=== PATIENT | male | born 1945 | race Caucasian/White ===

== ENCOUNTER 2016-10-06 11:49 | Day surgery (SDC) | payer MEDICARE ==
[2016-10-05 08:20] VITALS: BMI 25.0
[~2016-10-06 11:49] MED LIST: LACTATED RINGERS 1,000 ML IV SCH
[2016-10-06 12:12] VITALS: TEMP 97.9
[2016-10-06] MEDS: CYCLOPENTOLATE 1% OPHTH SOLN 2 ML BTL OP ONE ×3 (12:24→12:37)
[2016-10-06] MEDS ORDERED: LIDOCAINE 1% 20 ML VIAL (10MG/ML) FOR IV START INTRADERMA ONE (12:25)
[2016-10-06] MEDS: FLURBIPROFEN 0.03% OPHTH DROPS 2.5 ML BTL OP ONE ×3 (12:26→12:40)
[2016-10-06] MEDS: PHENYLEPHRINE 10% OPHTH DROPS 5 ML BTL OP ONE ×3 (12:28→12:43)
[2016-10-06] MEDS ORDERED: PROPOFOL 10 MG/ML 20 ML VIAL IV ONE (13:17)
[2016-10-06] MEDS ORDERED: BALANCED SALT IRRIG SOLN COMB2 15 ML IRRIG.SOLN INTRAOCULA ONE (13:23)
[2016-10-06] MEDS ORDERED: HYALURONATE SODIUM INTRAOCULAR 1 EACH SYRINGE (10MG/ML) INTRAOCULA ONE (13:23)
[2016-10-06] MEDS ORDERED: EPINEPHrine (PF) 0.5 ML in BALANCED SALT IRRIG SOLN COMB2 500 ML IRRIGATION ONE (13:24)
--- NOTE | 2016-10-06 13:39 | P.OP ---
Date of Procedure: 10/06/16 Procedure(s) Performed: PREOPERATIVE DIAGNOSIS: Cataract, right eye. POSTOPERATIVE DIAGNOSIS: Cataract, right eye. OPERATION: Phacoemulsification cataract, right eye. DESCRIPTION OF PROCEDURE: The patient was taken to the preoperative holding area. Intravenous Propofol was given so as to bring about adequate sedation. The following mixture was given for local anesthesia: 5 mL of 2% lidocaine, 5 mL of 0.75% Marcaine, and 1 mL of Wydase. Approximately 4 mL was injected in the retrobulbar space of the surgical eye. Additional 1 mL was then directed to the temporal area of the surgical eye. This was performed to allow adequate neurological block of the facial muscles. The patient was revived and then taken into the operative room. The patient was prepped and draped in the usual sterile manner for the operative eye. A lid speculum was put into position. The conjunctiva was resected back from the limbus in the 12 o'clock position. Bleeding was controlled with electrocautery. A #69 blade was then used and a half-thickness scleral incision approximately 1-mm posterior to the limbus was made on bare sclera. This was shelved in the clear cornea using a crescent knife. Next a 15-degree blade was used to make a stab incision at the 3 o' clock position at the corneolimbal interface. Keratome blade was then used and the superior wound was extended into the anterior chamber. Viscoelastic was injected into the anterior chamber and to maintain its form. Next, a cystotome was used and a continuous anterior capsulotomy was made without difficulty. Hydrodissection using a blunt cannula and BSS was performed. Phaco probe was then employed and a groove extending from 12 to 6 o'clock in the lens was created. A Gera wand was used through the stab incision so as to perform a divide and conquer technique. Next an irrigation aspiration probe was utilized and any residual cortex was removed from the eye. Again, viscoelastic was injected into the anterior chamber. An Nicolás posterior chamber lens implant was placed in the cartridge and injected into the anterior chamber without difficulty. The Sin[employer]Movieey hook was utilized to spin the lens into position and this was again performed without any difficulty. The irrigation and aspiration probe was again employed and any residual viscoelastic was removed from the eye. Then BSS was injected into the limbal stab incision and the anterior chamber re-inflated. The conjunctiva was reapproximated using electrocautery. One drop of 0.25% Timoptic was placed over the corneal along with TobraDex ophthalmic ointment. Two sterile patches and a Buenrostro eye shield were taped into position. The patient was transported to the recovery room in stable condition. Pathology: none sent Condition: stable Disposition: same day
[2016-10-06 14:03] VITALS: RESP 18
[2016-10-06 14:09] VITALS: BP 184/86; PULSE 52
[2016-10-06] MEDS ORDERED: GENTAMICIN/PREDNISOL AC OPHTH OINT 3.5GM OPHTHALMIC ONE (23:00)
[2016-10-06] MEDS ORDERED: BUPIVACAINE (PF) 0.75% 5 ML, LIDOCAINE 4% (PF) 5 ML, HYALURONIDASE, HUMAN RECOMB 150 UNIT MISCELLANE ONE ×3 (23:00)
[2016-10-06] MEDS ORDERED: TIMOLOL 0.5% OPHTH SOLN (PF) 0.2 ML DROPERETTE OP ONE (23:00)
== END 2016-10-06 14:25 | disposition home or self-care (01) ==
LOC: OR 11:49
PROVIDERS: ATTEND Ophthalmology
DX: H26.9 Unspecified cataract (principal); E78.5 Hyperlipidemia, unspecified; E07.9 Disorder of thyroid, unspecified; F32.9 Major depressive disorder, single episode, unspecified; Z85.01 Personal history of malignant neoplasm of esophagus; Z79.899 Other long term (current) drug therapy
CPT/HCPCS: 66984; V2632; J2001; J3470; J0171; J2704

== ENCOUNTER 2016-11-17 10:42 | Day surgery (SDC) | payer MEDICARE ==
[2016-11-11 08:53] VITALS: BMI 26.4
[2016-11-17] MEDS: CYCLOPENTOLATE 1% OPHTH SOLN 2 ML BTL OP ONE ×3 (11:40→12:03)
[2016-11-17 11:42] VITALS: TEMP 97.4
[2016-11-17] MEDS: FLURBIPROFEN 0.03% OPHTH DROPS 2.5 ML BTL OP ONE ×3 (11:43→12:06)
[2016-11-17] MEDS: PHENYLEPHRINE 10% OPHTH DROPS 5 ML BTL OP ONE ×3 (11:47→12:09)
[2016-11-17] MEDS ORDERED: LIDOCAINE 1% 20 ML VIAL (10MG/ML) FOR IV START INTRADERMA ONE (11:51)
[2016-11-17] MEDS ORDERED: PROPOFOL 10 MG/ML 20 ML VIAL IV ONE (12:14)
[2016-11-17] MEDS ORDERED: MIDAZOLAM 2 MG/2 ML VIAL ONE (12:14)
[2016-11-17] MEDS ORDERED: fentaNYL (PF) 50 MCG/ML 2 ML AMP ONE (12:14)
[2016-11-17] MEDS ORDERED: EPINEPHrine (PF) 0.5 ML in BALANCED SALT IRRIG SOLN COMB2 500 ML IRRIGATION ONE (12:16)
[2016-11-17] MEDS ORDERED: HYALURONATE SODIUM INTRAOCULAR 1 EACH SYRINGE (10MG/ML) INTRAOCULA ONE (12:19)
[2016-11-17] MEDS ORDERED: BALANCED SALT IRRIG SOLN COMB2 15 ML IRRIG.SOLN IRRIGATION ONE (12:19)
--- NOTE | 2016-11-17 12:36 | P.OP ---
Date of Procedure: 11/17/16 Preoperative Diagnosis: Postoperative Diagnosis: Procedure(s) Performed: PREOPERATIVE DIAGNOSIS: Cataract, left eye. POSTOPERATIVE DIAGNOSIS: Cataract, left eye. OPERATION: Phacoemulsification cataract, left eye. DESCRIPTION OF PROCEDURE: The patient was taken to the preoperative holding area. Intravenous Propofol was given so as to bring about adequate sedation. The following mixture was given for local anesthesia: 5 mL of 2% lidocaine, 5 mL of 0.75% Marcaine, and 1 mL of Wydase. Approximately 4 mL was injected in the retrobulbar space of the surgical eye. Additional 1 mL was then directed to the temporal area of the surgical eye. This was performed to allow adequate neurological block of the facial muscles. The patient was revived and then taken into the operative room. The patient was prepped and draped in the usual sterile manner for the operative eye. A lid speculum was put into position. The conjunctiva was resected back from the limbus in the 12 o'clock position. Bleeding was controlled with electrocautery. A #69 blade was then used and a half-thickness scleral incision approximately 1-mm posterior to the limbus was made on bare sclera. This was shelved in the clear cornea using a crescent knife. Next a 15-degree blade was used to make a stab incision at the 3 o' clock position at the corneolimbal interface. Keratome blade was then used and the superior wound was extended into the anterior chamber. Viscoelastic was injected into the anterior chamber and to maintain its form. Next, a cystotome was used and a continuous anterior capsulotomy was made without difficulty. Hydrodissection using a blunt cannula and BSS was performed. Phaco probe was then employed and a groove extending from 12 to 6 o'clock in the lens was created. A Gera wand was used through the stab incision so as to perform a divide and conquer technique. Next an irrigation aspiration probe was utilized and any residual cortex was removed from the eye. Again, viscoelastic was injected into the anterior chamber. An Nicolás posterior chamber lens implant was placed in the cartridge and injected into the anterior chamber without difficulty. The Althea Systemsey hook was utilized to spin the lens into position and this was again performed without any difficulty. The irrigation and aspiration probe was again employed and any residual viscoelastic was removed from the eye. Then BSS was injected into the limbal stab incision and the anterior chamber re-inflated. The conjunctiva was reapproximated using electrocautery. One drop of 0.25% Timoptic was placed over the corneal along with TobraDex ophthalmic ointment. Two sterile patches and a Buenrostro eye shield were taped into position. The patient was transported to the recovery room in stable condition. Implants: Pathology: none sent Condition: stable Disposition: same day Indications for Procedure: Operative Findings: Description of Procedure:
[2016-11-17 12:46] VITALS: BP 157/101; PULSE 59; RESP 14
[2016-11-17] MEDS ORDERED: BUPIVACAINE (PF) 0.75% 5 ML, LIDOCAINE 4% (PF) 5 ML, HYALURONIDASE, HUMAN RECOMB 150 UNIT MISCELLANE ONE ×3 (23:00)
[2016-11-17] MEDS ORDERED: TIMOLOL 0.5% OPHTH SOLN (PF) 0.2 ML DROPERETTE OP ONE (23:00)
[2016-11-17] MEDS ORDERED: GENTAMICIN/PREDNISOL AC OPHTH OINT 3.5GM OPHTHALMIC ONE (23:00)
== END 2016-11-17 13:22 | disposition home or self-care (01) ==
LOC: OR 10:42
PROVIDERS: ATTEND Ophthalmology
DX: H26.9 Unspecified cataract (principal); E78.5 Hyperlipidemia, unspecified; E07.9 Disorder of thyroid, unspecified; C15.9 Malignant neoplasm of esophagus, unspecified; Z79.899 Other long term (current) drug therapy; Z96.1 Presence of intraocular lens
CPT/HCPCS: 66984; V2632; J2001; J2250; J3470; J0171; J3010; J2704

== ENCOUNTER → 2018-06-06 | Outpatient (CLI) | payer MEDICARE ==
[2018-06-06 11:17] LABS: Blood Urea Nitrogen 21 mg/dL (9-20)
--- NOTE | 2018-06-06 11:58 | CT ---
EXAMINATION TYPE: CT chest w con DATE OF EXAM: 06/06/2018 COMPARISON: Prior chest CT May 24, 2017 and older CTs HISTORY: esophagus CA progress study. Diagnosed and treated [address] DLP: 456.1 mGycm. Automated Exposure Control for Dose Reduction was Utilized. TECHNIQUE: CT scan of the thorax is performed following with IV Contrast, patient injected with 100 mL of Isovue 300. FINDINGS: LUNGS: There is ventricular coronal reticulation and fibrosis throughout both lungs most prominent in the lower lungs. There is small to tiny left pleural effusion increased in size from prior. No signi ficant right-sided effusion is seen currently. Dependent atelectasis in bilateral lower lobes is rede monstrated. No pneumothorax is seen bilaterally. Mild central peribronchial wall thickening is redemo nstrated. MEDIASTINUM: There is surgical change from esophagectomy and gastric pull-up procedure redemonstrated . Mild to moderate wall thickening in the proximal pull-up subcarinal level is redemonstrated. Distal to this there is dilatation and retained debris redemonstrated without obstructing distal stricture clearly seen. In the lower thorax there is redemonstration of herniation of portions of transverse co vivien to the left of the gastric pull-up. No suspicious dilatation to suggest obstruction is present. There are stable prominent but subcentimeter mediastinal lymph nodes. No pericardial effusion is se en. Heart size is stable and upper limits of normal. Coronary artery calcification is present which is noted marker for Coronary artery disease. Ascending aorta measures up to 4.0 cm diameter axial rafiq ge 29. OTHER: A few simple appearing cysts in left kidney are felt present. Cholecystectomy clips are redemo nstrated. IMPRESSION: Overall stable findings, no new mass or adenopathy to suggest neoplastic recurrence. Smal l to tiny left pleural effusion is larger versus prior.
== END | disposition home or self-care (01) ==
LOC: RADCTMAIN 10:29
PROVIDERS: ATTEND Thoracic Surgery (Cardiothoracic Vascular Surgery)
DX: C15.5 Malignant neoplasm of lower third of esophagus (principal)
CPT/HCPCS: 82565; 84520; 71260; 36415; Q9967

== ENCOUNTER → 2019-06-07 | Outpatient (CLI) | payer MEDICARE ==
[2019-06-07 11:37] LABS: African American GFR (CKD) >90 (>60 ml/min/1.73 sqM); Blood Urea Nitrogen 8 mg/dL (9-20); Non-African American GFR(CKD) 87 (>60 ml/min/1.73 sqM)
--- NOTE | 2019-06-07 17:16 | CT ---
EXAMINATION TYPE: CT chest w con DATE OF EXAM: 06/07/2019 COMPARISON: HISTORY: Malignant neoplasm of lower third of esophagus CT DLP: 663 mGycm, Automated exposure control for dose reduction was used. CONTRAST: Performed injected with 100 mL of Isovue 300. TECHNIQUE: Axial images were obtained at 5 mm thick sections. Reconstructed images are reviewed on [employer] computer in the coronal plane. FINDINGS: Portion of the thyroid visualized is normal. No suspicious lung nodules or focal infiltrates are present. There appears to be pulmonary fibrosis p resent especially noted at the right lung base. No enlarged mediastinal or hilar adenopathy is evident. Multiple small shotty lymph nodes are prese nt. The ascending aorta diameter at the level of the main pulmonary artery is 4.1 cm. The main pulmo nary artery diameter at the bifurcation is 2.[address] sections are obtained through the upper abdomen. There is a gastric pull-through. Left dejon al cyst is present. IMPRESSIONS: 1. No suspicious interval change to suggest metastatic esophageal cancer. 2. Pulmonary fibrosis
== END | disposition home or self-care (01) ==
LOC: RADCTMAIN 10:56
PROVIDERS: ATTEND Thoracic Surgery (Cardiothoracic Vascular Surgery)
DX: C15.5 Malignant neoplasm of lower third of esophagus (principal); J84.10 Pulmonary fibrosis, unspecified
CPT/HCPCS: 82565; 84520; 71260; 36415; Q9967

== ENCOUNTER → 2020-06-24 | Outpatient (CLI) | payer MEDICARE ==
[2020-06-24 10:34] LABS: African American GFR (CKD) >90 (>60 ml/min/1.73 sqM); Blood Urea Nitrogen 12 mg/dL (9-20); Non-African American GFR(CKD) 84 (>60 ml/min/1.73 sqM)
--- NOTE | 2020-06-24 12:02 | CT ---
EXAMINATION TYPE: CT angio abdomen DATE OF EXAM: 06/24/2020 COMPARISON: CTA aorta October 20, 2013 HISTORY: follow up known abdominal aortic aneurysm CT DLP: 385.1 mGycm, Automated Exposure Control for Dose Reduction was Utilized. CONTRAST: CTA scan of the abdomen and pelvis is performed with oral and with IV Contrast, patient injected with 100 mL of Isovue 370. 3-D reconstructive images created on an independent workstation and reviewed. FINDINGS: VASCULAR: Interval aneurysm surgery with new graft that shows patency. The [place] aneurysm measures u p to 3.1 cm transversely axial image 44. Distal to the surgery there is moderate to severe plaque in the iliac arterial branches with less prominent plaque extending into the femoral artery branches. No significant stenosis is present. There is a patent celiac artery and SMA without significant stenosi s. Patent bilateral single renal arteries remain present. The accessory inferior left renal artery on prior study axial image 37 is now less well seen. It is presumed occluded or now surgically absent c ausing the nonperfusion atrophy anterior lower pole left kidney. LUNG BASES: Dependent atelectasis and/or scarring right lung base redemonstrated. LIVER/GB: Cholecystectomy clips redemonstrated. PANCREAS: No significant abnormality is seen. SPLEEN: No significant abnormality is seen. ADRENALS: No significant abnormality is seen. KIDNEYS: New area of diminished perfusion and cortical volume loss anteriorly lower pole of the left kidney measures 36. There is a stable 1.6 cm thin-walled cyst posteriorly midpole of the left kidney axial image 31. BOWEL: Partial visualization of at least moderate size hiatal hernia. Prominent diverticulosis in the sigmoid colon. No CT evidence for acute diverticulitis. PROSTATE/SEMINAL VESICLES: Mildly enlarged prostate bulging on bladder base. LYMPH NODES: No greater than 1cm abdominal or pelvic lymph nodes are appreciated. OSSEOUS STRUCTURES: Underlying scoliotic curvature. Mild/moderate narrowing and spurring of both hip joints. OTHER: No significant additional abnormality is seen. IMPRESSION: Interval surgery since 2013 with patent aortobiiliac graft, marked improvement in prior v isualized AAA after surgery.
== END | disposition home or self-care (01) ==
LOC: RADCTMAIN 09:26
PROVIDERS: ATTEND Thoracic Surgery (Cardiothoracic Vascular Surgery)
DX: I71.4 Abdominal aortic aneurysm, without rupture (principal)
CPT/HCPCS: 82565; 84520; 74175; 36415; Q9967

== ENCOUNTER 2022-04-06 06:32 | Inpatient (IN) | payer MEDICARE ==
--- NOTE | 2022-04-06 07:02 | XR ---
EXAMINATION TYPE: XR chest 2V DATE OF EXAM: 04/06/2022 6:57 AM COMPARISON: Chest radiographs from 12/06/2013, CT chest 06/07/2019. TECHNIQUE: XR chest 2V Frontal and lateral views of the chest. CLINICAL INDICATION:Male, 77 years old with history of Chest Pain; FINDINGS: Lungs/Pleura: There is flattening of the diaphragm with increased lucency of the lungs. No evidence o f pneumothorax or pleural effusion. Bibasilar patchy airspace opacities. Pulmonary vascularity: Unremarkable. Heart/mediastinum: Cardiomediastinal silhouette is unremarkable. Musculoskeletal: No acute osseous pathology. Degenerative changes of the spine. IMPRESSION: 1. Bibasilar patchy airspace opacities which may represent atelectasis versus infiltrate. 2. COPD changes.
[2022-04-06] MEDS ORDERED: FAMOTIDINE 20 MG/2 ML VIAL IV STA (07:16)
[2022-04-06] MEDS ORDERED: ONDANSETRON 4 MG/2 ML VIAL IVP STA (07:16)
[2022-04-06 07:21] LABS: Basophils % (A) 0 %; Eosinophils % (A) 0 %; HCT 45.9 % (39.0-53.0); HGB 15.2 gm/dL (13.0-17.5); Lymphocytes # (A) 0.6 k/uL (1.0-4.8); Lymphocytes % (A) 6 %; MCH 30.8 pg (25.0-35.0); MCHC 33.1 g/dL (31.0-37.0); MCV 93.3 fL (80.0-100.0); Monocytes # (A) 0.5 k/uL (0-1.0); Monocytes % (A) 5 %; Neutrophils # (A) 8.4 k/uL (1.3-7.7); Neutrophils % (A) 87 %; Platelet Count 143 k/uL (150-450); RBC 4.92 m/uL (4.30-5.90); RDW 14.6 % (11.5-15.5); WBC 9.6 k/uL (3.8-10.6)
--- NOTE | 2022-04-06 07:21 | ED ---
General Adult HPI - General Chief complaint: Abdominal Pain Stated complaint: Abdominal pain Time Seen by Provider: 04/06/22 06:56 Source: patient, family, RN notes reviewed Mode of arrival: ambulatory Limitations: no limitations - History of Present Illness Initial comments: Patient is a pleasant 77-year-old male presenting to the emergency Department with abdominal pain. Majority of history comes from family. Onset of symptoms was a few hours ago during the night. Patient has abdominal discomfort, mostly lower. Difficult to describe. No history of similar symptoms previously. Patient does have associated nausea and has vomited. Patient has had some mild constipation. No diarrhea. No fever. - Related Data Home Medications Medication Instructions Recorded Confirmed Atorvastatin [Lipitor] 10 mg PO QAM 11/30/13 11/17/16 PARoxetine HCL [Paroxetine HCl] 20 mg PO QAM 11/30/13 11/17/16 Levothyroxine Sodium [Synthroid] 25 mcg PO DAILY 10/05/16 11/17/16 Allergies Allergy/AdvReac Type Severity Reaction Status Date / Time No Known Allergies Allergy Verified 04/06/22 06:46 Review of Systems ROS Statement: Those systems with pertinent positive or pertinent negative responses have been documented in the HPI. ROS Other: All systems not noted in ROS Statement are negative. Constitutional: Denies: fever Eyes: Denies: eye pain ENT: Denies: ear pain Respiratory: Denies: cough Cardiovascular: Denies: chest pain Endocrine: Denies: fatigue Gastrointestinal: Reports: as per HPI, abdominal pain, nausea, vomiting Genitourinary: Denies: dysuria Musculoskeletal: Reports: other (Patient also has back discomfort associated) Skin: Denies: rash Neurological: Denies: weakness Past Medical History Past Medical History: Cancer, Hearing Disorder / Deafness, Hyperlipidemia, Pneumonia, Prostate Disorder Additional Past Medical History / Comment(s): Esophageal Cancer 2012; cochlear implants for loss of hearing History of Any Multi-Drug Resistant Organisms: None Reported Past Surgical History: Cholecystectomy Additional Past Surgical History / Comment(s): esophagectemy in May 2013, Abdominal Aortic Aneurysm repair on December 06, 2013; cochlear implant in 2009, cholecystectomy in 2007 Past Anesthesia/Blood Transfusion Reactions: No Reported Reaction Past Psychological History: No Psychological Hx Reported Smoking Status: Never smoker Past Alcohol Use History: Occasional Past Drug Use History: Marijuana - Past Family History Brother(s) Family Medical History: Unable to Obtain Additional Family Medical History / Comment(s): patient states that he was adopted when he was 3 from a [place] [facility] along with his little sister, later found that he had 2 half brothers and 2 half sisters, no medical problems as far as he knows. does not know whether his biological mother and father had any medical issues General Exam Limitations: no limitations General appearance: alert Head exam: Present: normocephalic Eye exam: Present: normal appearance Neck exam: Present: normal inspection Respiratory exam: Present: normal lung sounds bilaterally Cardiovascular Exam: Present: regular rate, normal rhythm Expanded Peripheral pulses: 2+: Posterior Tibialis (R), Posterior Tibialis (L), Dorsalis Pedis (R), Dorsalis Pedis (L) GI/Abdominal exam: Present: soft, tenderness (Moderate lower abdominal tenderness to palpation), normal bowel sounds. Absent: distended, guarding, rebound, rigid, pulsatile mass Extremities exam: Present: normal inspection Neurological exam: Present: alert Psychiatric exam: Present: normal affect, normal mood Skin exam: Present: normal color Course Vital Signs 04/06/22 04/06/22 04/06/22 06:43 07:50 09:03 Temperature 98 F Pulse Rate 70 74 72 Respiratory 19 22 18 Rate Blood Pressure 195/106 175/111 170/103 O2 Sat by Pulse 98 98 99 Oximetry EKG Findings - EKG Comments: EKG Findings:: H a rhythm rate of 76. QRS 146. QT 422. QTC 456. Left axis. Right bundle branch block. No acute ST change. Nonspecific T waves. Medical Decision Making - Medical Decision Making Patient reevaluated. Patient starting to return of discomfort. Patient and family updated. Patient remains hypertensive. Antihypertensive medication provided. Patient will be admitted with surgical consult. [facility] [place] has been paged covering for Dr. Gee, who admits for Dr. Jack Bowman. - Lab Data Result diagrams: 04/06/22 06:49 04/06/22 06:49 Lab Results 04/06/22 04/06/22 04/06/22 Range/Units 06:49 06:49 06:49 WBC 9.6 (3.8-10.6) k/uL RBC 4.92 (4.30-5.90) m/uL Hgb 15.2 (13.0-17.5) gm/dL Hct 45.9 (39.0-53.0) % MCV 93.3 (80.0-100.0) fL MCH 30.8 (25.0-35.0) pg MCHC 33.1 (31.0-37.0) g/dL RDW 14.6 (11.5-15.5) % Plt Count 143 L (150-450) k/uL MPV 9.0 Neutrophils % 87 % Lymphocytes % 6 % Monocytes % 5 % Eosinophils % 0 % Basophils % 0 % Neutrophils # 8.4 H (1.3-7.7) k/uL Lymphocytes # 0.6 L (1.0-4.8) k/uL Monocytes # 0.5 (0-1.0) k/uL Eosinophils # 0.0 (0-0.7) k/uL Basophils # 0.0 (0-0.2) k/uL PT 11.4 (9.0-12.0) sec INR 1.1 (<1.2) APTT 23.0 (22.0-30.0) sec Sodium 136 L (137-145) mmol/L Potassium 3.7 (3.5-5.1) mmol/L Chloride 100 (98-107) mmol/L Carbon Dioxide 25 (22-30) mmol/L Anion Gap 11 mmol/L BUN 11 (9-20) mg/dL Creatinine 0.70 (0.66-1.25) mg/dL Est GFR (CKD-EPI)AfAm >90 (>60 ml/min/1.73 sqM) Est GFR (CKD-EPI)NonAf >90 (>60 ml/min/1.73 sqM) Glucose 170 H (74-99) mg/dL Calcium 8.1 L (8.4-10.2) mg/dL Magnesium 1.7 (1.6-2.3) mg/dL Total Bilirubin 0.7 (0.2-1.3) mg/dL AST 47 (17-59) U/L ALT 24 (4-49) U/L Alkaline Phosphatase 152 H (38-126) U/L Troponin I (0.000-0.034) ng/mL Total Protein 8.1 (6.3-8.2) g/dL Albumin 3.6 (3.5-5.0) g/dL Amylase 80 (30-110) U/L Lipase 82 (23-300) U/L 04/06/22 Range/Units 06:49 WBC (3.8-10.6) k/uL RBC (4.30-5.90) m/uL Hgb (13.0-17.5) gm/dL Hct (39.0-53.0) % MCV (80.0-100.0) fL MCH (25.0-35.0) pg MCHC (31.0-37.0) g/dL RDW (11.5-15.5) % Plt Count (150-450) k/uL MPV Neutrophils % % Lymphocytes % % Monocytes % % Eosinophils % % Basophils % % Neutrophils # (1.3-7.7) k/uL Lymphocytes # (1.0-4.8) k/uL Monocytes # (0-1.0) k/uL Eosinophils # (0-0.7) k/uL Basophils # (0-0.2) k/uL PT (9.0-12.0) sec INR (<1.2) APTT (22.0-30.0) sec Sodium (137-145) mmol/L Potassium (3.5-5.1) mmol/L Chloride (98-107) mmol/L Carbon Dioxide (22-30) mmol/L Anion Gap mmol/L BUN (9-20) mg/dL Creatinine (0.66-1.25) mg/dL Est GFR (CKD-EPI)AfAm (>60 ml/min/1.73 sqM) Est GFR (CKD-EPI)NonAf (>60 ml/min/1.73 sqM) Glucose (74-99) mg/dL Calcium (8.4-10.2) mg/dL Magnesium (1.6-2.3) mg/dL Total Bilirubin (0.2-1.3) mg/dL AST (17-59) U/L ALT (4-49) U/L Alkaline Phosphatase (38-126) U/L Troponin I 0.012 (0.000-0.034) ng/mL Total Protein (6.3-8.2) g/dL Albumin (3.5-5.0) g/dL Amylase (30-110) U/L Lipase (23-300) U/L - Radiology Data Radiology results: report reviewed (Computed tomography scan concerning for small bowel obstruction) Disposition Clinical Impression: Small bowel obstruction, Hypertension Disposition: ADMITTED IP TO THIS HOSP Is patient prescribed a controlled substance at d/c from ED?: No Referrals: Kuldip Bowman MD [Primary Care Provider] - 1-2 days Time of Disposition: 09:26
[2022-04-06 07:33] LABS: INR 1.1 (<1.2); Prothrombin Time 11.4 sec (9.0-12.0)
[2022-04-06 07:35] LABS: ALT 24 U/L (4-49); AST 47 U/L (17-59); African American GFR (CKD) >90 (>60 ml/min/1.73 sqM); Albumin 3.6 g/dL (3.5-5.0); Alkaline Phosphatase 152 U/L (38-126); Amylase 80 U/L (30-110); Anion Gap 11 mmol/L; Blood Urea Nitrogen 11 mg/dL (9-20); Calcium 8.1 mg/dL (8.4-10.2); Carbon Dioxide 25 mmol/L (22-30); Chloride 100 mmol/L (98-107); Glucose 170 mg/dL (74-99); Lipase 82 U/L (23-300); Magnesium 1.7 mg/dL (1.6-2.3); Non-African American GFR(CKD) >90 (>60 ml/min/1.73 sqM); Potassium 3.7 mmol/L (3.5-5.1); Sodium 136 mmol/L (137-145); Total Bilirubin 0.7 mg/dL (0.2-1.3); Total Protein 8.1 g/dL (6.3-8.2)
[2022-04-06] MEDS: HYDROmorphone 0.5 MG/0.5 ML SYRINGE IVP STA ×2 (07:49→09:35)
--- NOTE | 2022-04-06 08:56 | CT ---
EXAMINATION TYPE: CT abdomen pelvis w con CT DLP: 1088.4 mGycm, Automated exposure control for dose reduction was used. DATE OF EXAM: 04/06/2022 8:37 AM COMPARISON: CTA abdomen 06/24/2020, CT chest 06/07/2019 CLINICAL INDICATION:Male, 77 years old with history of abp; TECHNIQUE: Standard CT of the abdomen and pelvis following the administration of 100 cc of Isovue 3 00 IV contrast material. Coronal and sagittal reformats were performed. FINDINGS: LOWER CHEST: Similar pulmonary fibrotic changes especially in the right lung base. There is some righ t lower lobe consolidation. Left lower lobe stable 7 mm pulmonary nodule which is stable from prior c hest examination. Coronary artery calcifications. ABDOMEN LIVER: Unremarkable. GALLBLADDER AND BILE DUCTS: The gallbladder is surgically absent. Mild extrahepatic ductal dilatation which is not unexpected setting of cholecystectomy. PANCREAS: Unremarkable. SPLEEN: Unremarkable. ADRENAL GLANDS: Unremarkable. KIDNEYS AND URETERS: No hydronephrosis. The kidneys enhance symmetrically. Bilateral nonobstructive 3 mm renal calculi. Stable bilateral renal cysts with largest on the left measuring up to 2.7 PELVIS BLADDER: Unremarkable REPRODUCTIVE: Coarse calcifications of the prostate gland are identified. ABDOMEN & PELVIS STOMACH AND BOWEL: Postsurgical changes from esophagectomy with gastric pull-up.Under distended fluid -filled small bowel within the right abdomen measuring up to 2.7 cm. There is wall thickening involvi ng the inferior segments with surrounding fat stranding. No bowel feces sign demonstrated. There is f ocal transition within the right mid abdomen (series 201, image 57). Mesenteric congestion identified . No pneumatosis or portal venous gas. Distal colonic diverticulosis without evidence for acute diver ticulitis. The appendix is within normal limits. PERITONEUM: No evidence of pneumoperitoneum. Small volume ascites and mesenteric congestion. VASCULATURE: Postsurgical changes from aneurysm surgery with stent graft is patent. The [place] aneury sm measures up to 3.1 cm transversely is stable from prior examination. Distal to the surgery there i s moderate to severe plaque in the iliac arterial branches. MUSCULOSKELETAL: No acute osseous abnormalities. No aggressive osseous lesions. Degenerative changes visualized spine. Partial ankylosis of the T11-T12 vertebral bodies. LYMPH NODES: No gross evidence for lymphadenopathy. SOFT TISSUE/ABDOMINAL WALL: Small right hernia containing fat and ascites. IMPRESSION: 1. Mildly distended fluid-filled small bowel with small bowel feces sign and focal transition point in the right midabdomen. There is wall thickening and mesenteric congestion without evidence of pneum atosis or portal venous gas. Findings suggest small bowel obstruction. 2. Small volume ascites, likely reactive #1. 3. Pulmonary fibrotic changes with right lower lobe consolidation concerning for infectious process. 4. Colonic diverticulosis without evidence for acute diverticulitis. 5. Patent aortobiiliac stent graft without significant change from prior examination. 6. Obstructive bilateral renal calculi. 7. Postsurgical changes of the esophagus and stomach.
[2022-04-06] MEDS ORDERED: ENALAPRILAT 1.25 MG/ML 1 ML VIAL IVP STA (09:16)
[2022-04-06] MEDS ORDERED: NALOXONE 0.4 MG/ML 1 ML VIAL IV PRN (09:27)
[2022-04-06] MEDS ORDERED: HYDROmorphone 0.5 MG/0.5 ML SYRINGE IVP STA (09:29)
[2022-04-06] MEDS: SODIUM CHLORIDE 0.9% 1,000 ML IV SCH ×2 (09:35→18:16)
--- NOTE | 2022-04-06 11:19 | P.HPIM ---
History of Present Illness She is a pleasant 77 years old male with past medical history of Hearing Disorder / Deafness, Hyperlipidemia, benign prostatic hypertrophy, esophageal cancer in 2013 status post esophagectomy on 05/1213, cochlear implants for loss of hearing Presents because of epigastric pain and vomiting. he states he started having upper abdominal pain last night, it was bad enough that he decided to come to emergency room. He did not have bowel movement yesterday but he had one here in the emergency room which was kind of fluids. He had nausea and frequent vomiting while coming to the hospital but mainly phlegm. Patient has history of prostatectomy and he has chronic cough and muscle that time phlegm comes up. No chest pain. He has little with exertion. No headache or weakness or numbness. No urinary complaints. He denies smoking, alcohol or illicit drugs currently. His PCP is Dr. Kuldip Bowman Vitals are reviewed, patient is afebrile, blood pressure elevated 195/106 on admission. Currently blood pressure improved 163/87 Labs show an unremarkable CBC, INR, BMP. Liver enzymes elevated. Lipase is normal. EKG showing atrial fibrillation with a rate of [address] of the abdomen and pelvis with contrast: Mildly distended fluid-filled small bowel with small bowel feces and focal transition point in the right mid abdome n. There is wall thickening and mesenteric congestion without evidence of pneumatosis or portal venous gas. Findings suggest small bowel obstruction. Associated with small volume ascites. Also patient has pulmonary fibrotic changes with right lower lobe consolidation concerning for infectious process. Colonic diverticulosis without diverticulitis. non-Obstructive bilateral renal calculi Chest x-ray: Bibasilar patchy airspace opacities which may represent atelectasis versus infiltrate. COPD. Review of Systems Review of systems CONSTITUTIONAL: No fever, no malaise, no fatigue. HEENT: No recent visual problems or hearing problems. Denied any sore throat. CARDIOVASCULAR: No orthopnea, PND, no palpitations, no syncope. PULMONARY: No shortness of breath, no cough, no hemoptysis. GASTROINTESTINAL: no abdominal pain. Normoactive bowel sounds. NEUROLOGICAL: No headaches, no weakness, no numbness. HEMATOLOGICAL: Denies any bleeding or petechiae. GENITOURINARY: Denies any burning micturition, frequency, or urgency. MUSCULOSKELETAL/RHEUMATOLOGICAL: Denies any joint pain, swelling, or any muscle pain. ENDOCRINE: Denies any polyuria or polydipsia. Past Medical History Past Medical History: Cancer, Hearing Disorder / Deafness, Hyperlipidemia, Pneumonia, Prostate Disorder Additional Past Medical History / Comment(s): Esophageal Cancer 2012; cochlear implants for loss of hearing History of Any Multi-Drug Resistant Organisms: None Reported Past Surgical History: Cholecystectomy Additional Past Surgical History / Comment(s): esophagectemy in May 2013, Abdominal Aortic Aneurysm repair on December 06, 2013; cochlear implant in 2009, cholecystectomy in 2007 Past Anesthesia/Blood Transfusion Reactions: No Reported Reaction Past Psychological History: No Psychological Hx Reported Smoking Status: Never smoker Past Alcohol Use History: Occasional Past Drug Use History: Marijuana - Past Family History Brother(s) Family Medical History: Unable to Obtain Additional Family Medical History / Comment(s): patient states that he was adopted when he was 3 from a [place] orphanage along with his little sister, later found that he had 2 half brothers and 2 half sisters, no medical problems as far as he knows. does not know whether his biological mother and father had any medical issues Medications and Allergies Home Medications Medication Instructions Recorded Confirmed Type Atorvastatin [Lipitor] 10 mg PO QAM 11/30/13 11/17/16 History PARoxetine HCL [Paroxetine HCl] 20 mg PO QAM 11/30/13 11/17/16 History Levothyroxine Sodium [Synthroid] 25 mcg PO DAILY 10/05/16 11/17/16 History Allergies Allergy/AdvReac Type Severity Reaction Status Date / Time No Known Allergies Allergy Verified 04/06/22 10:50 Physical Exam Vitals: Vital Signs Temp Pulse Resp BP Pulse Ox 04/06/22 10:20 81 18 163/87 98 04/06/22 09:03 72 18 170/103 99 04/06/22 07:50 74 22 175/111 98 04/06/22 06:43 98 F 70 19 195/106 98 Intake and Output 04/05/22 04/06/22 04/06/22 22:59 06:59 14:59 Other: Weight 83.915 kg GENERAL: The patient is alert and oriented x3, not in any acute distress. Well developed, well nourished. HEENT: Pupils are round and equally reacting to light. EOMI. No scleral icterus. No conjunctival pallor. Normocephalic, atraumatic. No pharyngeal erythema. No thyromegaly. CARDIOVASCULAR: S1 and S2 present. No murmurs, rubs, or gallops. PULMONARY: Chest is clear to auscultation, no wheezing or crackles. -ABDOMEN: Soft, periumbilical tenderness with mild guarding and no rebound tenderness, nondistended, normoactive bowel sounds. No palpable organomegaly. MUSCULOSKELETAL: No joint swelling or deformity. EXTREMITIES: No cyanosis, clubbing, or pedal edema. NEUROLOGICAL: Gross neurological examination did not reveal any focal deficits. SKIN: No rashes. no petechiae. Results CBC & Chem 7: 04/06/22 06:49 04/06/22 06:49 Labs: Abnormal Lab Results - Last 24 Hours (Table) 04/06/22 04/06/22 Range/Units 06:49 06:49 Plt Count 143 L (150-450) k/uL Neutrophils # 8.4 H (1.3-7.7) k/uL Lymphocytes # 0.6 L (1.0-4.8) k/uL Sodium 136 L (137-145) mmol/L Glucose 170 H (74-99) mg/dL Calcium 8.1 L (8.4-10.2) mg/dL Alkaline Phosphatase 152 H (38-126) U/L Assessment and Plan Assessment: acute Small bowel obstruction Right lower lobe consolidation suspicious for atelectasis rather than pneumonia Hypertension with urgency, present on admission. Hyperlipidemia Benign prostatic hypertrophy History of esophageal cancer status post esophagectomy History of cochlear implants for hearing difficulty bilateral renal calculi Plan: continue with bowel rest Pain medication IV fluid Surgery consult Patient with no fever or leukocytosis. Therefore we'll not start antibiotics yet. However we'll send culture results and checked forcalcitonin Start clonidine patch and hydralazine when necessary for high blood pressure Labs and medication were reviewed.. Continue same treatment. Continue with symptomatic treatment. Resume home medication. Monitor lytes and vitals. DVT and GI prophylaxis. Further recommendations as per clinical course of the patient DVT prophylaxis: Subcutaneous heparin GI Prophylaxis: Pepcid PT/OT: Pending
[2022-04-06] MEDS: HEPARIN SODIUM,PORCINE/PF 5,000 UNIT/0.5 ML SYRINGE SQ SCH ×2 (12:47→22:20)
[2022-04-06] MEDS: cloNIDine 0.1 MG/24HR PATCH TRANSDERM SCH (12:48)
[2022-04-06 14:22] LABS: Appearance,Urine Clear (Clear); Bilirubin,Urine Negative (Negative); Blood,Urine Small (Negative); Color,Urine Yellow; Glucose,Urine (UA) Negative (Negative); Ketones,Urine 1+ (Negative); Leukocyte Esterase,Urine Negative (Negative); Mucus,Urine Rare /hpf; Nitrite,Urine Negative (Negative); Protein,Urine Negative (Negative); RBC,Urine 20 /hpf (0-5); Urobilinogen,Urine <2.0 mg/dL (<2.0); WBC,Urine 1 /hpf (0-5)
--- NOTE | 2022-04-06 15:00 | P.GSCN ---
History of Present Illness Consult date: 04/06/22 History of present illness: CHIEF COMPLAINT: Abdominal pain HISTORY OF PRESENT ILLNESS: This is a 77-year-old male presented to the ER with complaints of lower and mid abdominal pain with nausea and dry heaves. Symptoms started around midnight last night. He also complains of pain in his lower back. Denies any fever chills or sweats. Denies any prior history of bowel obstruction. He does have a known history of esophageal cancer with esophagectomy and a portion of the stomach removed in 2012 with chemo and radiation. Also, surgical history of cholecystectomy and aortic aneurysm repair. He also has known history of rheumatoid arthritis. He had a computed tomography scan that did show dilated small bowel with a transition point in the right mid abdomen with concerns of small bowel obstruction. Surgical service consulted for small bowel obstruction. Patient does report when he lays on his left side he gets some relief of his pain. Blood pressure has been elevated. Patient Case and exam findings discussed with Dr. Ferreira PAST MEDICAL HISTORY: Esophageal cancer, hyperlipidemia and pneumonia and prostate disorder PAST SURGICAL HISTORY: esophagectomy in May 2013, Abdominal Aortic Aneurysm repair on December 06, 2013; cochlear implant in 2009, cholecystectomy in 2007 MEDICATIONS: See list. ALLERGIES: See list. SOCIAL HISTORY: No illicit drug use. Prior history of smoking, quit 10 years ago REVIEW OF SYSTEMS: CONSTITUTIONAL: Denies fever or chills. HEENT: Denies blurred vision, vision changes, or eye pain. Denies hemoptysis CARDIOVASCULAR: Denies chest pain or pressure. RESPIRATORY: No shortness of breath. GASTROINTESTINAL: See HPI for pertinent findings HEMATOLOGIC: Denies bleeding disorders. GENITOURINARY: Denies any blood in urine or increased urinary frequency. SKIN: Denies pruitis. Denies rash. PHYSICAL EXAM: VITAL SIGNS: Reviewed GENERAL: Well-developed in no acute distress. ABDOMEN: Soft. Mildly distended. Tenderness to palpation of the mid abdomen and lower abdomen. Midline surgical scar NEUROLOGIC: Alert and oriented. Cranial nerves II through XII grossly intact. Hard of hearing LABORATORY DATA: WBC is 9.6 Hgb 15.2 platelet 143 INR 1.1 Sodium is 136 potassium is 3.7 creatinine 0.70 Glucose 170 Magnesium 1.7 AST 47 ALT 24 alk phos 152 Total bili 0.7 Troponin 0.012 Lipase 82 IMAGING: Computed tomography scan abdomen and pelvis mildly distended fluid filled small bowel with small bowel feces and focal transition point in the right mid abdomen. There is wall thickening and mesenteric congestion without evidence of pneumatosis or portal venous gas. Findings suggest small bowel obstruction. Small volume ascites likely reactive to #1. Pulmonary fibrotic changes with right lower lobe consolidation concerning for infectious process. Colonic diverticulosis without evidence for acute diverticulitis. Patent aortobiiliac stent graft without significant change from prior exam. nonobstructive bilateral renal calculi. Postsurgical changes of the esophagus and stomach Chest x-ray bibasilar patchy airspace opacities which may represent atelectasis versus infiltrate. COPD changes. EKG afib , RBBB HR 76 ASSESSMENT: 1. Small bowel obstruction with CAT scan evidence of mildly distended fluid- filled small bowel with transition point in the right mid abdomen 2. History of esophageal cancer status post esophagectomy and portion of the stomach removed 3. History of cholecystectomy 4. History of abdominal aortic aneurysm repair 5. History of rheumatoid arthritis on weekly injections 6. Hypertension with elevated blood pressure PLAN: -NG tube ordered for decompression -Patient tentatively scheduled for exploratory laparotomy tomorrow, 04/07/[address] Ferreira -Keep patient nothing by mouth -Continue IV fluids -Add IV antibiotics -Continue pain medication as needed -Continue antiemetics -GI prophylaxis Protonix and DVT prophylaxis subcu heparin Physician [employer] note has been reviewed by physician. Signing provider agrees with the documented findings, assessment, and plan of care. Past Medical History Past Medical History: Cancer, Hearing Disorder / Deafness, Hyperlipidemia, Pneumonia, Prostate Disorder Additional Past Medical History / Comment(s): Esophageal Cancer 2012; cochlear implants for loss of hearing History of Any Multi-Drug Resistant Organisms: None Reported Past Surgical History: Cholecystectomy Additional Past Surgical History / Comment(s): esophagectemy in May 2013, Abdominal Aortic Aneurysm repair on December 06, 2013; cochlear implant in 2009, cholecystectomy in 2007 Past Anesthesia/Blood Transfusion Reactions: No Reported Reaction Past Psychological History: No Psychological Hx Reported Smoking Status: Never smoker Past Alcohol Use History: Occasional Past Drug Use History: Marijuana - Past Family History Brother(s) Family Medical History: Unable to Obtain Additional Family Medical History / Comment(s): patient states that he was adopted when he was 3 from a [place] [facility] along with his little sister, later found that he had 2 half brothers and 2 half sisters, no medical problems as far as he knows. does not know whether his biological mother and father had any medical issues Medications and Allergies Home Medications Medication Instructions Recorded Confirmed Type Atorvastatin [Lipitor] 10 mg PO QAM 11/30/13 04/06/22 History PARoxetine HCL [Paroxetine HCl] 20 mg PO QAM 11/30/13 04/06/22 History Levothyroxine Sodium [Synthroid] 25 mcg PO DAILY 10/05/16 04/06/22 History Etanercept [Enbrel Sureclick] 50 mg SQ Q7D 04/06/22 04/06/22 History Tamsulosin HCl [Flomax] 0.8 mg PO HS 04/06/22 04/06/22 History Allergies Allergy/AdvReac Type Severity Reaction Status Date / Time No Known Allergies Allergy Verified 04/06/22 11:22 Surgical - Exam Vital Signs Temp Pulse Resp BP Pulse Ox 98 F 70 19 195/106 98 04/06/22 06:43 04/06/22 06:43 04/06/22 06:43 04/06/22 06:43 04/06/22 06:43 Results - Labs 04/06/22 06:49 04/06/22 06:49 Abnormal Lab Results - Last 24 Hours (Table) 04/06/22 04/06/22 04/06/22 Range/Units 06:49 06:49 14:05 Plt Count 143 L (150-450) k/uL Neutrophils # 8.4 H (1.3-7.7) k/uL Lymphocytes # 0.6 L (1.0-4.8) k/uL Sodium 136 L (137-145) mmol/L Glucose 170 H (74-99) mg/dL Calcium 8.1 L (8.4-10.2) mg/dL Alkaline Phosphatase 152 H (38-126) U/L Ur Specific [place] 1.050 H (1.001-1.035) Urine Ketones 1+ H (Negative) Urine Blood Small H (Negative) Urine RBC 20 H (0-5) /hpf Urine Mucus Rare H (None) /hpf Diabetes panel 04/06/22 Range/Units 06:49 Sodium 136 L (137-145) mmol/L Potassium 3.7 (3.5-5.1) mmol/L Chloride 100 (98-107) mmol/L Carbon Dioxide 25 (22-30) mmol/L BUN 11 (9-20) mg/dL Creatinine 0.70 (0.66-1.25) mg/dL Glucose 170 H (74-99) mg/dL Calcium 8.1 L (8.4-10.2) mg/dL AST 47 (17-59) U/L ALT 24 (4-49) U/L Alkaline Phosphatase 152 H (38-126) U/L Total Protein 8.1 (6.3-8.2) g/dL Albumin 3.6 (3.5-5.0) g/dL Calcium panel 04/06/22 Range/Units 06:49 Calcium 8.1 L (8.4-10.2) mg/dL Albumin 3.6 (3.5-5.0) g/dL Pituitary panel 04/06/22 Range/Units 06:49 Sodium 136 L (137-145) mmol/L Potassium 3.7 (3.5-5.1) mmol/L Chloride 100 (98-107) mmol/L Carbon Dioxide 25 (22-30) mmol/L BUN 11 (9-20) mg/dL Creatinine 0.70 (0.66-1.25) mg/dL Glucose 170 H (74-99) mg/dL Calcium 8.1 L (8.4-10.2) mg/dL Adrenal panel 04/06/22 Range/Units 06:49 Sodium 136 L (137-145) mmol/L Potassium 3.7 (3.5-5.1) mmol/L Chloride 100 (98-107) mmol/L Carbon Dioxide 25 (22-30) mmol/L BUN 11 (9-20) mg/dL Creatinine 0.70 (0.66-1.25) mg/dL Glucose 170 H (74-99) mg/dL Calcium 8.1 L (8.4-10.2) mg/dL Total Bilirubin 0.7 (0.2-1.3) mg/dL AST 47 (17-59) U/L ALT 24 (4-49) U/L Alkaline Phosphatase 152 H (38-126) U/L Total Protein 8.1 (6.3-8.2) g/dL Albumin 3.6 (3.5-5.0) g/dL
[2022-04-06] MEDS: ONDANSETRON 4 MG/2 ML VIAL IVP PRN ×2 (15:23→22:20)
[2022-04-06] MEDS: HYDROmorphone 1 MG/ML 1 ML SYRINGE IVP PRN (15:24)
[2022-04-06] MEDS: hydrALAZINE HCL 20 MG/ML 1 ML VIAL IVP PRN (18:17)
[2022-04-06] MEDS: PIPERACILLIN-TAZOBACTAM 3.375 GM in SODIUM CHLORIDE 0.9% 100 ML IVPB SCH (18:17)
[2022-04-06] MEDS ORDERED: FAMOTIDINE 20 MG/2 ML VIAL IV SCH (21:00)
[2022-04-07] MEDS: HYDROmorphone 1 MG/ML 1 ML SYRINGE IVP PRN ×2 (01:00→06:02)
[2022-04-07] MEDS: PIPERACILLIN-TAZOBACTAM 3.375 GM in SODIUM CHLORIDE 0.9% 100 ML IVPB SCH ×4 (01:00→23:44)
[2022-04-07] MEDS: SODIUM CHLORIDE 0.9% 1,000 ML IV SCH ×3 (01:06→16:23)
[2022-04-07] MEDS: hydrALAZINE HCL 20 MG/ML 1 ML VIAL IVP PRN (07:56)
[2022-04-07] MEDS: HEPARIN SODIUM,PORCINE/PF 5,000 UNIT/0.5 ML SYRINGE SQ SCH ×2 (08:00→20:51)
[2022-04-07] MEDS: PANTOPRAZOLE 40 MG/10 ML VIAL IV SCH (08:00)
[2022-04-07] MEDS: ONDANSETRON 4 MG/2 ML VIAL IVP PRN (08:19)
[2022-04-07] MEDS ORDERED: ENALAPRILAT 1.25 MG/ML 1 ML VIAL IVP PRN (08:57)
--- NOTE | 2022-04-07 10:19 | P.CRDCN ---
History of Present Illness History of present illness: HISTORY OF PRESENTING ILLNESS This is a pleasant 77-year-old male past medical history significant for mild coronary disease involving the LAD artery and left circumflex (by cardiac catheterization in 2009), esophageal cancer status post esophagectomy chemo and radiation 10 years ago, hypothyroidism, dyslipidemia, Rheumatoid arthritis, aortic aneurysm repair, paroxysmal atrial fibrillation documented post operatively and maintained sinus rhythm in the past, former tobacco use. She did fall with Dr. Bates in the past last seen in 2013. We have been asked to see in consultation for preoperative evaluation. Patient presents emergency department with complaints of bilateral lower abdominal pain, nausea and vomiting that started 2 days ago. She denies any chest pain, shortness of breath, lightheadedness, dizziness, syncope or near-syncope. He denies any blood in his stool. He denies a history of [place], stroke, seizures, diabetes, hypertension. DIAGNOSTICS * EKG reveals sinus rhythm, heart rate 76, right bundle-branch block, left anterior fascicular block. * Telemetry tracings unable to review * CT abdomen and pelvis reported mildly distended fluid-filled small bowel small bowel cc signing focal transition point in the right midabdomen. wall thickening and mesenteric congestion, findings suggestive of small bowel obstruction. Small volume ascites. Pulmonary fibrotic changes with right lower lobe consolidation. Colonic diverticulosis. * Laboratory reviewed, troponin negative, WBC 9.6, hemoglobin 15.2, platelets 143., Sodium 136, potassium 3.7, BUN 11, serum creatinine 0.7, magnesium 1.7 * Current home medications include Flomax, paroxetine, Synthroid, atorvastatin, Etanerecept * Cardiac catheterization 02/2010 revealed mild obstructive disease involving the LAD and left circumflex. * Lexiscan stress test 10/2013 revealed no evidence of reversible ischemia. * Echocardiogram 2013 revealed EF 55%, mild concentric LVH, trace aortic regurgitation, mild mitral regurgitation, mild tricuspid regurgitation REVIEW OF SYSTEMS At the time of my exam: CONSTITUTIONAL: Denies fever or chills. CARDIOVASCULAR: Denies chest pain, shortness of breath, orthopnea, PND or palpitations. RESPIRATORY: Denies cough. GASTROINTESTINAL: +abdominal pain, Denies diarrhea, constipation, +nausea + vomiting. MUSCULOSKELETAL: Denies myalgias. NEUROLOGIC: Denies numbness, tingling, headacbe or weakness. ENDOCRINE: Denies fatigue, weight change, polydipsia or polyurina. GENITOURINARY: Denies burning, hematuria or urgency with micturation. HEMATOLOGIC: Denies history of anemia or bleeding. PHYSICAL EXAMINATION Blood pressure 192/92, 72, afebrile, oxygen saturation is 93% on room air CONSTITUTIONAL: No apparent distress. HEENT: Head is normocephalic. Pupils are equal, round. Sclerae anicteric. Mucous membranes of the mouth are moist. No JVD. No carotid bruit. CHEST EXAMINATION: Lungs are clear to auscultation. No chest wall tenderness is noted on palpation or with deep breathing. HEART EXAMINATION: Regular rate and rhythm. S1, S2 heard. No murmurs, gallops or rub. ABDOMEN: Soft, tenderness lower abdomen. Positive bowel sounds. EXTREMITIES: 2+ peripheral pulses, cool to touch bilateral feet. no lower extremity edema and no calf tenderness. NEUROLOGIC EXAMINATION: Patient is awake, alert and oriented x3. ASSESSMENT Small bowel obstruction Abdominal pain, nausea, vomiting Hypertension Mild coronary disease involving the LAD artery and left circumflex (by cardiac catheterization in 2009) Esophageal cancer status post esophagectomy chemo and radiation 10 years ago Hypothyroidism Dyslipidemia Rheumatoid arthritis Aortic aneurysm repair 2013 History of paroxysmal atrial fibrillation documented post operatively and maintained sinus rhythm in the past Former tobacco use PLAN Obtain 2D echocardiogram and doppler study to assess cardiac structure and func tion. Patient is at adequate risk for surgery. He does have following risk factors of age, history of atrial fibrillation, mild coronary artery disease. Patient is able to perform >4 METs levels of activity, he does occasionally get short of breath but attributes this to his lungs and has improvement with nebulizer treatments. Currently does not have any acute cardiac conditions. There are no absolute contraindications to undergo surgery at this time. Recommend cardiac telemetry Per surgery, patient unable to take PO medications at this time. Will start PRN IV Vasotec and monitor BP. Transition to PO medications when cleared by surgery. Nurse practitioner note has been reviewed by physician. Signing provider agrees with the documented findings, assessment, and plan of care. Past Medical History Past Medical History: Cancer, Hearing Disorder / Deafness, Hyperlipidemia, Pneumonia, Prostate Disorder Additional Past Medical History / Comment(s): Esophageal Cancer 2012; cochlear implants for loss of hearing History of Any Multi-Drug Resistant Organisms: None Reported Past Surgical History: Cholecystectomy Additional Past Surgical History / Comment(s): esophagectemy in May 2013, Abdominal Aortic Aneurysm repair on December 06, 2013; cochlear implant in 2009, cholecystectomy in 2007 Past Anesthesia/Blood Transfusion Reactions: No Reported Reaction Past Psychological History: No Psychological Hx Reported Smoking Status: Never smoker Past Alcohol Use History: Occasional Additional Past Alcohol Use History / Comment(s): quit smoking 2014,2 packs a day for 55 years Past Drug Use History: Marijuana Additional Drug Use History / Comment(s): no current drug abuse, 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 does not know whether his biological mother and father had any medical issues Medications and Allergies Home Medications Medication Instructions Recorded Confirmed Type Atorvastatin [Lipitor] 10 mg PO QAM 11/30/13 04/06/22 History PARoxetine HCL [Paroxetine HCl] 20 mg PO QAM 11/30/13 04/06/22 History Levothyroxine Sodium [Synthroid] 25 mcg PO DAILY 10/05/16 04/06/22 History Etanercept [Enbrel Sureclick] 50 mg SQ Q7D 04/06/22 04/06/22 History Tamsulosin HCl [Flomax] 0.8 mg PO HS 04/06/22 04/06/22 History Allergies Allergy/AdvReac Type Severity Reaction Status Date / Time No Known Allergies Allergy Verified 04/06/22 11:22 Physical Exam Vitals: Vital Signs Temp Pulse Pulse Resp BP BP Pulse Ox 04/07/22 07:46 97.6 F 72 18 192/92 04/07/22 01:38 86 04/07/22 01:25 97.4 F L 83 17 162/92 93 L 04/06/22 20:10 98.8 F 86 19 144/81 94 L 04/06/22 18:12 77 20 176/98 98 04/06/22 15:26 80 20 187/100 98 04/06/22 12:48 77 20 176/97 99 04/06/22 10:20 81 18 163/87 98 04/06/22 09:03 72 18 170/103 99 Intake and Output 04/06/22 04/07/22 04/07/22 22:59 06:59 14:59 Intake Total 100 Output Total 100 Balance 0 Intake: Intake, IV Titration 100 Amount Piperacillin-Tazobactam 3 100 .375 gm In Sodium Chloride 0.9% 100 ml @ 25 mls/hr IVPB Q8HR ALEYDA Rx# :[id number] Output: Gastric Drainage 100 Other: # Voids 2 Weight 83.915 kg Results 04/06/22 06:49 04/06/22 06:49 Current Medications Generic Name Dose Route Start Last Admin Trade Name Freq PRN Reason Stop Dose Admin Clonidine HCl 1 patch 04/06/22 12:00 04/06/22 12:48 Clonidine 0.1 Mg/24hr Patch TRANSDERM 1 patch Q7D ALEYDA Administration Heparin Sodium (Porcine) 5,000 unit 04/06/22 11:15 04/07/22 08:00 Heparin Sodium,Porcine/Pf 5,000 Unit/0.5 Ml Syringe SQ 5,000 unit Q12HR ALEYDA Administration Hydralazine HCl 10 mg 04/06/22 09:29 04/07/22 07:56 Hydralazine Hcl 20 Mg/Ml 1 Ml Vial IVP 10 mg Q4HR PRN Administration Blood Pressure - High Hydromorphone HCl 0.5 mg 04/06/22 09:27 Hydromorphone 0.5 Mg/0.5 Ml Syringe IVP Q3HR PRN Moderate Pain (Scale 4 to 6) Hydromorphone HCl 1 mg 04/06/22 09:27 04/07/22 06:02 Hydromorphone 1 Mg/Ml 1 Ml Syringe IVP 1 mg Q3HR PRN Administration Severe Pain (Scale 7 to 10) Sodium Chloride 1,000 mls @ 130 mls/hr 04/06/22 09:30 04/07/22 01:06 Saline 0.9% IV 130 mls/hr .[id number] ALEYDA Administration Piperacillin Sod/Tazobactam 100 mls @ 25 mls/hr 04/06/22 16:00 04/07/22 07:55 Sod 3.375 gm/ Sodium Chloride IVPB 25 mls/hr Q8HR ALEYDA Administration Protocol Naloxone HCl 0.2 mg 04/06/22 09:27 Naloxone 0.4 Mg/Ml 1 Ml Vial IV Q2M PRN Opioid Reversal Ondansetron HCl 4 mg 04/06/22 09:27 04/07/22 08:19 Ondansetron 4 Mg/2 Ml Vial IVP 4 mg Q8HR PRN Administration Nausea And Vomiting Pantoprazole Sodium 40 mg 04/07/22 09:00 04/07/22 08:00 Pantoprazole 40 Mg/10 Ml Vial IV 40 mg DAILY ALEYDA Administration Intake and Output 04/06/22 04/07/22 04/07/22 22:59 06:59 14:59 Intake Total 100 Output Total 100 Balance 0 Intake: Intake, IV Titration 100 Amount Piperacillin-Tazobactam 3 100 .375 gm In Sodium Chloride 0.9% 100 ml @ 25 mls/hr IVPB Q8HR ALEYDA Rx# :[id number] Output: Gastric Drainage 100 Other: # Voids 2 Weight 83.915 kg 04/06/22 06:49 04/06/22 06:49
[2022-04-07 10:34] LABS: Basophils # (A) 0.04 X 10*3/uL (0.00-0.10); Basophils % (A) 0.4 %; Eosinophils # (A) 0.01 X 10*3/uL (0.04-0.35); Eosinophils % (A) 0.1 %; HCT 44.7 % (39.6-50.0); HGB 14.5 g/dL (13.0-17.0); Immature Grans, Automated 0.3 %; Lymphocytes # (A) 0.72 X 10*3/uL (0.90-5.00); Lymphocytes % (A) 7.1 %; MCH 30.1 pg (27.0-32.0); MCHC 32.4 g/dL (32.0-37.0); MCV 92.7 fL (80.0-97.0); Mean Platelet Volume 10.1 fL (9.5-12.2); Monocytes # (A) 1.25 X 10*3/uL (0.20-1.00); Monocytes % (A) 12.3 %; NRBC Per 100 WBC 0 /100 WBCS (0.0-0.0); Neutrophils # (A) 8.09 X 10*3/uL (1.80-7.70); Neutrophils % (A) 79.8 %; Platelet Count 139 X 10*3/uL (140-440); RBC 4.82 X 10*6/uL (4.40-5.60); RDW 14.9 % (11.5-14.5); WBC 10.14 X 10*3/uL (4.50-10.00)
[2022-04-07] MEDS ORDERED: IV FLUID CONTINUATION 1,000 ML IV ONE (10:37)
[2022-04-07] MEDS ORDERED: MIDAZOLAM 2 MG/2 ML VIAL IVP ONE (10:57)
[2022-04-07] MEDS ORDERED: ONDANSETRON 4 MG/2 ML VIAL IVP ONE (11:01)
[2022-04-07] MEDS ORDERED: DEXAMETHASONE SOD PHOSPHATE 4 MG/ML 1 ML VIAL IVP ONE (11:01)
[2022-04-07 11:05] LABS: African American GFR (CKD) 104.8 (60.0-200.0); Anion Gap 9.7 mmol/L (10.00-18.00); Blood Urea Nitrogen 12.6 mg/dL (9.0-27.0); Carbon Dioxide 22.3 mmol/L (20.0-27.5); Non-African American GFR(CKD) 90.4 (60.0-200.0); Potassium 4.2 mmol/L (3.5-5.5)
[2022-04-07] MEDS ORDERED: ROPIVACAINE 250 MG, HYDROMORPHONE (PF) 5 MG in SODIUM CHLORIDE 0.9% 200 ML EPIDURAL PRN (11:11)
[2022-04-07] MEDS ORDERED: NALOXONE 0.4 MG/ML 1 ML VIAL IV PRN ×2 (11:11→12:58)
--- NOTE | 2022-04-07 11:26 | P.PN ---
Progress Note - Text Progress Note Date: 04/07/22 The patient still has complaints of abdominal pain. Patient multiple emesis last night. On exam his abdomen is soft. He is tender throughout. Patient is consistent signs of small bowel structure. He'll undergo exploratory laparotomy with lysis of adhesions today.
--- NOTE | 2022-04-07 11:37 | P.ANPRN ---
Procedure Note - Anesthesia - Epidural/Spinal Epidural Continuous Time Out Performed: Yes Date of Procedure: 04/07/22 Procedure Start Time: 10:56 Procedure Stop Time: 11:02 Location of Patient: PreOp Indication: Acute Post-Operative Pain, Requested by Surgeon Sedation Type: Sedate with meaningful contact maintained Preparation: Sterile Prep Position: Sitting Needle Guage: 18 Injectate: Test Dose Lidocaine1.5% w/1:200,000 epi Blood Aspirated: No Pain Paresthesia on Injection Noted: No Events: Uneventful and Well Tolerated (Test dose 3 mL given with no adverse effects)
[2022-04-07] MEDS ORDERED: ROCURONIUM 10 MG/ML (5 ML VIAL) IV ONE (11:45)
[2022-04-07] MEDS ORDERED: HYDROmorphone (PF) 1 MG/ML ONE (11:45)
[2022-04-07] MEDS ORDERED: LIDOCAINE 2% INJ 20 MG/ML (2 ML VIAL) ONE (11:45)
[2022-04-07] MEDS ORDERED: PROPOFOL 10 MG/ML 20 ML VIAL IV ONE (11:45)
[2022-04-07] MEDS ORDERED: NEOSTIGMINE 1 MG/ML 10 ML VIAL ONE (11:45)
[2022-04-07] MEDS ORDERED: fentaNYL (PF) 50 MCG/ML 2 ML AMP ONE (11:45)
[2022-04-07] MEDS ORDERED: SUCCINYLCHOLINE CHLORIDE 200 MG/10 ML VIAL IV ONE (11:45)
[2022-04-07] MEDS ORDERED: GLYCOPYRROLATE 0.2 MG/ML 2 ML VIAL ONE (11:45)
[2022-04-07] MEDS ORDERED: PHENYLEPHRINE-0.9% NACL SYG 1,000 MCG/10 ML SYRINGE ONE (11:45)
[2022-04-07] MEDS ORDERED: LACTATED RINGERS 1,000 ML IV ONE ×2 (12:48→12:58)
--- NOTE | 2022-04-07 12:58 | P.OP ---
Date of Procedure: 04/07/22 Preoperative Diagnosis: Small bowel obstruction Postoperative Diagnosis: Secondary to internal hernia and adhesions Procedure(s) Performed: Exploratory laparotomy Lysis of extensive adhesions Small bowel resection Repair of small bowel enterotomy Incidental appendectomy Anesthesia: JOSH Surgeon: Zhao Ferreira Estimated Blood Loss (ml): 50 Pathology: other (Small bowel) Condition: stable Disposition: PACU Description of Procedure: The patient's placed on the operative table in the supine position. He received general endotracheal tube anesthesia. His abdomen was prepped and draped usual fashion. The abdomen was entered through a midline incision. The patient had multiple laparotomy scars. Upon dividing the fascia there was extensive adhesions along her midline scar. Approximate 3 minutes of operative time used to lyse adhesions. There was a loop of small bowel and the superior portion which was stuck the scar. An enterotomy is made during was adhesions. This was repaired with 3-0 GI silk suture and the TX 60 stapler. The small bowel was then run down towards the pelvis and in the pelvis there was a internal hernia with evidence of ischemic small bowel. The adhesive band was lysed. The small bowel appeared to be nonviable. At this point the right colon was mobilized. The small bowel was viable proximally 5 cm from the ileocecal valve. A small bowel resection was then performed by using the GI stapler divide the small bowel proximally distally to the ischemic segment. The mesentery the bowel was divided with the Enseal device. A [id number] functional end-to-end staple anastomosis was created using the BLADIMIR and TA stapler. The appendix was removed by dividing the mesentery the appendix and using the GI stapler to divide the base the appendix. It was decided perform appendectomy due to the extensive scar tissue in the air. The abdomen was irrigated there is no bleeding seen. The fascia was closed with looped #1 PDS suture. Skin was closed eulogio. Patient sent back to recovery room in stable condition.
[2022-04-07] MEDS ORDERED: HYDROmorphone 0.5 MG/0.5 ML SYRINGE IVP ONE (13:08)
--- NOTE | 2022-04-07 13:14 | CA ---
Transthoracic Echo Report Name: Martin Clark Age: 77 Gender: M : 1945 Exam Date: 04/07/2022 09:02 Exam Location: [facility] Ht (in): 73 Wt (lb): 185 Ordering Physician: Jasmyne Vu Attending/Referring Phys: Marketing Summer Intern Patito Reyes RDCS Procedure CPT: Indications: LV function, pre-operative Cardiac Hx: Technical Quality: Fair Contrast 1: Total Dose (mL): Contrast 2: Total Dose (mL): MEASUREMENTS (Male / Female) Normal Values 2D ECHO LV Diastolic Diameter PLAX 3.8 cm 4.2 - 5.9 / 3.9 - 5.3 cm LV Systolic Diameter PLAX 2.1 cm IVS Diastolic Thickness 1.4 cm 0.6 - 1.0 / 0.6 - 0.9 cm LVPW Diastolic Thickness 1.3 cm 0.6 - 1.0 / 0.6 - 0.9 cm LV Relative Wall Thickness 0.7 RV Internal Dim ED PLAX 3.4 cm LA Volume 50.0 cm??? 18 - 58 / 22 - 52 cm??? M-MODE Aortic Root Diameter MM 3.0 cm LA Systolic Diameter MM 2.8 cm LA Ao Ratio MM 0.9 AV Cusp Separation MM 1.9 cm DOPPLER AV Peak Velocity 127.9 cm/s AV Peak Gradient 6.5 mmHg AI Peak Velocity 497.6 cm/s AI Peak Gradient 99.0 mmHg AI Pressure Half Time 473.0 ms LVOT Peak Velocity 127.0 cm/s LVOT Peak Gradient 6.5 mmHg Mitral E Point Velocity 46.1 cm/s Mitral A Point Velocity 71.4 cm/s Mitral E to A Ratio 0.6 TR Peak Velocity 224.9 cm/s TR Peak Gradient 20.2 mmHg Right Ventricular Systolic Press 23.3 mmHg FINDINGS Left Ventricle Moderately increased left ventricular wall thickness. Normal left ventricular systolic function with no obvious regional wall motion abnormalities. Left ventricular ejection fraction is estimated at 55-60 %. Right Ventricle Mild right ventricular dilatation. Right ventricular systolic pressure within normal limits. Right Atrium Normal right atrial size. Left Atrium Normal left atrial size. Mitral Valve Structurally normal mitral valve. Mild mitral regurgitation. Mild mitral annular calcification. Mitral valve thickened. Aortic Valve Aortic valve sclerosis. Trileaflet aortic valve. No aortic stenosis. Mild aortic regurgitation. Tricuspid Valve Structurally normal tricuspid valve. Mild tricuspid regurgitation. Pulmonic Valve Trace pulmonic regurgitation. Pericardium No pericardial effusion. Aorta Normal size aortic root and proximal ascending aorta. CONCLUSIONS Moderate increased left ventricular wall thickness (Ventricular ejection fraction 55-60% Mild mitral annular calcification Mild mitral regurgitation Mild aortic regurgitation Mild tricuspid regurgitation No pericardial effusion Previewed by: Dr. Tiburcio Schilling DO (Electronically Signed) Final Date: 07 April 2022 13:14
--- NOTE | 2022-04-07 14:08 | P.PN ---
Subjective She is a pleasant 77 years old male with past medical history of Hearing Disorder / Deafness, Hyperlipidemia, benign prostatic hypertrophy, esophageal cancer in 2013 status post esophagectomy on 05/1213, cochlear implants for loss of hearing Presents because of epigastric pain and vomiting. he states he started having upper abdominal pain last night, it was bad enough that he decided to come to emergency room. He did not have bowel movement yesterday but he had one here in the emergency room which was kind of fluids. He had nausea and frequent vomiting while coming to the hospital but mainly phlegm. Patient has history of prostatectomy and he has chronic cough and muscle that time phlegm comes up. No chest pain. He has little with exertion. No headache or weakness or numbness. No urinary complaints. He denies smoking, alcohol or illicit drugs currently. His PCP is Dr. Kuldip Bowman Vitals are reviewed, patient is afebrile, blood pressure elevated 195/106 on admission. Currently blood pressure improved 163/87 Labs show an unremarkable CBC, INR, BMP. Liver enzymes elevated. Lipase is normal. EKG showing atrial fibrillation with a rate of [address] of the abdomen and pelvis with contrast: Mildly distended fluid-filled small bowel with small bowel feces and focal transition point in the right mid abdomen. There is wall thickening and mesenteric congestion without evidence of pneumatosis or portal venous gas. Findings suggest small bowel obstruction. Associated with small volume ascites. Also patient has pulmonary fibrotic changes with right lower lobe consolidation concerning for infectious process. Colonic diverticulosis without diverticulitis. non-Obstructive bilateral renal calculi Chest x-ray: Bibasilar patchy airspace opacities which may represent atelectasis versus infiltrate. COPD. 04/07/2012 Patient seen and evaluated in the morning rounds prior to surgery. Commercial Collector already evaluated the patient preoperatively Patient underwent exploratory laparotomy with lysis of extensive adhesions and small bowel resection. Plan discussed with in the morning and she verbalized understanding and acceptance as well as the patient Objective - Vital Signs Vital signs: Vital Signs Temp 98.3 F 04/07/22 10:50 Pulse 80 04/07/22 10:59 Resp 15 04/07/22 10:59 BP 165/79 04/07/22 10:59 Pulse Ox 94 L 04/07/22 10:59 FiO2 Intake & Output 04/06/22 04/07/22 04/07/22 18:59 06:59 18:59 Intake Total 100 1400 Output Total 100 520 Balance 0 880 Weight 83.915 kg Intake: IV 1400 Intake, IV Titration 100 Amount Piperacillin-Tazobactam 3 100 .375 gm In Sodium Chloride 0.9% 100 ml @ 25 mls/hr IVPB Q8HR [facility] Rx# :[id number] Output: Gastric Drainage 100 Urine 500 Estimated Blood Loss 20 Other: # Voids 2 - Exam GENERAL: The patient is alert and oriented x3, not in any acute distress. Well developed, well nourished. HEENT: Pupils are round and equally reacting to light. EOMI. No scleral icterus. No conjunctival pallor. Normocephalic, atraumatic. No pharyngeal erythema. No thyromegaly. CARDIOVASCULAR: S1 and S2 present. No murmurs, rubs, or gallops. PULMONARY: Chest is clear to auscultation, no wheezing or crackles. -ABDOMEN: Soft, tender with guarding, nondistended, normoactive bowel sounds. No palpable organomegaly. MUSCULOSKELETAL: No joint swelling or deformity. EXTREMITIES: No cyanosis, clubbing, or pedal edema. NEUROLOGICAL: Gross neurological examination did not reveal any focal deficits. SKIN: No rashes. no petechiae. - Labs CBC & Chem 7: 04/07/22 06:37 04/07/22 06:37 Labs: Abnormal Lab Results - Last 24 Hours (Table) 04/06/22 04/07/22 04/07/22 Range/Units 14:05 06:37 06:37 WBC 10.14 H (4.50-10.00) X 10*3/uL RDW 14.9 H (11.5-14.5) % Plt Count 139 L (140-440) X 10*3/uL Neutrophils # 8.09 H (1.80-7.70) X 10*3/uL Lymphocytes # 0.72 L (0.90-5.00) X 10*3/uL Monocytes # 1.25 H (0.20-1.00) X 10*3/uL Eosinophils # 0.01 L (0.04-0.35) X 10*3/uL Anion Gap 9.70 L (10.00-18.00) mmol/L Glucose 123 H (70-110) mg/dL Calcium 8.0 L (8.7-10.3) mg/dL Ur Specific [place] 1.050 H (1.001-1.035) Urine Ketones 1+ H (Negative) Urine Blood Small H (Negative) Urine RBC 20 H (0-5) /hpf Urine Mucus Rare H (None) /hpf Assessment and Plan Assessment: acute Small bowel obstruction status post expiratory laparotomy lysis of adhesions and small bowel resection on 04/07/2022 Right lower lobe consolidation suspicious for atelectasis rather than pneumonia Hypertension with urgency, present on admission. Hyperlipidemia Benign prostatic hypertrophy History of esophageal cancer status post esophagectomy History of cochlear implants for hearing difficulty bilateral renal calculi Plan: continue with bowel rest Pain medication IV fluid Surgery consult Patient reports he on Zosyn per surgery team Start clonidine patch and hydralazine/vasotec when necessary for high blood pressure Labs and medication were reviewed.. Continue same treatment. Continue with sy mptomatic treatment. Resume home medication. Monitor lytes and vitals. DVT and GI prophylaxis. Further recommendations as per clinical course of the patient DVT prophylaxis: Subcutaneous heparin GI Prophylaxis: Pepcid PT/OT: Pending
[2022-04-07] MEDS: HYDROmorphone 0.5 MG/0.5 ML SYRINGE IVP PRN (23:04)
[2022-04-08] MEDS: HYDROmorphone 0.5 MG/0.5 ML SYRINGE IVP PRN (06:29)
--- NOTE | 2022-04-08 07:49 | P.PN ---
Progress Note - Text Date: 04/08/2022 Time: 07:15 The patient is status post, exploratory laparotomy, lysis of adhesions, and small bowel resection,postoperative day number[1.] The patient has no complaints of nausea vomiting or headache. The patient does not complain of any lower extremity numbness or weakness. VAS 3-10. The epidural was dislodged last p.m. Patient is now receiving pain medicines per the service.
[2022-04-08] MEDS: SODIUM CHLORIDE 0.9% 1,000 ML IV SCH ×3 (08:07→14:37)
[2022-04-08] MEDS: HYDROmorphone 1 MG/ML 1 ML SYRINGE IVP PRN ×3 (08:55→15:27)
[2022-04-08] MEDS: PIPERACILLIN-TAZOBACTAM 3.375 GM in SODIUM CHLORIDE 0.9% 100 ML IVPB SCH ×2 (08:56→14:36)
[2022-04-08] MEDS: PANTOPRAZOLE 40 MG/10 ML VIAL IV SCH (08:57)
[2022-04-08] MEDS: HEPARIN SODIUM,PORCINE/PF 5,000 UNIT/0.5 ML SYRINGE SQ SCH ×2 (08:57→20:35)
[2022-04-08 09:01] LABS: HCT 37.2 % (39.6-50.0); HGB 12.3 g/dL (13.0-17.0); MCH 30.5 pg (27.0-32.0); MCHC 33.1 g/dL (32.0-37.0); MCV 92.3 fL (80.0-97.0); Mean Platelet Volume 10.7 fL (9.5-12.2); NRBC Per 100 WBC 0 /100 WBCS (0.0-0.0); Platelet Count 156 X 10*3/uL (140-440); RBC 4.03 X 10*6/uL (4.40-5.60); RDW 15.3 % (11.5-14.5); WBC 10.91 X 10*3/uL (4.50-10.00)
--- NOTE | 2022-04-08 09:04 | P.PN ---
Subjective This is a pleasant 77-year-old male past medical history significant for mild coronary disease involving the LAD artery and left circumflex (by cardiac catheterization in 2009), esophageal cancer status post esophagectomy chemo and radiation 10 years ago, hypothyroidism, dyslipidemia, Rheumatoid arthritis, aortic aneurysm repair, paroxysmal atrial fibrillation documented post operatively and maintained sinus rhythm in the past, former tobacco use. She did fall with Dr. Bates in the past last seen in 2013. We have been asked to see in consultation for preoperative evaluation. Patient presents emergency department with complaints of bilateral lower abdominal pain, nausea and vomiting that started 2 days ago. 04/08/2022 Patient underwent exploratory laparotomy, Lysis of extensive adhesions, Small bowel resection, Repair of small bowel enterotomy, Incidental appendectomy with Dr. Ferreira on 04/07. Patient seen and examined at bedside, has increased abdominal pain, difficult to ambulate secondary to the pain. He continues to be NPO. His BP has improved, no IV antihypertensive medication since yesterday morning. He denies any chest pain, shortness of breath, lightheadeness. Telemetry reviewed patient is maintaining sinus rhythm. Echocardiogram revealed EF 5560 percent, mild mitral regurgitation, mild aortic regurgitation, mild tricuspid regurgitation PHYSICAL EXAMINATION Blood pressure 167/86, heart rate 79, afebrile, saturation 97% on 3 L nasal cannula CONSTITUTIONAL: No apparent distress. HEENT: Neck Supple. No JVD. No carotid bruit. CHEST EXAMINATION: Lungs are clear to auscultation. No chest wall tenderness is noted on palpation or with deep breathing. HEART EXAMINATION: Regular rate and rhythm. S1, S2 heard. No murmurs, gallops or rub. ABDOMEN: Soft. EXTREMITIES: 2+ peripheral pulses, cool to touch bilateral feet. no lower extremity edema and no calf tenderness. NEUROLOGIC EXAMINATION: Patient is awake, alert and oriented x3. ASSESSMENT Small bowel obstruction Abdominal pain, nausea, vomiting Hypertension Mild coronary disease involving the LAD artery and left circumflex (by cardiac catheterization in 2009) Esophageal cancer status post esophagectomy chemo and radiation 10 years ago Hypothyroidism Dyslipidemia Rheumatoid arthritis Aortic aneurysm repair 2013 History of paroxysmal atrial fibrillation documented post operatively and maintained sinus rhythm in the past Former tobacco use PLAN Per surgery, patient unable to take PO medications at this time. Continue PRN IV medications and monitor BP. Transition to PO medications when cleared by surgery. From a cardiology perspective, no further changes at this time. Rest of management per general surgery and primary We will follow the patient as needed. Please reconsult if needed. Nurse practitioner note has been reviewed by physician. Signing provider agrees with the documented findings, assessment, and plan of care. Objective - Vital Signs Vital signs: Vital Signs Temp 98.2 F 04/08/22 07:45 Pulse 79 04/08/22 07:45 Resp 16 04/08/22 07:45 BP 167/86 04/08/22 07:45 Pulse Ox 97 04/08/22 07:45 FiO2 Intake & Output 04/07/22 04/08/22 04/08/22 18:59 06:59 18:59 Intake Total 1512.6 Output Total 770 Balance 742.6 Intake: IV 1512.6 Output: Urine 750 Estimated Blood Loss 20 - Labs CBC & Chem 7: 04/07/22 06:37 04/07/22 06:37 Labs: Abnormal Lab Results - Last 24 Hours (Table) 04/07/22 04/07/22 Range/Units 06:37 06:37 WBC 10.14 H (4.50-10.00) X 10*3/uL RDW 14.9 H (11.5-14.5) % Plt Count 139 L (140-440) X 10*3/uL Neutrophils # 8.09 H (1.80-7.70) X 10*3/uL Lymphocytes # 0.72 L (0.90-5.00) X 10*3/uL Monocytes # 1.25 H (0.20-1.00) X 10*3/uL Eosinophils # 0.01 L (0.04-0.35) X 10*3/uL Anion Gap 9.70 L (10.00-18.00) mmol/L Glucose 123 H (70-110) mg/dL Calcium 8.0 L (8.7-10.3) mg/dL Microbiology - Last 24 Hours (Table) 04/06/22 12:02 Blood Culture - Preliminary Blood No Growth after 24 hours
[2022-04-08 09:07] LABS: African American GFR (CKD) 99.2 (60.0-200.0); Albumin 2.7 g/dL (3.8-4.9); Albumin/Globulin Ratio 0.79 (1.60-3.17); Anion Gap 7.1 mmol/L (10.00-18.00); BUN/Creat Ratio 21.88 Ratio (12.00-20.00); Blood Urea Nitrogen 17.5 mg/dL (9.0-27.0); Calcium 8.1 mg/dL (8.7-10.3); Carbon Dioxide 28.9 mmol/L (20.0-27.5); Globulin 3.4 g/dL (1.6-3.3); Non-African American GFR(CKD) 85.6 (60.0-200.0); Potassium 4.4 mmol/L (3.5-5.5); Total Bilirubin 0.8 mg/dL (0.30-1.20); Total Protein 6.1 g/dL (6.2-8.2)
[2022-04-08 09:54] LABS: Acanthocytes 2+; Basophils # (M) 0 X 10*3/uL (0.00-0.10); Eosinophils # (M) 0 X 10*3/uL (0.04-0.35); Lymphocytes # (M) 0.44 X 10*3/uL (0.90-5.00); Neutrophils # (M) 9.27 X 10*3/uL (2.00-8.90); Neutrophils % (M) 85 %
[2022-04-08] MEDS: ACETAMINOPHEN IV (For NPO) 1,000 MG in EMPTY BAG 1 BAG IVPB SCH ×3 (10:49→20:36)
[2022-04-08] MEDS: KETOROLAC 15 MG/ML 1 ML VIAL IVP SCH ×2 (12:17→17:08)
--- NOTE | 2022-04-08 13:38 | P.PN ---
Subjective Progress Note Date: 04/08/22 CHIEF COMPLAINT: Small bowel obstruction HISTORY OF PRESENT ILLNESS: Patient is postop day #1 status post exploratory laparotomy, lysis of extensive adhesions, small bowel resection, repair of small bowel enterotomy and incidental appendectomy for a small bowel obstruction secondary to internal hernia and adhesions. Patient had confusion during the night and pulled out his epidural. He is complaining of abdominal pain. He is receiving the IV Dilaudid. He denies any nausea or vomiting. Denies any flatus. Urine output adequate. Afebrile. Elevated BP is better. WBC is 10.9 HGB 12.3 platelets 156 sodium 141 potassium is 4.4 creatinine 0.8 Patient seen and examined with Dr. Ferreira PHYSICAL EXAM: VITAL SIGNS: Reviewed. GENERAL: Well-developed in no acute distress. HEENT: No sclera icterus. Extraocular movements grossly intact. Moist buccal mucosa. Head is atraumatic, normocephalic. ABDOMEN: Soft. Nondistended. Incision site clean dry and intact. Tenderness to palpation at incision site. NEUROLOGIC: Alert and oriented. Cranial nerves II through XII grossly intact. ASSESSMENT: 1. Small bowel obstruction secondary to internal hernia and adhesions status post exploratory laparotomy, lysis of extensive adhesions, small bowel resection, repair of small bowel enterotomy and incidental appendectomy 2. Hypertension PLAN: -change incisional dressing to Optifoam silver -IV Tylenol and Toradol added for pain control -Discontinue Evans catheter -Continue IV fluids -Keep patient nothing by mouth except for ice chips -Encourage patient to ambulate -Encourage patient to use incentive spirometer -Patient to work with PT OT -GI prophylaxis Protonix and DVT prophylaxis subcu heparin Physician Nickel Plater note has been reviewed by physician. Signing provider agrees with the documented findings, assessment, and plan of care. Objective - Vital Signs Vital signs: Vital Signs Temp 98.2 F 04/08/22 07:45 Pulse 79 04/08/22 07:45 Resp 16 04/08/22 07:45 BP 167/86 04/08/22 07:45 Pulse Ox 97 04/08/22 07:45 FiO2 Intake & Output 04/07/22 04/08/22 04/08/22 18:59 06:59 18:59 Intake Total 1512.6 Output Total 770 Balance 742.6 Intake: IV 1512.6 Output: Urine 750 Estimated Blood Loss 20 Other: Voiding Method Indwelling Catheter - Labs CBC & Chem 7: 04/08/22 05:43 04/08/22 05:43 Labs: Abnormal Lab Results - Last 24 Hours (Table) 04/08/22 04/08/22 Range/Units 05:43 05:43 WBC 10.91 H (4.50-10.00) X 10*3/uL RBC 4.03 L (4.40-5.60) X 10*6/uL Hgb 12.3 L (13.0-17.0) g/dL Hct 37.2 L (39.6-50.0) % RDW 15.3 H (11.5-14.5) % Neutrophils # (Manual) 9.27 H (2.00-8.90) X 10*3/uL Lymphocytes # (Manual) 0.44 L (0.90-5.00) X 10*3/uL Monocytes # (Manual) 1.20 H (0.20-1.00) X 10*3/uL Eosinophils # (Manual) 0 L (0.04-0.35) X 10*3/uL Carbon Dioxide 28.9 H (20.0-27.5) mmol/L Anion Gap 7.10 L (10.00-18.00) mmol/L BUN/Creatinine Ratio 21.88 H (12.00-20.00) Ratio Calcium 8.1 L (8.7-10.3) mg/dL AST 38 H (14-35) U/L Total Protein 6.1 L (6.2-8.2) g/dL Albumin 2.7 L (3.8-4.9) g/dL Globulin 3.4 H (1.6-3.3) g/dL Albumin/Globulin Ratio 0.79 L (1.60-3.17) g/dL Microbiology - Last 24 Hours (Table) 04/06/22 12:02 Blood Culture - Preliminary Blood No Growth after 24 hours
--- NOTE | 2022-04-08 22:44 | P.PN ---
Subjective She is a pleasant 77 years old male with past medical history of Hearing Disorder / Deafness, Hyperlipidemia, benign prostatic hypertrophy, esophageal cancer in 2013 status post esophagectomy on 05/1213, cochlear implants for loss of hearing Presents because of epigastric pain and vomiting. he states he started having upper abdominal pain last night, it was bad enough that he decided to come to emergency room. He did not have bowel movement yesterday but he had one here in the emergency room which was kind of fluids. He had nausea and frequent vomiting while coming to the hospital but mainly phlegm. Patient has history of prostatectomy and he has chronic cough and muscle that time phlegm comes up. No chest pain. He has little with exertion. No headache or weakness or numbness. No urinary complaints. He denies smoking, alcohol or illicit drugs currently. His PCP is Dr. Kuldip Bowman Vitals are reviewed, patient is afebrile, blood pressure elevated 195/106 on admission. Currently blood pressure improved 163/87 Labs show an unremarkable CBC, INR, BMP. Liver enzymes elevated. Lipase is normal. EKG showing atrial fibrillation with a rate of [address] of the abdomen and pelvis with contrast: Mildly distended fluid-filled small bowel with small bowel feces and focal transition point in the right mid abdomen. There is wall thickening and mesenteric congestion without evidence of pneumatosis or portal venous gas. Findings suggest small bowel obstruction. Associated with small volume ascites. Also patient has pulmonary fibrotic changes with right lower lobe consolidation concerning for infectious process. Colonic diverticulosis without diverticulitis. non-Obstructive bilateral renal calculi Chest x-ray: Bibasilar patchy airspace opacities which may represent atelectasis versus infiltrate. COPD. 04/07/2012 Patient seen and evaluated in the morning rounds prior to surgery. Mill Dresser already evaluated the patient preoperatively Patient underwent exploratory laparotomy with lysis of extensive adhesions and small bowel resection. Plan discussed with in the morning and she verbalized understanding and acceptance as well as the patient 04/08/2022 Today postop day #1 for his extensive lysis of adhesions and small bowel resection. Patient has significant pain in the morning and he was distressed due to pain, Toradol added for him Also he is receiving Dilaudid 1 mg. Vitals and labs reviewed He remains on Zosyn and Ringer lactate 1 25 mL/h Cardiology team signed off the case Objective - Vital Signs Vital signs: Vital Signs Temp 98.2 F 04/08/22 07:45 Pulse 79 04/08/22 07:45 Resp 16 04/08/22 07:45 BP 167/86 04/08/22 07:45 Pulse Ox 97 04/08/22 07:45 FiO2 Intake & Output 04/07/22 04/08/22 04/08/22 18:59 06:59 18:59 Intake Total 1512.6 Output Total 770 Balance 742.6 Intake: IV 1512.6 Output: Urine 750 Estimated Blood Loss 20 Other: Voiding Method Indwelling Catheter - Exam GENERAL: The patient is alert and oriented x3, not in any acute distress. Well developed, well nourished. HEENT: Pupils are round and equally reacting to light. EOMI. No scleral icterus. No conjunctival pallor. Normocephalic, atraumatic. No pharyngeal erythema. No thyromegaly. CARDIOVASCULAR: S1 and S2 present. No murmurs, rubs, or gallops. PULMONARY: Chest is clear to auscultation, no wheezing or crackles. -ABDOMEN: Soft, tender with guarding, nondistended, normoactive bowel sounds. No palpable organomegaly. MUSCULOSKELETAL: No joint swelling or deformity. EXTREMITIES: No cyanosis, clubbing, or pedal edema. NEUROLOGICAL: Gross neurological examination did not reveal any focal deficits. SKIN: No rashes. no petechiae. - Labs CBC & Chem 7: 04/08/22 05:43 04/08/22 05:43 Labs: Abnormal Lab Results - Last 24 Hours (Table) 04/08/22 04/08/22 Range/Units 05:43 05:43 WBC 10.91 H (4.50-10.00) X 10*3/uL RBC 4.03 L (4.40-5.60) X 10*6/uL Hgb 12.3 L (13.0-17.0) g/dL Hct 37.2 L (39.6-50.0) % RDW 15.3 H (11.5-14.5) % Neutrophils # (Manual) 9.27 H (2.00-8.90) X 10*3/uL Lymphocytes # (Manual) 0.44 L (0.90-5.00) X 10*3/uL Monocytes # (Manual) 1.20 H (0.20-1.00) X 10*3/uL Eosinophils # (Manual) 0 L (0.04-0.35) X 10*3/uL Carbon Dioxide 28.9 H (20.0-27.5) mmol/L Anion Gap 7.10 L (10.00-18.00) mmol/L BUN/Creatinine Ratio 21.88 H (12.00-20.00) Ratio Calcium 8.1 L (8.7-10.3) mg/dL AST 38 H (14-35) U/L Total Protein 6.1 L (6.2-8.2) g/dL Albumin 2.7 L (3.8-4.9) g/dL Globulin 3.4 H (1.6-3.3) g/dL Albumin/Globulin Ratio 0.79 L (1.60-3.17) g/dL Microbiology - Last 24 Hours (Table) 04/06/22 12:02 Blood Culture - Preliminary Blood No Growth after 24 hours Assessment and Plan Assessment: acute Small bowel obstruction status post expiratory laparotomy lysis of adhesions and small bowel resection on 04/07/2022 Right lower lobe consolidation suspicious for atelectasis rather than pneumonia Hypertension with urgency, present on admission. Hyperlipidemia Benign prostatic hypertrophy History of esophageal cancer status post esophagectomy History of cochlear implants for hearing difficulty bilateral renal calculi Plan: continue with bowel rest Pain medication IV fluid Surgery consult Patient reports he on Zosyn per surgery team Start clonidine patch and hydralazine/vasotec when necessary for high blood pressure Labs and medication were reviewed.. Continue same treatment. Continue with symptomatic treatment. Resume home medication. Monitor lytes and vitals. DVT and GI prophylaxis. Further recommendations as per clinical course of the patient DVT prophylaxis: Subcutaneous heparin GI Prophylaxis: Pepcid PT/OT: Pending
[2022-04-09] MEDS: PIPERACILLIN-TAZOBACTAM 3.375 GM in SODIUM CHLORIDE 0.9% 100 ML IVPB SCH ×3 (00:01→15:24)
[2022-04-09] MEDS: SODIUM CHLORIDE 0.9% 1,000 ML IV SCH ×3 (00:07→20:23)
[2022-04-09] MEDS: ACETAMINOPHEN IV (For NPO) 1,000 MG in EMPTY BAG 1 BAG IVPB SCH (04:27)
[2022-04-09] MEDS: KETOROLAC 15 MG/ML 1 ML VIAL IVP SCH ×4 (06:06→20:22)
[2022-04-09] MEDS ORDERED: ACETAMINOPHEN IV (For NPO) 1,000 MG in EMPTY BAG 1 BAG IVPB SCH (08:00)
[2022-04-09] MEDS: HEPARIN SODIUM,PORCINE/PF 5,000 UNIT/0.5 ML SYRINGE SQ SCH ×2 (08:26→20:23)
[2022-04-09] MEDS: PANTOPRAZOLE 40 MG/10 ML VIAL IV SCH (08:31)
[2022-04-09 09:10] LABS: Potassium 3.7 mmol/L (3.5-5.1)
[2022-04-09 09:12] LABS: African American GFR (CKD) >90 (>60 ml/min/1.73 sqM); Anion Gap 10 mmol/L; Blood Urea Nitrogen 24 mg/dL (9-20); Calcium 7.5 mg/dL (8.4-10.2); Carbon Dioxide 23 mmol/L (22-30); Chloride 106 mmol/L (98-107); Glucose 68 mg/dL (74-99); Non-African American GFR(CKD) >90 (>60 ml/min/1.73 sqM); Sodium 139 mmol/L (137-145)
[2022-04-09 09:40] LABS: Basophils % (A) 1 %; Eosinophils # (A) 0.1 k/uL (0-0.7); Eosinophils % (A) 2 %; HCT 35.3 % (39.0-53.0); Hypochromasia Slight; Lymphocytes # (A) 0.6 k/uL (1.0-4.8); Lymphocytes % (A) 8 %; MCHC 32.5 g/dL (31.0-37.0); MCV 95.1 fL (80.0-100.0); Mean Platelet Volume 11.8; Monocytes # (A) 0.6 k/uL (0-1.0); Monocytes % (A) 9 %; Neutrophils # (A) 5.6 k/uL (1.3-7.7); Neutrophils % (A) 79 %; Platelet Count 108 k/uL (150-450); RBC 3.71 m/uL (4.30-5.90); RDW 14.7 % (11.5-15.5); WBC 7.1 k/uL (3.8-10.6)
[2022-04-09 09:44] LABS: HGB 11.5 gm/dL (13.0-17.5)
--- NOTE | 2022-04-09 14:07 | P.PN ---
Subjective Progress Note Date: 04/09/22 CHIEF COMPLAINT: Small bowel obstruction HISTORY OF PRESENT ILLNESS: Patient is postop day #2 status post exploratory laparotomy, lysis of extensive adhesions, small bowel resection, repair of small bowel enterotomy and incidental appendectomy for a small bowel obstruction secondary to internal hernia and adhesions. Patient reports having flatus. He is requesting something to eat. He denies any bowel movement. Denies any nausea or vomiting. His pain is better today. He has been up in the chair and ambulating. Afebrile. WBC is 7.1HEP 11.5 platelets 108 Patient seen and examined with Dr. Ferreira PHYSICAL EXAM: VITAL SIGNS: Reviewed. GENERAL: Well-developed in no acute distress. HEENT: No sclera icterus. Extraocular movements grossly intact. Moist buccal mucosa. Head is atraumatic, normocephalic. ABDOMEN: Soft. Nondistended. Incision site with a small amount of drainage at the distal aspect noted on incisional dressing. Tenderness to palpation at incision site. NEUROLOGIC: Alert and oriented. Cranial nerves II through XII grossly intact. ASSESSMENT: 1. Small bowel obstruction secondary to internal hernia and adhesions status post exploratory laparotomy, lysis of extensive adhesions, small bowel resection, repair of small bowel enterotomy and incidental appendectomy 2. Hypertension PLAN: -Patient started on clear liquid diet this morning and will advance to full liquids -[place] added oral pain medication -IV Tylenol and Toradol added for pain control -Discontinue Evans catheter -Continue IV fluids -Keep patient nothing by mouth except for ice chips -Encourage patient to ambulate -Encourage patient to use incentive spirometer -Patient to work with PT OT -GI prophylaxis Protonix and DVT prophylaxis subcu heparin Physician Senior Asic Design Engineer note has been reviewed by physician. Signing provider agrees with the documented findings, assessment, and plan of care. Objective - Vital Signs Vital signs: Vital Signs Temp 98.7 F 04/09/22 07:36 Pulse 56 L 04/09/22 08:00 Resp 18 04/09/22 08:00 BP 147/79 04/09/22 07:36 Pulse Ox 96 04/09/22 07:36 FiO2 Intake & Output 04/08/22 04/09/22 04/09/22 18:59 06:59 18:59 Output Total 0 Balance 0 Output: Urine 0 Other: Voiding Method Indwelling Catheter Toilet Toilet Urinal # Voids 0 0 # Bowel Movements 0 0 - Labs CBC & Chem 7: 04/09/22 08:26 04/09/22 08:26 Labs: Abnormal Lab Results - Last 24 Hours (Table) 04/09/22 04/09/22 Range/Units 08:26 08:26 RBC 3.71 L (4.30-5.90) m/uL Hgb 11.5 L D (13.0-17.5) gm/dL Hct 35.3 L (39.0-53.0) % Plt Count 108 L (150-450) k/uL Lymphocytes # 0.6 L (1.0-4.8) k/uL BUN 24 H (9-20) mg/dL Glucose 68 L (74-99) mg/dL Calcium 7.5 L (8.4-10.2) mg/dL Microbiology - Last 24 Hours (Table) 04/06/22 12:02 Blood Culture - Preliminary Blood No Growth after 48 hours
[2022-04-09] MEDS: ACETAMINOPHEN TAB 325 MG TAB PO PRN (14:13)
--- NOTE | 2022-04-09 19:03 | P.PN ---
Subjective She is a pleasant 77 years old male with past medical history of Hearing Disorder / Deafness, Hyperlipidemia, benign prostatic hypertrophy, esophageal cancer in 2013 status post esophagectomy on 05/1213, cochlear implants for loss of hearing Presents because of epigastric pain and vomiting. he states he started having upper abdominal pain last night, it was bad enough that he decided to come to emergency room. He did not have bowel movement yesterday but he had one here in the emergency room which was kind of fluids. He had nausea and frequent vomiting while coming to the hospital but mainly phlegm. Patient has history of prostatectomy and he has chronic cough and muscle that time phlegm comes up. No chest pain. He has little with exertion. No headache or weakness or numbness. No urinary complaints. He denies smoking, alcohol or illicit drugs currently. His PCP is Dr. Kuldip Bowman Vitals are reviewed, patient is afebrile, blood pressure elevated 195/106 on admission. Currently blood pressure improved 163/87 Labs show an unremarkable CBC, INR, BMP. Liver enzymes elevated. Lipase is normal. EKG showing atrial fibrillation with a rate of [address] of the abdomen and pelvis with contrast: Mildly distended fluid-filled small bowel with small bowel feces and focal transition point in the right mid abdomen. There is wall thickening and mesenteric congestion without evidence of pneumatosis or portal venous gas. Findings suggest small bowel obstruction. Associated with small volume ascites. Also patient has pulmonary fibrotic changes with right lower lobe consolidation concerning for infectious process. Colonic diverticulosis without diverticulitis. non-Obstructive bilateral renal calculi Chest x-ray: Bibasilar patchy airspace opacities which may represent atelectasis versus infiltrate. COPD. 04/07/2012 Patient seen and evaluated in the morning rounds prior to surgery. Head Of Loss Prevention already evaluated the patient preoperatively Patient underwent exploratory laparotomy with lysis of extensive adhesions and small bowel resection. Plan discussed with in the morning and she verbalized understanding and acceptance as well as the patient 04/08/2022 Today postop day #1 for his extensive lysis of adhesions and small bowel resection. Patient has significant pain in the morning and he was distressed due to pain, Toradol added for him Also he is receiving Dilaudid 1 mg. Vitals and labs reviewed He remains on Zosyn and Ringer lactate 1 25 mL/h Cardiology team signed off the case 04/09/2022 Today is postoperative day #2 for his expiratory laparotomy and lysis of adhesions. He is less distress but still has significant pain. He is receiving pain medication and pain becoming more controlled He passed gas is today but no bowel movement He was started on liquid diet He will keep monitoring Labs showing hemoglobin delusion Objective - Vital Signs Vital signs: Vital Signs Temp 98.7 F 04/09/22 07:36 Pulse 56 L 04/09/22 08:00 Resp 18 04/09/22 08:00 BP 147/79 04/09/22 07:36 Pulse Ox 96 04/09/22 07:36 FiO2 Intake & Output 04/09/22 04/09/22 04/10/22 06:59 18:59 06:59 Output Total 0 Balance 0 Output: Urine 0 Other: Voiding Method Toilet Toilet Urinal # Voids 0 # Bowel Movements 0 - Exam GENERAL: The patient is alert and oriented x3, not in any acute distress. Well developed, well nourished. HEENT: Pupils are round and equally reacting to light. EOMI. No scleral icterus. No conjunctival pallor. Normocephalic, atraumatic. No pharyngeal erythema. No thyromegaly. CARDIOVASCULAR: S1 and S2 present. No murmurs, rubs, or gallops. PULMONARY: Chest is clear to auscultation, no wheezing or crackles. -ABDOMEN: Soft, tender with guarding, nondistended, normoactive bowel sounds. No palpable organomegaly. MUSCULOSKELETAL: No joint swelling or deformity. EXTREMITIES: No cyanosis, clubbing, or pedal edema. NEUROLOGICAL: Gross neurological examination did not reveal any focal deficits. SKIN: No rashes. no petechiae. - Labs CBC & Chem 7: 04/09/22 08:26 04/09/22 08:26 Labs: Abnormal Lab Results - Last 24 Hours (Table) 04/09/22 04/09/22 Range/Units 08:26 08:26 RBC 3.71 L (4.30-5.90) m/uL Hgb 11.5 L D (13.0-17.5) gm/dL Hct 35.3 L (39.0-53.0) % Plt Count 108 L (150-450) k/uL Lymphocytes # 0.6 L (1.0-4.8) k/uL BUN 24 H (9-20) mg/dL Glucose 68 L (74-99) mg/dL Calcium 7.5 L (8.4-10.2) mg/dL Microbiology - Last 24 Hours (Table) 04/06/22 12:02 Blood Culture - Preliminary Blood No Growth after 72 hours Assessment and Plan Assessment: acute Small bowel obstruction status post expiratory laparotomy lysis of adhesions and small bowel resection on 04/07/2022 Right lower lobe consolidation suspicious for atelectasis rather than pneumonia Hypertension with urgency, present on admission. Hyperlipidemia Benign prostatic hypertrophy History of esophageal cancer status post esophagectomy History of cochlear implants for hearing difficulty bilateral renal calculi Plan: continue with bowel rest Pain medication IV fluid Surgery consult Patient reports he on Zosyn per surgery team Start clonidine patch and hydralazine/vasotec when necessary for high blood pressure Labs and medication were reviewed.. Continue same treatment. Continue with symptomatic treatment. Resume home medication. Monitor lytes and vitals. DVT and GI prophylaxis. Further recommendations as per clinical course of the patient DVT prophylaxis: Subcutaneous heparin GI Prophylaxis: Pepcid PT/OT: Pending
[2022-04-10] MEDS: PIPERACILLIN-TAZOBACTAM 3.375 GM in SODIUM CHLORIDE 0.9% 100 ML IVPB SCH ×4 (00:39→23:54)
[2022-04-10] MEDS: SODIUM CHLORIDE 0.9% 1,000 ML IV SCH ×4 (00:41→22:06)
[2022-04-10] MEDS: KETOROLAC 15 MG/ML 1 ML VIAL IVP SCH ×3 (01:40→11:55)
[2022-04-10] MEDS: HEPARIN SODIUM,PORCINE/PF 5,000 UNIT/0.5 ML SYRINGE SQ SCH (08:48)
[2022-04-10] MEDS: PANTOPRAZOLE 40 MG/10 ML VIAL IV SCH (08:49)
[2022-04-10] MEDS ORDERED: AMIODARONE 360 MG in DEXTROSE 5% IN WATER 200 ML IV ONE ×2 (11:01)
[2022-04-10] MEDS ORDERED: DEXTROSE 5% IN WATER 100 ML with AMIODARONE 150 MG IV ONE (11:01)
[2022-04-10] MEDS ORDERED: METOPROLOL TARTRATE 5 MG/5 ML VIAL IVP ONE (11:03)
[2022-04-10] MEDS ORDERED: DILTIAZEM DRIP BOLUS FROM BAG 1 MG SOLN IV ONE (11:04)
[2022-04-10 11:26] LABS: Glucose,Whole Blood 81 mg/dL (70-110)
[2022-04-10] MEDS: DILTIAZEM 125 MG in SODIUM CHLORIDE 0.9% 100 ML IV SCH ×2 (11:32→21:31)
--- NOTE | 2022-04-10 12:43 | P.PN ---
Progress Note - Text Progress Note Date: 04/10/22 A team was called on the patient because he was tachycardic. When I went to go see the patient he was asymptomatic. His heart rate was elevated above 170s. Nurses attempted Valsalva maneuver and also carotid massage however this did not help. EKG showed A. fib with RVR. Patient was given a bolus of Lopressor as well as Cardizem. Patient was started on amiodarone drip and transferred to the ICU. Cardiology was notified.
[2022-04-10] MEDS ORDERED: METOPROLOL TARTRATE 25 MG TAB PO SCH (12:45)
--- NOTE | 2022-04-10 12:46 | P.PN ---
Subjective She is a pleasant 77 years old male with past medical history of Hearing Disorder / Deafness, Hyperlipidemia, benign prostatic hypertrophy, esophageal cancer in 2013 status post esophagectomy on 05/1213, cochlear implants for loss of hearing Presents because of epigastric pain and vomiting. he states he started having upper abdominal pain last night, it was bad enough that he decided to come to emergency room. He did not have bowel movement yesterday but he had one here in the emergency room which was kind of fluids. He had nausea and frequent vomiting while coming to the hospital but mainly phlegm. Patient has history of prostatectomy and he has chronic cough and muscle that time phlegm comes up. No chest pain. He has little with exertion. No headache or weakness or numbness. No urinary complaints. He denies smoking, alcohol or illicit drugs currently. His PCP is Dr. Kuldip Bowman Vitals are reviewed, patient is afebrile, blood pressure elevated 195/106 on admission. Currently blood pressure improved 163/87 Labs show an unremarkable CBC, INR, BMP. Liver enzymes elevated. Lipase is normal. EKG showing atrial fibrillation with a rate of [address] of the abdomen and pelvis with contrast: Mildly distended fluid-filled small bowel with small bowel feces and focal transition point in the right mid abdomen. There is wall thickening and mesenteric congestion without evidence of pneumatosis or portal venous gas. Findings suggest small bowel obstruction. Associated with small volume ascites. Also patient has pulmonary fibrotic changes with right lower lobe consolidation concerning for infectious process. Colonic diverticulosis without diverticulitis. non-Obstructive bilateral renal calculi Chest x-ray: Bibasilar patchy airspace opacities which may represent atelectasis versus infiltrate. COPD. 04/07/2012 Patient seen and evaluated in the morning rounds prior to surgery. Data Reporting Analyst already evaluated the patient preoperatively Patient underwent exploratory laparotomy with lysis of extensive adhesions and small bowel resection. Plan discussed with in the morning and she verbalized understanding and acceptance as well as the patient 04/08/2022 Today postop day #1 for his extensive lysis of adhesions and small bowel resection. Patient has significant pain in the morning and he was distressed due to pain, Toradol added for him Also he is receiving Dilaudid 1 mg. Vitals and labs reviewed He remains on Zosyn and Ringer lactate 1 25 mL/h Cardiology team signed off the case 04/09/2022 Today is postoperative day #2 for his expiratory laparotomy and lysis of adhesions. He is less distress but still has significant pain. He is receiving pain medication and pain becoming more controlled He passed gas is today but no bowel movement He was started on liquid diet He will keep monitoring Labs showing hemoglobin delusion 04/10/2020 Patient this morning during the rounds was doing well, he was tolerating a liquid diet with abdominal pain control on no vomiting and he is passing lots of gas He was having fluids running at 120 mL/h postvoid residual was 178 Was also still on Zosyn. After rounds patient developed tachycardia heart rate went up to 102, as per bed side nurse patient was not hypotensive, A team code was activated and patient received amiodarone and beta saadia and transferred to the ICU for close monitoring and further treatment. Data Reporting Analyst has been consulted for possible postop tachyarrhythmia and patient was started on metoprolol 25 mg twice a day. Objective - Vital Signs Vital signs: Vital Signs Temp 97.5 F L 04/10/22 07:50 Pulse 65 04/10/22 07:50 Resp 18 04/10/22 08:45 BP 170/80 04/10/22 07:50 Pulse Ox 97 04/10/22 07:50 FiO2 Intake & Output 04/09/22 04/10/22 04/10/22 18:59 06:59 18:59 Intake Total 6.75 Output Total 1078 Balance -1078 6.75 Intake: Intake, IV Titration 6.75 Amount Diltiazem 125 mg In 6.75 Sodium Chloride 0.9% 100 ml @ Per Protocol IV .Q0M [facility] Rx#:[id number] Output: Urine 900 Post Void Residual 178 Other: Voiding Method Toilet Toilet Toilet # Voids 2 - Exam GENERAL: The patient is alert and oriented x3, not in any acute distress. Well developed, well nourished. HEENT: Pupils are round and equally reacting to light. EOMI. No scleral icterus. No conjunctival pallor. Normocephalic, atraumatic. No pharyngeal erythema. No thyromegaly. CARDIOVASCULAR: S1 and S2 present. No murmurs, rubs, or gallops. PULMONARY: Chest is clear to auscultation, no wheezing or crackles. -ABDOMEN: Soft, tender with guarding, nondistended, normoactive bowel sounds. No palpable organomegaly. MUSCULOSKELETAL: No joint swelling or deformity. EXTREMITIES: No cyanosis, clubbing, or pedal edema. NEUROLOGICAL: Gross neurological examination did not reveal any focal deficits. SKIN: No rashes. no petechiae. - Labs CBC & Chem 7: 04/09/22 08:26 04/09/22 08:26 Labs: Microbiology - Last 24 Hours (Table) 04/06/22 12:02 Blood Culture - Preliminary Blood No Growth after 72 hours Assessment and Plan Assessment: acute Small bowel obstruction status post expiratory laparotomy lysis of adhesions and small bowel resection on 04/07/2022 Postop tachyarrhythmia, rule out A. fib Right lower lobe consolidation suspicious for atelectasis rather than pneumonia Hypertension with urgency, present on admission. Hyperlipidemia Benign prostatic hypertrophy History of esophageal cancer status post esophagectomy History of cochlear implants for hearing difficulty bilateral renal calculi Plan: continue with bowel rest Pain medication IV fluid Surgery consult Patient reports he on Zosyn per surgery team Continue with metoprolol Cardiology consult Start clonidine patch and hydralazine/vasotec when necessary for high blood pressure Labs and medication were reviewed.. Continue same treatment. Continue with symptomatic treatment. Resume home medication. Monitor lytes and vitals. DVT and GI prophylaxis. Further recommendations as per clinical course of the patient DVT prophylaxis: Subcutaneous heparin GI Prophylaxis: Ppi PT/OT: Pending
[2022-04-10] MEDS ORDERED: NON FORMULARY DRUG (Etanercept [Enbrel Sureclick] 50 MG/ML Pen.Injctr) SQ SCH (13:15)
[2022-04-10] MEDS ORDERED: HEPARIN SODIUM 1,000 UN/ML (10ML VL) IVP ONE (14:16)
[2022-04-10] MEDS: PARoxetine 20 MG TAB PO SCH (14:22)
[2022-04-10] MEDS: LEVOTHYROXINE 25 MCG TAB PO SCH (14:22)
[2022-04-10] MEDS: ATORVASTATIN 10 MG TAB PO SCH (14:22)
[2022-04-10] MEDS: HEPARIN SOD,PORK IN 0.45% NACL 25,000 UNIT in 0.45% NACL 1 250ML.BAG IV SCH (14:23)
--- NOTE | 2022-04-10 14:28 | P.PN ---
Subjective Progress Note Date: 04/10/22 CHIEF COMPLAINT: Small bowel obstruction HISTORY OF PRESENT ILLNESS: Patient is postop day #3 status post exploratory laparotomy, lysis of extensive adhesions, small bowel resection, repair of small bowel enterotomy and incidental appendectomy for a small bowel obstruction secondary to internal hernia and adhesions. Patient reports having flatus and a small BM. He denies any nausea or vomiting. He had been doing well this morning. This afternoon after his shower patient became tachycardic with heart rate into the 170s with evidence of SVT as well as A. fib with RVR. He required a "ATeam" to be called and then was transferred to the ICU. He is currently on amiodarone and Cardizem drip. He is afebrile. WBC 7.1 Patient seen and examined with Dr. Ferreira PHYSICAL EXAM: VITAL SIGNS: Reviewed. GENERAL: Well-developed in no acute distress. HEENT: No sclera icterus. Extraocular movements grossly intact. Moist buccal mucosa. Head is atraumatic, normocephalic. ABDOMEN: Soft. Nondistended. Minimal tenderness at incision site. Incision with dried blood noted. Small amount of serosanguineous drainage noted at the inferior aspect of the incision. NEUROLOGIC: Alert and oriented. Cranial nerves II through XII grossly intact. ASSESSMENT: 1. Small bowel obstruction secondary to internal hernia and adhesions status post exploratory laparotomy, lysis of extensive adhesions, small bowel resection, repair of small bowel enterotomy and incidental appendectomy 2. Hypertension 3. A. fib RVR 4. History of rheumatoid arthritis PLAN: -Patient required transfer to the ICU -Cardiology following regards to patient's arrhythmia -Okay to start IV heparin from surgical standpoint -Continue full liquid diet -Toradol discontinued because it interacts with patient's IV heparin -Continue pain management -Patient's home medications restarted -Okay to bring rheumatoid arthritis medication, Enbrel from home. Our pharmacy does not carry it. -Encourage patient to use incentive spirometer -Encourage patient to increase activity when able from cardiac standpoint -GI prophylaxis Protonix and DVT prophylaxis IV heparin Physician Home Health Cna note has been reviewed by physician. Signing provider agrees with the documented findings, assessment, and plan of care. Objective - Vital Signs Vital signs: Vital Signs Temp 97.5 F L 04/10/22 07:50 Pulse 65 04/10/22 07:50 Resp 18 04/10/22 08:45 BP 170/80 04/10/22 07:50 Pulse Ox 97 04/10/22 07:50 FiO2 Intake & Output 04/09/22 04/10/22 04/10/22 18:59 06:59 18:59 Intake Total 6.75 Output Total 1078 Balance -1078 6.75 Intake: Intake, IV Titration 6.75 Amount Diltiazem 125 mg In 6.75 Sodium Chloride 0.9% 100 ml @ Per Protocol IV .Q0M [facility] Rx#:[id number] Output: Urine 900 Post Void Residual 178 Other: Voiding Method Toilet Toilet Toilet # Voids 2 - Labs CBC & Chem 7: 04/09/22 08:26 04/09/22 08:26 Labs: Microbiology - Last 24 Hours (Table) 04/06/22 12:02 Blood Culture - Preliminary Blood No Growth after 96 hours
[2022-04-10] MEDS: AMIODARONE 450 MG in DEXTROSE 5% IN WATER 250 ML IV SCH ×2 (17:31)
[2022-04-10] MEDS: HYDROmorphone 0.5 MG/0.5 ML SYRINGE IVP PRN (18:29)
[2022-04-10] MEDS: HYDROcodone/APAP 5-325MG 1 EACH TAB PO PRN (20:09)
[2022-04-10] MEDS: TAMSULOSIN 0.4 MG CAP.ER.24H PO SCH (20:09)
[2022-04-11 03:33] LABS: Basophils # (A) 0.1 k/uL (0-0.2); Basophils % (A) 1 %; Eosinophils # (A) 0.5 k/uL (0-0.7); Eosinophils % (A) 8 %; HCT 35.4 % (39.0-53.0); HGB 11.7 gm/dL (13.0-17.5); Hypochromasia Slight; Lymphocytes # (A) 0.9 k/uL (1.0-4.8); Lymphocytes % (A) 15 %; MCH 31.1 pg (25.0-35.0); MCHC 32.9 g/dL (31.0-37.0); MCV 94.4 fL (80.0-100.0); Mean Platelet Volume 8.8; Monocytes # (A) 0.5 k/uL (0-1.0); Monocytes % (A) 8 %; Neutrophils # (A) 4.1 k/uL (1.3-7.7); Neutrophils % (A) 65 %; Platelet Count 156 k/uL (150-450); RBC 3.75 m/uL (4.30-5.90); RDW 14.7 % (11.5-15.5); WBC 6.2 k/uL (3.8-10.6)
[2022-04-11 03:44] LABS: INR 1.2 (<1.2); Prothrombin Time 12.6 sec (9.0-12.0)
[2022-04-11 04:18] LABS: African American GFR (CKD) >90 (>60 ml/min/1.73 sqM); Anion Gap 6 mmol/L; Blood Urea Nitrogen 14 mg/dL (9-20); Calcium 7.3 mg/dL (8.4-10.2); Carbon Dioxide 25 mmol/L (22-30); Chloride 107 mmol/L (98-107); Glucose 105 mg/dL (74-99); Magnesium 1.7 mg/dL (1.6-2.3); Non-African American GFR(CKD) >90 (>60 ml/min/1.73 sqM); Potassium 3.2 mmol/L (3.5-5.1); Sodium 138 mmol/L (137-145)
[2022-04-11] MEDS: LEVOTHYROXINE 25 MCG TAB PO SCH (06:13)
--- NOTE | 2022-04-11 06:42 | XR ---
EXAMINATION TYPE: XR chest 1V DATE OF EXAM: 04/11/2022 CLINICAL HISTORY: Difficulty breathing progress study. TECHNIQUE: Single AP portable upright view of the chest is obtained. COMPARISON: Chest x-ray from 5 days earlier FINDINGS: Overlying EKG leads redemonstrated. Diminished inspiration current study with increasing b ilateral lower lung airspace opacities and likely new small to tiny bilateral pleural effusions. No p neumothorax seen bilaterally. Cardiac silhouette size is stable and upper limits of normal. Osseous s tructures are intact. IMPRESSION: Diminished inspiration with worsening bibasilar acute infiltrate and/or atelectasis. Like ly new small to tiny bilateral pleural effusions. Progress study advised.
[2022-04-11] MEDS: SODIUM CHLORIDE 0.9% 1,000 ML IV SCH ×3 (08:10→20:56)
[2022-04-11] MEDS: PANTOPRAZOLE 40 MG/10 ML VIAL IV SCH (08:22)
[2022-04-11] MEDS: HYDROmorphone 1 MG/ML 1 ML SYRINGE IVP PRN (08:22)
[2022-04-11] MEDS: PIPERACILLIN-TAZOBACTAM 3.375 GM in SODIUM CHLORIDE 0.9% 100 ML IVPB SCH ×3 (08:24→23:28)
[2022-04-11] MEDS: ATORVASTATIN 10 MG TAB PO SCH (08:24)
[2022-04-11] MEDS: PARoxetine 20 MG TAB PO SCH (08:24)
[2022-04-11] MEDS: AMIODARONE 450 MG in DEXTROSE 5% IN WATER 250 ML IV SCH ×2 (08:32)
[2022-04-11] MEDS: HEPARIN SOD,PORK IN 0.45% NACL 25,000 UNIT in 0.45% NACL 1 250ML.BAG IV SCH (10:51)
--- NOTE | 2022-04-11 12:18 | P.PN ---
Subjective Progress Note Date: 04/11/22 Patient is seen today resting comfortably in bed doing well. Patient denies any chest pain or increased shortness of breath. He has converted to sinus rhythm with a controlled ventricle rate of 61. His Cardizem drip has been discontinued. He is on amiodarone drip, will discontinue drip and convert him to 200 mg by mouth twice a day. He remains on a heparin drip, once cleared by surgery, will start patient on oral anticoagulation Eliquis. Patient had a 2-D echocardiogram earlier this admission which showed a normal LV function with an ejection fraction of 55-60%, mild mitral regurgitation, mild aortic regurgitation, and mild tricuspid regurgitation Objective - Vital Signs Vital signs: Vital Signs Temp 97.9 F 04/11/22 08:16 Pulse 57 L 04/11/22 11:15 Resp 16 04/11/22 11:15 BP 145/77 04/11/22 11:15 Pulse Ox 96 04/11/22 11:15 FiO2 Intake & Output 04/10/22 04/11/22 04/11/22 18:59 06:59 18:59 Intake Total 51.917 265.967 325.666 Balance 51.917 265.967 325.666 Intake: Intake, IV Titration 51.917 265.967 325.666 Amount Amiodarone 450 mg In 250 Dextrose 5% in Water 250 ml @ 0.5 MG/MIN 16.667 mls/hr IV .Q15H [facility] Rx#: [id number] Diltiazem 125 mg In 51.917 112.50 Sodium Chloride 0.9% 100 ml @ Per Protocol IV .Q0M [facility] Rx#:[id number] Heparin Sod,Pork in 0.45% 153.467 75.666 NaCl 25,000 unit In 0.45 % NaCl 1 250ml.bag @ 11. 9168 UNITS/KG/HR 10 mls/ hr IV .Q24H [facility] Rx#: [id number] Other: Voiding Method Toilet Toilet Toilet - Exam PHYSICAL EXAM: VITAL SIGNS: Reviewed. GENERAL: Well-developed in no acute distress. HEENT: Head is normocephalic. Pupils are equal, round. Sclerae anicteric. Mucous membranes of the mouth are moist. NECK: Supple. No JVD or thyromegaly RESPIRATORY: Respirations even and unlabored. Lungs diminished to auscultation bilaterally. CARDIO: Regular rate and rhythm. S1 and S2 heard. No murmur or gallops. EXTREMITIES: Normal range of motion. No clubbing or cyanosis. Peripheral pu lses intact. Negative for bilateral lower extremity edema NEURO: Orientated to person, time, mood is appropriate - Labs CBC & Chem 7: 04/11/22 03:20 04/11/22 03:20 Labs: Abnormal Lab Results - Last 24 Hours (Table) 04/10/22 04/11/22 04/11/22 Range/Units 21:06 03:20 03:20 RBC 3.75 L (4.30-5.90) m/uL Hgb 11.7 L (13.0-17.5) gm/dL Hct 35.4 L (39.0-53.0) % Lymphocytes # 0.9 L (1.0-4.8) k/uL PT (9.0-12.0) sec INR (<1.2) APTT 39.0 H (22.0-30.0) sec Potassium 3.2 L (3.5-5.1) mmol/L Creatinine 0.64 L (0.66-1.25) mg/dL Glucose 105 H (74-99) mg/dL Calcium 7.3 L (8.4-10.2) mg/dL 04/11/22 Range/Units 03:20 RBC (4.30-5.90) m/uL Hgb (13.0-17.5) gm/dL Hct (39.0-53.0) % Lymphocytes # (1.0-4.8) k/uL PT 12.6 H (9.0-12.0) sec INR 1.2 H (<1.2) APTT 76.0 H (22.0-30.0) sec Potassium (3.5-5.1) mmol/L Creatinine (0.66-1.25) mg/dL Glucose (74-99) mg/dL Calcium (8.4-10.2) mg/dL Microbiology - Last 24 Hours (Table) 04/06/22 12:02 Blood Culture - Preliminary Blood No Growth after 96 hours Assessment and Plan Assessment: Proximal atrial fibrillation Plan: 2-D echocardiogram reviewed Discontinue Cardizem drip Discontinue amiodarone drip and start 200 mg by mouth twice a day Will continue with heparin drip until cleared by surgery to start oral anticoagulation Continue with telemetry monitoring Insert further recommendations
[2022-04-11] MEDS ORDERED: Potassium Replacement Protocol 1 EACH MISC MISCELLANE PRN ×2 (16:06→16:10)
--- NOTE | 2022-04-11 16:06 | P.PN ---
Subjective Progress Note Date: 04/11/22 CHIEF COMPLAINT: Small bowel obstruction HISTORY OF PRESENT ILLNESS: The patient is a 77-year-old status post lysis of adhesions and reduction of internal hernia with incidental appendectomy. Patient had new cardiac arrhythmia atrial fibrillation rapid ventricular response. He is resting comfortably. ROS: No reports of nausea and vomiting. No fevers or chills. PHYSICAL EXAM: VITAL SIGNS: Reviewed CONSTITUTIONAL: Well developed and in no acute distress. EYES: Conjuctivae without sclera icterus. Extraocular movements grossly intact. HEAD, EARS, NOSE, THROAT: Moist buccal mucosa. Head is atraumatic, normocephalic. Hears conversational speech. No nasal drainage. RESPIRATORY: Non-labored respirations and equal bilateral excursions. CARDIOVASCULAR: Palpable 2+ radial pulses. ABDOMEN: No peritonitis MUSCULOSKELETAL: No gross deformity of the lower extremities noted. No clubbing. No cyanosis. SKIN: Good skin turgor. Well perfused. NEUROLOGIC: Cranial nerves II through XII grossly intact. No focal or lateralizing signs. PSYCH: Appropriate affect. Alert and oriented to person, place and time. CLINICAL LABS: Reviewed. Hemoglobin stable 11.5-11.7. WBC normal 6.2. Pota ssium low at 3.2 ASSESSMENT: 1. Small bowel obstruction due to adhesions 2. New atrial fibrillation rapid ventricular response 3. PLAN: 1. Diet as tolerated 2. Anticoagulants per cardiology team 3. Correction of hypokalemia Objective - Vital Signs Vital signs: Vital Signs Temp 97.9 F 04/11/22 08:16 Pulse 57 L 04/11/22 11:15 Resp 16 04/11/22 11:15 BP 145/77 04/11/22 11:15 Pulse Ox 96 04/11/22 11:15 FiO2 Intake & Output 04/10/22 04/11/22 04/11/22 18:59 06:59 18:59 Intake Total 51.917 265.967 325.666 Balance 51.917 265.967 325.666 Intake: Intake, IV Titration 51.917 265.967 325.666 Amount Amiodarone 450 mg In 250 Dextrose 5% in Water 250 ml @ 0.5 MG/MIN 16.667 mls/hr IV .Q15H [facility] Rx#: [id number] Diltiazem 125 mg In 51.917 112.50 Sodium Chloride 0.9% 100 ml @ Per Protocol IV .Q0M [facility] Rx#:[id number] Heparin Sod,Pork in 0.45% 153.467 75.666 NaCl 25,000 unit In 0.45 % NaCl 1 250ml.bag @ 11. 9168 UNITS/KG/HR 10 mls/ hr IV .Q24H [facility] Rx#: [id number] Other: Voiding Method Toilet Toilet Toilet - Labs CBC & Chem 7: 04/11/22 03:20 04/11/22 03:20 Labs: Abnormal Lab Results - Last 24 Hours (Table) 04/10/22 04/11/22 04/11/22 Range/Units 21:06 03:20 03:20 RBC 3.75 L (4.30-5.90) m/uL Hgb 11.7 L (13.0-17.5) gm/dL Hct 35.4 L (39.0-53.0) % Lymphocytes # 0.9 L (1.0-4.8) k/uL PT (9.0-12.0) sec INR (<1.2) APTT 39.0 H (22.0-30.0) sec Potassium 3.2 L (3.5-5.1) mmol/L Creatinine 0.64 L (0.66-1.25) mg/dL Glucose 105 H (74-99) mg/dL Calcium 7.3 L (8.4-10.2) mg/dL 04/11/22 Range/Units 03:20 RBC (4.30-5.90) m/uL Hgb (13.0-17.5) gm/dL Hct (39.0-53.0) % Lymphocytes # (1.0-4.8) k/uL PT 12.6 H (9.0-12.0) sec INR 1.2 H (<1.2) APTT 76.0 H (22.0-30.0) sec Potassium (3.5-5.1) mmol/L Creatinine (0.66-1.25) mg/dL Glucose (74-99) mg/dL Calcium (8.4-10.2) mg/dL Microbiology - Last 24 Hours (Table) 04/06/22 12:02 Blood Culture - Preliminary Blood No Growth after 96 hours
[2022-04-11] MEDS ORDERED: POTASSIUM CHLORIDE ER 20 MEQ TAB.ER PO SCH (17:00)
[2022-04-11] MEDS: POTASSIUM CHLORIDE 10 MEQ in WATER FOR INJECTION 1 100ML.BAG IVPB SCH ×4 (17:19→23:24)
[2022-04-11] MEDS: TAMSULOSIN 0.4 MG CAP.ER.24H PO SCH (20:49)
[2022-04-11] MEDS: HYDROcodone/APAP 5-325MG 1 EACH TAB PO PRN (20:49)
[2022-04-11] MEDS: AMIODARONE 200 MG TAB PO SCH (20:49)
--- NOTE | 2022-04-11 21:10 | P.PN ---
Subjective She is a pleasant 77 years old male with past medical history of Hearing Disorder / Deafness, Hyperlipidemia, benign prostatic hypertrophy, esophageal cancer in 2013 status post esophagectomy on 05/1213, cochlear implants for loss of hearing Presents because of epigastric pain and vomiting. he states he started having upper abdominal pain last night, it was bad enough that he decided to come to emergency room. He did not have bowel movement yesterday but he had one here in the emergency room which was kind of fluids. He had nausea and frequent vomiting while coming to the hospital but mainly phlegm. Patient has history of prostatectomy and he has chronic cough and muscle that time phlegm comes up. No chest pain. He has little with exertion. No headache or weakness or numbness. No urinary complaints. He denies smoking, alcohol or illicit drugs currently. His PCP is Dr. Kuldip Bowman Vitals are reviewed, patient is afebrile, blood pressure elevated 195/106 on admission. Currently blood pressure improved 163/87 Labs show an unremarkable CBC, INR, BMP. Liver enzymes elevated. Lipase is normal. EKG showing atrial fibrillation with a rate of [address] of the abdomen and pelvis with contrast: Mildly distended fluid-filled small bowel with small bowel feces and focal transition point in the right mid abdomen. There is wall thickening and mesenteric congestion without evidence of pneumatosis or portal venous gas. Findings suggest small bowel obstruction. Associated with small volume ascites. Also patient has pulmonary fibrotic changes with right lower lobe consolidation concerning for infectious process. Colonic diverticulosis without diverticulitis. non-Obstructive bilateral renal calculi Chest x-ray: Bibasilar patchy airspace opacities which may represent atelectasis versus infiltrate. COPD. 04/07/2012 Patient seen and evaluated in the morning rounds prior to surgery. [employer] already evaluated the patient preoperatively Patient underwent exploratory laparotomy with lysis of extensive adhesions and small bowel resection. Plan discussed with in the morning and she verbalized understanding and acceptance as well as the patient 04/08/2022 Today postop day #1 for his extensive lysis of adhesions and small bowel resection. Patient has significant pain in the morning and he was distressed due to pain, Toradol added for him Also he is receiving Dilaudid 1 mg. Vitals and labs reviewed He remains on Zosyn and Ringer lactate 1 25 mL/h Cardiology team signed off the case 04/09/2022 Today is postoperative day #2 for his expiratory laparotomy and lysis of adhesions. He is less distress but still has significant pain. He is receiving pain medication and pain becoming more controlled He passed gas is today but no bowel movement He was started on liquid diet He will keep monitoring Labs showing hemoglobin delusion 04/10/2020 Patient this morning during the rounds was doing well, he was tolerating a liquid diet with abdominal pain control on no vomiting and he is passing lots of gas He was having fluids running at 120 mL/h postvoid residual was 178 Was also still on Zosyn. After rounds patient developed tachycardia heart rate went up to 102, as per bed side nurse patient was not hypotensive, A team code was activated and patient received amiodarone and beta saadia and transferred to the ICU for close monitoring and further treatment. [employer] has been consulted for possible postop tachyarrhythmia and patient was started on metoprolol 25 mg twice a day. 04/11/2012 Patient remains clinically stable he's awake and alert looks comfortable and pain controlled He remains on full liquid diet. Amiodarone drip 0.5 mg was switched to amiodarone 200 mg Continue with heparin drip Also he is on IV fluids Ringer lactate 120 mL/h Chest x-ray showing worsening bilateral infiltrates. Start incentive spirometry Objective - Vital Signs Vital signs: Vital Signs Temp 98.0 F 04/11/22 15:12 Pulse 74 04/11/22 15:12 Resp 16 04/11/22 15:12 BP 159/84 04/11/22 15:12 Pulse Ox 96 04/11/22 15:54 FiO2 Intake & Output 04/10/22 04/11/22 04/11/22 18:59 06:59 18:59 Intake Total 51.917 265.967 779.666 Balance 51.917 265.967 779.666 Intake: Intake, IV Titration 51.917 265.967 325.666 Amount Amiodarone 450 mg In 250 Dextrose 5% in Water 250 ml @ 0.5 MG/MIN 16.667 mls/hr IV .Q15H [facility] Rx#: [id number] Diltiazem 125 mg In 51.917 112.50 Sodium Chloride 0.9% 100 ml @ Per Protocol IV .Q0M [facility] Rx#:[id number] Heparin Sod,Pork in 0.45% 153.467 75.666 NaCl 25,000 unit In 0.45 % NaCl 1 250ml.bag @ 11. 9168 UNITS/KG/HR 10 mls/ hr IV .Q24H [facility] Rx#: [id number] Oral 454 Other: Voiding Method Toilet Toilet Toilet # Voids 1 # Bowel Movements 1 - Exam GENERAL: The patient is alert and oriented x3, not in any acute distress. Well developed, well nourished. HEENT: Pupils are round and equally reacting to light. EOMI. No scleral icterus. No conjunctival pallor. Normocephalic, atraumatic. No pharyngeal erythema. No thyromegaly. CARDIOVASCULAR: S1 and S2 present. No murmurs, rubs, or gallops. PULMONARY: Chest is clear to auscultation, no wheezing or crackles. -ABDOMEN: Soft, tender with guarding, nondistended, normoactive bowel sounds. No palpable organomegaly. MUSCULOSKELETAL: No joint swelling or deformity. EXTREMITIES: No cyanosis, clubbing, or pedal edema. NEUROLOGICAL: Gross neurological examination did not reveal any focal deficits. SKIN: No rashes. no petechiae. - Labs CBC & Chem 7: 04/11/22 03:20 04/11/22 03:20 Labs: Abnormal Lab Results - Last 24 Hours (Table) 04/10/22 04/11/22 04/11/22 Range/Units 21:06 03:20 03:20 RBC 3.75 L (4.30-5.90) m/uL Hgb 11.7 L (13.0-17.5) gm/dL Hct 35.4 L (39.0-53.0) % Lymphocytes # 0.9 L (1.0-4.8) k/uL PT (9.0-12.0) sec INR (<1.2) APTT 39.0 H (22.0-30.0) sec Potassium 3.2 L (3.5-5.1) mmol/L Creatinine 0.64 L (0.66-1.25) mg/dL Glucose 105 H (74-99) mg/dL Calcium 7.3 L (8.4-10.2) mg/dL 04/11/22 Range/Units 03:20 RBC (4.30-5.90) m/uL Hgb (13.0-17.5) gm/dL Hct (39.0-53.0) % Lymphocytes # (1.0-4.8) k/uL PT 12.6 H (9.0-12.0) sec INR 1.2 H (<1.2) APTT 76.0 H (22.0-30.0) sec Potassium (3.5-5.1) mmol/L Creatinine (0.66-1.25) mg/dL Glucose (74-99) mg/dL Calcium (8.4-10.2) mg/dL Microbiology - Last 24 Hours (Table) 04/06/22 12:02 Blood Culture - Preliminary Blood No Growth after 120 hours Assessment and Plan Assessment: acute Small bowel obstruction status post expiratory laparotomy lysis of adhesions and small bowel resection on 04/07/2022 New-onset A. fib Right lower lobe consolidation suspicious for atelectasis rather than pneumonia Hypertension with urgency, present on admission. Hyperlipidemia Benign prostatic hypertrophy History of esophageal cancer status post esophagectomy History of cochlear implants for hearing difficulty bilateral renal calculi Plan: continue with bowel rest Pain medication IV fluid Surgery consult Patient reports he on Zosyn Continue with amiodarone and heparin drip Cardiology consult Labs and medication were reviewed.. Continue same treatment. Continue with symptomatic treatment. Resume home medication. Monitor lytes and vitals. DVT and GI prophylaxis. Further recommendations as per clinical course of the patient DVT prophylaxis: Subcutaneous heparin GI Prophylaxis: Ppi PT/OT: Pending
[2022-04-12] MEDS: HYDROmorphone 0.5 MG/0.5 ML SYRINGE IVP PRN ×2 (01:23→11:22)
[2022-04-12] MEDS: POTASSIUM CHLORIDE 10 MEQ in WATER FOR INJECTION 1 100ML.BAG IVPB SCH ×2 (01:28→01:29)
[2022-04-12] MEDS: LEVOTHYROXINE 25 MCG TAB PO SCH (05:55)
[2022-04-12] MEDS: SODIUM CHLORIDE 0.9% 1,000 ML IV SCH ×3 (05:56→20:41)
[2022-04-12] MEDS: PIPERACILLIN-TAZOBACTAM 3.375 GM in SODIUM CHLORIDE 0.9% 100 ML IVPB SCH ×3 (08:26→23:22)
[2022-04-12] MEDS: ATORVASTATIN 10 MG TAB PO SCH (08:27)
[2022-04-12] MEDS: PARoxetine 20 MG TAB PO SCH (08:27)
[2022-04-12] MEDS: PANTOPRAZOLE 40 MG/10 ML VIAL IV SCH (08:27)
[2022-04-12] MEDS: AMIODARONE 200 MG TAB PO SCH (08:27)
[2022-04-12 09:39] LABS: Basophils % (A) 1 %; Eosinophils # (A) 0.5 k/uL (0-0.7); Eosinophils % (A) 6 %; HCT 37.4 % (39.0-53.0); HGB 12.4 gm/dL (13.0-17.5); Hypochromasia Slight; Lymphocytes # (A) 0.8 k/uL (1.0-4.8); Lymphocytes % (A) 10 %; MCH 31.4 pg (25.0-35.0); MCHC 33.1 g/dL (31.0-37.0); MCV 94.9 fL (80.0-100.0); Monocytes # (A) 0.7 k/uL (0-1.0); Monocytes % (A) 9 %; Neutrophils # (A) 5.8 k/uL (1.3-7.7); Neutrophils % (A) 72 %; Platelet Count 179 k/uL (150-450); RBC 3.94 m/uL (4.30-5.90); RDW 14.7 % (11.5-15.5); WBC 8.1 k/uL (3.8-10.6)
[2022-04-12] MEDS: hydrALAZINE HCL 20 MG/ML 1 ML VIAL IVP PRN (11:22)
[2022-04-12 12:39] LABS: African American GFR (CKD) >90 (>60 ml/min/1.73 sqM); Anion Gap 6 mmol/L; Blood Urea Nitrogen 9 mg/dL (9-20); Calcium 7.3 mg/dL (8.4-10.2); Carbon Dioxide 26 mmol/L (22-30); Chloride 104 mmol/L (98-107); Glucose 99 mg/dL (74-99); Magnesium 1.7 mg/dL (1.6-2.3); Non-African American GFR(CKD) >90 (>60 ml/min/1.73 sqM); Potassium 3.6 mmol/L (3.5-5.1); Sodium 136 mmol/L (137-145)
[2022-04-12] MEDS ORDERED: DILTIAZEM DRIP BOLUS FROM BAG 1 MG SOLN IV ONE (12:57)
[2022-04-12] MEDS: DILTIAZEM 125 MG in SODIUM CHLORIDE 0.9% 100 ML IV SCH ×2 (13:12→23:43)
[2022-04-12] MEDS ORDERED: Magnesium Replacement Protocol 1 EACH MISC MISCELLANE PRN (13:31)
--- NOTE | 2022-04-12 13:52 | P.PN ---
Subjective Progress Note Date: 04/12/22 Upon exam this morning patient is seen resting comfortably in bed in no signs of acute distress he denies increased chest pain or shortness of breath. He was sinus rhythm with a controlled heart rate. This afternoon patient was up using the bathroom and converted back into atrial fibrillation with RVR. Heart rate 180s to 200s. Will start patient on IV Cardizem drip. Objective - Vital Signs Vital signs: Vital Signs Temp 98.8 F 04/12/22 11:15 Pulse 81 04/12/22 11:15 Resp 18 04/12/22 11:15 BP 144/84 04/12/22 12:05 Pulse Ox 95 04/12/22 11:15 FiO2 Intake & Output 04/11/22 04/12/22 04/12/22 18:59 06:59 18:59 Intake Total 779.666 109.967 129.2 Output Total 550 1200 Balance 779.666 -440.033 -1070.8 Intake: Intake, IV Titration 325.666 109.967 129.2 Amount Amiodarone 450 mg In 250 Dextrose 5% in Water 250 ml @ 0.5 MG/MIN 16.667 mls/hr IV .Q15H [facility] Rx#: [id number] Heparin Sod,Pork in 0.45% 75.666 109.967 129.2 NaCl 25,000 unit In 0.45 % NaCl 1 250ml.bag @ 11. 9168 UNITS/KG/HR 10 mls/ hr IV .Q24H [facility] Rx#: [id number] Oral 454 Output: Urine 550 1200 Other: Voiding Method Toilet Toilet Toilet # Voids 1 1 # Bowel Movements 1 0 - Exam PHYSICAL EXAM: VITAL SIGNS: Reviewed. GENERAL: Well-developed in no acute distress. HEENT: Head is normocephalic. Pupils are equal, round. Sclerae anicteric. Mucous membranes of the mouth are moist. NECK: Supple. No JVD or thyromegaly RESPIRATORY: Respirations even and unlabored. Lungs diminished to auscultation bilaterally. CARDIO: IRRegular rate and rhythm. S1 and S2 heard. No murmur or gallops. EXTREMITIES: Normal range of motion. No clubbing or cyanosis. Peripheral pu lses intact. Negative for bilateral lower extremity edema NEURO: Orientated to person, time, mood is appropriate - Labs CBC & Chem 7: 04/12/22 08:23 04/12/22 11:36 Labs: Abnormal Lab Results - Last 24 Hours (Table) 04/11/22 04/12/22 04/12/22 Range/Units 18:59 01:51 08:23 RBC 3.94 L (4.30-5.90) m/uL Hgb 12.4 L (13.0-17.5) gm/dL Hct 37.4 L (39.0-53.0) % Lymphocytes # 0.8 L (1.0-4.8) k/uL APTT 33.6 H 47.9 H (22.0-30.0) sec Sodium (137-145) mmol/L Calcium (8.4-10.2) mg/dL 04/12/22 04/12/22 Range/Units 08:23 11:36 RBC (4.30-5.90) m/uL Hgb (13.0-17.5) gm/dL Hct (39.0-53.0) % Lymphocytes # (1.0-4.8) k/uL APTT 39.0 H (22.0-30.0) sec Sodium 136 L (137-145) mmol/L Calcium 7.3 L (8.4-10.2) mg/dL Microbiology - Last 24 Hours (Table) 04/06/22 12:02 Blood Culture - Preliminary Blood No Growth after 120 hours Assessment and Plan Assessment: Proximal atrial fibrillation with RVR Plan: Start Cardizem drip continue amiodarone 200 mg by mouth twice a day Will continue with heparin drip until cleared by surgery to start oral anticoagulation Continue with telemetry monitoring Further recommendations based on clinical course The above impression and plan of care have been discussed and directed by the signing physician. Julieta Goodman, nurse practitioner, acting as scribe for signing physician.
[2022-04-12] MEDS: MAGNESIUM SULFATE-D5W PMX 1 GM in DEXTROSE/WATER 1 100ML.BAG IVPB SCH ×2 (13:56→15:36)
[2022-04-12] MEDS: AMIODARONE 450 MG in DEXTROSE 5% IN WATER 250 ML IV SCH ×2 (14:11)
--- NOTE | 2022-04-12 14:38 | P.PN ---
Subjective Progress Note Date: 04/12/22 CHIEF COMPLAINT: Small bowel obstruction HISTORY OF PRESENT ILLNESS: The patient is a 77-year-old status post lysis of adhesions and reduction of internal hernia with incidental appendectomy. Patient had new cardiac arrhythmia atrial fibrillation rapid ventricular response. Today, reports tenderness in right lower quadrant abdominal pain. Daughter and at bedside. Reports decreased appetite. He can only tolerate a few bites. Patient and family reports right lower quadrant pain was pre-ex isting. ROS: No reports of nausea and vomiting. No fevers or chills. PHYSICAL EXAM: VITAL SIGNS: Reviewed CONSTITUTIONAL: Well developed and in no acute distress. EYES: Conjuctivae without sclera icterus. Extraocular movements grossly intact. HEAD, EARS, NOSE, THROAT: Moist buccal mucosa. Head is atraumatic, normocephalic. Hears conversational speech. No nasal drainage. RESPIRATORY: Non-labored respirations and equal bilateral excursions. CARDIOVASCULAR: Palpable 2+ radial pulses. ABDOMEN: Tender right lower quadrant. No peritonitis. MUSCULOSKELETAL: No gross deformity of the lower extremities noted. No clubbing. No cyanosis. SKIN: Good skin turgor. Well perfused. NEUROLOGIC: Cranial nerves II through XII grossly intact. No focal or lateralizing signs. PSYCH: Appropriate affect. Alert and oriented to person, place and time. CLINICAL LABS: Reviewed. Hemoglobin stable 11.5-11.7, improved 12.4. WBC normal. Potassium improved 3.6 after supplement ASSESSMENT: 1. Small bowel obstruction due to adhesions 2. New atrial fibrillation rapid ventricular response 3. Right lower quadrant abdominal pain. PLAN: 1. He has a right lower quadrant abdominal pain, we'll order abdominal x-ray 2. Hemoglobin stable. May continue anticoagulant. Objective - Vital Signs Vital signs: Vital Signs Temp 98.8 F 04/12/22 11:15 Pulse 81 04/12/22 11:15 Resp 18 04/12/22 11:15 BP 144/84 04/12/22 12:05 Pulse Ox 95 04/12/22 11:15 FiO2 Intake & Output 04/11/22 04/12/22 04/12/22 18:59 06:59 18:59 Intake Total 779.666 109.967 129.2 Output Total 550 1200 Balance 779.666 -440.033 -1070.8 Intake: Intake, IV Titration 325.666 109.967 129.2 Amount Amiodarone 450 mg In 250 Dextrose 5% in Water 250 ml @ 0.5 MG/MIN 16.667 mls/hr IV .Q15H [facility] Rx#: [id number] Heparin Sod,Pork in 0.45% 75.666 109.967 129.2 NaCl 25,000 unit In 0.45 % NaCl 1 250ml.bag @ 11. 9168 UNITS/KG/HR 10 mls/ hr IV .Q24H [facility] Rx#: [id number] Oral 454 Output: Urine 550 1200 Other: Voiding Method Toilet Toilet Toilet # Voids 1 1 # Bowel Movements 1 0 - Labs CBC & Chem 7: 04/12/22 08:23 04/12/22 11:36 Labs: Abnormal Lab Results - Last 24 Hours (Table) 04/11/22 04/12/22 04/12/22 Range/Units 18:59 01:51 08:23 RBC 3.94 L (4.30-5.90) m/uL Hgb 12.4 L (13.0-17.5) gm/dL Hct 37.4 L (39.0-53.0) % Lymphocytes # 0.8 L (1.0-4.8) k/uL APTT 33.6 H 47.9 H (22.0-30.0) sec Sodium (137-145) mmol/L Calcium (8.4-10.2) mg/dL 04/12/22 04/12/22 Range/Units 08:23 11:36 RBC (4.30-5.90) m/uL Hgb (13.0-17.5) gm/dL Hct (39.0-53.0) % Lymphocytes # (1.0-4.8) k/uL APTT 39.0 H (22.0-30.0) sec Sodium 136 L (137-145) mmol/L Calcium 7.3 L (8.4-10.2) mg/dL Microbiology - Last 24 Hours (Table) 04/06/22 12:02 Blood Culture - Final Blood No Growth after 144 hours
[2022-04-12] MEDS: HEPARIN SOD,PORK IN 0.45% NACL 25,000 UNIT in 0.45% NACL 1 250ML.BAG IV SCH ×2 (15:36→19:52)
--- NOTE | 2022-04-12 15:49 | P.PN ---
Subjective She is a pleasant 77 years old male with past medical history of Hearing Disorder / Deafness, Hyperlipidemia, benign prostatic hypertrophy, esophageal cancer in 2013 status post esophagectomy on 05/1213, cochlear implants for loss of hearing Presents because of epigastric pain and vomiting. he states he started having upper abdominal pain last night, it was bad enough that he decided to come to emergency room. He did not have bowel movement yesterday but he had one here in the emergency room which was kind of fluids. He had nausea and frequent vomiting while coming to the hospital but mainly phlegm. Patient has history of prostatectomy and he has chronic cough and muscle that time phlegm comes up. No chest pain. He has little with exertion. No headache or weakness or numbness. No urinary complaints. He denies smoking, alcohol or illicit drugs currently. His PCP is Dr. Kuldip Bowman Vitals are reviewed, patient is afebrile, blood pressure elevated 195/106 on admission. Currently blood pressure improved 163/87 Labs show an unremarkable CBC, INR, BMP. Liver enzymes elevated. Lipase is normal. EKG showing atrial fibrillation with a rate of [address] of the abdomen and pelvis with contrast: Mildly distended fluid-filled small bowel with small bowel feces and focal transition point in the right mid abdomen. There is wall thickening and mesenteric congestion without evidence of pneumatosis or portal venous gas. Findings suggest small bowel obstruction. Associated with small volume ascites. Also patient has pulmonary fibrotic changes with right lower lobe consolidation concerning for infectious process. Colonic diverticulosis without diverticulitis. non-Obstructive bilateral renal calculi Chest x-ray: Bibasilar patchy airspace opacities which may represent atelectasis versus infiltrate. COPD. 04/07/2012 Patient seen and evaluated in the morning rounds prior to surgery. Steam Pipe Fitter already evaluated the patient preoperatively Patient underwent exploratory laparotomy with lysis of extensive adhesions and small bowel resection. Plan discussed with in the morning and she verbalized understanding and acceptance as well as the patient 04/08/2022 Today postop day #1 for his extensive lysis of adhesions and small bowel resection. Patient has significant pain in the morning and he was distressed due to pain, Toradol added for him Also he is receiving Dilaudid 1 mg. Vitals and labs reviewed He remains on Zosyn and Ringer lactate 1 25 mL/h Cardiology team signed off the case 04/09/2022 Today is postoperative day #2 for his expiratory laparotomy and lysis of adhesions. He is less distress but still has significant pain. He is receiving pain medication and pain becoming more controlled He passed gas is today but no bowel movement He was started on liquid diet He will keep monitoring Labs showing hemoglobin delusion 04/10/2020 Patient this morning during the rounds was doing well, he was tolerating a liquid diet with abdominal pain control on no vomiting and he is passing lots of gas He was having fluids running at 120 mL/h postvoid residual was 178 Was also still on Zosyn. After rounds patient developed tachycardia heart rate went up to 102, as per bed side nurse patient was not hypotensive, A team code was activated and patient received amiodarone and beta saadia and transferred to the ICU for close monitoring and further treatment. Steam Pipe Fitter has been consulted for possible postop tachyarrhythmia and patient was started on metoprolol 25 mg twice a day. 04/11/2012 Patient remains clinically stable he's awake and alert looks comfortable and pain controlled He remains on full liquid diet. Amiodarone drip 0.5 mg was switched to amiodarone 200 mg Continue with heparin drip Also he is on IV fluids Ringer lactate 120 mL/h Chest x-ray showing worsening bilateral infiltrates. Start incentive spirometry 04/12/2022 Patient still complaining from some abdominal pain, abdominal x-ray is requested and is pending by surgery team. We'll follow the case closely Patient tachycardia went up almost to 199 today again, amiodarone drip which was stopped yesterday and 2 pills was restarted today also Cardizem drips 10 mg/h is added, heart rate and blood pressure looks better now Patient also continued on heparin drip Repeat labs in the morning Objective - Vital Signs Vital signs: Vital Signs Temp 98.4 F 04/12/22 08:00 Pulse 76 04/12/22 08:00 Resp 16 04/12/22 08:00 BP 174/98 04/12/22 08:00 Pulse Ox 96 04/12/22 08:17 FiO2 Intake & Output 04/11/22 04/12/22 04/12/22 18:59 06:59 18:59 Intake Total 779.666 109.967 129.2 Output Total 550 1200 Balance 779.666 -440.033 -1070.8 Intake: Intake, IV Titration 325.666 109.967 129.2 Amount Amiodarone 450 mg In 250 Dextrose 5% in Water 250 ml @ 0.5 MG/MIN 16.667 mls/hr IV .Q15H A[facility]DA Rx#: [id number] Heparin Sod,Pork in 0.45% 75.666 109.967 129.2 NaCl 25,000 unit In 0.45 % NaCl 1 250ml.bag @ 11. 9168 UNITS/KG/HR 10 mls/ hr IV .Q24H ALEYDA Rx#: [id number] Oral 454 Output: Urine 550 1200 Other: Voiding Method Toilet Toilet Toilet # Voids 1 1 # Bowel Movements 1 0 - Exam GENERAL: The patient is alert and oriented x3, not in any acute distress. Well developed, well nourished. HEENT: Pupils are round and equally reacting to light. EOMI. No scleral icterus. No conjunctival pallor. Normocephalic, atraumatic. No pharyngeal erythema. No thyromegaly. CARDIOVASCULAR: S1 and S2 present. No murmurs, rubs, or gallops. PULMONARY: Chest is clear to auscultation, no wheezing or crackles. -ABDOMEN: Soft, tender with guarding, nondistended, normoactive bowel sounds. No palpable organomegaly. MUSCULOSKELETAL: No joint swelling or deformity. EXTREMITIES: No cyanosis, clubbing, or pedal edema. NEUROLOGICAL: Gross neurological examination did not reveal any focal deficits. SKIN: No rashes. no petechiae. - Labs CBC & Chem 7: 04/12/22 08:23 04/12/22 11:36 Labs: Abnormal Lab Results - Last 24 Hours (Table) 04/11/22 04/12/22 04/12/22 Range/Units 18:59 01:51 08: RBC 3.94 L (4.30-5.90) m/uL Hgb 12.4 L (13.0-17.5) gm/dL Hct 37.4 L (39.0-53.0) % Lymphocytes # 0.8 L (1.0-4.8) k/uL APTT 33.6 H 47.9 H (22.0-30.0) sec 04/12/22 Range/Units 08:23 RBC (4.30-5.90) m/uL Hgb (13.0-17.5) gm/dL Hct (39.0-53.0) % Lymphocytes # (1.0-4.8) k/uL APTT 39.0 H (22.0-30.0) sec Microbiology - Last 24 Hours (Table) 04/06/22 12:02 Blood Culture - Preliminary Blood No Growth after 120 hours Assessment and Plan Assessment: acute Small bowel obstruction status post expiratory laparotomy lysis of adhesions and small bowel resection on 04/07/2022 New-onset A. fib Right lower lobe consolidation suspicious for atelectasis rather than pneumonia Hypertension with urgency, present on admission. Hyperlipidemia Benign prostatic hypertrophy History of esophageal cancer status post esophagectomy History of cochlear implants for hearing difficulty bilateral renal calculi Plan: continue with bowel rest Pain medication IV fluid Surgery consult Continue with Zosyn Continue with amiodarone and heparin drip and Cardizem drip Cardiology consult Labs and medication were reviewed.. Continue same treatment. Continue with symptomatic treatment. Resume home medication. Monitor lytes and vitals. DVT and GI prophylaxis. Further recommendations as per clinical course of the patient DVT prophylaxis: Subcutaneous heparin GI Prophylaxis: Ppi PT/OT: Pending
--- NOTE | 2022-04-12 15:53 | XR ---
EXAMINATION TYPE: XR abdomen 2V DATE OF EXAM: 04/12/2022 COMPARISON: NONE HISTORY: Pain TECHNIQUE: 3 views FINDINGS: There is no sign of intestinal obstruction or pneumoperitoneum. Fecal pattern is normal. No evidence of a mass. There are multiple skin eulogio over the midline abdomen. There is infiltrate an d pleural fluid at the lung bases. IMPRESSION: Abdominal surgery. Nonacute bowel gas pattern. Bilateral lower lobe pulmonary infiltrates. Pleural fluid.
[2022-04-12] MEDS: TAMSULOSIN 0.4 MG CAP.ER.24H PO SCH (19:52)
[2022-04-12] MEDS: HYDROcodone/APAP 5-325MG 1 EACH TAB PO PRN (19:52)
--- NOTE | 2022-04-12 23:04 | PN ---
PROGRESS NOTE DATE OF SERVICE: 04/10/2022 HISTORY OF PRESENT ILLNESS: Martin is a 77-year-old gentleman who underwent abdominal surgery by Dr. Ferreira, and we were consulted prior to surgery as part of preop cardiac evaluation. Yesterday while on the floor, he developed atrial fibrillation with rapid ventricular rate, and he was transferred to ICU where I evaluated him. I started him on Cardizem drip, IV amiodarone, and intravenous heparin if okay with the surgeon. PHYSICAL EXAMINATION: GENERAL: He was comfortable at rest. VITAL SIGNS: Heart rate was elevated. CHEST: Revealed good air entry bilaterally. HEART: Revealed first and second heart sounds. No gallop. Had a systolic murmur at the left lower sternal border. ABDOMEN: Status post surgery. EXTREMITIES: Did not reveal any edema, and peripheral pulses were felt. IMAGING: He had an echocardiogram on this admission that revealed normal LV systolic function with mild mitral and aortic regurgitation. ASSESSMENT: Atrial fibrillation with rapid ventricular rate. PLAN: We will treat the patient with IV amiodarone, IV Cardizem, and intravenous heparin. MMODL / IJN: [id number] /
[2022-04-13] MEDS: AMIODARONE 450 MG in DEXTROSE 5% IN WATER 250 ML IV SCH ×4 (04:15→19:59)
[2022-04-13] MEDS: SODIUM CHLORIDE 0.9% 1,000 ML IV SCH ×2 (04:15→11:35)
[2022-04-13] MEDS: LEVOTHYROXINE 25 MCG TAB PO SCH (06:24)
[2022-04-13 07:58] LABS: Basophils % (A) 0 %; Eosinophils # (A) 0.2 k/uL (0-0.7); Eosinophils % (A) 3 %; Hypochromasia Slight; Lymphocytes # (A) 0.7 k/uL (1.0-4.8); Lymphocytes % (A) 7 %; MCH 31.1 pg (25.0-35.0); MCV 94.3 fL (80.0-100.0); Mean Platelet Volume 10.7; Monocytes # (A) 0.7 k/uL (0-1.0); Monocytes % (A) 7 %; Neutrophils # (A) 7.8 k/uL (1.3-7.7); Neutrophils % (A) 81 %; Platelet Count 200 k/uL (150-450); RBC 3.08 m/uL (4.30-5.90); RDW 15.7 % (11.5-15.5); WBC 9.6 k/uL (3.8-10.6)
[2022-04-13 08:05] LABS: HGB 9.6 gm/dL (13.0-17.5)
[2022-04-13] MEDS: PARoxetine 20 MG TAB PO SCH (08:27)
[2022-04-13] MEDS: ATORVASTATIN 10 MG TAB PO SCH (08:27)
[2022-04-13] MEDS: PANTOPRAZOLE 40 MG/10 ML VIAL IV SCH (08:27)
[2022-04-13] MEDS: PIPERACILLIN-TAZOBACTAM 3.375 GM in SODIUM CHLORIDE 0.9% 100 ML IVPB SCH ×4 (08:28→23:31)
[2022-04-13] MEDS: HYDROmorphone 0.5 MG/0.5 ML SYRINGE IVP PRN (08:37)
[2022-04-13 08:48] LABS: African American GFR (CKD) >90 (>60 ml/min/1.73 sqM); Anion Gap 7 mmol/L; Blood Urea Nitrogen 12 mg/dL (9-20); Calcium 7.1 mg/dL (8.4-10.2); Carbon Dioxide 24 mmol/L (22-30); Chloride 105 mmol/L (98-107); Glucose 105 mg/dL (74-99); Magnesium 1.8 mg/dL (1.6-2.3); Non-African American GFR(CKD) >90 (>60 ml/min/1.73 sqM); Potassium 3.1 mmol/L (3.5-5.1); Sodium 136 mmol/L (137-145)
[2022-04-13] MEDS: METOPROLOL TARTRATE 25 MG TAB PO SCH ×2 (10:18→20:04)
[2022-04-13] MEDS ORDERED: POTASSIUM CHLORIDE ER 20 MEQ TAB.ER PO STA ×2 (11:24→12:10)
--- NOTE | 2022-04-13 11:26 | P.PN ---
Subjective Progress Note Date: 04/13/22 CHIEF COMPLAINT: Small bowel obstruction HISTORY OF PRESENT ILLNESS: Patient is status post exploratory laparotomy, lysis of extensive adhesions, small bowel resection, repair of small bowel enterotomy and incidental appendectomy for a small bowel obstruction secondary to internal hernia and adhesions on 04/07/22. Patient is currently on cardiac floor. He did go into A. fib RVR yesterday with her in the 200s. He is followed closely by cardiology. He is on amiodarone drip and IV heparin drip. They are starting patient on metoprolol. Patient had abdominal pain yesterday which has improved after 2 bowel movements. Patient was made nothing by mouth for ice chips and popsicles. Abdominal x-ray shows abdominal surgery. Nonacute bowel gas pattern. Bilateral lower lobe pulmonary infiltrates. Pleural fluid. Patient reports 2 large bowel movements. No nausea or vomiting. Abdominal pain re solved. Low-grade temp 99.9 WBC is 9.6 hemoglobin is 12.4-9.6 platelets 200 sodium is 136 potassium 3.1 creatinine 0.68 magnesium 1.8 Patient seen and examined with Dr. rose PHYSICAL EXAM: VITAL SIGNS: Reviewed. GENERAL: Well-developed in no acute distress. HEENT: No sclera icterus. Extraocular movements grossly intact. Moist buccal mucosa. Head is atraumatic, normocephalic. ABDOMEN: Soft. Nondistended. Minimal tenderness at incision site. Incision with dried blood noted. Small amount of serosanguineous drainage noted at the inferior aspect of the incision. NEUROLOGIC: Alert and oriented. Cranial nerves II through XII grossly intact. ASSESSMENT: 1. Small bowel obstruction secondary to internal hernia and adhesions status post exploratory laparotomy, lysis of extensive adhesions, small bowel resection, repair of small bowel enterotomy and incidental appendectomy 2. Hypertension 3. A. fib RVR 4. History of rheumatoid arthritis 5. Hypokalemia PLAN: -Patient's abdominal pain has improved. Advance diet to clear liquids -Cardiac management of A. fib RVR -Replace potassium -Continue supportive care -Encourage patient to use incentive spirometer -Encourage patient to increase activity when able from cardiac standpoint -GI prophylaxis Protonix and DVT prophylaxis IV heparin Physician Branch Customer Service Representative note has been reviewed by physician. Signing provider agrees with the documented findings, assessment, and plan of care. Objective - Vital Signs Vital signs: Vital Signs Temp 98 F 04/13/22 08:23 Pulse 87 04/13/22 08:23 Resp 20 04/13/22 08:23 BP 116/74 04/13/22 08:23 Pulse Ox 90 L 04/13/22 08:23 FiO2 Intake & Output 04/12/22 04/13/22 04/13/22 18:59 06:59 18:59 Intake Total 349.2 339.616 Output Total 1200 500 200 Balance -850.8 -160.384 -200 Intake: Intake, IV Titration 129.2 339.616 Amount Amiodarone 450 mg In 234.449 Dextrose 5% in Water 250 ml @ 0.5 MG/MIN 16.667 mls/hr IV .Q15H [facility] Rx#: [id number] Diltiazem 125 mg In 105.167 Sodium Chloride 0.9% 100 ml @ 12.5 MG/HR 12.5 mls/ hr IV .Q10H [facility] Rx#: [id number] Heparin Sod,Pork in 0.45% 129.2 NaCl 25,000 unit In 0.45 % NaCl 1 250ml.bag @ 11. 9168 UNITS/KG/HR 10 mls/ hr IV .Q24H A[facility]DA Rx#: [id number] Oral 220 Output: Urine 1200 500 200 Other: Voiding Method Toilet Toilet # Voids 1 # Bowel Movements 0 1 - Labs CBC & Chem 7: 04/13/22 07:19 04/13/22 07:19 Labs: Abnormal Lab Results - Last 24 Hours (Table) 04/12/22 04/12/22 04/13/22 Range/Units 11:36 14:21 07:19 RBC (4.30-5.90) m/uL Hgb (13.0-17.5) gm/dL Hct (39.0-53.0) % RDW (11.5-15.5) % Neutrophils # (1.3-7.7) k/uL Lymphocytes # (1.0-4.8) k/uL APTT 52.0 H 79.3 H (22.0-30.0) sec Sodium 136 L (137-145) mmol/L Potassium (3.5-5.1) mmol/L Glucose (74-99) mg/dL Calcium 7.3 L (8.4-10.2) mg/dL 04/13/22 04/13/22 Range/Units 07:19 07:19 RBC 3.08 L (4.30-5.90) m/uL Hgb 9.6 L D (13.0-17.5) gm/dL Hct 29.0 L (39.0-53.0) % RDW 15.7 H (11.5-15.5) % Neutrophils # 7.8 H (1.3-7.7) k/uL Lymphocytes # 0.7 L (1.0-4.8) k/uL APTT (22.0-30.0) sec Sodium 136 L (137-145) mmol/L Potassium 3.1 L (3.5-5.1) mmol/L Glucose 105 H (74-99) mg/dL Calcium 7.1 L (8.4-10.2) mg/dL Microbiology - Last 24 Hours (Table) 04/06/22 12:02 Blood Culture - Final Blood No Growth after 144 hours
[2022-04-13] MEDS: cloNIDine 0.1 MG/24HR PATCH TRANSDERM SCH (11:43)
[2022-04-13] MEDS: HEPARIN SOD,PORK IN 0.45% NACL 25,000 UNIT in 0.45% NACL 1 250ML.BAG IV SCH (11:46)
--- NOTE | 2022-04-13 12:49 | XR ---
EXAMINATION TYPE: XR chest 1V portable DATE OF EXAM: 04/13/2022 COMPARISON: Chest x-ray 04/11/2022, CT chest 06/07/2019 HISTORY: Shortness of breath and cough TECHNIQUE: Single frontal view of the chest is obtained. FINDINGS: Bibasilar increased attenuation obscures the hemidiaphragms, there is blunting the costoph renic angles. No evident pneumothorax. Cardiac mediastinal silhouette is likely stable accounting for differences in technique. The aorta is dense. IMPRESSION: Bilateral pleural effusions and associated atelectasis versus pneumonia or edema, correl ate to exclude congestive heart failure. There is underlying emphysema, interstitial lung disease, un derlying hiatal hernia with partial intrathoracic stomach noted on prior CT.
--- NOTE | 2022-04-13 13:43 | P.PN ---
Subjective This is a pleasant 77-year-old male past medical history significant for mild coronary disease involving the LAD artery and left circumflex (by cardiac catheterization in 2009), esophageal cancer status post esophagectomy chemo and radiation 10 years ago, hypothyroidism, dyslipidemia, Rheumatoid arthritis, aortic aneurysm repair, paroxysmal atrial fibrillation documented post operatively and maintained sinus rhythm in the past, former tobacco use. She did fall with Dr. Bates in the past last seen in 2013. We have been asked to see in consultation for preoperative evaluation initially and re-consulted for A fib with RVR. Patient presents emergency department with complaints of bilateral lower abdominal pain, nausea and vomiting that started 2 days ago. Patient underwent exploratory laparotomy, Lysis of extensive adhesions, Small bowel resection, Repair of small bowel enterotomy, Incidental appendectomy with Dr. Ferreira on 04/07. 04/13/2022 Patient seen and examined at bedside, he is feeling well. Abdominal pain is improved. He has converted to sinus rhythm and maintaining sinus rhythm. He has had 2 bowel movements since last night. He denies any chest pain, shortness of breath, lightheadeness. Telemetry reviewed patient is maintaining sinus rhythm. Echocardiogram revealed EF 5560 %, mild mitral regurgitation, mild aortic regurgitation, mild tricuspid regurgitation Meds: He is currently on IV heparin, IV Cardizem and IV amiodarone PHYSICAL EXAMINATION Blood pressure 111/63, heart rate 83, afebrile, saturations 92% on room air CONSTITUTIONAL: No apparent distress. HEENT: Neck Supple. No JVD. No carotid bruit. CHEST EXAMINATION: Lungs are clear to auscultation. No chest wall tenderness is noted on palpation or with deep breathing. HEART EXAMINATION: Regular rate and rhythm. S1, S2 heard. No murmurs, gallops or rub. ABDOMEN: Soft. EXTREMITIES: 2+ peripheral pulses, cool to touch bilateral feet. no lower extremity edema and no calf tenderness. NEUROLOGIC EXAMINATION: Patient is awake, alert and oriented x3. ASSESSMENT Small bowel obstruction Abdominal pain, nausea, vomiting Status post exploratory laparotomy, Lysis of extensive adhesions, Small bowel resection, Repair of small bowel enterotomy, Incidental appendectomy with Dr. Ferreira on 04/07. Paroxysmal atrial fibrillation with RVR, [id number] score 3 Hypertension Mild coronary disease involving the LAD artery and left circumflex (by cardiac catheterization in 2009) Esophageal cancer status post esophagectomy chemo and radiation 10 years ago Hypothyroidism Dyslipidemia Rheumatoid arthritis Aortic aneurysm repair 2014 History of paroxysmal atrial fibrillation documented post operatively and maintained sinus rhythm in the past Former tobacco use PLAN Start metoprolol tartrate 25mg BID Stop IV Cardizem Continue IV amiodarone for additional 24 hours, transition to PO tomorrow Recommend PO anticoagulation and discontinue IV heparin, Per General Surgery ok to start PO anticoagulation today. Will start Eliquis 5mg BID. Consult case management for coverage Continue cardiac telemetry Further recommendations based on clinical course Nurse practitioner note has been reviewed by physician. Signing provider agrees with the documented findings, assessment, and plan of care. Objective - Vital Signs Vital signs: Vital Signs Temp 97.9 F 04/13/22 11:41 Pulse 83 04/13/22 11:41 Resp 15 04/13/22 11:41 BP 111/63 04/13/22 11:41 Pulse Ox 92 L 04/13/22 11:41 FiO2 Intake & Output 04/12/22 04/13/22 04/13/22 18:59 06:59 18:59 Intake Total 349.2 339.616 250 Output Total 1200 500 200 Balance -850.8 -160.384 50 Weight 83.915 kg Intake: Intake, IV Titration 129.2 339.616 250 Amount Amiodarone 450 mg In 234.449 Dextrose 5% in Water 250 ml @ 0.5 MG/MIN 16.667 mls/hr IV .Q15H [facility] Rx#: [id number] Diltiazem 125 mg In 105.167 Sodium Chloride 0.9% 100 ml @ 12.5 MG/HR 12.5 mls/ hr IV .Q10H [facility] Rx#: [id number] Heparin Sod,Pork in 0.45% 129.2 250 NaCl 25,000 unit In 0.45 % NaCl 1 250ml.bag @ 11. 9168 UNITS/KG/HR 10 mls/ hr IV .Q24H [facility] Rx#: [id number] Oral 220 Output: Urine 1200 500 200 Other: Voiding Method Toilet Toilet # Voids 1 # Bowel Movements 0 1 - Labs CBC & Chem 7: 04/13/22 07:19 04/13/22 07:19 Labs: Abnormal Lab Results - Last 24 Hours (Table) 04/12/22 04/13/22 04/13/22 Range/Units 14:21 07:19 07:19 RBC 3.08 L (4.30-5.90) m/uL Hgb 9.6 L D (13.0-17.5) gm/dL Hct 29.0 L (39.0-53.0) % RDW 15.7 H (11.5-15.5) % Neutrophils # 7.8 H (1.3-7.7) k/uL Lymphocytes # 0.7 L (1.0-4.8) k/uL APTT 52.0 H 79.3 H (22.0-30.0) sec Sodium (137-145) mmol/L Potassium (3.5-5.1) mmol/L Glucose (74-99) mg/dL Calcium (8.4-10.2) mg/dL 04/13/22 Range/Units 07:19 RBC (4.30-5.90) m/uL Hgb (13.0-17.5) gm/dL Hct (39.0-53.0) % RDW (11.5-15.5) % Neutrophils # (1.3-7.7) k/uL Lymphocytes # (1.0-4.8) k/uL APTT (22.0-30.0) sec Sodium 136 L (137-145) mmol/L Potassium 3.1 L (3.5-5.1) mmol/L Glucose 105 H (74-99) mg/dL Calcium 7.1 L (8.4-10.2) mg/dL Microbiology - Last 24 Hours (Table) 04/06/22 12:02 Blood Culture - Final Blood No Growth after 144 hours
--- NOTE | 2022-04-13 15:05 | P.PN ---
Subjective 04/13/2022 Patient is admitted for partial small bowel resection patient underwent the laparotomy lysis of adhesions small bowel resection. Patient is on a full liquid diet at this time. Patient does have crackles on lung exam obtain a chest x-ray, which showed a bilateral pleural effusions, pulmonary edema and intrathoracic stomach patient will be given a dose of Lasix with close clinical monitoring. Patient is also in atrial fibrillation patient is presently rate controlled still in A. fib patient was on IV Cardizem which is being weaned off patient is also on clonidine which is also being weaned off and patient is being transitioned to oral amiodarone from IV amiodarone cardiology is following the patient. Constitutional: Denied any fatigue denied any fever. Cardio vascular: denied any chest pain, palpitations Gastrointestinal denied any nausea vomiting Pulmonary: Denied any shortness of breath cough Neurologic denied any new focal deficits All inpatient medications were reviewed and appropriate changes in these medications as dictated in the interval history and assessment and plan. PHYSICAL EXAMINATION: GENERAL: The patient is alert and oriented x3, not in any acute distress. Well developed, well nourished. HEENT: Pupils are round and equally reacting to light. EOMI. No scleral icterus. No conjunctival pallor. Normocephalic, atraumatic. No pharyngeal erythema. No thyromegaly. CARDIOVASCULAR: S1 and S2 present. No murmurs, rubs, or gallops. PULMONARY: Back is bilaterally on lung exam ABDOMEN: Soft, nontender, nondistended, normoactive bowel sounds. No palpable organomegaly. MUSCULOSKELETAL: No joint swelling or deformity. EXTREMITIES: No cyanosis, clubbing, or pedal edema. NEUROLOGICAL: Gross neurological examination did not reveal any focal deficits. SKIN: No rashes. Assessment and plan acute Small bowel obstruction status post expiratory laparotomy lysis of adhesions and small bowel resection on 04/07/2022 patient is on a liquid diet at this time New-onset A. fib and patient is being transitioned to oral amiodarone Cardizem was discontinued and patient is bit hypotensive, will wean off clonidine as well -Pulmonary edema probably can start failure chronic diastolic dysfunction with acute exacerbation, patient will be given a dose of Lasix Right lower lobe atelectasis rather than pneumonia Hypertension with urgency, present on admission. Hyperlipidemia Benign prostatic hypertrophy History of esophageal cancer status post esophagectomy bilateral renal calculi DVT prophylaxis: Subcutaneous heparin GI Prophylaxis: Ppi Objective - Vital Signs Vital signs: Vital Signs Temp 97.9 F 04/13/22 11:41 Pulse 83 04/13/22 11:41 Resp 15 04/13/22 11:41 BP 111/63 04/13/22 11:41 Pulse Ox 92 L 04/13/22 11:41 FiO2 Intake & Output 04/12/22 04/13/22 04/13/22 18:59 06:59 18:59 Intake Total 349.2 339.616 490 Output Total 1200 500 200 Balance -850.8 -160.384 290 Weight 83.915 kg Intake: Intake, IV Titration 129.2 339.616 250 Amount Amiodarone 450 mg In 234.449 Dextrose 5% in Water 250 ml @ 0.5 MG/MIN 16.667 mls/hr IV .Q15H [facility] Rx#: [id number] Diltiazem 125 mg In 105.167 Sodium Chloride 0.9% 100 ml @ 12.5 MG/HR 12.5 mls/ hr IV .Q10H [facility] Rx#: [id number] Heparin Sod,Pork in 0.45% 129.2 250 NaCl 25,000 unit In 0.45 % NaCl 1 250ml.bag @ 11. 9168 UNITS/KG/HR 10 mls/ hr IV .Q24H A[facility]DA Rx#: [id number] Oral 220 240 Output: Urine 1200 500 200 Other: Voiding Method Toilet Toilet Toilet # Voids 1 # Bowel Movements 0 1 - Labs CBC & Chem 7: 04/13/22 07:19 04/13/22 07:19 Labs: Abnormal Lab Results - Last 24 Hours (Table) 04/13/22 04/13/22 04/13/22 Range/Units 07:19 07:19 07:19 RBC 3.08 L (4.30-5.90) m/uL Hgb 9.6 L D (13.0-17.5) gm/dL Hct 29.0 L (39.0-53.0) % RDW 15.7 H (11.5-15.5) % Neutrophils # 7.8 H (1.3-7.7) k/uL Lymphocytes # 0.7 L (1.0-4.8) k/uL APTT 79.3 H (22.0-30.0) sec Sodium 136 L (137-145) mmol/L Potassium 3.1 L (3.5-5.1) mmol/L Glucose 105 H (74-99) mg/dL Calcium 7.1 L (8.4-10.2) mg/dL Microbiology - Last 24 Hours (Table) 04/06/22 12:02 Blood Culture - Final Blood No Growth after 144 hours
[2022-04-13 15:32] LABS: Glucose,Whole Blood 136 mg/dL (70-110)
[2022-04-13] MEDS: FUROSEMIDE 10 MG/ML 4 ML VIAL IV STA ×2 (15:33→16:02)
[2022-04-13 15:37] LABS: ABG Base Excess -10.7 mmol/L; ABG HCO3 16 mmol/L (21-25); ABG PCO2 31 mmHg (35-45); ABG PH 7.31 (7.35-7.45); ABG PO2 122 mmHg (83-108); ABG TCO2 16 mmol/L (19-24); Allen Test Performed? Yes
[2022-04-13] MEDS ORDERED: FUROSEMIDE 10 MG/ML 4 ML VIAL ONE (15:57)
[2022-04-13] MEDS: APIXABAN 5 MG TAB PO SCH (16:24)
[2022-04-13] MEDS: TAMSULOSIN 0.4 MG CAP.ER.24H PO SCH (20:04)
[2022-04-14] MEDS: LEVOTHYROXINE 25 MCG TAB PO SCH (06:23)
[2022-04-14 08:05] LABS: HCT 20.5 % (39.0-53.0); Hypochromasia Slight; MCH 31.7 pg (25.0-35.0); MCHC 33.3 g/dL (31.0-37.0); MCV 94.9 fL (80.0-100.0); Platelet Count 199 k/uL (150-450); RBC 2.16 m/uL (4.30-5.90); RDW 15.7 % (11.5-15.5); WBC 9.5 k/uL (3.8-10.6)
[2022-04-14] MEDS: PIPERACILLIN-TAZOBACTAM 3.375 GM in SODIUM CHLORIDE 0.9% 100 ML IVPB SCH ×2 (08:13→16:15)
[2022-04-14] MEDS: APIXABAN 5 MG TAB PO SCH (08:14)
[2022-04-14] MEDS: ATORVASTATIN 10 MG TAB PO SCH (08:14)
[2022-04-14] MEDS: PANTOPRAZOLE 40 MG/10 ML VIAL IV SCH (08:14)
[2022-04-14] MEDS: AMIODARONE 200 MG TAB PO SCH ×2 (08:14→20:43)
[2022-04-14] MEDS: METOPROLOL TARTRATE 25 MG TAB PO SCH ×2 (08:14→20:41)
[2022-04-14] MEDS: PARoxetine 20 MG TAB PO SCH (08:14)
[2022-04-14 08:19] LABS: HGB 6.8 gm/dL (13.0-17.5)
--- NOTE | 2022-04-14 08:44 | XR ---
EXAMINATION TYPE: XR chest 1V portable DATE OF EXAM: 04/14/2022 COMPARISON: Chest x-ray 04/13/2022 HISTORY: Cough TECHNIQUE: Single frontal view of the chest is obtained. FINDINGS: Findings are similar to prior exam. Cardiac mediastinal silhouette is likely stable. Bibas ilar density obscures the hemidiaphragms. Patient is rotated. There is no evident pneumothorax. There are overlying leads and tubing . IMPRESSION: Findings similar to prior exam. Correlate for possible congestive heart failure with bas ilar effusions and associated edema versus atelectasis, difficult to exclude pneumonia.
[2022-04-14 08:45] LABS: African American GFR (CKD) >90 (>60 ml/min/1.73 sqM); Anion Gap 5 mmol/L; Blood Urea Nitrogen 16 mg/dL (9-20); Carbon Dioxide 25 mmol/L (22-30); Chloride 106 mmol/L (98-107); Glucose 91 mg/dL (74-99); Non-African American GFR(CKD) 86 (>60 ml/min/1.73 sqM); Potassium 3.7 mmol/L (3.5-5.1); Sodium 136 mmol/L (137-145)
[2022-04-14 09:30] LABS: ALT 22 U/L (4-49); AST 34 U/L (17-59); Albumin 2.1 g/dL (3.5-5.0); Alkaline Phosphatase 97 U/L (38-126); Magnesium 1.8 mg/dL (1.6-2.3); Total Protein 5.1 g/dL (6.3-8.2)
--- NOTE | 2022-04-14 10:56 | P.PN ---
Subjective This is a pleasant 77-year-old male past medical history significant for mild coronary disease involving the LAD artery and left circumflex (by cardiac catheterization in 2009), esophageal cancer status post esophagectomy chemo and radiation 10 years ago, hypothyroidism, dyslipidemia, Rheumatoid arthritis, aortic aneurysm repair, paroxysmal atrial fibrillation documented post operatively and maintained sinus rhythm in the past, former tobacco use. She did fall with Dr. Bates in the past last seen in 2013. We have been asked to see in consultation for preoperative evaluation initially and re-consulted for A fib with RVR. Patient presents emergency department with complaints of bilateral lower abdominal pain, nausea and vomiting that started 2 days ago. Patient underwent exploratory laparotomy, Lysis of extensive adhesions, Small bowel resection, Repair of small bowel enterotomy, Incidental appendectomy with Dr. Ferreira on 04/07. 04/14/2022 Patient seen and examined at bedside, he is feeling well. Abdominal pain is improved. He has converted to sinus rhythm and maintaining sinus rhythm. He denies any chest pain, shortness of breath, lightheadeness. Telemetry reviewed patient is maintaining sinus rhythm. He was started on Eliquis yesterday evening secondary to general surgery clearance and A fib. His hemoglobin has decreased to 6.8. He is taking PO medications and is off IV Cardizem and IV amiodarone Echocardiogram revealed EF 5560 %, mild mitral regurgitation, mild aortic regurgitation, mild tricuspid regurgitation Meds: He is currently on amiodarone 20 mg twice a day, atorvastatin 10 mg daily, metoprolol titrate 25 mg twice a day, Eliquis 5 mg twice a day PHYSICAL EXAMINATION Vitals reviewed CONSTITUTIONAL: No apparent distress. HEENT: Neck Supple. No JVD. No carotid bruit. CHEST EXAMINATION: Lungs are clear to auscultation. No chest wall tenderness is noted on palpation or with deep breathing. HEART EXAMINATION: Regular rate and rhythm. S1, S2 heard. No murmurs, gallops or rub. ABDOMEN: Soft. EXTREMITIES: 2+ peripheral pulses, cool to touch bilateral feet. no lower extremity edema and no calf tenderness. NEUROLOGIC EXAMINATION: Patient is awake, alert and oriented x3. ASSESSMENT Small bowel obstruction Abdominal pain, nausea, vomiting Status post exploratory laparotomy, Lysis of extensive adhesions, Small bowel resection, Repair of small bowel enterotomy, Incidental appendectomy with Dr. Ferreira on 04/07. Paroxysmal atrial fibrillation with RVR, [id number] score 3 Anemia Hypertension Mild coronary disease involving the LAD artery and left circumflex (by cardiac catheterization in 2010) Esophageal cancer status post esophagectomy chemo and radiation 10 years ago Hypothyroidism Dyslipidemia Rheumatoid arthritis Aortic aneurysm repair 2013 History of paroxysmal atrial fibrillation documented post operatively and maintained sinus rhythm in the past Former tobacco use PLAN Continue metoprolol tartrate 25mg BID and start PO amiodarone Hold Eliquis secondary to drop in hemoglobin, monitor CBC Continue cardiac telemetry Further recommendations based on clinical course Nurse practitioner note has been reviewed by physician. Signing provider agrees with the documented findings, assessment, and plan of care. Objective - Vital Signs Vital signs: Vital Signs Temp 98.0 F 04/14/22 08:06 Pulse 72 04/14/22 08:06 Resp 16 04/14/22 08:06 BP 113/70 04/14/22 08:06 Pulse Ox 100 04/14/22 08:06 FiO2 Intake & Output 04/13/22 04/14/22 04/14/22 18:59 06:59 18:59 Intake Total 771.807 598 Output Total 200 1110 Balance 571.807 -1110 598 Weight 83.915 kg Intake: Intake, IV Titration 531.807 Amount Amiodarone 450 mg In 195.837 Dextrose 5% in Water 250 ml @ 0.5 MG/MIN 16.667 mls/hr IV .Q15H ALEYDA Rx#: [id number] Heparin Sod,Pork in 0.45% 335.97 NaCl 25,000 unit In 0.45 % NaCl 1 250ml.bag @ 11. 9168 UNITS/KG/HR 10 mls/ hr IV .Q24H ALEYDA Rx#: [id number] Oral 240 598 Output: Urine 200 950 Post Void Residual 160 Other: Voiding Method Toilet Urinal Urinal # Bowel Movements 1 - Labs CBC & Chem 7: 04/14/22 07:52 04/14/22 07:52 Labs: Abnormal Lab Results - Last 24 Hours (Table) 04/13/22 04/13/22 04/13/22 Range/Units 15:20 15:37 15:55 RBC (4.30-5.90) m/uL Hgb (13.0-17.5) gm/dL Hct (39.0-53.0) % RDW (11.5-15.5) % ABG pH 7.31 L (7.35-7.45) ABG pCO2 31 L (35-45) mmHg ABG pO2 122 H (83-108) mmHg ABG HCO3 16 L (21-25) mmol/L ABG Total CO2 16 L (19-24) mmol/L ABG O2 Saturation 99.0 H (94-97) % Sodium (137-145) mmol/L POC Glucose (mg/dL) 136 H (70-110) mg/dL Plasma Lactic Acid Walt 6.3 H* (0.7-2.0) mmol/L Calcium (8.4-10.2) mg/dL Total Protein (6.3-8.2) g/dL Albumin (3.5-5.0) g/dL 04/13/22 04/14/22 04/14/22 Range/Units 19:02 07:52 07:52 RBC 2.16 L (4.30-5.90) m/uL Hgb 6.8 L* D (13.0-17.5) gm/dL Hct 20.5 L (39.0-53.0) % RDW 15.7 H (11.5-15.5) % ABG pH (7.35-7.45) ABG pCO2 (35-45) mmHg ABG pO2 (83-108) mmHg ABG HCO3 (21-25) mmol/L ABG Total CO2 (19-24) mmol/L ABG O2 Saturation (94-97) % Sodium 136 L (137-145) mmol/L POC Glucose (mg/dL) (70-110) mg/dL Plasma Lactic Acid Walt 3.2 H* (0.7-2.0) mmol/L Calcium 7.0 L (8.4-10.2) mg/dL Total Protein 5.1 L (6.3-8.2) g/dL Albumin 2.1 L (3.5-5.0) g/dL
[2022-04-14 11:09] LABS: Basophils % (A) 0 %; Eosinophils # (A) 0.2 k/uL (0-0.7); Eosinophils % (A) 2 %; HCT 20.3 % (39.0-53.0); Hypochromasia Moderate; Lymphocytes # (A) 0.8 k/uL (1.0-4.8); Lymphocytes % (A) 10 %; MCH 31.8 pg (25.0-35.0); MCHC 33.1 g/dL (31.0-37.0); MCV 95.9 fL (80.0-100.0); Mean Platelet Volume 11.3; Monocytes % (A) 12 %; Neutrophils # (A) 6.1 k/uL (1.3-7.7); Neutrophils % (A) 74 %; Platelet Count 167 k/uL (150-450); RBC 2.11 m/uL (4.30-5.90); WBC 8.2 k/uL (3.8-10.6)
[2022-04-14 11:18] LABS: HGB 6.7 gm/dL (13.0-17.5)
--- NOTE | 2022-04-14 12:32 | P.CNPUL ---
History of Present Illness Consult date: 04/14/22 Requesting physician: Rosana Saha Reason for consult: dyspnea, COPD, hypoxemia, pleural effusion, abnormal CXR/CT Chief complaint: Shortness of breath. History of present illness: Pulmonary/critical care consult dated 04/14/2022. 77-year-old male who was admitted back on April 06. We were consulted because of shortness of breath. The patient ended up having a exploratory laparotomy on April 07, with lysis of adhesions, small bowel resection, appendectomy, and repair of small bowel enterotomy. The patient was supposed to be on some oxygen therapy, but we found him without the oxygen on, and his resting room air saturation was only 83 - 84%. His N-terminal proBNP was elevated. His chest x- ray was consistent with CHF. He apparently was coughing and producing some phlegm. He was on TPN as well. He is also on Zosyn. White count was 8.2, with a hemoglobin of 6.7, hematocrit 20.3, and platelet count 267,000. Sodium is 136, potassium 3.7, chlorides 106, CO2 25, BUN 16, and creatinine 0.79. Pro- calcitonin level was 0.08, and N-terminal proBNP on April 11 was 3520. Review of Systems REVIEW OF SYSTEMS: CONSTITUTIONAL: [Negative.] NEUROLOGIC: [ Negative.] HEENT: [ Negative.] CARDIAC: [Negative.] PULMONARY: Shortness of breath, with cough and phlegm production. GI: [Negative.] : [Negative.] RHEUMATOLOGIC: [ Negative.] IMMUNOLOGIC: [ Negative.] ENDOCRINE: [Negative. ] DERMATOLOGIC: [Negative.] Past Medical History Past Medical History: Cancer, Hearing Disorder / Deafness, Hyperlipidemia, Pneumonia, Prostate Disorder Additional Past Medical History / Comment(s): Esophageal Cancer 2012; cochlear implants for loss of hearing History of Any Multi-Drug Resistant Organisms: None Reported Past Surgical History: Cholecystectomy Additional Past Surgical History / Comment(s): esophagectemy in May 2013, Abdominal Aortic Aneurysm repair on December 06, 2013; cochlear implant in 2009, cholecystectomy in 2007 Past Anesthesia/Blood Transfusion Reactions: No Reported Reaction Past Psychological History: No Psychological Hx Reported Smoking Status: Never smoker Past Alcohol Use History: Occasional Additional Past Alcohol Use History / Comment(s): quit smoking 2014,2 packs a day for 55 years Past Drug Use History: Marijuana Additional Drug Use History / Comment(s): no current drug abuse, 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 does not know whether his biological mother and father had any medical issues Medications and Allergies Home Medications Medication Instructions Recorded Confirmed Type Atorvastatin [Lipitor] 10 mg PO QAM 11/30/13 04/06/22 History PARoxetine HCL [Paroxetine HCl] 20 mg PO QAM 11/30/13 04/06/22 History Levothyroxine Sodium [Synthroid] 25 mcg PO DAILY 10/05/16 04/06/22 History Etanercept [Enbrel Sureclick] 50 mg SQ Q7D 04/06/22 04/06/22 History Tamsulosin HCl [Flomax] 0.8 mg PO HS 04/06/22 04/06/22 History Apixaban [Eliquis] 5 mg PO BID #60 tab 04/13/22 Rx Allergies Allergy/AdvReac Type Severity Reaction Status Date / Time No Known Allergies Allergy Verified 04/06/22 11:22 Physical Exam Osteopathic Statement: *. No significant issues noted on an osteopathic struct ural exam other than those noted in the History and Physical/Consult. Vitals: Vital Signs Temp Pulse Resp BP Pulse Ox 04/14/22 11:45 71 20 99/55 93 L 04/14/22 08:06 98.0 F 72 16 113/70 100 04/14/22 03:46 98 F 74 18 109/64 97 04/14/22 02:25 86 20 04/14/22 00:00 97.6 F 86 20 113/75 96 04/13/22 20:00 74 22 04/13/22 19:41 98.6 F 74 22 104/66 98 04/13/22 18:32 98.5 F 04/13/22 16:00 98.6 F 79 22 106/69 100 Intake and Output 04/13/22 04/14/22 04/14/22 22:59 06:59 14:59 Intake Total 281.807 598 Output Total 250 860 Balance 31.807 -860 598 Intake: Intake, IV Titration 281.807 Amount Amiodarone 450 mg In 195.837 Dextrose 5% in Water 250 ml @ 0.5 MG/MIN 16.667 mls/hr IV .Q15H [facility] Rx#: [id number] Heparin Sod,Pork in 0.45% 85.97 NaCl 25,000 unit In 0.45 % NaCl 1 250ml.bag @ 11. 9168 UNITS/KG/HR 10 mls/ hr IV .Q24H ALEYDA Rx#: [id number] Oral 598 Output: Urine 250 700 Post Void Residual 160 Other: Voiding Method Urinal Urinal Urinal # Bowel Movements 1 Weight 83.915 kg No acute distress, oriented 3. Very poor historian. Currently on room air, but should be on 3 L. Room air saturation was only 83%. HEENT examination is grossly unremarkable. Neck supple. Full range of motion. No adenopathy thyromegaly or neck vein distention. Cardiovascular examination reveals regular rhythm rate. S1-S2 normal. No S3 or S4. No discernible murmur noted. Heart rate 71 bpm. Lungs reveal scattered bilateral rhonchi and crackles. Breath sounds are equal bilaterally. Saturations are 94-95% on 3 L. Abdomen soft, without masses or tenderness. Extremities are intact. No cyanosis clubbing or edema. Skin is without rash or lesion. Neurologic examination is brief but nonfocal. Results - Laboratory Findings CBC and BMP: 04/14/22 10:14 04/14/22 07:52 ABG ABG pH 7.31 (7.35-7.45) L 04/13/22 15:37 ABG pCO2 31 mmHg (35-45) L 04/13/22 15:37 ABG pO2 122 mmHg (83-108) H 04/13/22 15:37 ABG O2 Saturation 99.0 % (94-97) H 04/13/22 15:37 PT/INR, D-dimer PT 12.6 sec (9.0-12.0) H 04/11/22 03:20 INR 1.2 (<1.2) H 04/11/22 03:20 Abnormal lab findings: Abnormal Labs 04/06/22 04/06/22 04/06/22 06:49 06:49 14:05 WBC RBC Hgb Hct RDW Plt Count 143 L Neutrophils # 8.4 H Neutrophils # (Manual) Lymphocytes # 0.6 L Lymphocytes # (Manual) Monocytes # Monocytes # (Manual) Eosinophils # Eosinophils # (Manual) PT INR APTT ABG pH ABG pCO2 ABG pO2 ABG HCO3 ABG Total CO2 ABG O2 Saturation Sodium 136 L Potassium Carbon Dioxide Anion Gap BUN Creatinine BUN/Creatinine Ratio Glucose 170 H POC Glucose (mg/dL) Plasma Lactic Acid Walt Calcium 8.1 L AST Alkaline Phosphatase 152 H Total Protein Albumin Globulin Albumin/Globulin Ratio Ur Specific [place] 1.050 H Urine Ketones 1+ H Urine Blood Small H Urine RBC 20 H Urine Mucus Rare H 04/07/22 04/07/22 04/08/22 06:37 06:37 05:43 WBC 10.14 H 10.91 H RBC 4.03 L Hgb 12.3 L Hct 37.2 L RDW 14.9 H 15.3 H Plt Count 139 L Neutrophils # 8.09 H Neutrophils # (Manual) 9.27 H Lymphocytes # 0.72 L Lymphocytes # (Manual) 0.44 L Monocytes # 1.25 H Monocytes # (Manual) 1.20 H Eosinophils # 0.01 L Eosinophils # (Manual) 0 L PT INR APTT ABG pH ABG pCO2 ABG pO2 ABG HCO3 ABG Total CO2 ABG O2 Saturation Sodium Potassium Carbon Dioxide Anion Gap 9.70 L BUN Creatinine BUN/Creatinine Ratio Glucose 123 H POC Glucose (mg/dL) Plasma Lactic Acid Walt Calcium 8.0 L AST Alkaline Phosphatase Total Protein Albumin Globulin Albumin/Globulin Ratio Ur Specific [place] Urine Ketones Urine Blood Urine RBC Urine Mucus 04/08/22 04/09/22 04/09/22 05:43 08:26 08:26 WBC RBC 3.71 L Hgb 11.5 L D Hct 35.3 L RDW Plt Count 108 L Neutrophils # Neutrophils # (Manual) Lymphocytes # 0.6 L Lymphocytes # (Manual) Monocytes # Monocytes # (Manual) Eosinophils # Eosinophils # (Manual) PT INR APTT ABG pH ABG pCO2 ABG pO2 ABG HCO3 ABG Total CO2 ABG O2 Saturation Sodium Potassium Carbon Dioxide 28.9 H Anion Gap 7.10 L BUN 24 H Creatinine BUN/Creatinine Ratio 21.88 H Glucose 68 L POC Glucose (mg/dL) Plasma Lactic Acid Walt Calcium 8.1 L 7.5 L AST 38 H Alkaline Phosphatase Total Protein 6.1 L Albumin 2.7 L Globulin 3.4 H Albumin/Globulin Ratio 0.79 L Ur Specific [place] Urine Ketones Urine Blood Urine RBC Urine Mucus 04/10/22 04/11/22 04/11/22 21:06 03:20 03:20 WBC RBC 3.75 L Hgb 11.7 L Hct 35.4 L RDW Plt Count Neutrophils # Neutrophils # (Manual) Lymphocytes # 0.9 L Lymphocytes # (Manual) Monocytes # Monocytes # (Manual) Eosinophils # Eosinophils # (Manual) PT INR APTT 39.0 H ABG pH ABG pCO2 ABG pO2 ABG HCO3 ABG Total CO2 ABG O2 Saturation Sodium Potassium 3.2 L Carbon Dioxide Anion Gap BUN Creatinine 0.64 L BUN/Creatinine Ratio Glucose 105 H POC Glucose (mg/dL) Plasma Lactic Acid Walt Calcium 7.3 L AST Alkaline Phosphatase Total Protein Albumin Globulin Albumin/Globulin Ratio Ur Specific [place] Urine Ketones Urine Blood Urine RBC Urine Mucus 04/11/22 04/11/22 04/12/22 03:20 18:59 01:51 WBC RBC Hgb Hct RDW Plt Count Neutrophils # Neutrophils # (Manual) Lymphocytes # Lymphocytes # (Manual) Monocytes # Monocytes # (Manual) Eosinophils # Eosinophils # (Manual) PT 12.6 H INR 1.2 H APTT 76.0 H 33.6 H 47.9 H ABG pH ABG pCO2 ABG pO2 ABG HCO3 ABG Total CO2 ABG O2 Saturation Sodium Potassium Carbon Dioxide Anion Gap BUN Creatinine BUN/Creatinine Ratio Glucose POC Glucose (mg/dL) Plasma Lactic Acid Walt Calcium AST Alkaline Phosphatase Total Protein Albumin Globulin Albumin/Globulin Ratio Ur Specific [place] Urine Ketones Urine Blood Urine RBC Urine Mucus 04/12/22 04/12/22 04/12/22 08:23 08:23 11:36 WBC RBC 3.94 L Hgb 12.4 L Hct 37.4 L RDW Plt Count Neutrophils # Neutrophils # (Manual) Lymphocytes # 0.8 L Lymphocytes # (Manual) Monocytes # Monocytes # (Manual) Eosinophils # Eosinophils # (Manual) PT INR APTT 39.0 H ABG pH ABG pCO2 ABG pO2 ABG HCO3 ABG Total CO2 ABG O2 Saturation Sodium 136 L Potassium Carbon Dioxide Anion Gap BUN Creatinine BUN/Creatinine Ratio Glucose POC Glucose (mg/dL) Plasma Lactic Acid Walt Calcium 7.3 L AST Alkaline Phosphatase Total Protein Albumin Globulin Albumin/Globulin Ratio Ur Specific [place] Urine Ketones Urine Blood Urine RBC Urine Mucus 04/12/22 04/13/22 04/13/22 14:21 07:19 07:19 WBC RBC 3.08 L Hgb 9.6 L D Hct 29.0 L RDW 15.7 H Plt Count Neutrophils # 7.8 H Neutrophils # (Manual) Lymphocytes # 0.7 L Lymphocytes # (Manual) Monocytes # Monocytes # (Manual) Eosinophils # Eosinophils # (Manual) PT INR APTT 52.0 H 79.3 H ABG pH ABG pCO2 ABG pO2 ABG HCO3 ABG Total CO2 ABG O2 Saturation Sodium Potassium Carbon Dioxide Anion Gap BUN Creatinine BUN/Creatinine Ratio Glucose POC Glucose (mg/dL) Plasma Lactic Acid Walt Calcium AST Alkaline Phosphatase Total Protein Albumin Globulin Albumin/Globulin Ratio Ur Specific [place] Urine Ketones Urine Blood Urine RBC Urine Mucus 04/13/22 04/13/22 04/13/22 07:19 15:20 15:37 WBC RBC Hgb Hct RDW Plt Count Neutrophils # Neutrophils # (Manual) Lymphocytes # Lymphocytes # (Manual) Monocytes # Monocytes # (Manual) Eosinophils # Eosinophils # (Manual) PT INR APTT ABG pH 7.31 L ABG pCO2 31 L ABG pO2 122 H ABG HCO3 16 L ABG Total CO2 16 L ABG O2 Saturation 99.0 H Sodium 136 L Potassium 3.1 L Carbon Dioxide Anion Gap BUN Creatinine BUN/Creatinine Ratio Glucose 105 H POC Glucose (mg/dL) 136 H Plasma Lactic Acid Walt Calcium 7.1 L AST Alkaline Phosphatase Total Protein Albumin Globulin Albumin/Globulin Ratio Ur Specific [place] Urine Ketones Urine Blood Urine RBC Urine Mucus 04/13/22 04/13/22 04/14/22 15:55 19:02 07:52 WBC RBC 2.16 L Hgb 6.8 L* D Hct 20.5 L RDW 15.7 H Plt Count Neutrophils # Neutrophils # (Manual) Lymphocytes # Lymphocytes # (Manual) Monocytes # Monocytes # (Manual) Eosinophils # Eosinophils # (Manual) PT INR APTT ABG pH ABG pCO2 ABG pO2 ABG HCO3 ABG Total CO2 ABG O2 Saturation Sodium Potassium Carbon Dioxide Anion Gap BUN Creatinine BUN/Creatinine Ratio Glucose POC Glucose (mg/dL) Plasma Lactic Acid Walt 6.3 H* 3.2 H* Calcium AST Alkaline Phosphatase Total Protein Albumin Globulin Albumin/Globulin Ratio Ur Specific [place] Urine Ketones Urine Blood Urine RBC Urine Mucus 04/14/22 04/14/22 07:52 10:14 WBC RBC 2.11 L Hgb 6.7 L* Hct 20.3 L RDW 16.0 H Plt Count Neutrophils # Neutrophils # (Manual) Lymphocytes # Lymphocytes # (Manual) Monocytes # Monocytes # (Manual) Eosinophils # Eosinophils # (Manual) PT INR APTT ABG pH ABG pCO2 ABG pO2 ABG HCO3 ABG Total CO2 ABG O2 Saturation Sodium 136 L Potassium Carbon Dioxide Anion Gap BUN Creatinine BUN/Creatinine Ratio Glucose POC Glucose (mg/dL) Plasma Lactic Acid Walt Calcium 7.0 L AST Alkaline Phosphatase Total Protein 5.1 L Albumin 2.1 L Globulin Albumin/Globulin Ratio Ur Specific [place] Urine Ketones Urine Blood Urine RBC Urine Mucus - Diagnostic Findings Chest x-ray: image reviewed Assessment and Plan Assessment: Postop day #7, status post exploratory laparotomy, small bowel resection, lysis of adhesions, appendectomy, and repair of small bowel enterotomy. Shortness of breath, likely secondary to fluid overload/CHF. History of hyperlipidemia. History of esophageal cancer, 2012. Impaired hearing. Lifelong nonsmoker. Status post aortic aneurysm repair, 2013. History of esophagectomy, 2012. Plan: Plan dated 04/14/2022. The patient has a very low pro-calcitonin level. The patient should be given Lasix, for the fluid overload. We will continue to follow. Currently, the patient's on 3 L, with excellent saturations. Additional recommendations and suggestions are forthcoming. The patient should receive 1 unit of packed red blood cells. Prognosis is guarded. Time with Patient: Greater than 30
[2022-04-14] MEDS ORDERED: FUROSEMIDE 10 MG/ML 2 ML VIAL IV ONE (13:15)
[2022-04-14] MEDS: IOPAMIDOL CONTRAST (ORAL USE) VIAL PO PRN ×2 (13:53→14:54)
--- NOTE | 2022-04-14 14:25 | P.PN ---
Subjective Progress Note Date: 04/14/22 CHIEF COMPLAINT: Small bowel obstruction HISTORY OF PRESENT ILLNESS: Patient is status post exploratory laparotomy, lysis of extensive adhesions, small bowel resection, repair of small bowel enterotomy and incidental appendectomy for a small bowel obstruction secondary to internal hernia and adhesions on 04/07/22. Patient is currently on cardiac floor. Patient had a syncopal episode yesterday while having a bowel movement. He became hypotensive. He has had a drop in his hemoglobin from 9.6-6.7. He is scheduled for unit of blood. Yesterday patient was switched over to Eliquis. Patient's denies any increase in abdominal pain. Denies any nausea or vomiting. He is currently on a full liquid diet. During patient's vomiting episode there was concerns of aspiration. Pulmonary service is now following patient. Chest x-ray shows mild fluid overload and they recommended IV Lasix. Afebrile. WBC is 8.2 hemoglobin is 6.7 platelets are 167. Nursing staff also noted that patient had bleeding from the distal aspect of his incision. Compressing dressing will be applied. Eliquis currently on hold. Patient seen and examined with Dr. rose PHYSICAL EXAM: VITAL SIGNS: Reviewed. GENERAL: Well-developed in no acute distress. HEENT: No sclera icterus. Extraocular movements grossly intact. Moist buccal mucosa. Head is atraumatic, normocephalic. ABDOMEN: Soft. Nondistended. Dressing clean dry and intact NEUROLOGIC: Alert and oriented. Cranial nerves II through XII grossly intact. ASSESSMENT: 1. Small bowel obstruction secondary to internal hernia and adhesions status post exploratory laparotomy, lysis of extensive adhesions, small bowel resection, repair of small bowel enterotomy and incidental appendectomy 2. Hypertension 3. A. fib RVR 4. History of rheumatoid arthritis 5. Hypokalemia PLAN: -Computed tomography scan abdomen and pelvis with oral and IV contrast ordered due to drop in hemoglobin -Continue to monitor hemoglobin -Agree with blood transfusion -Agree with Lasix for fluid overload -Continue supportive care -Continue to monitor incision site -Encourage patient to use incentive spirometer -GI prophylaxis Protonix Physician Varnish Blender note has been reviewed by physician. Signing provider agrees with the documented findings, assessment, and plan of care. Objective - Vital Signs Vital signs: Vital Signs Temp 98.0 F 04/14/22 08:06 Pulse 71 04/14/22 11:45 Resp 20 04/14/22 11:45 BP 99/55 04/14/22 11:45 Pulse Ox 93 L 04/14/22 11:45 FiO2 Intake & Output 04/13/22 04/14/22 04/14/22 18:59 06:59 18:59 Intake Total 771.807 598 Output Total 200 1110 Balance 571.807 -1110 598 Weight 83.915 kg 83.915 kg Intake: Intake, IV Titration 531.807 Amount Amiodarone 450 mg In 195.837 Dextrose 5% in Water 250 ml @ 0.5 MG/MIN 16.667 mls/hr IV .Q15H ALEYDA Rx#: [id number] Heparin Sod,Pork in 0.45% 335.97 NaCl 25,000 unit In 0.45 % NaCl 1 250ml.bag @ 11. 9168 UNITS/KG/HR 10 mls/ hr IV .Q24H ALEYDA Rx#: [id number] Oral 240 598 Output: Urine 200 950 Post Void Residual 160 Other: Voiding Method Toilet Urinal Urinal # Bowel Movements 1 - Labs CBC & Chem 7: 04/14/22 10:14 04/14/22 07:52 Labs: Abnormal Lab Results - Last 24 Hours (Table) 04/13/22 04/13/22 04/13/22 Range/Units 15:20 15:37 15:55 RBC (4.30-5.90) m/uL Hgb (13.0-17.5) gm/dL Hct (39.0-53.0) % RDW (11.5-15.5) % ABG pH 7.31 L (7.35-7.45) ABG pCO2 31 L (35-45) mmHg ABG pO2 122 H (83-108) mmHg ABG HCO3 16 L (21-25) mmol/L ABG Total CO2 16 L (19-24) mmol/L ABG O2 Saturation 99.0 H (94-97) % Sodium (137-145) mmol/L POC Glucose (mg/dL) 136 H (70-110) mg/dL Plasma Lactic Acid Walt 6.3 H* (0.7-2.0) mmol/L Calcium (8.4-10.2) mg/dL Total Protein (6.3-8.2) g/dL Albumin (3.5-5.0) g/dL Crossmatch 04/13/22 04/14/22 04/14/22 Range/Units 19:02 07:52 07:52 RBC 2.16 L (4.30-5.90) m/uL Hgb 6.8 L* D (13.0-17.5) gm/dL Hct 20.5 L (39.0-53.0) % RDW 15.7 H (11.5-15.5) % ABG pH (7.35-7.45) ABG pCO2 (35-45) mmHg ABG pO2 (83-108) mmHg ABG HCO3 (21-25) mmol/L ABG Total CO2 (19-24) mmol/L ABG O2 Saturation (94-97) % Sodium 136 L (137-145) mmol/L POC Glucose (mg/dL) (70-110) mg/dL Plasma Lactic Acid Walt 3.2 H* (0.7-2.0) mmol/L Calcium 7.0 L (8.4-10.2) mg/dL Total Protein 5.1 L (6.3-8.2) g/dL Albumin 2.1 L (3.5-5.0) g/dL Crossmatch 04/14/22 04/14/22 Range/Units 10:14 10:14 RBC 2.11 L (4.30-5.90) m/uL Hgb 6.7 L* (13.0-17.5) gm/dL Hct 20.3 L (39.0-53.0) % RDW 16.0 H (11.5-15.5) % ABG pH (7.35-7.45) ABG pCO2 (35-45) mmHg ABG pO2 (83-108) mmHg ABG HCO3 (21-25) mmol/L ABG Total CO2 (19-24) mmol/L ABG O2 Saturation (94-97) % Sodium (137-145) mmol/L POC Glucose (mg/dL) (70-110) mg/dL Plasma Lactic Acid Walt (0.7-2.0) mmol/L Calcium (8.4-10.2) mg/dL Total Protein (6.3-8.2) g/dL Albumin (3.5-5.0) g/dL Crossmatch See Detail
--- NOTE | 2022-04-14 15:04 | P.PN ---
Subjective Progress Note Date: 04/14/22 04/13/2022 Patient is admitted for partial small bowel resection patient underwent the laparotomy lysis of adhesions small bowel resection. Patient is on a full liquid diet at this time. Patient does have crackles on lung exam obtain a chest x-ray, which showed a bilateral pleural effusions, pulmonary edema and intrathoracic stomach patient will be given a dose of Lasix with close clinical monitoring. Patient is also in atrial fibrillation patient is presently rate controlled still in A. fib patient was on IV Cardizem which is being weaned off patient is also on clonidine which is also being weaned off and patient is being transitioned to oral amiodarone from IV amiodarone cardiology is following the patient. 04/14/2022 Patient was seen and evaluated in follow-up today. Hemoglobin was low and given a unit of PRBCs and will follow-up with repeat hemoglobin in the afternoon. Patient was CODE BLUE yesterday per nursing staff while getting up and attempting to get to the commode. Patient is continued on 4 L via nasal cannula and will also give a dose of Lasix after the unit of blood as patient chest x- ray shows possible congestive heart failure with basilar effusions and associated edema versus atelectasis. Patient will be also given a incentive spirometer encouraged to use at least 10 times every hour. Also medical consultations following including surgery and patient is on full liquid diet although not eating much and not tolerating much of a diet. Patient reports he is having multiple bowel movements that are loose with no blood noted. CT abdomen and pelvis is ordered by surgery and pending at this time. Recommend continue holding Eliquis due to the drop in hemoglobin with cardiology following closely. Patient is also maintained on IV antibiotics in the form of Zosyn and will continue. Constitutional: Denied any fatigue denied any fever. Pulmonary also placed on consulted and pending. Patient with extreme weakness does have PT/OT therapy on currently. Review of systems: Cardio vascular: denied any chest pain, palpitations Gastrointestinal denied any nausea vomiting, reports no appetite and some abdominal pain Pulmonary: Reports continued shortness of breath and cough with some mild sputum Neurologic denied any new focal deficits, reports weakness Active Medications Acetaminophen (Acetaminophen Tab 325 Mg Tab) 650 mg PO Q6HR PRN PRN Reason: Fever and/ or Pain Last Admin: 04/09/22 14:13 Dose: 650 mg Hydrocodone Bitart/Acetaminophen (Hydrocodone/Apap 5-325mg 1 Each Tab) 1 each PO Q4HR PRN PRN Reason: Pain Last Admin: 04/12/22 19:52 Dose: 1 each Amiodarone HCl (Amiodarone 200 Mg Tab) 200 mg PO BID [facility] Last Admin: 04/14/22 08:14 Dose: 200 mg Atorvastatin Calcium (Atorvastatin 10 Mg Tab) 10 mg PO QAM [facility] Last Admin: 04/14/22 08:14 Dose: 10 mg Hydralazine HCl (Hydralazine Hcl 20 Mg/Ml 1 Ml Vial) 10 mg IVP Q4HR PRN PRN Reason: Blood Pressure - High Last Admin: 04/12/22 11:22 Dose: 10 mg Hydromorphone HCl (Hydromorphone 0.5 Mg/0.5 Ml Syringe) 0.5 mg IVP Q3HR PRN PRN Reason: Moderate Pain (Scale 4 to 6) Last Admin: 04/13/22 08:37 Dose: 0.5 mg Hydromorphone HCl (Hydromorphone 1 Mg/Ml 1 Ml Syringe) 1 mg IVP Q3HR PRN PRN Reason: Severe Pain (Scale 7 to 10) Last Admin: 04/11/22 08:22 Dose: 1 mg Piperacillin Sod/Tazobactam (Sod 3.375 gm/ Sodium Chloride) 100 mls @ 25 mls/hr IVPB Q8HR [facility]; Protocol Last Admin: 04/14/22 08:13 Dose: 25 mls/hr Levothyroxine Sodium (Levothyroxine 25 Mcg Tab) 25 mcg PO DAILY@0630 [facility] Last Admin: 04/14/22 06:23 Dose: 25 mcg Metoprolol Tartrate (Metoprolol Tartrate 25 Mg Tab) 25 mg PO BID [facility] Last Admin: 04/14/22 08:14 Dose: 25 mg Miscellaneous Information (Potassium Replacement Protocol 1 Each Misc) 1 each MISCELLANE DAILY PRN; Protocol PRN Reason: Per Protocol Miscellaneous Information (Magnesium Replacement Protocol 1 Each Misc) 1 each MISCELLANE DAILY PRN; Protocol PRN Reason: Per Protocol Naloxone HCl (Naloxone 0.4 Mg/Ml 1 Ml Vial) 0.2 mg IV Q2M PRN PRN Reason: Opioid Reversal Non-Formulary Medication (Patients Own Med) 1 each SQ DAILY [facility] Ondansetron HCl (Ondansetron 4 Mg/2 Ml Vial) 4 mg IVP Q8HR PRN PRN Reason: Nausea And Vomiting Last Admin: 04/07/22 08:19 Dose: 4 mg Pantoprazole Sodium (Pantoprazole 40 Mg/10 Ml Vial) 40 mg IV DAILY [facility] Last Admin: 04/14/22 08:14 Dose: 40 mg Paroxetine HCl (Paroxetine 20 Mg Tab) 20 mg PO QAM [facility] Last Admin: 04/14/22 08:14 Dose: 20 mg Tamsulosin HCl (Tamsulosin 0.4 Mg Cap.Er.24h) 0.8 mg PO HS [facility] Last Admin: 04/13/22 20:04 Dose: 0.8 mg PHYSICAL EXAMINATION: GENERAL: The patient is alert and oriented x3, not in any acute distress. Well developed, well nourished. HEENT: Pupils are round and equally reacting to light. EOMI. No scleral icterus. No conjunctival pallor. Normocephalic, atraumatic. No pharyngeal erythema. No thyromegaly. CARDIOVASCULAR: S1 and S2 present. No murmurs, rubs, or gallops. PULMONARY: Diminished breath sounds bilaterally with some scattered rhonchi and crackles noted ABDOMEN: Soft, tender, nondistended, normoactive bowel sounds. No palpable organomegaly. MUSCULOSKELETAL: No joint swelling or deformity. EXTREMITIES: No cyanosis, clubbing, or pedal edema. NEUROLOGICAL: Gross neurological examination did not reveal any focal deficits. Diffusely weak SKIN: No rashes. Assessment: acute Small bowel obstruction status post expiratory laparotomy lysis of adhesions and small bowel resection on 04/07/2022 patient is on a full liquid diet at this time and reports minimal intake and not tolerating much of diet New-onset A. fib and patient is on oral amiodarone, anticoagulant on hold for dropping hemoglobin and cardiology following Pulmonary edema secondary to congestive heart failure chronic diastolic dysfunction with acute exacerbation, will give another dose of Lasix Right lower lobe atelectasis rather than pneumonia Hypertension with urgency, present on admission. Currently hypotensive Hyperlipidemia Benign prostatic hypertrophy History of esophageal cancer status post esophagectomy bilateral renal calculi DVT prophylaxis GI Prophylaxis: Ppi Full code Plan: Recommend to give a unit of blood for hemoglobin of 6.8 and will follow-up with repeat labs. Gen. surgery following an patient reports abdominal pain with poor oral intake and has ordered CT abdomen Patient is continued on IV antibiotics in the form of Zosyn and will continue for now Patient with extreme weakness will need PT/OT therapy daily Patient continues with congestion and CHF noted on x-ray and will give a dose of Lasix 20 mg after blood transfusion and follow-up with repeat labs Wean FiO2 as tolerated and currently 93% on 4 L Prognosis is guarded The impression and plan of care has been dictated by Brandi Gomez, Nurse Practitioner as directed. Dr. Maritza MD I have performed a history and examination and MDM of this patient, discussed the same with the dictator, and agree with the dictator's assessment and plan as written ,documented as a scribe. Based on total visit time, I have performed more than 50% of the visit. Objective - Vital Signs Vital signs: Vital Signs Temp 98.0 F 04/14/22 08:06 Pulse 72 04/14/22 08:06 Resp 16 04/14/22 08:06 BP 113/70 04/14/22 08:06 Pulse Ox 100 04/14/22 08:06 FiO2 Intake & Output 04/13/22 04/14/22 04/14/22 18:59 06:59 18:59 Intake Total 771.807 Output Total 200 1110 Balance 571.807 -1110 Weight 83.915 kg Intake: Intake, IV Titration 531.807 Amount Amiodarone 450 mg In 195.837 Dextrose 5% in Water 250 ml @ 0.5 MG/MIN 16.667 mls/hr IV .Q15H [facility] Rx#: [id number] Heparin Sod,Pork in 0.45% 335.97 NaCl 25,000 unit In 0.45 % NaCl 1 250ml.bag @ 11. 9168 UNITS/KG/HR 10 mls/ hr IV .Q24H [facility] Rx#: [id number] Oral 240 Output: Urine 200 950 Post Void Residual 160 Other: Voiding Method Toilet Urinal # Bowel Movements 1 - Labs CBC & Chem 7: 04/14/22 10:14 04/14/22 07:52 Labs: Abnormal Lab Results - Last 24 Hours (Table) 04/13/22 04/13/22 04/13/22 Range/Units 15:20 15:37 15:55 RBC (4.30-5.90) m/uL Hgb (13.0-17.5) gm/dL Hct (39.0-53.0) % RDW (11.5-15.5) % ABG pH 7.31 L (7.35-7.45) ABG pCO2 31 L (35-45) mmHg ABG pO2 122 H (83-108) mmHg ABG HCO3 16 L (21-25) mmol/L ABG Total CO2 16 L (19-24) mmol/L ABG O2 Saturation 99.0 H (94-97) % Sodium (137-145) mmol/L POC Glucose (mg/dL) 136 H (70-110) mg/dL Plasma Lactic Acid Walt 6.3 H* (0.7-2.0) mmol/L Calcium (8.4-10.2) mg/dL Total Protein (6.3-8.2) g/dL Albumin (3.5-5.0) g/dL 04/13/22 04/14/22 04/14/22 Range/Units 19:02 07:52 07:52 RBC 2.16 L (4.30-5.90) m/uL Hgb 6.8 L* D (13.0-17.5) gm/dL Hct 20.5 L (39.0-53.0) % RDW 15.7 H (11.5-15.5) % ABG pH (7.35-7.45) ABG pCO2 (35-45) mmHg ABG pO2 (83-108) mmHg ABG HCO3 (21-25) mmol/L ABG Total CO2 (19-24) mmol/L ABG O2 Saturation (94-97) % Sodium 136 L (137-145) mmol/L POC Glucose (mg/dL) (70-110) mg/dL Plasma Lactic Acid Walt 3.2 H* (0.7-2.0) mmol/L Calcium 7.0 L (8.4-10.2) mg/dL Total Protein 5.1 L (6.3-8.2) g/dL Albumin 2.1 L (3.5-5.0) g/dL
--- NOTE | 2022-04-14 16:34 | CT ---
EXAMINATION TYPE: CT abdomen pelvis w con DATE OF EXAM: 04/14/2022 COMPARISON: 04/06/2022 HISTORY: 77-year-old male abdominal pain, anemia TECHNIQUE: Contiguous axial scanning of the abdomen and pelvis following administration of 100 ml Iso tristan 300 IV contrast. Delayed images through the kidneys and coronal/sagittal reconstructions perform ed. CT DLP: 1706.5 mGycm Automated exposure control for dose reduction was used. FINDINGS: Heart and lungs are normal in size without pericardial effusion. Mild aneurysm lower descending thoracic aorta to 3.2 cm. Patent aortobiiliac endovascular graft. Moderate bilateral pleural effusions are new with extensive consolidation and volume loss, likely mos tly atelectatic collapse of the bilateral lower lobes. Postsurgical changes likely relating to prior esophagectomy and gastric pull-through. Prominent contr ast remains within the gastric pull-through. Note the presence of herniated ascites fluid and nonobst ructed mid transverse colon along the left lateral aspect of the gastric pull-through. These herniati ng contents measure up to 12.0 x 6.6 cm, referred to coronal image 67. No focal liver lesion. Cholecystectomy clips. Adrenal glands, spleen, and atrophic pancreas show no p ersonality. Bilateral renal cortical cysts measuring up to 2.3 cm. No hydronephrosis. Punctate nonobstructive 2 m m right renal calculus. Somewhat delayed excretion of contrast from the kidneys. Correlate with kidne y function to exclude acute kidney injury. Interval surgery with midline incision. Some residual fluid along the length of the incision along th e subcutaneous adipose layer, likely small seromas. Some scattered saphenous emphysema left thoracoab dominal junction and mild scattered foci of free intraperitoneal air in the upper abdomen likely due to recent surgery. There is moderate abdominopelvic ascites. The fluid within the mid and lower abdomen and collecting i n the pelvis show intermediate attenuation suggesting hemorrhagic ascites. The previous dilated small bowel loops have largely resolved. Staple lines in the mid lower abdomen. Some disorganized appearance here with prominent lobulated sof t tissue density, possible source of bleeding. This will require further clinical correlation. Sigmoid diverticulosis. Bladder urine distended. Small focus of nondependent intraluminal bladder air may relate to recent in strumentation. Prostate gland mildly enlarged at 4.3 cm wide. Bones: Osteopenia. Some interbody ankylosis of T11-T12 with slight accentuated kyphosis at this level . Slight levoconvex curvature centered along the thoracolumbar junction. IMPRESSION: 1. INTERVAL SMALL BOWEL SURGERY WITH RESOLUTION OF PREVIOUS SMALL BOWEL OBSTRUCTION. SCATTERED SUBCUT ANEOUS EMPHYSEMA AND SMALL FOCI OF INTRAPERITONEAL AIR LIKELY ON A POSTSURGICAL BASIS. 2. HOWEVER, THERE IS MODERATE ASCITES THAT SHOWS INTERMEDIATE ATTENUATION SUGGESTING SIGNIFICANT HEMO RRHAGIC ASCITES. CORRELATE FOR BLEEDING FROM THE ANASTOMOTIC SITE, MIDLINE LOWER ABDOMEN, AXIAL IMAGE 68. FINDINGS CALLED TO NURSE ADAMS ON 3SCARD AT 4:30PM 3. GENERALIZED ANASARCA. NEW MODERATE BILATERAL PLEURAL EFFUSIONS. SUSPECT SIGNIFICANT ATELECTATIC CO LLAPSE OF MOST OF THE LOWER LOBES. 4. PREVIOUS ESOPHAGECTOMY AND GASTRIC PULL-THROUGH PROCEDURE. THERE IS A CONCURRENT HERNIA INVOLVING ASCITES FLUID, MESENTERY, AND A SEGMENT OF NONOBSTRUCTED TRANSVERSE COLON ALONG THE LEFT LATERAL ODESSA IN OF THE PULL-THROUGH. THESE HERNIATED CONTENTS MEASURE 12.0 X 6.6 CM, CORONAL IMAGE 67.
[2022-04-14] MEDS: HYDROcodone/APAP 5-325MG 1 EACH TAB PO PRN (17:33)
[2022-04-14 17:56] LABS: Glucose,Whole Blood 118 mg/dL (70-110)
[2022-04-14] MEDS: TAMSULOSIN 0.4 MG CAP.ER.24H PO SCH (20:43)
[2022-04-15] MEDS: PIPERACILLIN-TAZOBACTAM 3.375 GM in SODIUM CHLORIDE 0.9% 100 ML IVPB SCH ×4 (00:34→23:35)
[2022-04-15] MEDS: HYDROcodone/APAP 5-325MG 1 EACH TAB PO PRN ×2 (00:34→20:59)
[2022-04-15 00:36] LABS: Anisocytosis Slight; HCT 22.9 % (39.0-53.0); HGB 7.7 gm/dL (13.0-17.5); MCH 30.5 pg (25.0-35.0); MCHC 33.7 g/dL (31.0-37.0); Mean Platelet Volume 12.4; Platelet Count 163 k/uL (150-450); Poikilocytosis Slight; RBC 2.53 m/uL (4.30-5.90); RDW 16.4 % (11.5-15.5); WBC 9.3 k/uL (3.8-10.6)
[2022-04-15 00:39] LABS: MCV 90.5 fL (80.0-100.0)
[2022-04-15 06:49] LABS: HCT 24.5 % (39.0-53.0); HGB 8.3 gm/dL (13.0-17.5); Hypochromasia Slight; MCHC 33.9 g/dL (31.0-37.0); MCV 94.5 fL (80.0-100.0); Mean Platelet Volume 11.2; Platelet Count 167 k/uL (150-450); Poikilocytosis Slight; RDW 15.9 % (11.5-15.5); WBC 8.5 k/uL (3.8-10.6)
[2022-04-15] MEDS: LEVOTHYROXINE 25 MCG TAB PO SCH (07:08)
[2022-04-15 07:13] LABS: African American GFR (CKD) >90 (>60 ml/min/1.73 sqM); Anion Gap 6 mmol/L; Blood Urea Nitrogen 16 mg/dL (9-20); Calcium 7.2 mg/dL (8.4-10.2); Carbon Dioxide 26 mmol/L (22-30); Chloride 105 mmol/L (98-107); Glucose 89 mg/dL (74-99); Non-African American GFR(CKD) 87 (>60 ml/min/1.73 sqM); Potassium 3.5 mmol/L (3.5-5.1); Sodium 137 mmol/L (137-145)
[2022-04-15] MEDS: PARoxetine 20 MG TAB PO SCH (08:45)
[2022-04-15] MEDS: POTASSIUM CHLORIDE ER 20 MEQ TAB.ER PO SCH ×2 (08:45→11:15)
[2022-04-15] MEDS: METOPROLOL TARTRATE 25 MG TAB PO SCH ×2 (08:45→20:59)
[2022-04-15] MEDS: ATORVASTATIN 10 MG TAB PO SCH (08:45)
[2022-04-15] MEDS: AMIODARONE 200 MG TAB PO SCH ×2 (08:45→20:59)
[2022-04-15] MEDS: PANTOPRAZOLE 40 MG/10 ML VIAL IV SCH (08:46)
[2022-04-15] MEDS ORDERED: [UNRECOGNIZED DRUG - OTHER] SQ SCH (09:00)
[2022-04-15] MEDS ORDERED: ETANERCEPT SQ SCH (09:00)
--- NOTE | 2022-04-15 10:38 | P.PN ---
Subjective Progress Note Date: 04/15/22 Principal diagnosis: Paroxysmal atrial fibrillation The patient is a 77-year-old gentleman with a past medical history significant for hypertension and dyslipidemia and paroxysmal atrial fibrillation who was admitted to the hospital with abdominal discomfort and was diagnosed with small bowel obstruction and he underwent surgery. We consulted to see the patient for the management of paroxysmal atrial fibrillation. April 09 The patient was seen this morning. He has been maintaining normal sinus mechanism with sinus bradycardia and heart rate in the 50s. Currently he is on amiodarone as well as metoprolol. Is not on any oral anticoagulation because of bleeding issues and he required blood transfusion during his hospital stay. He underwent an echo during his hospital stay and that showed preserved left ventricular systolic function was evidence of hypertensive heart disease. Objective - Vital Signs Vital signs: Vital Signs Temp 98.0 F 04/15/22 08:00 Pulse 65 04/15/22 10:00 Resp 14 04/15/22 10:00 BP 145/70 04/15/22 10:00 Pulse Ox 97 04/15/22 10:00 FiO2 Intake & Output 04/14/22 04/15/22 04/15/22 18:59 06:59 18:59 Intake Total 908 60 Output Total 240 0 0 Balance 668 0 60 Weight 83.915 kg 84.2 kg Intake: IV 60 0.9 @ 20 60 Oral 598 Blood Product 310 Rc As-1 Unit 310 [id number] Output: Urine 0 0 Post Void Residual 240 Other: Voiding Method Urinal Urinal # Voids 0 0 - Constitutional General appearance: Present: no acute distress - Respiratory Respiratory: bilateral: diminished - Cardiovascular Rhythm: regular Heart sounds: normal: S1, S2 Abnormal Heart Sounds: Present: systolic murmur - Labs CBC & Chem 7: 04/15/22 06:05 04/15/22 06:05 Labs: Abnormal Lab Results - Last 24 Hours (Table) 04/14/22 04/14/22 04/14/22 Range/Units 10:14 10:14 17:53 RBC 2.11 L (4.30-5.90) m/uL Hgb 6.7 L* (13.0-17.5) gm/dL Hct 20.3 L (39.0-53.0) % RDW 16.0 H (11.5-15.5) % Lymphocytes # 0.8 L (1.0-4.8) k/uL POC Glucose (mg/dL) 118 H (70-110) mg/dL Calcium (8.4-10.2) mg/dL Crossmatch See Detail 04/14/22 04/15/22 04/15/22 Range/Units 23:45 06:05 06:05 RBC 2.53 L 2.60 L (4.30-5.90) m/uL Hgb 7.7 L 8.3 L (13.0-17.5) gm/dL Hct 22.9 L 24.5 L (39.0-53.0) % RDW 16.4 H 15.9 H (11.5-15.5) % Lymphocytes # (1.0-4.8) k/uL POC Glucose (mg/dL) (70-110) mg/dL Calcium 7.2 L (8.4-10.2) mg/dL Crossmatch Assessment and Plan Assessment: Assessment #1 small bowel obstruction status post surgery #2 paroxysmal atrial fibrillation #3 hypertension #4 dyslipidemia #5 coronary artery disease #6 multiple comorbid conditions Plan Continue the current medical regimen including amiodarone and metoprolol Tapered down the dose of amiodarone Hold on any anticoagulation at this point in the light of low hemoglobin required blood transfusion Follow-up with the patient
[2022-04-15] MEDS ORDERED: FUROSEMIDE 10 MG/ML 4 ML VIAL IV STA (11:32)
--- NOTE | 2022-04-15 12:00 | P.PN ---
Subjective Progress Note Date: 04/15/22 Principal diagnosis: Shortness of breath. Pulmonary/critical care consult dated 04/14/2022. 77-year-old male who was admitted back on April 06. We were consulted because of shortness of breath. The patient ended up having a exploratory laparotomy on April 07, with lysis of adhesions, small bowel resection, appendectomy, and repair of small bowel enterotomy. The patient was supposed to be on some oxygen therapy, but we found him without the oxygen on, and his resting room air saturation was only 83 - 84%. His N-terminal proBNP was elevated. His chest x- ray was consistent with CHF. He apparently was coughing and producing some phlegm. He was on TPN as well. He is also on Zosyn. White count was 8.2, with a hemoglobin of 6.7, hematocrit 20.3, and platelet count 267,000. Sodium is 136, potassium 3.7, chlorides 106, CO2 25, BUN 16, and creatinine 0.79. Pro- calcitonin level was 0.08, and N-terminal proBNP on April 11 was 3520. Progress note dated 04/15/2022. This is a 77-year-old male that we saw yesterday in consultation with shortness of breath. We thought that his shortness of breath was likely related to fluid overload. After seeing him, I was called by the floor nurse, in the ICU nurse, that the patient was hemorrhaging. For that reason, and because of low blood pressures, the patient was transferred to the intensive care unit. He did receive 1 unit of packed red blood cells. His hemoglobin this morning is 8.3. He looks a bit lethargic, and is on 4 L of oxygen, and saline at KVO. A computed tomography scan of the abdomen and pelvis, showed postsurgical changes, but no active bleeding. White count 8.5, hemoglobin 8.3, hematocrit 24.5, and platelet count 267,000. Sodium 137, potassium 3.5, chlorides 105, CO2 26, BUN 16, creatinine 0.77. Blood cultures are currently negative. Objective - Vital Signs Vital signs: Vital Signs Temp 98.0 F 04/15/22 08:00 Pulse 61 04/15/22 11:00 Resp 11 L 04/15/22 11:00 BP 147/79 04/15/22 11:00 Pulse Ox 98 04/15/22 11:00 FiO2 Intake & Output 04/14/22 04/15/22 04/15/22 18:59 06:59 18:59 Intake Total 908 80 Output Total 240 0 300 Balance 668 0 -220 Weight 83.915 kg 84.2 kg Intake: IV 80 0.9 @ 20 80 Oral 598 Blood Product 310 Rc As-1 Unit 310 [id number] Output: Urine 0 300 Post Void Residual 240 Other: Voiding Method Urinal Urinal Urinal # Voids 0 0 - Exam No acute distress, oriented 3. Very poor historian. Currently on room air, but should be on 4 L. Saturations are 98%. HEENT examination is grossly unremarkable. Neck supple. Full range of motion. No adenopathy thyromegaly or neck vein distention. Cardiovascular examination reveals regular rhythm rate. S1-S2 normal. No S3 or S4. No discernible murmur noted. Heart rate 61 bpm. Heart sounds are distant. Lungs reveal scattered bilateral rhonchi and crackles. Breath sounds are equal bilaterally. Abdomen soft, without masses or tenderness. Extremities are intact. No cyanosis clubbing or edema. Skin is without rash or lesion. Neurologic examination is brief but nonfocal. - Labs CBC & Chem 7: 04/15/22 06:05 04/15/22 06:05 Labs: Abnormal Lab Results - Last 24 Hours (Table) 04/14/22 04/14/22 04/14/22 Range/Units 10:14 10:14 17:53 RBC (4.30-5.90) m/uL Hgb (13.0-17.5) gm/dL Hct (39.0-53.0) % RDW (11.5-15.5) % Lymphocytes # 0.8 L (1.0-4.8) k/uL POC Glucose (mg/dL) 118 H (70-110) mg/dL Calcium (8.4-10.2) mg/dL Crossmatch See Detail 04/14/22 04/15/22 04/15/22 Range/Units 23:45 06:05 06:05 RBC 2.53 L 2.60 L (4.30-5.90) m/uL Hgb 7.7 L 8.3 L (13.0-17.5) gm/dL Hct 22.9 L 24.5 L (39.0-53.0) % RDW 16.4 H 15.9 H (11.5-15.5) % Lymphocytes # (1.0-4.8) k/uL POC Glucose (mg/dL) (70-110) mg/dL Calcium 7.2 L (8.4-10.2) mg/dL Crossmatch Assessment and Plan Assessment: Postop day #8, status post exploratory laparotomy, small bowel resection, lysis of adhesions, appendectomy, and repair of small bowel enterotomy. Postoperative anemia, status post 1 unit of packed red blood cells. Shortness of breath, likely secondary to fluid overload/CHF. History of hyperlipidemia. History of esophageal cancer, 2012. Impaired hearing. Lifelong nonsmoker. Status post aortic aneurysm repair, 2013. History of esophagectomy, and gastric pull-through surgery, 2012. Plan: Plan dated 04/14/2022. The patient has a very low pro-calcitonin level. The patient should be given Lasix, for the fluid overload. We will continue to follow. Currently, the patient's on 3 L, with excellent saturations. Additional recommendations and suggestions are forthcoming. The patient should receive 1 unit of packed red blood cells. Prognosis is guarded. Plan dated 04/15/2022. The patient was transferred to the intensive care unit yesterday, and he was seen today in room 253. There was concerns that the patient might be having some active internal bleeding. That was not the case on the computed tomography scan of the abdomen and pelvis. He did receive 1 unit of packed red blood cell s. He's currently on 4 L of oxygen. He is getting saline at KVO. Hemoglobin today is 8.3. Respiratory status seems reasonably stable. Labs, x-rays, and medications are all reviewed. Prognosis is guarded. Time with Patient: Greater than 30
[2022-04-15 12:32] LABS: Anisocytosis Slight; HCT 26.5 % (39.0-53.0); HGB 8.6 gm/dL (13.0-17.5); Hypochromasia Slight; MCH 30.9 pg (25.0-35.0); MCHC 32.6 g/dL (31.0-37.0); Mean Platelet Volume 12.6; Platelet Count 167 k/uL (150-450); Poikilocytosis Slight; RBC 2.79 m/uL (4.30-5.90); RDW 16.4 % (11.5-15.5); WBC 10.4 k/uL (3.8-10.6)
[2022-04-15] MEDS ORDERED: PATIENTS OWN MED SQ SCH (14:52)
--- NOTE | 2022-04-15 15:19 | P.PN ---
Subjective Progress Note Date: 04/15/22 CHIEF COMPLAINT: Small bowel obstruction HISTORY OF PRESENT ILLNESS: Patient is status post exploratory laparotomy, lysis of extensive adhesions, small bowel resection, repair of small bowel enterotomy and incidental appendectomy for a small bowel obstruction secondary to internal hernia and adhesions on 04/07/22. Patient transferred to the ICU yesterday due to hypotension and concerns of possible internal bleeding in the abdomen. Patient did have a drop in his hemoglobin yesterday from 9.6-6.7. He did receive 1 unit of blood. And a computed tomography scan abdomen and pelvis was ordered by Dr. rose for further evaluation of the anemia. Computed tomography scan did show moderate ascites that shows intermediate attenuation suggesting significant hemorrhagic ascites, correlate for bleeding from anastomotic site. Previous esophagectomy and gastric pull-through procedure. There is a concurrent hernia involving ascites fluid, mesentery and a segment of nonobstructed transverse colon along the left lateral margin of the pull- through. Computed tomography scan results were reviewed with Dr. rose. He felt that there was no active bleeding and the hernia area showed no evidence of obstruction. Patient's hemoglobin the day after surgery 04/08/2022 was 12.3 and had remained moderately the same until 04/13/2022 hemoglobin decreased to 9.6. And then postop day #7 the hemoglobin dropped to 6.7 and he received 1 unit of blood. Patient's vitals are currently stable. No further hypotension. Patient's heart rate is 60s. He denies any increase in abdominal pain. He does continue to have a small amount of oozing of blood from the distal aspect of his abdominal incision. Patient is having brown bowel movements. Stool for occult blood is negative. Patient seen and examined with Dr. rose PHYSICAL EXAM: VITAL SIGNS: Reviewed. GENERAL: Well-developed in no acute distress. HEENT: No sclera icterus. Extraocular movements grossly intact. Moist buccal mucosa. Head is atraumatic, normocephalic. ABDOMEN: Soft. Nondistended. Abdominal incision distal aspect has blood oozing from the distal aspect of the incision NEUROLOGIC: Alert and oriented. Cranial nerves II through XII grossly intact. ASSESSMENT: 1. Small bowel obstruction secondary to internal hernia and adhesions status post exploratory laparotomy, lysis of extensive adhesions, small bowel resect ion, repair of small bowel enterotomy and incidental appendectomy 2. Anemia likely secondary to blood thinners 3. A. fib RVR 4. History of rheumatoid arthritis 5. Fluid overload PLAN: -No surgical intervention planned -Continue supportive care -Advance diet to regular -Continue to hold blood thinners -Continue to monitor hemoglobin -Agree with Lasix for fluid overload -Continue to monitor incision site -Encourage patient to use incentive spirometer -GI prophylaxis Protonix Physician Positive Printer Operator note has been reviewed by physician. Signing provider agrees with the documented findings, assessment, and plan of care. Objective - Vital Signs Vital signs: Vital Signs Temp 98.2 F 04/15/22 12:00 Pulse 61 04/15/22 13:00 Resp 13 04/15/22 13:00 BP 125/79 04/15/22 13:00 Pulse Ox 95 04/15/22 13:00 FiO2 Intake & Output 04/14/22 04/15/22 04/15/22 18:59 06:59 18:59 Intake Total 908 120 Output Total 240 0 700 Balance 668 0 -580 Weight 83.915 kg 84.2 kg Intake: IV 120 0.9 @ 20 120 Oral 598 Blood Product 310 Rc As-1 Unit 310 [id number] Output: Urine 0 700 Post Void Residual 240 Other: Voiding Method Urinal Urinal Urinal # Voids 0 0 # Bowel Movements 1 - Labs CBC & Chem 7: 04/16/22 04:40 04/16/22 04:40 Labs: Abnormal Lab Results - Last 24 Hours (Table) 04/14/22 04/14/22 04/14/22 Range/Units 10:14 17:53 23:45 RBC 2.53 L (4.30-5.90) m/uL Hgb 7.7 L (13.0-17.5) gm/dL Hct 22.9 L (39.0-53.0) % RDW 16.4 H (11.5-15.5) % POC Glucose (mg/dL) 118 H (70-110) mg/dL Calcium (8.4-10.2) mg/dL Crossmatch See Detail 04/15/22 04/15/22 04/15/22 Range/Units 06:05 06:05 11:30 RBC 2.60 L 2.79 L (4.30-5.90) m/uL Hgb 8.3 L 8.6 L (13.0-17.5) gm/dL Hct 24.5 L 26.5 L (39.0-53.0) % RDW 15.9 H 16.4 H (11.5-15.5) % POC Glucose (mg/dL) (70-110) mg/dL Calcium 7.2 L (8.4-10.2) mg/dL Crossmatch Assessment and Plan Plan: Patient's hemoglobin was stable for several days postoperatively. His recent anemia appears to be due to anticoagulation. His computed tomography scan reviewed. There is no evidence of any retroperitoneal hematoma. The patient will stop all adequate ventilation. He'll be observed clinically.
[2022-04-15 19:33] LABS: HCT 25.7 % (39.0-53.0); HGB 8.4 gm/dL (13.0-17.5); Hypochromasia Moderate; MCH 31.6 pg (25.0-35.0); MCHC 32.9 g/dL (31.0-37.0); Mean Platelet Volume 9.5; Platelet Count 210 k/uL (150-450); Poikilocytosis Slight; RBC 2.67 m/uL (4.30-5.90); RDW 15.9 % (11.5-15.5); WBC 8.4 k/uL (3.8-10.6)
[2022-04-15] MEDS: TAMSULOSIN 0.4 MG CAP.ER.24H PO SCH (20:59)
[2022-04-15] MEDS: POTASSIUM BICARBONATE/CIT AC 20 MEQ TABLET.EFF NG-TUBE SCH ×3 (21:00→23:34)
[2022-04-16 00:33] LABS: Anisocytosis Slight; HCT 22.2 % (39.0-53.0); HGB 7.6 gm/dL (13.0-17.5); Hypochromasia Slight; MCH 32.1 pg (25.0-35.0); MCHC 34.1 g/dL (31.0-37.0); Mean Platelet Volume 10.4; Platelet Count 200 k/uL (150-450); Poikilocytosis Slight; RBC 2.36 m/uL (4.30-5.90); RDW 16.1 % (11.5-15.5); WBC 7.7 k/uL (3.8-10.6)
[2022-04-16 05:08] LABS: Basophils % (A) 0 %; Eosinophils # (A) 0.5 k/uL (0-0.7); Eosinophils % (A) 7 %; HCT 23.5 % (39.0-53.0); HGB 8.1 gm/dL (13.0-17.5); Hypochromasia Slight; Lymphocytes # (A) 0.8 k/uL (1.0-4.8); Lymphocytes % (A) 13 %; MCH 32.5 pg (25.0-35.0); MCHC 34.3 g/dL (31.0-37.0); MCV 94.7 fL (80.0-100.0); Mean Platelet Volume 9.6; Monocytes # (A) 0.6 k/uL (0-1.0); Monocytes % (A) 9 %; Neutrophils # (A) 4.6 k/uL (1.3-7.7); Neutrophils % (A) 69 %; Platelet Count 197 k/uL (150-450); Poikilocytosis Slight; RBC 2.48 m/uL (4.30-5.90); RDW 15.9 % (11.5-15.5); WBC 6.6 k/uL (3.8-10.6)
[2022-04-16 05:19] LABS: African American GFR (CKD) >90 (>60 ml/min/1.73 sqM); Anion Gap 6 mmol/L; Blood Urea Nitrogen 16 mg/dL (9-20); Calcium 7.3 mg/dL (8.4-10.2); Carbon Dioxide 28 mmol/L (22-30); Chloride 101 mmol/L (98-107); Glucose 87 mg/dL (74-99); Non-African American GFR(CKD) 85 (>60 ml/min/1.73 sqM); Potassium 3.6 mmol/L (3.5-5.1); Sodium 135 mmol/L (137-145)
--- NOTE | 2022-04-16 05:57 | P.PN ---
Subjective Progress Note Date: 04/15/22 04/13/2022 Patient is admitted for partial small bowel resection patient underwent the laparotomy lysis of adhesions small bowel resection. Patient is on a full liquid diet at this time. Patient does have crackles on lung exam obtain a chest x-ray, which showed a bilateral pleural effusions, pulmonary edema and intrathoracic stomach patient will be given a dose of Lasix with close clinical monitoring. Patient is also in atrial fibrillation patient is presently rate controlled still in A. fib patient was on IV Cardizem which is being weaned off patient is also on clonidine which is also being weaned off and patient is being transitioned to oral amiodarone from IV amiodarone cardiology is following the patient. 04/14/2022 Patient was seen and evaluated in follow-up today. Hemoglobin was low and given a unit of PRBCs and will follow-up with repeat hemoglobin in the afternoon. Patient was CODE BLUE yesterday per nursing staff while getting up and attempting to get to the commode. Patient is continued on 4 L via nasal cannula and will also give a dose of Lasix after the unit of blood as patient chest x- ray shows possible congestive heart failure with basilar effusions and associated edema versus atelectasis. Patient will be also given a incentive spirometer encouraged to use at least 10 times every hour. Also medical consultations following including surgery and patient is on full liquid diet although not eating much and not tolerating much of a diet. Patient reports he is having multiple bowel movements that are loose with no blood noted. CT abdomen and pelvis is ordered by surgery and pending at this time. Recommend continue holding Eliquis due to the drop in hemoglobin with cardiology following closely. Patient is also maintained on IV antibiotics in the form of Zosyn and will continue. Constitutional: Denied any fatigue denied any fever. Pulmonary also placed on consulted and pending. Patient with extreme weakness does have PT/OT therapy on currently. 04/15/2022 Patient is seen in the ICU for close monitoring as patient had significant drop in hemoglobin from 9 down to the 6 range and 2 units ordered. Patient received one unit and hemoglobin went up to 8.2. Recommend to monitor closely with serial H&H. CT of the abdomen from yesterday showed moderate ascites that shows intermediate attenuation suggesting significant hemorrhagic ascites, correlate for bleeding from anastomotic site. Previous esophagectomy and gastric pull- through procedure. There is a concurrent hernia involving ascites fluid, mesentery and a segment of nonobstructed transverse colon along the left lateral margin of the pull-through. senior relationship manager following ok with ICU transfer to closely monitor and transfuse for any further possible bleeding. Patient did have a fall while going to the bathroom one day prior with no injuries noted. Significantly weak and will need PT/OT. Afebrile and blood pressure is improved. Not requiring any pressor support at this time. Continued on IV abx with multiple medical consultations following. Review of systems: Cardiovascular: denied any chest pain, palpitations Gastrointestinal denied any nausea vomiting, reports no appetite and some abdominal pain Pulmonary: Reports continued shortness of breath and cough with some mild sputum Neurologic denied any new focal deficits, reports weakness Active Medications Acetaminophen (Acetaminophen Tab 325 Mg Tab) 650 mg PO Q6HR PRN PRN Reason: Fever and/ or Pain Last Admin: 04/09/22 14:13 Dose: 650 mg Hydrocodone Bitart/Acetaminophen (Hydrocodone/Apap 5-325mg 1 Each Tab) 1 each PO Q4HR PRN PRN Reason: Pain Last Admin: 04/15/22 20:59 Dose: 1 each Amiodarone HCl (Amiodarone 200 Mg Tab) 200 mg PO BID [facility] Last Admin: 04/15/22 20:59 Dose: 200 mg Atorvastatin Calcium (Atorvastatin 10 Mg Tab) 10 mg PO QAM [facility] Last Admin: 04/15/22 08:45 Dose: 10 mg Hydralazine HCl (Hydralazine Hcl 20 Mg/Ml 1 Ml Vial) 10 mg IVP Q4HR PRN PRN Reason: Blood Pressure - High Last Admin: 04/12/22 11:22 Dose: 10 mg Hydromorphone HCl (Hydromorphone 0.5 Mg/0.5 Ml Syringe) 0.5 mg IVP Q3HR PRN PRN Reason: Moderate Pain (Scale 4 to 6) Last Admin: 04/13/22 08:37 Dose: 0.5 mg Hydromorphone HCl (Hydromorphone 1 Mg/Ml 1 Ml Syringe) 1 mg IVP Q3HR PRN PRN Reason: Severe Pain (Scale 7 to 10) Last Admin: 04/11/22 08:22 Dose: 1 mg Piperacillin Sod/Tazobactam (Sod 3.375 gm/ Sodium Chloride) 100 mls @ 25 mls/hr IVPB Q8HR [facility]; Protocol Last Admin: 04/15/22 23:35 Dose: 25 mls/hr Levothyroxine Sodium (Levothyroxine 25 Mcg Tab) 25 mcg PO DAILY@0630 [facility] Last Admin: 04/15/22 07:08 Dose: 25 mcg Metoprolol Tartrate (Metoprolol Tartrate 25 Mg Tab) 25 mg PO BID [facility] Last Admin: 04/15/22 20:59 Dose: 25 mg Miscellaneous Information (Potassium Replacement Protocol 1 Each Misc) 1 each MISCELLANE DAILY PRN; Protocol PRN Reason: Per Protocol Miscellaneous Information (Magnesium Replacement Protocol 1 Each Misc) 1 each MISCELLANE DAILY PRN; Protocol PRN Reason: Per Protocol Naloxone HCl (Naloxone 0.4 Mg/Ml 1 Ml Vial) 0.2 mg IV Q2M PRN PRN Reason: Opioid Reversal Enbrel Sureclick ( (Etanercept) 50mg/1ml) 1 each SQ Q7DAYS [facility] Last Admin: 04/15/22 12:18 Dose: Not Given Ondansetron HCl (Ondansetron 4 Mg/2 Ml Vial) 4 mg IVP Q8HR PRN PRN Reason: Nausea And Vomiting Last Admin: 04/07/22 08:19 Dose: 4 mg Pantoprazole Sodium (Pantoprazole 40 Mg/10 Ml Vial) 40 mg IV DAILY [facility] Last Admin: 04/15/22 08:46 Dose: 40 mg Paroxetine HCl (Paroxetine 20 Mg Tab) 20 mg PO QAM [facility] Last Admin: 04/15/22 08:45 Dose: 20 mg Potassium Bicarbonate (Potassium Bicarbonate/Cit Ac 20 Meq Tablet.Eff) 20 meq NG-TUBE Q1HR [facility]; Protocol Stop: 04/16/22 06:01 Tamsulosin HCl (Tamsulosin 0.4 Mg Cap.Er.24h) 0.8 mg PO HS [facility] Last Admin: 04/15/22 20:59 Dose: 0.8 mg PHYSICAL EXAMINATION: GENERAL: The patient is alert and oriented x3, not in any acute distress. Well developed, well nourished. HEENT: Pupils are round and equally reacting to light. EOMI. No scleral icterus. No conjunctival pallor. Normocephalic, atraumatic. No pharyngeal erythema. No thyromegaly. CARDIOVASCULAR: S1 and S2 present. No murmurs, rubs, or gallops. PULMONARY: Diminished breath sounds bilaterally with some scattered rhonchi and crackles noted ABDOMEN: Soft, tender, nondistended, normoactive bowel sounds. No palpable organomegaly. MUSCULOSKELETAL: No joint swelling or deformity. EXTREMITIES: No cyanosis, clubbing, or pedal edema. NEUROLOGICAL: Gross neurological examination did not reveal any focal deficits. Diffusely weak SKIN: No rashes. Assessment: acute Small bowel obstruction status post expiratory laparotomy lysis of adhesions and small bowel resection with repair of small bowel enterotomy and incidental appendectomy on 04/07/2022 patient is on a full liquid diet at this time and reports minimal intake and not tolerating much of diet New-onset A. fib and patient is on oral amiodarone, anticoagulant on hold for dropping hemoglobin and cardiology following Pulmonary edema secondary to congestive heart failure chronic diastolic dysfunction with acute exacerbation, will give another dose of Lasix Right lower lobe atelectasis rather than pneumonia drop in hemoglobin with acute blood loss anemia, likely due to blood thinners, which are on hold Hypertension with urgency, present on admission. Currently hypotensive Hyperlipidemia Benign prostatic hypertrophy History of esophageal cancer status post esophagectomy bilateral renal calculi DVT prophylaxis GI Prophylaxis: Ppi Full code Plan: Recommend to give a unit of blood for hemoglobin of 6.8 and will follow-up with repeat labs. Patient was transferred for close monitoring due to drop in blood pressure and concern for active bleed. HOld anticoagulants Gen. surgery following and patient reports abdominal pain with poor oral intake and CT abdomen with concerns for moderate ascites that shows intermediate attenuation suggesting significant hemorrhagic ascites, correlate for bleeding from anastomotic site. Previous esophagectomy and gastric pull-through procedure. There is a concurrent hernia involving ascites fluid, mesentery and a segment of nonobstructed transverse colon along the left lateral margin of the pull-through. Patient is continued on IV antibiotics in the form of Zosyn and will continue for now Patient with extreme weakness will need PT/OT therapy daily Patient continues with congestion and CHF noted and will give a dose of Lasix 40 mg again today Recommend repeat labs Wean FiO2 as tolerated and currently 93% on 4 L Prognosis is guarded The impression and plan of care has been dictated by Brandi Gomez, Nurse Practitioner as directed. Dr. Maritza MD I have performed a history and examination and MDM of this patient, discussed the same with the dictator, and agree with the dictator's assessment and plan as written ,documented as a scribe. Based on total visit time, I have performed more than 50% of the visit. Objective - Vital Signs Vital signs: Vital Signs Temp 98.1 F 04/15/22 00:00 Pulse 63 04/15/22 07:00 Resp 15 04/15/22 07:00 BP 129/72 04/15/22 07:00 Pulse Ox 96 04/15/22 07:00 FiO2 Intake & Output 04/14/22 04/15/22 04/15/22 18:59 06:59 18:59 Intake Total 908 Output Total 240 0 0 Balance 668 0 0 Weight 83.915 kg 84.2 kg Intake: Oral 598 Blood Product 310 Rc As-1 Unit 310 [id number] Output: Urine 0 0 Post Void Residual 240 Other: Voiding Method Urinal Urinal # Voids 0 0 - Labs CBC & Chem 7: 04/16/22 04:40 04/16/22 04:40 Labs: Abnormal Lab Results - Last 24 Hours (Table) 04/14/22 04/14/22 04/14/22 Range/Units 10:14 10:14 17:53 RBC 2.11 L (4.30-5.90) m/uL Hgb 6.7 L* (13.0-17.5) gm/dL Hct 20.3 L (39.0-53.0) % RDW 16.0 H (11.5-15.5) % Lymphocytes # 0.8 L (1.0-4.8) k/uL POC Glucose (mg/dL) 118 H (70-110) mg/dL Calcium (8.4-10.2) mg/dL Crossmatch See Detail 04/14/22 04/15/22 04/15/22 Range/Units 23:45 06:05 06:05 RBC 2.53 L 2.60 L (4.30-5.90) m/uL Hgb 7.7 L 8.3 L (13.0-17.5) gm/dL Hct 22.9 L 24.5 L (39.0-53.0) % RDW 16.4 H 15.9 H (11.5-15.5) % Lymphocytes # (1.0-4.8) k/uL POC Glucose (mg/dL) (70-110) mg/dL Calcium 7.2 L (8.4-10.2) mg/dL Crossmatch
[2022-04-16] MEDS ORDERED: POTASSIUM BICARBONATE/CIT AC 20 MEQ TABLET.EFF NG-TUBE SCH ×2 (06:00→17:00)
[2022-04-16] MEDS: LEVOTHYROXINE 25 MCG TAB PO SCH (06:48)
--- NOTE | 2022-04-16 07:11 | P.PN ---
Subjective Progress Note Date: 04/16/22 Principal diagnosis: Paroxysmal atrial fibrillation The patient is a 77-year-old gentleman with a past medical history significant for hypertension and dyslipidemia and paroxysmal atrial fibrillation who was admitted to the hospital with abdominal discomfort and was diagnosed with small bowel obstruction and he underwent surgery. We consulted to see the patient for the management of paroxysmal atrial fibrillation. April 152021 The patient was seen this morning. He has been maintaining normal sinus mechanism with sinus bradycardia and heart rate in the 50s. Currently he is on amiodarone as well as metoprolol. Is not on any oral anticoagulation because of bleeding issues and he required blood transfusion during his hospital stay. He underwent an echo during his hospital stay and that showed preserved left ventricular systolic function was evidence of hypertensive heart disease. April [id number] The patient was seen this morning. Apparently his mentation is better. Overall he has been maintaining normal sinus mechanism with sinus bradycardia and heart rate in the 50s. He is on amiodarone as well as metoprolol. Anticoagulation is on hold at this point in the light off low hemoglobin could be related to bleeding.. The patient had an echo showed normal LV function.. On examination the patient does have diminished breathing sounds bilaterally with possible crackles bilaterally as well. I was going to give him 20 mg of Lasix IV. His pressure is soft so far. Objective - Vital Signs Vital signs: Vital Signs Temp 97.7 F 04/16/22 04:00 Pulse 66 04/16/22 07:00 Resp 14 04/16/22 07:00 BP 120/64 04/16/22 07:00 Pulse Ox 97 04/16/22 07:00 FiO2 Intake & Output 04/15/22 04/16/22 04/16/22 18:59 06:59 18:59 Intake Total 220 590 20 Output Total 2024 175 Balance -1805 415 20 Weight 85.6 kg Intake: IV 220 240 20 0.9 @ 20 220 240 20 Oral 350 Output: Urine 2024 175 Other: Voiding Method Urinal Urinal # Voids 0 0 0 # Bowel Movements 1 1 - Constitutional General appearance: Present: no acute distress - Respiratory Respiratory: bilateral: rales - Cardiovascular Rhythm: regular Heart sounds: normal: S1, S2 - Labs CBC & Chem 7: 04/16/22 04:40 04/16/22 04:40 Labs: Abnormal Lab Results - Last 24 Hours (Table) 04/15/22 04/15/22 04/15/22 Range/Units 06:05 11:30 19:14 RBC 2.79 L 2.67 L (4.30-5.90) m/uL Hgb 8.6 L 8.4 L (13.0-17.5) gm/dL Hct 26.5 L 25.7 L (39.0-53.0) % RDW 16.4 H 15.9 H (11.5-15.5) % Lymphocytes # (1.0-4.8) k/uL Sodium (137-145) mmol/L Potassium (3.5-5.1) mmol/L Calcium 7.2 L (8.4-10.2) mg/dL 04/15/22 04/16/22 04/16/22 Range/Units 19:14 00:01 04:40 RBC 2.36 L 2.48 L (4.30-5.90) m/uL Hgb 7.6 L 8.1 L (13.0-17.5) gm/dL Hct 22.2 L 23.5 L (39.0-53.0) % RDW 16.1 H 15.9 H (11.5-15.5) % Lymphocytes # 0.8 L (1.0-4.8) k/uL Sodium (137-145) mmol/L Potassium 2.9 L (3.5-5.1) mmol/L Calcium (8.4-10.2) mg/dL 04/16/22 Range/Units 04:40 RBC (4.30-5.90) m/uL Hgb (13.0-17.5) gm/dL Hct (39.0-53.0) % RDW (11.5-15.5) % Lymphocytes # (1.0-4.8) k/uL Sodium 135 L (137-145) mmol/L Potassium (3.5-5.1) mmol/L Calcium 7.3 L (8.4-10.2) mg/dL Assessment and Plan Assessment: Assessment #1 small bowel obstruction status post surgery #2 paroxysmal atrial fibrillation #3 hypertension #4 dyslipidemia #5 coronary artery disease #6 multiple comorbid conditions Plan Continue the current medical regimen including amiodarone and metoprolol Tapered down the dose of amiodarone Hold on any anticoagulation at this point in the light of low hemoglobin required blood transfusion Consider Lasix IV at 20 mg once
[2022-04-16] MEDS: PARoxetine 20 MG TAB PO SCH (10:37)
[2022-04-16] MEDS: AMIODARONE 200 MG TAB PO SCH ×2 (10:38→21:07)
[2022-04-16] MEDS: ATORVASTATIN 10 MG TAB PO SCH (10:38)
[2022-04-16] MEDS: METOPROLOL TARTRATE 25 MG TAB PO SCH ×2 (10:38→21:07)
[2022-04-16] MEDS: PANTOPRAZOLE 40 MG/10 ML VIAL IV SCH (10:38)
[2022-04-16] MEDS: PIPERACILLIN-TAZOBACTAM 3.375 GM in SODIUM CHLORIDE 0.9% 100 ML IVPB SCH ×2 (10:38→16:48)
--- NOTE | 2022-04-16 10:45 | P.PN ---
Subjective Progress Note Date: 04/16/22 CHIEF COMPLAINT: Small bowel obstruction HISTORY OF PRESENT ILLNESS: Patient is status post exploratory laparotomy, lysis of extensive adhesions, small bowel resection, repair of small bowel enterotomy and incidental appendectomy for a small bowel obstruction secondary to internal hernia and adhesions on 04/07/22. Patient currently in the ICU. He is tolerating regular diet. He has had 3 liquid brown bowel movements. He denies any abdominal pain. Denies any nausea or vomiting. Afebrile. Vitals are all stable. WBC is 6.6 hemoglobin stable at 8.1 platelets 197 sodium 135 potassium is improved from 2.9-3.6 creatinine 0.82. Patient does continue to have a small slow blood oozing from the distal incision. Per nursing staff dressing is being changed about every 24 hours. Patient has received Lasix for fluid overload. Patient seen and examined with Dr. rose PHYSICAL EXAM: VITAL SIGNS: Reviewed. GENERAL: Well-developed in no acute distress. HEENT: No sclera icterus. Extraocular movements grossly intact. Moist buccal mucosa. Head is atraumatic, normocephalic. ABDOMEN: Soft. Nondistended. Incisional dressing clean and dry NEUROLOGIC: Alert and oriented. Cranial nerves II through XII grossly intact. ASSESSMENT: 1. Small bowel obstruction secondary to internal hernia and adhesions status post exploratory laparotomy, lysis of extensive adhesions, small bowel resectio n, repair of small bowel enterotomy and incidental appendectomy 2. Anemia likely secondary to blood thinners 3. A. fib 4. History of rheumatoid arthritis 5. Fluid overload PLAN: -No surgical intervention planned -Continue supportive care -Continue to hold blood thinners -Continue to monitor hemoglobin -Continue to monitor incision site -Continue regular diet -Encourage patient to use incentive spirometer -GI prophylaxis Protonix Physician Icu Rn note has been reviewed by physician. Signing provider agrees with the documented findings, assessment, and plan of care. Objective - Vital Signs Vital signs: Vital Signs Temp 98.2 F 04/16/22 08:00 Pulse 69 04/16/22 10:00 Resp 12 04/16/22 10:00 BP 101/65 04/16/22 10:00 Pulse Ox 98 04/16/22 10:00 FiO2 Intake & Output 04/15/22 04/16/22 04/16/22 18:59 06:59 18:59 Intake Total 220 590 60 Output Total 2025 175 Balance -1804 415 60 Weight 85.6 kg Intake: IV 220 240 60 0.9 @ 20 220 240 60 Oral 350 Output: Urine 2024 175 Other: Voiding Method Urinal Urinal Urinal # Voids 0 0 0 # Bowel Movements 1 1 - Labs CBC & Chem 7: 04/16/22 04:40 04/16/22 04:40 Labs: Abnormal Lab Results - Last 24 Hours (Table) 04/15/22 04/15/22 04/15/22 Range/Units 11:30 19:14 19:14 RBC 2.79 L 2.67 L (4.30-5.90) m/uL Hgb 8.6 L 8.4 L (13.0-17.5) gm/dL Hct 26.5 L 25.7 L (39.0-53.0) % RDW 16.4 H 15.9 H (11.5-15.5) % Lymphocytes # (1.0-4.8) k/uL Sodium (137-145) mmol/L Potassium 2.9 L (3.5-5.1) mmol/L Calcium (8.4-10.2) mg/dL 04/16/22 04/16/22 04/16/22 Range/Units 00:01 04:40 04:40 RBC 2.36 L 2.48 L (4.30-5.90) m/uL Hgb 7.6 L 8.1 L (13.0-17.5) gm/dL Hct 22.2 L 23.5 L (39.0-53.0) % RDW 16.1 H 15.9 H (11.5-15.5) % Lymphocytes # 0.8 L (1.0-4.8) k/uL Sodium 135 L (137-145) mmol/L Potassium (3.5-5.1) mmol/L Calcium 7.3 L (8.4-10.2) mg/dL
--- NOTE | 2022-04-16 12:20 | P.PN ---
Subjective Progress Note Date: 04/16/22 Principal diagnosis: Shortness of breath. Pulmonary/critical care consult dated 04/14/2022. 77-year-old male who was admitted back on April 06. We were consulted because of shortness of breath. The patient ended up having a exploratory laparotomy on April 07, with lysis of adhesions, small bowel resection, appendectomy, and repair of small bowel enterotomy. The patient was supposed to be on some oxygen therapy, but we found him without the oxygen on, and his resting room air saturation was only 83 - 84%. His N-terminal proBNP was elevated. His chest x- ray was consistent with CHF. He apparently was coughing and producing some phlegm. He was on TPN as well. He is also on Zosyn. White count was 8.2, with a hemoglobin of 6.7, hematocrit 20.3, and platelet count 267,000. Sodium is 136, potassium 3.7, chlorides 106, CO2 25, BUN 16, and creatinine 0.79. Pro- calcitonin level was 0.08, and N-terminal proBNP on April 11 was 3520. Progress note dated 04/15/2022. This is a 77-year-old male that we saw yesterday in consultation with shortness of breath. We thought that his shortness of breath was likely related to fluid overload. After seeing him, I was called by the floor nurse, in the ICU nurse, that the patient was hemorrhaging. For that reason, and because of low blood pressures, the patient was transferred to the intensive care unit. He did receive 1 unit of packed red blood cells. His hemoglobin this morning is 8.3. He looks a bit lethargic, and is on 4 L of oxygen, and saline at KVO. A computed tomography scan of the abdomen and pelvis, showed postsurgical changes, but no active bleeding. White count 8.5, hemoglobin 8.3, hematocrit 24.5, and platelet count 267,000. Sodium 137, potassium 3.5, chlorides 105, CO2 26, BUN 16, creatinine 0.77. Blood cultures are currently negative. Progress note dated 04/16/2022 77-year-old male seen in room 253. He was seen in consultation 2 days ago. The patient's doing much better. He is on 3 L of oxygen. He's not receiving any IV fluids. He denies any pain, or difficulty breathing. He's received 1 unit of blood, since coming into the ICU. Laboratory data today includes a white count of 6.6, hemoglobin 8.1, hematocrit 23.5, and a platelet count of 197,000. Sodium 135, potassium 3.6, chlorides 101, CO2 28, BUN 16, creatinine 0.82. Calcium is 7.3. Objective - Vital Signs Vital signs: Vital Signs Temp 98.2 F 04/16/22 08:00 Pulse 71 04/16/22 11:00 Resp 18 04/16/22 11:00 BP 109/67 04/16/22 11:00 Pulse Ox 95 04/16/22 11:00 FiO2 Intake & Output 04/15/22 04/16/22 04/16/22 18:59 06:59 18:59 Intake Total 220 590 80 Output Total 2024 175 Balance -1805 415 80 Weight 85.6 kg Intake: IV 220 240 80 0.9 @ 20 220 240 80 Oral 350 Output: Urine 2024 175 Other: Voiding Method Urinal Urinal Urinal # Voids 0 0 1 # Bowel Movements 1 1 - Exam No acute distress, oriented 3. Much more awake and alert today. Currently on 3 L of oxygen, with saturations of 98%. HEENT examination is grossly unremarkable. Neck supple. Full range of motion. No adenopathy thyromegaly or neck vein distention. Cardiovascular examination reveals regular rhythm rate. S1-S2 normal. No S3 or S4. No discernible murmur noted. Heart rate 71 bpm. Heart sounds are distant. Lungs reveal scattered bilateral rhonchi and crackles. Breath sounds are equal bilaterally. Abdomen soft, without masses or tenderness. Extremities are intact. No cyanosis clubbing or edema. Skin is without rash or lesion. Neurologic examination is brief but nonfocal. - Labs CBC & Chem 7: 04/16/22 04:40 04/16/22 04:40 Labs: Abnormal Lab Results - Last 24 Hours (Table) 04/15/22 04/15/22 04/15/22 Range/Units 11:30 19:14 19:14 RBC 2.79 L 2.67 L (4.30-5.90) m/uL Hgb 8.6 L 8.4 L (13.0-17.5) gm/dL Hct 26.5 L 25.7 L (39.0-53.0) % RDW 16.4 H 15.9 H (11.5-15.5) % Lymphocytes # (1.0-4.8) k/uL Sodium (137-145) mmol/L Potassium 2.9 L (3.5-5.1) mmol/L Calcium (8.4-10.2) mg/dL 04/16/22 04/16/22 04/16/22 Range/Units 00:01 04:40 04:40 RBC 2.36 L 2.48 L (4.30-5.90) m/uL Hgb 7.6 L 8.1 L (13.0-17.5) gm/dL Hct 22.2 L 23.5 L (39.0-53.0) % RDW 16.1 H 15.9 H (11.5-15.5) % Lymphocytes # 0.8 L (1.0-4.8) k/uL Sodium 135 L (137-145) mmol/L Potassium (3.5-5.1) mmol/L Calcium 7.3 L (8.4-10.2) mg/dL Assessment and Plan Assessment: Postop day #9, status post exploratory laparotomy, small bowel resection, lysis of adhesions, appendectomy, and repair of small bowel enterotomy. Postoperative anemia, status post 1 unit of packed red blood cells. Shortness of breath, likely secondary to fluid overload/CHF. History of hyperlipidemia. History of esophageal cancer, 2012. Impaired hearing. Lifelong nonsmoker. Status post aortic aneurysm repair, 2013. History of esophagectomy, and gastric pull-through surgery, 2012. Plan: Plan dated 04/14/2022. The patient has a very low pro-calcitonin level. The patient should be given Lasix, for the fluid overload. We will continue to follow. Currently, the patient's on 3 L, with excellent saturations. Additional recommendations and suggestions are forthcoming. The patient should receive 1 unit of packed red blood cells. Prognosis is guarded. Plan dated 04/15/2022. The patient was transferred to the intensive care unit yesterday, and he was seen today in room 253. There was concerns that the patient might be having some active internal bleeding. That was not the case on the computed tomography scan of the abdomen and pelvis. He did receive 1 unit of packed red blood cells. He's currently on 4 L of oxygen. He is getting saline at KVO. Hemoglobin today is 8.3. Respiratory status seems reasonably stable. Labs, x- rays, and medications are all reviewed. Prognosis is guarded. Plan dated 04/16/2022. Today is postop day #9. His labs are reviewed. Everything appears stable. The patient's on 3 L. Saturations are 98%. Labs, x-rays, and medications are reviewed. In my opinion, the patient could be transferred out back to the general medical floor. He is stable hemodynamically. He's received only 1 unit of packed red blood cells. His respiratory status is also very stable. Time with Patient: Less than 30
[2022-04-16] MEDS ORDERED: FUROSEMIDE 10 MG/ML 4 ML VIAL IV STA (16:06)
--- NOTE | 2022-04-16 16:10 | P.PN ---
Subjective Progress Note Date: 04/16/22 04/13/2022 Patient is admitted for partial small bowel resection patient underwent the laparotomy lysis of adhesions small bowel resection. Patient is on a full liquid diet at this time. Patient does have crackles on lung exam obtain a chest x-ray, which showed a bilateral pleural effusions, pulmonary edema and intrathoracic stomach patient will be given a dose of Lasix with close clinical monitoring. Patient is also in atrial fibrillation patient is presently rate controlled still in A. fib patient was on IV Cardizem which is being weaned off patient is also on clonidine which is also being weaned off and patient is being transitioned to oral amiodarone from IV amiodarone cardiology is following the patient. 04/14/2022 Patient was seen and evaluated in follow-up today. Hemoglobin was low and given a unit of PRBCs and will follow-up with repeat hemoglobin in the afternoon. Patient was CODE BLUE yesterday per nursing staff while getting up and attempting to get to the commode. Patient is continued on 4 L via nasal cannula and will also give a dose of Lasix after the unit of blood as patient chest x- ray shows possible congestive heart failure with basilar effusions and associated edema versus atelectasis. Patient will be also given a incentive spirometer encouraged to use at least 10 times every hour. Also medical consultations following including surgery and patient is on full liquid diet although not eating much and not tolerating much of a diet. Patient reports he is having multiple bowel movements that are loose with no blood noted. CT abdomen and pelvis is ordered by surgery and pending at this time. Recommend continue holding Eliquis due to the drop in hemoglobin with cardiology following closely. Patient is also maintained on IV antibiotics in the form of Zosyn and will continue. Constitutional: Denied any fatigue denied any fever. Pulmonary also placed on consulted and pending. Patient with extreme weakness does have PT/OT therapy on currently. 04/15/2022 Patient is seen in the ICU for close monitoring as patient had significant drop in hemoglobin from 9 down to the 6 range and 2 units ordered. Patient received one unit and hemoglobin went up to 8.2. Recommend to monitor closely with serial H&H. CT of the abdomen from yesterday showed moderate ascites that shows intermediate attenuation suggesting significant hemorrhagic ascites, correlate for bleeding from anastomotic site. Previous esophagectomy and gastric pull- through procedure. There is a concurrent hernia involving ascites fluid, mesentery and a segment of nonobstructed transverse colon along the left lateral margin of the pull-through. gis administrator following ok with ICU transfer to closely monitor and transfuse for any further possible bleeding. Patient did have a fall while going to the bathroom one day prior with no injuries noted. Significantly weak and will need PT/OT. Afebrile and blood pressure is improved. Not requiring any pressor support at this time. Continued on IV abx with multiple medical consultations following. 04/16/2022 Patient is seen and evaluated in follow-up this morning currently in the ICU and hemodynamically stable. Hemoglobin is 8.1 and has only received 1 unit of PRBC. Patient continues with 3 L via nasal cannula denies any worsening shortness of breath. Patient reports some abdominal discomfort although improved from previous. Patients vitals are stable and not requiring pressor support. CAT scan yesterday evening was 2.9 and replacement this morning showing 3.6 potassium. Patient surgical site does have some minimal bleeding noted and surgery is aware. Dressings to be changed. Patient also continues on IV antibiotics in the form of Zosyn. Patient being closely monitored by surgery with no plans for further surgical intervention at this time. Patient with significant weakness recommend physical therapy daily. Patient was able to work with physical therapy today recommending home with home care. Patient reports he is exhausted and weak. Encouraged oral intake and currently eating lunch at the bedside. Crackles noted on exam we'll give a dose of Lasix and recommend follow-up chest x-ray and labs in the a.m. Recommend to replace electrolytes per protocol. Review of systems: Cardiovascular: denied any chest pain, palpitations Gastrointestinal denied any nausea vomiting, reports appetite is slowly im proving Pulmonary: Reports no worsening of shortness of breath and reports cough with some mild sputum that he also reports is chronic Neurologic denied any new focal deficits, reports weakness Active Medications Acetaminophen (Acetaminophen Tab 325 Mg Tab) 650 mg PO Q6HR PRN PRN Reason: Fever and/ or Pain Last Admin: 04/09/22 14:13 Dose: 650 mg Hydrocodone Bitart/Acetaminophen (Hydrocodone/Apap 5-325mg 1 Each Tab) 1 each PO Q4HR PRN PRN Reason: Pain Last Admin: 04/15/22 20:59 Dose: 1 each Amiodarone HCl (Amiodarone 200 Mg Tab) 200 mg PO BID [facility] Last Admin: 04/16/22 10:38 Dose: 200 mg Atorvastatin Calcium (Atorvastatin 10 Mg Tab) 10 mg PO QAM [facility] Last Admin: 04/16/22 10:38 Dose: 10 mg Hydralazine HCl (Hydralazine Hcl 20 Mg/Ml 1 Ml Vial) 10 mg IVP Q4HR PRN PRN Reason: Blood Pressure - High Last Admin: 04/12/22 11:22 Dose: 10 mg Hydromorphone HCl (Hydromorphone 0.5 Mg/0.5 Ml Syringe) 0.5 mg IVP Q3HR PRN PRN Reason: Moderate Pain (Scale 4 to 6) Last Admin: 04/13/22 08:37 Dose: 0.5 mg Hydromorphone HCl (Hydromorphone 1 Mg/Ml 1 Ml Syringe) 1 mg IVP Q3HR PRN PRN Reason: Severe Pain (Scale 7 to 10) Last Admin: 04/11/22 08:22 Dose: 1 mg Piperacillin Sod/Tazobactam (Sod 3.375 gm/ Sodium Chloride) 100 mls @ 25 mls/hr IVPB Q8HR [facility]; Protocol Last Admin: 04/16/22 10:38 Dose: 25 mls/hr Levothyroxine Sodium (Levothyroxine 25 Mcg Tab) 25 mcg PO DAILY@0630 [facility] Last Admin: 04/16/22 06:48 Dose: 25 mcg Metoprolol Tartrate (Metoprolol Tartrate 25 Mg Tab) 25 mg PO BID [facility] Last Admin: 04/16/22 10:38 Dose: 25 mg Miscellaneous Information (Potassium Replacement Protocol 1 Each Misc) 1 each MISCELLANE DAILY PRN; Protocol PRN Reason: Per Protocol Miscellaneous Information (Magnesium Replacement Protocol 1 Each Misc) 1 each MISCELLANE DAILY PRN; Protocol PRN Reason: Per Protocol Naloxone HCl (Naloxone 0.4 Mg/Ml 1 Ml Vial) 0.2 mg IV Q2M PRN PRN Reason: Opioid Reversal Enbrel Sureclick ( (Etanercept) 50mg/1ml) 1 each SQ Q7DAYS [facility] Last Admin: 04/15/22 12:18 Dose: Not Given Ondansetron HCl (Ondansetron 4 Mg/2 Ml Vial) 4 mg IVP Q8HR PRN PRN Reason: Nausea And Vomiting Last Admin: 04/07/22 08:19 Dose: 4 mg Pantoprazole Sodium (Pantoprazole 40 Mg/10 Ml Vial) 40 mg IV DAILY [facility] Last Admin: 04/16/22 10:38 Dose: 40 mg Paroxetine HCl (Paroxetine 20 Mg Tab) 20 mg PO QAM [facility] Last Admin: 04/16/22 10:37 Dose: 20 mg Tamsulosin HCl (Tamsulosin 0.4 Mg Cap.Er.24h) 0.8 mg PO HS [facility] Last Admin: 04/15/22 20:59 Dose: 0.8 mg PHYSICAL EXAMINATION: GENERAL: The patient is alert and oriented x3, not in any acute distress. Well developed, well nourished. Ill-appearing area did hard of hearing HEENT: Pupils are round and equally reacting to light. EOMI. No scleral icterus. No conjunctival pallor. Normocephalic, atraumatic. No pharyngeal erythema. No thyromegaly. CARDIOVASCULAR: S1 and S2 present. No murmurs, rubs, or gallops. PULMONARY: Diminished breath sounds bilaterally with some scattered rhonchi and crackles noted ABDOMEN: Soft, tender, nondistended, normoactive bowel sounds. No palpable organomegaly. MUSCULOSKELETAL: No joint swelling or deformity. EXTREMITIES: No cyanosis, clubbing, or pedal edema. NEUROLOGICAL: Gross neurological examination did not reveal any focal deficits. Diffusely weak SKIN: No rashes. Assessment: acute Small bowel obstruction status post expiratory laparotomy lysis of adhesions and small bowel resection with repair of small bowel enterotomy and incidental appendectomy on 04/07/2022 New-onset A. fib and patient is on oral amiodarone, anticoagulant on hold for dropping hemoglobin and cardiology following Pulmonary edema secondary to congestive heart failure chronic diastolic dysfunction with acute exacerbation, will give another dose of Lasix Right lower lobe atelectasis rather than pneumonia drop in hemoglobin with acute blood loss anemia, likely due to blood thinners, which are on hold Hypertension with urgency, present on admission. Currently normotensive Hyperlipidemia Benign prostatic hypertrophy History of esophageal cancer status post esophagectomy bilateral renal calculi DVT prophylaxis GI Prophylaxis: Ppi Full code Plan: Recommend to continue with close monitoring due to drop in blood pressure and drop in hemoglobin. Hemoglobin is stable at 8.1. Recommend to closely monitor surgical site as there is some mild oozing noted. Gen. surgery following and no plans for further surgical intervention at this time and diet is being slowly advanced as tolerated Patient is continued on IV antibiotics in the form of Zosyn and will continue for now Patient with extreme weakness will need PT/OT therapy daily, physical therapy recommending home with home care Patient continues with congestion and CHF noted and will give a dose of Lasix 40 mg today, recommend repeat chest x-ray in the a.m. Recommend repeat labs and replace electrolytes per protocol Wean FiO2 as tolerated and currently 95% on 3 L Prognosis is guarded The impression and plan of care has been dictated by Brandi Gomez, Nurse Vera carpenter as directed. Dr. Maritza MD I have performed a history and examination and MDM of this patient, discussed the same with the dictator, and agree with the dictator's assessment and plan a s written ,documented as a scribe. Based on total visit time, I have performed more than 50% of the visit. Objective - Vital Signs Vital signs: Vital Signs Temp 98.2 F 04/16/22 08:00 Pulse 70 04/16/22 09:00 Resp 16 04/16/22 09:00 BP 137/73 04/16/22 09:00 Pulse Ox 97 04/16/22 09:00 FiO2 Intake & Output 04/15/22 04/16/22 04/16/22 18:59 06:59 18:59 Intake Total 220 590 60 Output Total 2024 175 Balance -1805 415 60 Weight 85.6 kg Intake: IV 220 240 60 0.9 @ 20 220 240 60 Oral 350 Output: Urine 2024 175 Other: Voiding Method Urinal Urinal Urinal # Voids 0 0 0 # Bowel Movements 1 1 - Labs CBC & Chem 7: 04/16/22 04:40 04/16/22 04:40 Labs: Abnormal Lab Results - Last 24 Hours (Table) 04/15/22 04/15/22 04/15/22 Range/Units 11:30 19:14 19:14 RBC 2.79 L 2.67 L (4.30-5.90) m/uL Hgb 8.6 L 8.4 L (13.0-17.5) gm/dL Hct 26.5 L 25.7 L (39.0-53.0) % RDW 16.4 H 15.9 H (11.5-15.5) % Lymphocytes # (1.0-4.8) k/uL Sodium (137-145) mmol/L Potassium 2.9 L (3.5-5.1) mmol/L Calcium (8.4-10.2) mg/dL 04/16/22 04/16/22 04/16/22 Range/Units 00:01 04:40 04:40 RBC 2.36 L 2.48 L (4.30-5.90) m/uL Hgb 7.6 L 8.1 L (13.0-17.5) gm/dL Hct 22.2 L 23.5 L (39.0-53.0) % RDW 16.1 H 15.9 H (11.5-15.5) % Lymphocytes # 0.8 L (1.0-4.8) k/uL Sodium 135 L (137-145) mmol/L Potassium (3.5-5.1) mmol/L Calcium 7.3 L (8.4-10.2) mg/dL
[2022-04-16] MEDS ORDERED: Potassium Replacement Protocol 1 EACH MISC MISCELLANE PRN (16:28)
[2022-04-16] MEDS: ACETAMINOPHEN TAB 325 MG TAB PO PRN (18:15)
[2022-04-16] MEDS: TAMSULOSIN 0.4 MG CAP.ER.24H PO SCH (21:09)
[2022-04-16] MEDS: HYDROmorphone 1 MG/ML 1 ML SYRINGE IVP PRN (23:22)
[2022-04-17] MEDS: PIPERACILLIN-TAZOBACTAM 3.375 GM in SODIUM CHLORIDE 0.9% 100 ML IVPB SCH ×4 (00:32→23:30)
[2022-04-17 04:03] LABS: HCT 23.1 % (39.0-53.0); HGB 7.5 gm/dL (13.0-17.5); Hypochromasia Slight; MCHC 32.5 g/dL (31.0-37.0); MCV 95.5 fL (80.0-100.0); Mean Platelet Volume 9.3; Platelet Count 191 k/uL (150-450); Poikilocytosis Slight; RBC 2.42 m/uL (4.30-5.90); WBC 5.8 k/uL (3.8-10.6)
[2022-04-17 04:17] LABS: African American GFR (CKD) >90 (>60 ml/min/1.73 sqM); Anion Gap 5 mmol/L; Blood Urea Nitrogen 17 mg/dL (9-20); Calcium 7.4 mg/dL (8.4-10.2); Carbon Dioxide 29 mmol/L (22-30); Chloride 100 mmol/L (98-107); Glucose 89 mg/dL (74-99); Non-African American GFR(CKD) 84 (>60 ml/min/1.73 sqM); Potassium 3.5 mmol/L (3.5-5.1); Sodium 134 mmol/L (137-145)
[2022-04-17 06:09] LABS: Band Neutrophils % 4 %; Eosinophils # (M) 0.41 k/uL (0-0.7); Monocytes # (M) 0.41 k/uL (0-1.0); Neutrophils % (M) 70 %; Nucleated Red Blood Cells 0 /100 WBC (0-0); Total Cells Counted 100
[2022-04-17 06:10] LABS: Anisocytosis (M) Present; Polychromasia Present
--- NOTE | 2022-04-17 08:43 | P.PN ---
Subjective Progress Note Date: 04/17/22 Principal diagnosis: Paroxysmal atrial fibrillation The patient is a 77-year-old gentleman with a past medical history significant for hypertension and dyslipidemia and paroxysmal atrial fibrillation who was admitted to the hospital with abdominal discomfort and was diagnosed with small bowel obstruction and he underwent surgery. We consulted to see the patient for the management of paroxysmal atrial fibrillation. April 152021 The patient was seen this morning. He has been maintaining normal sinus mechanism with sinus bradycardia and heart rate in the 50s. Currently he is on amiodarone as well as metoprolol. Is not on any oral anticoagulation because of bleeding issues and he required blood transfusion during his hospital stay. He underwent an echo during his hospital stay and that showed preserved left ventricular systolic function was evidence of hypertensive heart disease. April [id number] The patient was seen this morning. Apparently his mentation is better. Overall he has been maintaining normal sinus mechanism with sinus bradycardia and heart rate in the 50s. He is on amiodarone as well as metoprolol. Anticoagulation is on hold at this point in the light off low hemoglobin could be related to bleeding.. The patient had an echo showed normal LV function.. On examination the patient does have diminished breathing sounds bilaterally with possible crackles bilaterally as well. I was going to give him 20 mg of Lasix IV. His pressure is soft so far. April 172021 The patient was seen and evaluated this morning. He is maintaining normal sinus mechanism. The pressure is within normal limits. He is a stable overall from a cardiovascular standpoint of view and he is asymptomatic. Anticoagulation continues to be on hold at this point my recommendation from the surgical team. The hemoglobin is a stable. He continues to be on amiodarone as well as beta saadia with metoprolol Objective - Vital Signs Vital signs: Vital Signs Temp 98.2 F 04/16/22 08:00 Pulse 62 04/16/22 14:00 Resp 17 04/16/22 15:00 BP 110/60 04/16/22 15:00 Pulse Ox 96 04/16/22 15:40 FiO2 Intake & Output 04/16/22 04/17/22 04/17/22 18:59 06:59 18:59 Intake Total 80 260 Output Total 700 Balance 80 -440 Weight 95.1 kg Intake: IV 80 260 0.9 @ 20 80 160 Zosyn 100 Output: Urine 700 Other: Voiding Method Urinal Urinal # Voids 1 - Constitutional General appearance: Present: no acute distress - Respiratory Respiratory: bilateral: diminished - Cardiovascular Rhythm: regular - Labs CBC & Chem 7: 04/17/22 03:46 04/17/22 03:46 Labs: Abnormal Lab Results - Last 24 Hours (Table) 04/17/22 04/17/22 Range/Units 03:46 03:46 RBC 2.42 L (4.30-5.90) m/uL Hgb 7.5 L (13.0-17.5) gm/dL Hct 23.1 L (39.0-53.0) % RDW 16.0 H (11.5-15.5) % Lymphocytes # (Manual) 0.70 L (1.0-4.8) k/uL Sodium 134 L (137-145) mmol/L Calcium 7.4 L (8.4-10.2) mg/dL Assessment and Plan Assessment: Assessment #1 small bowel obstruction status post surgery #2 paroxysmal atrial fibrillation #3 hypertension #4 dyslipidemia #5 coronary artery disease #6 multiple comorbid conditions Plan Continue the current medical regimen including amiodarone and metoprolol Follow-up with the patient
--- NOTE | 2022-04-17 08:55 | XR ---
EXAMINATION TYPE: XR chest 1V portable DATE OF EXAM: 04/17/2022 COMPARISON: Chest x-ray 04/14/2022, chest CT 06/07/2019 HISTORY: Congestive heart failure TECHNIQUE: Single frontal view of the chest is obtained. FINDINGS: Interstitium is increased. Blunting of the costophrenic angles is again noted. There is so me lucency superimposed over the left heart. Aorta is dense. No evident pneumothorax. Cardiac mediast inal silhouette is likely stable. IMPRESSION: Findings are consistent with congestive heart failure with pleural effusions. 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 There is underlying emphysema, thoracic aortic aneurysm.
[2022-04-17] MEDS: PARoxetine 20 MG TAB PO SCH (09:35)
[2022-04-17] MEDS: ATORVASTATIN 10 MG TAB PO SCH (09:35)
[2022-04-17] MEDS: METOPROLOL TARTRATE 25 MG TAB PO SCH ×2 (09:35→20:40)
[2022-04-17] MEDS: PANTOPRAZOLE 40 MG/10 ML VIAL IV SCH (09:35)
[2022-04-17] MEDS: LEVOTHYROXINE 25 MCG TAB PO SCH (09:35)
[2022-04-17] MEDS: AMIODARONE 200 MG TAB PO SCH ×2 (09:35→20:40)
--- NOTE | 2022-04-17 11:34 | P.PN ---
Subjective Progress Note Date: 04/17/22 Principal diagnosis: Shortness of breath. Pulmonary/critical care consult dated 04/14/2022. 77-year-old male who was admitted back on April 06. We were consulted because of shortness of breath. The patient ended up having a exploratory laparotomy on April 07, with lysis of adhesions, small bowel resection, appendectomy, and repair of small bowel enterotomy. The patient was supposed to be on some oxygen therapy, but we found him without the oxygen on, and his resting room air saturation was only 83 - 84%. His N-terminal proBNP was elevated. His chest x- ray was consistent with CHF. He apparently was coughing and producing some phlegm. He was on TPN as well. He is also on Zosyn. White count was 8.2, with a hemoglobin of 6.7, hematocrit 20.3, and platelet count 267,000. Sodium is 136, potassium 3.7, chlorides 106, CO2 25, BUN 16, and creatinine 0.79. Pro- calcitonin level was 0.08, and N-terminal proBNP on April 11 was 3520. Progress note dated 04/15/2022. This is a 77-year-old male that we saw yesterday in consultation with shortness of breath. We thought that his shortness of breath was likely related to fluid overload. After seeing him, I was called by the floor nurse, in the ICU nurse, that the patient was hemorrhaging. For that reason, and because of low blood pressures, the patient was transferred to the intensive care unit. He did receive 1 unit of packed red blood cells. His hemoglobin this morning is 8.3. He looks a bit lethargic, and is on 4 L of oxygen, and saline at KVO. A computed tomography scan of the abdomen and pelvis, showed postsurgical changes, but no active bleeding. White count 8.5, hemoglobin 8.3, hematocrit 24.5, and platelet count 267,000. Sodium 137, potassium 3.5, chlorides 105, CO2 26, BUN 16, creatinine 0.77. Blood cultures are currently negative. Progress note dated 04/16/2022 77-year-old male seen in room 253. He was seen in consultation 2 days ago. The patient's doing much better. He is on 3 L of oxygen. He's not receiving any IV fluids. He denies any pain, or difficulty breathing. He's received 1 unit of blood, since coming into the ICU. Laboratory data today includes a white count of 6.6, hemoglobin 8.1, hematocrit 23.5, and a platelet count of 197,000. Sodium 135, potassium 3.6, chlorides 101, CO2 28, BUN 16, creatinine 0.82. Calcium is 7.3. Progress note dated 04/17/2022. 77-year-old male, again seen in room 253. Currently, the patient's resting comfortably. He's eating his breakfast. He is on 2 L of oxygen. He is getting saline at 20 mL an hour. He had an uneventful night according to the nurses. White count 5.8, hemoglobin 7.5, hematocrit 23.1, and platelet count 291,000. Sodium 134, potassium 3.5, chlorides 100, CO2 29, BUN 17, and creatinine 0.84. Chest x-rays consistent with fluid overload/CHF. Objective - Vital Signs Vital signs: Vital Signs Temp 98.2 F 04/16/22 08:00 Pulse 62 04/16/22 14:00 Resp 17 04/16/22 15:00 BP 110/60 04/16/22 15:00 Pulse Ox 96 04/16/22 15:40 FiO2 Intake & Output 04/16/22 04/17/22 04/17/22 18:59 06:59 18:59 Intake Total 80 260 Output Total 700 Balance 80 -440 Weight 95.1 kg Intake: IV 80 260 0.9 @ 20 80 160 Zosyn 100 Output: Urine 700 Other: Voiding Method Urinal Urinal # Voids 1 - Exam No acute distress, oriented 3. Much more awake and alert today. Currently on 3 L of oxygen, with saturations of 96 %. HEENT examination is grossly unremarkable. Neck supple. Full range of motion. No adenopathy thyromegaly or neck vein distention. Cardiovascular examination reveals regular rhythm rate. S1-S2 normal. No S3 or S4. No discernible murmur noted. Heart rate 79 bpm. Heart sounds are distant. Lungs reveal scattered bilateral rhonchi and crackles. Breath sounds are equal bilaterally. Abdomen soft, without masses or tenderness. Extremities are intact. No cyanosis clubbing or edema. Skin is without rash or lesion. Neurologic examination is brief but nonfocal. - Labs CBC & Chem 7: 04/17/22 03:46 04/17/22 03:46 Labs: Abnormal Lab Results - Last 24 Hours (Table) 04/17/22 04/17/22 Range/Units 03:46 03:46 RBC 2.42 L (4.30-5.90) m/uL Hgb 7.5 L (13.0-17.5) gm/dL Hct 23.1 L (39.0-53.0) % RDW 16.0 H (11.5-15.5) % Lymphocytes # (Manual) 0.70 L (1.0-4.8) k/uL Sodium 134 L (137-145) mmol/L Calcium 7.4 L (8.4-10.2) mg/dL Assessment and Plan Assessment: Postop day #10, status post exploratory laparotomy, small bowel resection, lysis of adhesions, appendectomy, and repair of small bowel enterotomy. Postoperative anemia, status post 1 unit of packed red blood cells. Shortness of breath, likely secondary to fluid overload/CHF. History of hyperlipidemia. History of esophageal cancer, 2012. Impaired hearing. Lifelong nonsmoker. Status post aortic aneurysm repair, 2013. History of esophagectomy, and gastric pull-through surgery, 2012. Plan: Plan dated 04/14/2022. The patient has a very low pro-calcitonin level. The patient should be given Lasix, for the fluid overload. We will continue to follow. Currently, the patient's on 3 L, with excellent saturations. Additional recommendations and suggestions are forthcoming. The patient should receive 1 unit of packed red blood cells. Prognosis is guarded. Plan dated 04/15/2022. The patient was transferred to the intensive care unit yesterday, and he was seen today in room 253. There was concerns that the patient might be having some active internal bleeding. That was not the case on the computed tomography scan of the abdomen and pelvis. He did receive 1 unit of packed red blood ce lls. He's currently on 4 L of oxygen. He is getting saline at KVO. Hemoglobin today is 8.3. Respiratory status seems reasonably stable. Labs, x-rays, and medications are all reviewed. Prognosis is guarded. Plan dated 04/16/2022. Today is postop day #9. His labs are reviewed. Everything appears stable. The patient's on 3 L. Saturations are 98%. Labs, x-rays, and medications are reviewed. In my opinion, the patient could be transferred out back to the general medical floor. He is stable hemodynamically. He's received only 1 unit of packed red blood cells. His respiratory status is also very stable. Plan dated 04/17/2022. Today's postop day #10. Labs, x-rays, and medications are reviewed. Remains on 3 L of oxygen. Saturations are excellent. The patient is awaiting a room upstairs on the general medical floor. Hemodynamics are stable. His respiratory status is also stable. We will continue to follow make recommendations along the way. Prognosis is guarded. Time with Patient: Less than 30
--- NOTE | 2022-04-17 12:07 | P.PN ---
Subjective Progress Note Date: 04/17/22 CHIEF COMPLAINT: Small bowel obstruction HISTORY OF PRESENT ILLNESS: Patient is status post exploratory laparotomy, lysis of extensive adhesions, small bowel resection, repair of small bowel enterotomy and incidental appendectomy for a small bowel obstruction secondary to internal hernia and adhesions on 04/07/22. Patient currently in the ICU. He is awaiting a bed for general medical floor. He is tolerating regular diet. He is having flatus. He denies any abdominal pain. Denies any nausea or vomiting. Afebrile. WBC is 5.8 hemoglobin down from 8.1-7.5 platelets 191 sodium is 134 potassium is 3.5 creatinine 0.84 chest x-ray findings consistent with CHF and pleural effusions. Hiatal hernia with partial intrathoracic stomach. There is underlying emphysema, thoracic or aortic aneurysm. Patient received IV Lasix yesterday for his fluid overload. Patient seen and examined with Dr. rose PHYSICAL EXAM: VITAL SIGNS: Reviewed. GENERAL: Well-developed in no acute distress. HEENT: No sclera icterus. Extraocular movements grossly intact. Moist buccal mucosa. Head is atraumatic, normocephalic. ABDOMEN: Soft. Nondistended. Incisional dressing clean and dry NEUROLOGIC: Alert and oriented. Cranial nerves II through XII grossly intact. ASSESSMENT: 1. Small bowel obstruction secondary to internal hernia and adhesions status post exploratory laparotomy, lysis of extensive adhesions, small bowel resection, repair of small bowel enterotomy and incidental appendectomy 2. Anemia likely secondary to blood thinners 3. A. fib 4. History of rheumatoid arthritis 5. Fluid overload 6. Hiatal hernia with partial intrathoracic stomach PLAN: -Continue regular diet -Continue supportive care -No surgical intervention planned -Continue to hold blood thinners -Continue to monitor hemoglobin -Continue to monitor incision site -Encourage patient to use incentive spirometer -GI prophylaxis Protonix Physician Stencil Typist note has been reviewed by physician. Signing provider agrees with the documented findings, assessment, and plan of care. Objective - Vital Signs Vital signs: Vital Signs Temp 98.2 F 04/16/22 08:00 Pulse 62 04/16/22 14:00 Resp 17 04/16/22 15:00 BP 110/60 04/16/22 15:00 Pulse Ox 96 04/16/22 15:40 FiO2 Intake & Output 04/16/22 04/17/22 04/17/22 18:59 06:59 18:59 Intake Total 80 260 Output Total 700 Balance 80 -440 Weight 95.1 kg Intake: IV 80 260 0.9 @ 20 80 160 Zosyn 100 Output: Urine 700 Other: Voiding Method Urinal Urinal # Voids 1 - Labs CBC & Chem 7: 04/17/22 03:46 04/17/22 03:46 Labs: Abnormal Lab Results - Last 24 Hours (Table) 04/17/22 04/17/22 Range/Units 03:46 03:46 RBC 2.42 L (4.30-5.90) m/uL Hgb 7.5 L (13.0-17.5) gm/dL Hct 23.1 L (39.0-53.0) % RDW 16.0 H (11.5-15.5) % Lymphocytes # (Manual) 0.70 L (1.0-4.8) k/uL Sodium 134 L (137-145) mmol/L Calcium 7.4 L (8.4-10.2) mg/dL
[2022-04-17] MEDS: HYDROmorphone 0.5 MG/0.5 ML SYRINGE IVP PRN (16:17)
[2022-04-17] MEDS: HYDROcodone/APAP 5-325MG 1 EACH TAB PO PRN ×2 (19:02→23:30)
--- NOTE | 2022-04-17 19:54 | P.PN ---
Subjective Progress Note Date: 04/17/22 04/13/2022 Patient is admitted for partial small bowel resection patient underwent the laparotomy lysis of adhesions small bowel resection. Patient is on a full liquid diet at this time. Patient does have crackles on lung exam obtain a chest x-ray, which showed a bilateral pleural effusions, pulmonary edema and intrathoracic stomach patient will be given a dose of Lasix with close clinical monitoring. Patient is also in atrial fibrillation patient is presently rate controlled still in A. fib patient was on IV Cardizem which is being weaned off patient is also on clonidine which is also being weaned off and patient is being transitioned to oral amiodarone from IV amiodarone cardiology is following the patient. 04/14/2022 Patient was seen and evaluated in follow-up today. Hemoglobin was low and given a unit of PRBCs and will follow-up with repeat hemoglobin in the afternoon. Patient was CODE BLUE yesterday per nursing staff while getting up and attempting to get to the commode. Patient is continued on 4 L via nasal cannula and will also give a dose of Lasix after the unit of blood as patient chest x- ray shows possible congestive heart failure with basilar effusions and associated edema versus atelectasis. Patient will be also given a incentive spirometer encouraged to use at least 10 times every hour. Also medical consultations following including surgery and patient is on full liquid diet although not eating much and not tolerating much of a diet. Patient reports he is having multiple bowel movements that are loose with no blood noted. CT abdomen and pelvis is ordered by surgery and pending at this time. Recommend continue holding Eliquis due to the drop in hemoglobin with cardiology following closely. Patient is also maintained on IV antibiotics in the form of Zosyn and will continue. Constitutional: Denied any fatigue denied any fever. Pulmonary also placed on consulted and pending. Patient with extreme weakness does have PT/OT therapy on currently. 04/15/2022 Patient is seen in the ICU for close monitoring as patient had significant drop in hemoglobin from 9 down to the 6 range and 2 units ordered. Patient received one unit and hemoglobin went up to 8.2. Recommend to monitor closely with serial H&H. CT of the abdomen from yesterday showed moderate ascites that shows intermediate attenuation suggesting significant hemorrhagic ascites, correlate for bleeding from anastomotic site. Previous esophagectomy and gastric pull- through procedure. There is a concurrent hernia involving ascites fluid, mesentery and a segment of nonobstructed transverse colon along the left lateral margin of the pull-through. molding line assistant following ok with ICU transfer to closely monitor and transfuse for any further possible bleeding. Patient did have a fall while going to the bathroom one day prior with no injuries noted. Significantly weak and will need PT/OT. Afebrile and blood pressure is improved. Not requiring any pressor support at this time. Continued on IV abx with multiple medical consultations following. 04/16/2022 Patient is seen and evaluated in follow-up this morning currently in the ICU and hemodynamically stable. Hemoglobin is 8.1 and has only received 1 unit of PRBC. Patient continues with 3 L via nasal cannula denies any worsening shortness of breath. Patient reports some abdominal discomfort although improved from previous. Patients vitals are stable and not requiring pressor support. CAT scan yesterday evening was 2.9 and replacement this morning showing 3.6 potassium. Patient surgical site does have some minimal bleeding noted and surgery is aware. Dressings to be changed. Patient also continues on IV antibiotics in the form of Zosyn. Patient being closely monitored by surgery with no plans for further surgical intervention at this time. Patient with significant weakness recommend physical therapy daily. Patient was able to work with physical therapy today recommending home with home care. Patient reports he is exhausted and weak. Encouraged oral intake and currently eating lunch at the bedside. Crackles noted on exam we'll give a dose of Lasix and recommend follow-up chest x-ray and labs in the a.m. Recommend to replace electrolytes per protocol. 04/17/2022 Patient is seen in follow up today awaiting a med surg bed for transfer out of the icu. Currently on room air and chest xray is consistent with chf and overload. Patient is continued on IV zosyn per surgery and is currently post op day 9 for partial small bowel resection patient underwent the laparotomy lysis of adhesions small bowel resection. Hemoglobin is stable at 7.5. Transfuse if less than 7. Afebrile and denies chest pain or shortness of breath during exam. Patient has multiple complaints of generalized pain and weakness. recommend working with physical therapy daily. plan is for home with home care. Encouraged oral intake and increased activity as tolerated. Review of systems: Cardiovascular: denied any chest pain, palpitations Gastrointestinal denied any nausea vomiting, reports appetite is slowly improving Pulmonary:no reports of worsening shortness of breath and reports cough with some mild sputum that he also reports is chronic Neurologic denied any new focal deficits, reports weakness PHYSICAL EXAMINATION: GENERAL: The patient is alert and oriented x3, not in any acute distress. Well developed, well nourished. Ill-appearing. hard of hearing HEENT: Pupils are round and equally reacting to light. EOMI. No scleral icterus. No conjunctival pallor. Normocephalic, atraumatic. No pharyngeal erythema. No thyromegaly. CARDIOVASCULAR: S1 and S2 present. No murmurs, rubs, or gallops. PULMONARY: Diminished breath sounds bilaterally with some scattered rhonchi and crackles noted ABDOMEN: Soft, tender, nondistended, normoactive bowel sounds. No palpable organomegaly. MUSCULOSKELETAL: No joint swelling or deformity. EXTREMITIES: No cyanosis, clubbing, or pedal edema. NEUROLOGICAL: Gross neurological examination did not reveal any focal deficits. Diffusely weak SKIN: No rashes. Assessment: acute Small bowel obstruction status post expiratory laparotomy lysis of adhesions and small bowel resection with repair of small bowel enterotomy and incidental appendectomy on 04/07/2022 New-onset A. fib and patient is on oral amiodarone, anticoagulant on hold for dropping hemoglobin and cardiology following Pulmonary edema secondary to congestive heart failure chronic diastolic dysfunction with acute exacerbation, has been receiving daily doses of IV lasix Right lower lobe atelectasis rather than pneumonia drop in hemoglobin with acute blood loss anemia, likely due to blood thinners, which are on hold, stable at 7.5. Hypertension with urgency, present on admission. Currently normotensive Hyperlipidemia Benign prostatic hypertrophy History of esophageal cancer status post esophagectomy bilateral renal calculi DVT prophylaxis GI Prophylaxis: Ppi Full code Plan: Recommend to continue with close monitoring due to drop in blood pressure and drop in hemoglobin. Hemoglobin is stable at 7.5. Currently a down grade out of the ICu awaiting a bed. Hemodynamically stable. Continue to hold anticoagulant per surgery. Monitor surgical site of any additional bleeding Gen. surgery following and no plans for further surgical intervention at this time and diet is being slowly advanced as tolerated Patient is continued on IV antibiotics in the form of Zosyn and will continue for now per surgery Patient with extreme weakness and needs PT/OT therapy daily, physical therapy recommending home with home care Patient continues with congestion and CHF noted and will give a dose of Lasix 40 mg today Recommend repeat labs and replace electrolytes per protocol Wean FiO2 as tolerated and currently 95% on 3 L Prognosis is guarded The impression and plan of care has been dictated by Brandi Gomez, Nurse Practitioner as directed. Dr. Maritza MD I have performed a history and examination and MDM of this patient, discussed the same with the dictator, and agree with the dictator's assessment and plan as written ,documented as a scribe. Based on total visit time, I have performed more than 50% of the visit. Objective - Vital Signs Vital signs: Vital Signs Temp 98.2 F 04/16/22 08:00 Pulse 62 04/16/22 14:00 Resp 17 04/17/22 16:00 BP 117/71 04/17/22 16:00 Pulse Ox 85 L 04/17/22 16:00 FiO2 Intake & Output 04/17/22 04/17/22 04/18/22 06:59 18:59 06:59 Intake Total 260 Output Total 700 Balance -440 Weight 95.1 kg 95.1 kg Intake: IV 260 0.9 @ 20 160 Zosyn 100 Output: Urine 700 Other: Voiding Method Urinal - Labs CBC & Chem 7: 04/17/22 03:46 04/17/22 03:46 Labs: Abnormal Lab Results - Last 24 Hours (Table) 04/17/22 04/17/22 Range/Units 03:46 03:46 RBC 2.42 L (4.30-5.90) m/uL Hgb 7.5 L (13.0-17.5) gm/dL Hct 23.1 L (39.0-53.0) % RDW 16.0 H (11.5-15.5) % Lymphocytes # (Manual) 0.70 L (1.0-4.8) k/uL Sodium 134 L (137-145) mmol/L Calcium 7.4 L (8.4-10.2) mg/dL
[2022-04-17] MEDS: TAMSULOSIN 0.4 MG CAP.ER.24H PO SCH (20:40)
[2022-04-18] MEDS: HYDROmorphone 1 MG/ML 1 ML SYRINGE IVP PRN ×3 (04:17→22:13)
[2022-04-18 04:20] LABS: Anisocytosis Slight; HCT 24.2 % (39.0-53.0); Hypochromasia Moderate; MCHC 32.9 g/dL (31.0-37.0); Macrocytosis Slight; Mean Platelet Volume 11.6; Platelet Count 196 k/uL (150-450); Poikilocytosis Slight; RDW 16.3 % (11.5-15.5); WBC 6.7 k/uL (3.8-10.6)
[2022-04-18 04:47] LABS: African American GFR (CKD) >90 (>60 ml/min/1.73 sqM); Anion Gap 6 mmol/L; Blood Urea Nitrogen 19 mg/dL (9-20); Calcium 7.4 mg/dL (8.4-10.2); Carbon Dioxide 29 mmol/L (22-30); Chloride 99 mmol/L (98-107); Glucose 80 mg/dL (74-99); Non-African American GFR(CKD) 89 (>60 ml/min/1.73 sqM); Potassium 3.5 mmol/L (3.5-5.1); Sodium 134 mmol/L (137-145)
--- NOTE | 2022-04-18 07:35 | P.PN ---
Subjective Progress Note Date: 04/18/22 Principal diagnosis: Paroxysmal atrial fibrillation The patient is a 77-year-old gentleman with a past medical history significant for hypertension and dyslipidemia and paroxysmal atrial fibrillation who was admitted to the hospital with abdominal discomfort and was diagnosed with small bowel obstruction and he underwent surgery. We consulted to see the patient for the management of paroxysmal atrial fibrillation. April 152021 The patient was seen this morning. He has been maintaining normal sinus mechanism with sinus bradycardia and heart rate in the 50s. Currently he is on amiodarone as well as metoprolol. Is not on any oral anticoagulation because of bleeding issues and he required blood transfusion during his hospital stay. He underwent an echo during his hospital stay and that showed preserved left ventricular systolic function was evidence of hypertensive heart disease. April 162021 The patient was seen this morning. Apparently his mentation is better. Overall he has been maintaining normal sinus mechanism with sinus bradycardia and heart rate in the 50s. He is on amiodarone as well as metoprolol. Anticoagulation is on hold at this point in the light off low hemoglobin could be related to bleeding.. The patient had an echo showed normal LV function.. On examination the patient does have diminished breathing sounds bilaterally with possible crackles bilaterally as well. I was going to give him 20 mg of Lasix IV. His pressure is soft so far. April 172021 The patient was seen and evaluated this morning. He is maintaining normal sinus mechanism. The pressur is within normal limits. He is a stable overall from a cardiovascular standpoint of view and he is asymptomatic. Anticoagulation continues to be on hold at this point my recommendation from the surgical team. The hemoglobin is a stable. He continues to be on amiodarone as well as beta saadia with metoprolol April 182021 The patient was seen this morning. He is stable from the cardiovascular standpoint overview. He remains hemodynamically stable. He remains in sinus rhythm. Currently he is on amiodarone as well as metoprolol. Anticoagulation continues to be hold until we have the okay from the surgical team. Hemoglobin this morning is 8.0 Objective - Vital Signs Vital signs: Vital Signs Temp 98.2 F 04/16/22 08:00 Pulse 62 04/16/22 14:00 Resp 17 04/17/22 20:00 BP 117/71 04/17/22 16:00 Pulse Ox 85 L 04/17/22 16:00 FiO2 Intake & Output 04/17/22 04/18/22 04/18/22 18:59 06:59 18:59 Weight 95.1 kg 96.2 kg Other: Voiding Method Urinal - Constitutional General appearance: Present: no acute distress - Respiratory Respiratory: bilateral: diminished - Cardiovascular Rhythm: regular - Labs CBC & Chem 7: 04/18/22 03:13 04/18/22 03:13 Labs: Abnormal Lab Results - Last 24 Hours (Table) 04/18/22 04/18/22 Range/Units 03:13 03:13 RBC 2.50 L (4.30-5.90) m/uL Hgb 8.0 L (13.0-17.5) gm/dL Hct 24.2 L (39.0-53.0) % RDW 16.3 H (11.5-15.5) % Sodium 134 L (137-145) mmol/L Calcium 7.4 L (8.4-10.2) mg/dL Assessment and Plan Assessment: Assessment #1 small bowel obstruction status post surgery #2 paroxysmal atrial fibrillation #3 hypertension #4 dyslipidemia #5 coronary artery disease #6 multiple comorbid conditions Plan Continue the current medical regimen including amiodarone and metoprolol Consider starting the patient on oral anticoagulation once we have the okay from the surgical team. Hemoglobin this morning is 8.0 Follow-up with the patient
[2022-04-18] MEDS: PIPERACILLIN-TAZOBACTAM 3.375 GM in SODIUM CHLORIDE 0.9% 100 ML IVPB SCH ×2 (08:39→15:59)
[2022-04-18] MEDS: AMIODARONE 200 MG TAB PO SCH ×2 (08:40→21:22)
[2022-04-18] MEDS: ATORVASTATIN 10 MG TAB PO SCH (08:40)
[2022-04-18] MEDS: POTASSIUM CHLORIDE ER 20 MEQ TAB.ER PO SCH ×2 (08:40→14:09)
[2022-04-18] MEDS: PARoxetine 20 MG TAB PO SCH (08:40)
[2022-04-18] MEDS: METOPROLOL TARTRATE 25 MG TAB PO SCH ×2 (08:40→21:22)
[2022-04-18] MEDS: HYDROmorphone 0.5 MG/0.5 ML SYRINGE IVP PRN (08:40)
[2022-04-18] MEDS: PANTOPRAZOLE 40 MG/10 ML VIAL IV SCH (08:40)
[2022-04-18] MEDS: LEVOTHYROXINE 25 MCG TAB PO SCH (08:40)
--- NOTE | 2022-04-18 09:17 | P.PN ---
Progress Note - Text Progress Note Date: 04/18/22 The patient states he feels better today. He denies any significant abdominal pain. Vital signs are stable. Abdomen soft incision is clean dry intact. Status post small bowel resection for strangulated internal hernia. Patient developed a post operative bleeding while on anticoagulation on day 6. The patient should not resume any coagulations at this point point. His chest x-ray still shows some evidence of heart failure. Patient will be medically managed. He has tolerated some oral diet. He will be closely observed.
--- NOTE | 2022-04-18 10:48 | P.PN ---
Subjective Progress Note Date: 04/18/22 04/13/2022 Patient is admitted for partial small bowel resection patient underwent the laparotomy lysis of adhesions small bowel resection. Patient is on a full liquid diet at this time. Patient does have crackles on lung exam obtain a chest x-ray, which showed a bilateral pleural effusions, pulmonary edema and intrathoracic stomach patient will be given a dose of Lasix with close clinical monitoring. Patient is also in atrial fibrillation patient is presently rate controlled still in A. fib patient was on IV Cardizem which is being weaned off patient is also on clonidine which is also being weaned off and patient is being transitioned to oral amiodarone from IV amiodarone cardiology is following the patient. 04/14/2022 Patient was seen and evaluated in follow-up today. Hemoglobin was low and given a unit of PRBCs and will follow-up with repeat hemoglobin in the afternoon. Patient was CODE BLUE yesterday per nursing staff while getting up and attempting to get to the commode. Patient is continued on 4 L via nasal cannula and will also give a dose of Lasix after the unit of blood as patient chest x- ray shows possible congestive heart failure with basilar effusions and associated edema versus atelectasis. Patient will be also given a incentive spirometer encouraged to use at least 10 times every hour. Also medical consultations following including surgery and patient is on full liquid diet although not eating much and not tolerating much of a diet. Patient reports he is having multiple bowel movements that are loose with no blood noted. CT abdomen and pelvis is ordered by surgery and pending at this time. Recommend continue holding Eliquis due to the drop in hemoglobin with cardiology following closely. Patient is also maintained on IV antibiotics in the form of Zosyn and will continue. Constitutional: Denied any fatigue denied any fever. Pulmonary also placed on consulted and pending. Patient with extreme weakness does have PT/OT therapy on currently. 04/15/2022 Patient is seen in the ICU for close monitoring as patient had significant drop in hemoglobin from 9 down to the 6 range and 2 units ordered. Patient received one unit and hemoglobin went up to 8.2. Recommend to monitor closely with serial H&H. CT of the abdomen from yesterday showed moderate ascites that shows intermediate attenuation suggesting significant hemorrhagic ascites, correlate for bleeding from anastomotic site. Previous esophagectomy and gastric pull- through procedure. There is a concurrent hernia involving ascites fluid, mesentery and a segment of nonobstructed transverse colon along the left lateral margin of the pull-through. sausage smoker following ok with ICU transfer to closely monitor and transfuse for any further possible bleeding. Patient did have a fall while going to the bathroom one day prior with no injuries noted. Significantly weak and will need PT/OT. Afebrile and blood pressure is improved. Not requiring any pressor support at this time. Continued on IV abx with multiple medical consultations following. 04/16/2022 Patient is seen and evaluated in follow-up this morning currently in the ICU and hemodynamically stable. Hemoglobin is 8.1 and has only received 1 unit of PRBC. Patient continues with 3 L via nasal cannula denies any worsening shortness of breath. Patient reports some abdominal discomfort although improved from previous. Patients vitals are stable and not requiring pressor support. CAT scan yesterday evening was 2.9 and replacement this morning showing 3.6 potassium. Patient surgical site does have some minimal bleeding noted and surgery is aware. Dressings to be changed. Patient also continues on IV antibiotics in the form of Zosyn. Patient being closely monitored by surgery with no plans for further surgical intervention at this time. Patient with significant weakness recommend physical therapy daily. Patient was able to work with physical therapy today recommending home with home care. Patient reports he is exhausted and weak. Encouraged oral intake and currently eating lunch at the bedside. Crackles noted on exam we'll give a dose of Lasix and recommend follow-up chest x-ray and labs in the a.m. Recommend to replace electrolytes per protocol. 04/17/2022 Patient is seen in follow up today awaiting a med surg bed for transfer out of the icu. Currently on room air and chest xray is consistent with chf and overload. Patient is continued on IV zosyn per surgery and is currently post op day 9 for partial small bowel resection patient underwent the laparotomy lysis of adhesions small bowel resection. Hemoglobin is stable at 7.5. Transfuse if less than 7. Afebrile and denies chest pain or shortness of breath during exam. Patient has multiple complaints of generalized pain and weakness. recommend working with physical therapy daily. plan is for home with home care. Encouraged oral intake and increased activity as tolerated. 04/18/2022 Patient is monitored today in intensive care unit currently awaiting a med-surg bed out of the ICU. He Reports mild abdominal pain today, but overall feeling well. No acute events overnight. Had BM yesterday. He is postoperative day #9 for partial small bowel resection and also laparotomy with lysis of adhesions small bowel resection secondary to strangulated hernia. Currently hemoglobin today 8.0 with recommendations to transfuse for hemoglobin less than 7. Sodium remains stable today at 134, potassium 3.5. He is being followed by cardiology and remains in normal sinus rhythm on amiodarone and metoprolol. Surgery continuing to hold off on anticoagulation therapy at this point. He continues on IV zosyn. He received oral potassium today. Plan for home with home care when cleared by consultations. He is tolerating diet. Afebrile, heart rate 63, blood pressure 110/65, 97% room air. Review of systems: Cardiovascular: denied any chest pain, palpitations Gastrointestinal denied any nausea vomiting, reports appetite is slowly improving Pulmonary:no reports of worsening shortness of breath and reports cough with some mild sputum that he also reports is chronic Neurologic denied any new focal deficits, reports weakness PHYSICAL EXAMINATION: GENERAL: The patient is alert and oriented x3, not in any acute distress. Well developed, well nourished. Ill-appearing. hard of hearing HEENT: Pupils are round and equally reacting to light. EOMI. No scleral icterus. No conjunctival pallor. Normocephalic, atraumatic. No pharyngeal erythema. No thyromegaly. CARDIOVASCULAR: S1 and S2 present. No murmurs, rubs, or gallops. PULMONARY: Diminished breath sounds bilaterally with some scattered rhonchi and crackles noted ABDOMEN: Soft, tender, nondistended, normoactive bowel sounds. No palpable organomegaly. Abdominal binder in place. There is serosanguines drainage from lower abdominal incision site which has leaked through the gauze. Will be changed today. MUSCULOSKELETAL: No joint swelling or deformity. EXTREMITIES: No cyanosis, clubbing, or pedal edema. NEUROLOGICAL: Gross neurological examination did not reveal any focal deficits. Diffusely weak SKIN: No rashes. Assessment: Acute Small bowel obstruction status post expiratory laparotomy lysis of adhesions and small bowel resection with repair of small bowel enterotomy and incidental appendectomy on 04/07/2022 New-onset A. fib and patient is on oral amiodarone, anticoagulant on hold for dropping hemoglobin and cardiology following Pulmonary edema secondary to congestive heart failure chronic diastolic dysfunction with acute exacerbation, treated with IV lasix. Currently not on lasix. Cardiology following. Right lower lobe atelectasis rather than pneumonia drop in hemoglobin with acute blood loss anemia, likely due to blood thinners, which are on hold, stable at 8.0. Hypertension with urgency, present on admission. Currently normotensive Hyperlipidemia Benign prostatic hypertrophy History of esophageal cancer status post esophagectomy bilateral renal calculi DVT prophylaxis GI Prophylaxis: Ppi Full code Plan: Recommend to continue with close monitoring due to drop in blood pressure and drop in hemoglobin. Hemoglobin is stable at 8.0. Currently a down grade out of the ICU awaiting a bed. Hemodynamically stable. Continue to hold anticoagulant per surgery. Monitor surgical site of any additional bleeding. Gen. surgery following and no plans for further surgical intervention at this time and patient is currently tolerating regular diet. Patient is continued on IV antibiotics in the form of Zosyn and will continue for now per surgery Patient with extreme weakness and needs PT/OT therapy daily, physical therapy recommending home with home care Patient continues to demonstrate congestion and CHF on xray, continues to be monitored on room air and currently off lasix. Recommend repeat labs and replace electrolytes per protocol Patient is currently maintaining oxygen saturations on room air. Prognosis is guarded - patient will discharge home with homecare when cleared by consultations The impression and plan of care has been dictated by Fay Aguirre, Nurse Practitioner as directed. Dr. Maritza MD I have performed a history and physical examination and medical decision making of this patient, discussed the same with the dictator, and agree with the dictators assessment and plan as written, documented as a scribe. Based on total visit time, I have performed more than 50% of this visit. Objective - Vital Signs Vital signs: Vital Signs Temp 97.7 F 04/18/22 08:00 Pulse 63 04/18/22 08:00 Resp 17 04/18/22 08:00 BP 110/65 04/18/22 08:00 Pulse Ox 97 04/18/22 08:00 FiO2 Intake & Output 04/17/22 04/18/22 04/18/22 18:59 06:59 18:59 Weight 95.1 kg 96.2 kg Other: Voiding Method Urinal Urinal - Labs CBC & Chem 7: 04/18/22 03:13 04/18/22 03:13 Labs: Abnormal Lab Results - Last 24 Hours (Table) 04/18/22 04/18/22 Range/Units 03:13 03:13 RBC 2.50 L (4.30-5.90) m/uL Hgb 8.0 L (13.0-17.5) gm/dL Hct 24.2 L (39.0-53.0) % RDW 16.3 H (11.5-15.5) % Sodium 134 L (137-145) mmol/L Calcium 7.4 L (8.4-10.2) mg/dL Assessment and Plan Time with Patient: Less than 30
--- NOTE | 2022-04-18 12:08 | P.PN ---
Subjective Progress Note Date: 04/18/22 Principal diagnosis: Shortness of breath. Pulmonary/critical care consult dated 04/14/2022. 77-year-old male who was admitted back on April 06. We were consulted because of shortness of breath. The patient ended up having a exploratory laparotomy on April 07, with lysis of adhesions, small bowel resection, appendectomy, and repair of small bowel enterotomy. The patient was supposed to be on some oxygen therapy, but we found him without the oxygen on, and his resting room air saturation was only 83 - 84%. His N-terminal proBNP was elevated. His chest x- ray was consistent with CHF. He apparently was coughing and producing some phlegm. He was on TPN as well. He is also on Zosyn. White count was 8.2, with a hemoglobin of 6.7, hematocrit 20.3, and platelet count 267,000. Sodium is 136, potassium 3.7, chlorides 106, CO2 25, BUN 16, and creatinine 0.79. Pro- calcitonin level was 0.08, and N-terminal proBNP on April 11 was 3520. Progress note dated 04/15/2022. This is a 77-year-old male that we saw yesterday in consultation with shortness of breath. We thought that his shortness of breath was likely related to fluid overload. After seeing him, I was called by the floor nurse, in the ICU nurse, that the patient was hemorrhaging. For that reason, and because of low blood pressures, the patient was transferred to the intensive care unit. He did receive 1 unit of packed red blood cells. His hemoglobin this morning is 8.3. He looks a bit lethargic, and is on 4 L of oxygen, and saline at KVO. A computed tomography scan of the abdomen and pelvis, showed postsurgical changes, but no active bleeding. White count 8.5, hemoglobin 8.3, hematocrit 24.5, and platelet count 267,000. Sodium 137, potassium 3.5, chlorides 105, CO2 26, BUN 16, creatinine 0.77. Blood cultures are currently negative. Progress note dated 04/16/2022 77-year-old male seen in room 253. He was seen in consultation 2 days ago. The patient's doing much better. He is on 3 L of oxygen. He's not receiving any IV fluids. He denies any pain, or difficulty breathing. He's received 1 unit of blood, since coming into the ICU. Laboratory data today includes a white count of 6.6, hemoglobin 8.1, hematocrit 23.5, and a platelet count of 197,000. Sodium 135, potassium 3.6, chlorides 101, CO2 28, BUN 16, creatinine 0.82. Calcium is 7.3. Progress note dated 04/17/2022. 77-year-old male, again seen in room 253. Currently, the patient's resting comfortably. He's eating his breakfast. He is on 2 L of oxygen. He is getting saline at 20 mL an hour. He had an uneventful night according to the nurses. White count 5.8, hemoglobin 7.5, hematocrit 23.1, and platelet count 291,000. Sodium 134, potassium 3.5, chlorides 100, CO2 29, BUN 17, and creatinine 0.84. Chest x-rays consistent with fluid overload/CHF. Progress note dated 04/18/2022. This is a 77-year-old male seen again in room 253. He continues in the ICU, although, he is an overflow patient. He is resting comfortably. He's on room air. He's not receiving any IV fluids. His saturations are 97%. Labs today include a white count 6.7, hemoglobin 8, hematocrit 24.2, and platelet count 296 ,000. Sodium 134, potassium 3.5, chlorides 99, CO2 29, anion gap 6, BUN 19, and creatinine 0.73. Objective - Vital Signs Vital signs: Vital Signs Temp 97.7 F 04/18/22 08:00 Pulse 63 04/18/22 08:00 Resp 17 04/18/22 08:00 BP 110/65 04/18/22 08:00 Pulse Ox 97 04/18/22 08:00 FiO2 Intake & Output 04/17/22 04/18/22 04/18/22 18:59 06:59 18:59 Weight 95.1 kg 96.2 kg Other: Voiding Method Urinal Urinal - Exam No acute distress, oriented 3. Much more awake and alert today. Currently on room air. Saturations are 97%. HEENT examination is grossly unremarkable. Neck supple. Full range of motion. No adenopathy thyromegaly or neck vein distention. Cardiovascular examination reveals regular rhythm rate. S1-S2 normal. No S3 or S4. No discernible murmur noted. Heart rate 82 bpm. Heart sounds are distant. Lungs reveal scattered bilateral rhonchi and crackles. Breath sounds are equal bilaterally. Abdomen soft, without masses or tenderness. Extremities are intact. No cyanosis clubbing or edema. Skin is without rash or lesion. Neurologic examination is brief but nonfocal. - Labs CBC & Chem 7: 04/18/22 03:13 04/18/22 03:13 Labs: Abnormal Lab Results - Last 24 Hours (Table) 04/18/22 04/18/22 Range/Units 03:13 03:13 RBC 2.50 L (4.30-5.90) m/uL Hgb 8.0 L (13.0-17.5) gm/dL Hct 24.2 L (39.0-53.0) % RDW 16.3 H (11.5-15.5) % Sodium 134 L (137-145) mmol/L Calcium 7.4 L (8.4-10.2) mg/dL Assessment and Plan Assessment: Postop day #11, status post exploratory laparotomy, small bowel resection, lysis of adhesions, appendectomy, and repair of small bowel enterotomy. Postoperative anemia, status post 1 unit of packed red blood cells. Shortness of breath, likely secondary to fluid overload/CHF. History of hyperlipidemia. History of esophageal cancer, 2012. Impaired hearing. Lifelong nonsmoker. Status post aortic aneurysm repair, 2013. History of esophagectomy, and gastric pull-through surgery, 2012. Plan: Plan dated 04/14/2022. The patient has a very low pro-calcitonin level. The patient should be given Lasix, for the fluid overload. We will continue to follow. Currently, the patient's on 3 L, with excellent saturations. Additional recommendations and suggestions are forthcoming. The patient should receive 1 unit of packed red blood cells. Prognosis is guarded. Plan dated 04/15/2022. The patient was transferred to the intensive care unit yesterday, and he was seen today in room 253. There was concerns that the patient might be having some active internal bleeding. That was not the case on the computed tomography scan of the abdomen and pelvis. He did receive 1 unit of packed red blood cells. He's currently on 4 L of oxygen. He is getting saline at KVO. Hemoglobin today is 8.3. Respiratory status seems reasonably stable. Labs, x- rays, and medications are all reviewed. Prognosis is guarded. Plan dated 04/16/2022. Today is postop day #9. His labs are reviewed. Everything appears stable. The patient's on 3 L. Saturations are 98%. Labs, x-rays, and medications are reviewed. In my opinion, the patient could be transferred out back to the general medical floor. He is stable hemodynamically. He's received only 1 unit of packed red blood cells. His respiratory status is also very stable. Plan dated 04/17/2022. Today's postop day #10. Labs, x-rays, and medications are reviewed. Remains on 3 L of oxygen. Saturations are excellent. The patient is awaiting a room upstairs on the general medical floor. Hemodynamics are stable. His respiratory status is also stable. We will continue to follow make recommendations along the way. Prognosis is guarded. Plan dated 04/18/2022. Today is postop day #11. Labs, x-rays, and medications are reviewed. Currently, the patient is on room air. The patient's doing well. The patient is not receiving any IV fluids. Room air saturation is 97%. The patient can be transferred out to the general medical floor. This is been the case the last couple of days. We will be happy to come back and see the patient, should he need our services. Time with Patient: Less than 30
[2022-04-18] MEDS ORDERED: FUROSEMIDE 10 MG/ML 4 ML VIAL ONE (14:17)
[2022-04-18] MEDS: FUROSEMIDE 10 MG/ML 4 ML VIAL IV SCH (14:21)
[2022-04-18] MEDS: TAMSULOSIN 0.4 MG CAP.ER.24H PO SCH (21:22)
[2022-04-19] MEDS: PIPERACILLIN-TAZOBACTAM 3.375 GM in SODIUM CHLORIDE 0.9% 100 ML IVPB SCH ×3 (00:49→16:14)
[2022-04-19] MEDS: HYDROcodone/APAP 5-325MG 1 EACH TAB PO PRN ×2 (00:52→16:47)
[2022-04-19] MEDS: HYDROmorphone 1 MG/ML 1 ML SYRINGE IVP PRN ×3 (05:22→16:20)
[2022-04-19] MEDS: LEVOTHYROXINE 25 MCG TAB PO SCH (05:44)
[2022-04-19] MEDS: ATORVASTATIN 10 MG TAB PO SCH (08:38)
[2022-04-19] MEDS: PANTOPRAZOLE 40 MG/10 ML VIAL IV SCH (08:38)
[2022-04-19] MEDS: FUROSEMIDE 10 MG/ML 4 ML VIAL IV SCH (08:38)
[2022-04-19] MEDS: AMIODARONE 200 MG TAB PO SCH ×2 (08:38→21:26)
[2022-04-19] MEDS: METOPROLOL TARTRATE 25 MG TAB PO SCH ×2 (08:39→21:26)
[2022-04-19] MEDS: PARoxetine 20 MG TAB PO SCH (08:49)
[2022-04-19 11:18] LABS: Basophils # (A) 0.03 X 10*3/uL (0.00-0.10); Basophils % (A) 0.3 %; Eosinophils # (A) 0.42 X 10*3/uL (0.04-0.35); Eosinophils % (A) 3.8 %; HGB 7.8 g/dL (13.0-17.0); Immature Grans, Automated 0.5 %; Lymphocytes # (A) 0.65 X 10*3/uL (0.90-5.00); Lymphocytes % (A) 5.9 %; MCH 29.5 pg (27.0-32.0); MCHC 31.2 g/dL (32.0-37.0); MCV 94.7 fL (80.0-97.0); Mean Platelet Volume 11.7 fL (9.5-12.2); Monocytes # (A) 1.03 X 10*3/uL (0.20-1.00); Monocytes % (A) 9.3 %; NRBC Per 100 WBC 0.2 /100 WBCS (0.0-0.0); Neutrophils # (A) 8.84 X 10*3/uL (1.80-7.70); Neutrophils % (A) 80.2 %; Platelet Count 216 X 10*3/uL (140-440); RBC 2.64 X 10*6/uL (4.40-5.60); RDW 16.4 % (11.5-14.5); WBC 11.02 X 10*3/uL (4.50-10.00)
[2022-04-19 12:22] LABS: African American GFR (CKD) 98.7 (60.0-200.0); Anion Gap 6.1 mmol/L (10.00-18.00); BUN/Creat Ratio 19.9 Ratio (12.00-20.00); Blood Urea Nitrogen 16.1 mg/dL (9.0-27.0); Calcium 7.3 mg/dL (8.7-10.3); Non-African American GFR(CKD) 85.2 (60.0-200.0); Potassium 3.6 mmol/L (3.5-5.5)
--- NOTE | 2022-04-19 13:39 | P.PN ---
Subjective Progress Note Date: 04/19/22 04/13/2022 Patient is admitted for partial small bowel resection patient underwent the laparotomy lysis of adhesions small bowel resection. Patient is on a full liquid diet at this time. Patient does have crackles on lung exam obtain a chest x-ray, which showed a bilateral pleural effusions, pulmonary edema and intrathoracic stomach patient will be given a dose of Lasix with close clinical monitoring. Patient is also in atrial fibrillation patient is presently rate controlled still in A. fib patient was on IV Cardizem which is being weaned off patient is also on clonidine which is also being weaned off and patient is being transitioned to oral amiodarone from IV amiodarone cardiology is following the patient. 04/14/2022 Patient was seen and evaluated in follow-up today. Hemoglobin was low and given a unit of PRBCs and will follow-up with repeat hemoglobin in the afternoon. Patient was CODE BLUE yesterday per nursing staff while getting up and attempting to get to the commode. Patient is continued on 4 L via nasal cannula and will also give a dose of Lasix after the unit of blood as patient chest x- ray shows possible congestive heart failure with basilar effusions and associated edema versus atelectasis. Patient will be also given a incentive spirometer encouraged to use at least 10 times every hour. Also medical consultations following including surgery and patient is on full liquid diet although not eating much and not tolerating much of a diet. Patient reports he is having multiple bowel movements that are loose with no blood noted. CT abdomen and pelvis is ordered by surgery and pending at this time. Recommend continue holding Eliquis due to the drop in hemoglobin with cardiology following closely. Patient is also maintained on IV antibiotics in the form of Zosyn and will continue. Constitutional: Denied any fatigue denied any fever. Pulmonary also placed on consulted and pending. Patient with extreme weakness does have PT/OT therapy on currently. 04/15/2022 Patient is seen in the ICU for close monitoring as patient had significant drop in hemoglobin from 9 down to the 6 range and 2 units ordered. Patient received one unit and hemoglobin went up to 8.2. Recommend to monitor closely with serial H&H. CT of the abdomen from yesterday showed moderate ascites that shows intermediate attenuation suggesting significant hemorrhagic ascites, correlate for bleeding from anastomotic site. Previous esophagectomy and gastric pull- through procedure. There is a concurrent hernia involving ascites fluid, mesentery and a segment of nonobstructed transverse colon along the left lateral margin of the pull-through. mutton puncher following ok with ICU transfer to closely monitor and transfuse for any further possible bleeding. Patient did have a fall while going to the bathroom one day prior with no injuries noted. Significantly weak and will need PT/OT. Afebrile and blood pressure is improved. Not requiring any pressor support at this time. Continued on IV abx with multiple medical consultations following. 04/16/2022 Patient is seen and evaluated in follow-up this morning currently in the ICU and hemodynamically stable. Hemoglobin is 8.1 and has only received 1 unit of PRBC. Patient continues with 3 L via nasal cannula denies any worsening shortness of breath. Patient reports some abdominal discomfort although improved from previous. Patients vitals are stable and not requiring pressor support. CAT scan yesterday evening was 2.9 and replacement this morning showing 3.6 potassium. Patient surgical site does have some minimal bleeding noted and surgery is aware. Dressings to be changed. Patient also continues on IV antibiotics in the form of Zosyn. Patient being closely monitored by surgery with no plans for further surgical intervention at this time. Patient with significant weakness recommend physical therapy daily. Patient was able to work with physical therapy today recommending home with home care. Patient reports he is exhausted and weak. Encouraged oral intake and currently eating lunch at the bedside. Crackles noted on exam we'll give a dose of Lasix and recommend follow-up chest x-ray and labs in the a.m. Recommend to replace electrolytes per protocol. 04/17/2022 Patient is seen in follow up today awaiting a med surg bed for transfer out of the icu. Currently on room air and chest xray is consistent with chf and overload. Patient is continued on IV zosyn per surgery and is currently post op day 9 for partial small bowel resection patient underwent the laparotomy lysis of adhesions small bowel resection. Hemoglobin is stable at 7.5. Transfuse if less than 7. Afebrile and denies chest pain or shortness of breath during exam. Patient has multiple complaints of generalized pain and weakness. recommend working with physical therapy daily. plan is for home with home care. Encouraged oral intake and increased activity as tolerated. 04/18/2022 Patient is monitored today in intensive care unit currently awaiting a med-surg bed out of the ICU. He Reports mild abdominal pain today, but overall feeling well. No acute events overnight. Had BM yesterday. He is postoperative day #9 for partial small bowel resection and also laparotomy with lysis of adhesions small bowel resection secondary to strangulated hernia. Currently hemoglobin today 8.0 with recommendations to transfuse for hemoglobin less than 7. Sodium remains stable today at 134, potassium 3.5. He is being followed by cardiology and remains in normal sinus rhythm on amiodarone and metoprolol. Surgery continuing to hold off on anticoagulation therapy at this point. He continues on IV zosyn. He received oral potassium today. Plan for home with home care when cleared by consultations. He is tolerating diet. Afebrile, heart rate 63, blood pressure 110/65, 97% room air. 04/19/2022 Patient has been downgraded out of the ICU and continues to be monitored closely on the medical floor. He is hoping for discharge home tomorrow. Reports minimal abdominal pain. He continues to be monitored off anticoagulation. White count today 11.02, hgb 7.8. Sodium is improving to 135 with a dose of IV lasix, kidney function stable. Remains afebrile heart rate 83 normal sinus rhythm, blood pressure 102/67, 96% room air. He has had about 800 mls of urine output in the last 24 hours documented. Review of systems: Cardiovascular: denied any chest pain, palpitations Gastrointestinal denied any nausea vomiting, reports appetite is slowly improving Pulmonary:no reports of worsening shortness of breath and reports cough with some mild sputum that he also reports is chronic Neurologic denied any new focal deficits, reports weakness PHYSICAL EXAMINATION: GENERAL: The patient is alert and oriented x3, not in any acute distress. Well developed, well nourished. Ill-appearing. hard of hearing HEENT: Pupils are round and equally reacting to light. EOMI. No scleral icterus. No conjunctival pallor. Normocephalic, atraumatic. No pharyngeal erythema. No thyromegaly. CARDIOVASCULAR: S1 and S2 present. No murmurs, rubs, or gallops. PULMONARY: Diminished breath sounds bilaterally with some scattered rhonchi and crackles noted ABDOMEN: Soft, tender, nondistended, normoactive bowel sounds. No palpable organomegaly. Abdominal binder in place. Dressing clean and intact. MUSCULOSKELETAL: No joint swelling or deformity. EXTREMITIES: No cyanosis, clubbing, or pedal edema. NEUROLOGICAL: Gross neurological examination did not reveal any focal deficits. Diffusely weak SKIN: No rashes. Assessment: Acute Small bowel obstruction status post expiratory laparotomy lysis of adhesions and small bowel resection with repair of small bowel enterotomy and incidental appendectomy on 04/07/2022 New-onset A. fib and patient is on oral amiodarone, anticoagulant on hold for dropping hemoglobin and cardiology following Pulmonary edema secondary to congestive heart failure chronic diastolic dysfunction with acute exacerbation, treated with IV lasix Right lower lobe atelectasis rather than pneumonia drop in hemoglobin with acute blood loss anemia, likely due to blood thinners, which are on hold, stable at 7.8 Hypertension with urgency, present on admission. Currently normotensive Hyperlipidemia Benign prostatic hypertrophy History of esophageal cancer status post esophagectomy bilateral renal calculi DVT prophylaxis GI Prophylaxis: Ppi Full code Plan: Recommend to continue with close monitoring due to drop in blood pressure and drop in hemoglobin. Hemoglobin is stable at7.8. Patient has been moved out of the ICU and is now monitored on the medical floor. Hemodynamically stable. Continue to hold anticoagulant per surgery. Monitor surgical site of any additional bleeding. Gen. surgery following and no plans for further surgical intervention at this time and patient is currently tolerating regular diet. Patient is continued on IV antibiotics in the form of Zosyn and will continue for now per surgery Patient with extreme weakness and needs PT/OT therapy daily, physical therapy recommending home with home care Patient continues to demonstrate congestion and CHF on xray, he has improved with IV lasix. Recommend repeat labs and replace electrolytes per protocol Patient is currently maintaining oxygen saturations on room air. Prognosis is guarded - patient will discharge home with homecare when cleared by consultations The impression and plan of care has been dictated by Fay Aguirre Nurse Practitioner as directed. Dr. Maritza MD I have performed a history and physical examination and medical decision making of this patient, discussed the same with the dictator, and agree with the dictators assessment and plan as written, documented as a scribe. Based on total visit time, I have performed more than 50% of this visit. Objective - Vital Signs Vital signs: Vital Signs Temp 98.8 F 04/19/22 11:37 Pulse 83 04/19/22 11:37 Resp 18 04/19/22 11:37 BP 102/67 04/19/22 11:37 Pulse Ox 96 04/19/22 11:37 FiO2 Intake & Output 04/18/22 04/19/22 04/19/22 18:59 06:59 18:59 Intake Total 240 600 Output Total 1700 400 400 Balance -1460 200 -400 Intake: IV 100 Zosyn 100 Oral 240 500 Output: Urine 1700 400 400 Other: Voiding Method Urinal Urinal Urinal # Voids 1 - Labs CBC & Chem 7: 04/19/22 07:08 04/19/22 07:08 Labs: Abnormal Lab Results - Last 24 Hours (Table) 04/19/22 04/19/22 Range/Units 07:08 07:08 WBC 11.02 H (4.50-10.00) X 10*3/uL RBC 2.64 L (4.40-5.60) X 10*6/uL Hgb 7.8 L (13.0-17.0) g/dL Hct 25.0 L (39.6-50.0) % MCHC 31.2 L (32.0-37.0) g/dL RDW 16.4 H (11.5-14.5) % Absolute Nucleated RBC 0.02 H (0.00-0.00) X 10*3/uL Immature Gran # 0.05 H (0.00-0.04) X 10*3/uL Neutrophils # 8.84 H (1.80-7.70) X 10*3/uL Lymphocytes # 0.65 L (0.90-5.00) X 10*3/uL Monocytes # 1.03 H (0.20-1.00) X 10*3/uL Eosinophils # 0.42 H (0.04-0.35) X 10*3/uL NRBC/100 WBC Diff 0.2 H (0.0-0.0) /100 WBCS Carbon Dioxide 29.0 H (20.0-27.5) mmol/L Anion Gap 6.10 L (10.00-18.00) mmol/L Calcium 7.3 L (8.7-10.3) mg/dL Assessment and Plan Time with Patient: Less than 30
--- NOTE | 2022-04-19 13:52 | P.PN ---
Progress Note - Text Progress Note Date: 04/19/22 Patient feels better today. He has less short of breath. His congestive heart failure appears to be better control. On exam vital signs are stable. Abdomen soft. Incisions clean dry intact. Status post small bowel resection for strangulated incisional hernia. Patient's congestive heart failure has improved. Patient will continue receive supportive care.
--- NOTE | 2022-04-19 14:19 | P.PN ---
Subjective Progress Note Date: 04/19/22 Principal diagnosis: Paroxysmal atrial fibrillation The patient is a 77-year-old gentleman with a past medical history significant for hypertension and dyslipidemia and paroxysmal atrial fibrillation who was admitted to the hospital with abdominal discomfort and was diagnosed with small bowel obstruction and he underwent surgery. We consulted to see the patient for the management of paroxysmal atrial fibrillation. April 152021 The patient was seen this morning. He has been maintaining normal sinus mechanism with sinus bradycardia and heart rate in the 50s. Currently he is on amiodarone as well as metoprolol. Is not on any oral anticoagulation because of bleeding issues and he required blood transfusion during his hospital stay. He underwent an echo during his hospital stay and that showed preserved left ventricular systolic function was evidence of hypertensive heart disease. April 162021 The patient was seen this morning. Apparently his mentation is better. Overall he has been maintaining normal sinus mechanism with sinus bradycardia and heart rate in the 50s. He is on amiodarone as well as metoprolol. Anticoagulation is on hold at this point in the light off low hemoglobin could be related to bleeding.. The patient had an echo showed normal LV function.. On examination the patient does have diminished breathing sounds bilaterally with possible crackles bilaterally as well. I was going to give him 20 mg of Lasix IV. His pressure is soft so far. April 172021 The patient was seen and evaluated this morning. He is maintaining normal sinus mechanism. The pressur is within normal limits. He is a stable overall from a cardiovascular standpoint of view and he is asymptomatic. Anticoagulation continues to be on hold at this point my recommendation from the surgical team. The hemoglobin is a stable. He continues to be on amiodarone as well as beta saadia with metoprolol April 182021 The patient was seen this morning. He is stable from the cardiovascular standpoint overview. He remains hemodynamically stable. He remains in sinus rhythm. Currently he is on amiodarone as well as metoprolol. Anticoagulation continues to be hold until we have the okay from the surgical team. Hemoglobin this morning is 8.0 April 192021 The patient was seen and examined this morning. He remains stable from the cardiovascular standpoint of view. He was transferred out of the intensive care unit yesterday. Currently he is on amiodarone as well as metoprolol. We'll continue to hold anticoagulation. As a matter of fact I spoke with the surgical team yesterday and they definitely advised starting the patient on anticoagulation at this point because of risk of bleeding. From the cardiac standpoint of view, would continue the current medical regimen and follow-up with the patient on as needed case Objective - Vital Signs Vital signs: Vital Signs Temp 98.8 F 04/19/22 11:37 Pulse 83 04/19/22 11:37 Resp 18 04/19/22 11:37 BP 102/67 04/19/22 11:37 Pulse Ox 96 04/19/22 11:37 FiO2 Intake & Output 04/18/22 04/19/22 04/19/22 18:59 06:59 18:59 Intake Total 240 600 Output Total 1700 400 400 Balance -1460 200 -400 Intake: IV 100 Zosyn 100 Oral 240 500 Output: Urine 1700 400 400 Other: Voiding Method Urinal Urinal Urinal # Voids 1 - Constitutional General appearance: Present: no acute distress - Respiratory Respiratory: bilateral: CTA - Cardiovascular Rhythm: regular - Labs CBC & Chem 7: 04/19/22 07:08 04/19/22 07:08 Labs: Abnormal Lab Results - Last 24 Hours (Table) 04/19/22 04/19/22 Range/Units 07:08 07:08 WBC 11.02 H (4.50-10.00) X 10*3/uL RBC 2.64 L (4.40-5.60) X 10*6/uL Hgb 7.8 L (13.0-17.0) g/dL Hct 25.0 L (39.6-50.0) % MCHC 31.2 L (32.0-37.0) g/dL RDW 16.4 H (11.5-14.5) % Absolute Nucleated RBC 0.02 H (0.00-0.00) X 10*3/uL Immature Gran # 0.05 H (0.00-0.04) X 10*3/uL Neutrophils # 8.84 H (1.80-7.70) X 10*3/uL Lymphocytes # 0.65 L (0.90-5.00) X 10*3/uL Monocytes # 1.03 H (0.20-1.00) X 10*3/uL Eosinophils # 0.42 H (0.04-0.35) X 10*3/uL NRBC/100 WBC Diff 0.2 H (0.0-0.0) /100 WBCS Carbon Dioxide 29.0 H (20.0-27.5) mmol/L Anion Gap 6.10 L (10.00-18.00) mmol/L Calcium 7.3 L (8.7-10.3) mg/dL Assessment and Plan Assessment: Assessment #1 small bowel obstruction status post surgery #2 paroxysmal atrial fibrillation #3 hypertension #4 dyslipidemia #5 coronary artery disease #6 multiple comorbid conditions Plan Continue the current medical regimen including amiodarone and metoprolol Consider starting the patient on oral anticoagulation once we have the okay from the surgical team. Hemoglobin this morning is still around 8.0 Follow-up with the patient on as needed
[2022-04-19] MEDS: TAMSULOSIN 0.4 MG CAP.ER.24H PO SCH (21:26)
[2022-04-20] MEDS: PIPERACILLIN-TAZOBACTAM 3.375 GM in SODIUM CHLORIDE 0.9% 100 ML IVPB SCH ×3 (00:20→16:19)
[2022-04-20] MEDS: HYDROcodone/APAP 5-325MG 1 EACH TAB PO PRN ×2 (03:05→16:15)
[2022-04-20] MEDS: PANTOPRAZOLE 40 MG/10 ML VIAL IV SCH (09:22)
[2022-04-20] MEDS: FUROSEMIDE 10 MG/ML 4 ML VIAL IV SCH (09:22)
[2022-04-20] MEDS: LEVOTHYROXINE 25 MCG TAB PO SCH (09:22)
[2022-04-20] MEDS: METOPROLOL TARTRATE 25 MG TAB PO SCH ×2 (09:22→21:14)
[2022-04-20] MEDS: PARoxetine 20 MG TAB PO SCH (09:22)
[2022-04-20] MEDS: AMIODARONE 200 MG TAB PO SCH ×2 (09:22→21:15)
[2022-04-20] MEDS: ATORVASTATIN 10 MG TAB PO SCH (09:22)
[2022-04-20 10:28] LABS: Anisocytosis Slight; Basophils % (A) 0 %; Eosinophils # (A) 0.2 k/uL (0-0.7); Eosinophils % (A) 1 %; HCT 28.4 % (39.0-53.0); HGB 9.2 gm/dL (13.0-17.5); Hypochromasia Marked; Lymphocytes # (A) 0.6 k/uL (1.0-4.8); Lymphocytes % (A) 6 %; MCH 31.6 pg (25.0-35.0); MCHC 32.4 g/dL (31.0-37.0); MCV 97.4 fL (80.0-100.0); Macrocytosis Slight; Mean Platelet Volume 10.7; Monocytes # (A) 0.9 k/uL (0-1.0); Monocytes % (A) 9 %; Neutrophils # (A) 8.2 k/uL (1.3-7.7); Neutrophils % (A) 81 %; Platelet Count 255 k/uL (150-450); Poikilocytosis Slight; RBC 2.91 m/uL (4.30-5.90); RDW 16.2 % (11.5-15.5); WBC 10.1 k/uL (3.8-10.6)
--- NOTE | 2022-04-20 12:05 | P.PN ---
Subjective Progress Note Date: 04/20/22 CHIEF COMPLAINT: Small bowel obstruction HISTORY OF PRESENT ILLNESS: Patient is status post exploratory laparotomy, lysis of extensive adhesions, small bowel resection, repair of small bowel enterotomy and incidental appendectomy for a small bowel obstruction secondary to internal hernia and adhesions on 04/07/22. Patient lying in bed comfortably. He denies any new complaints. Denies any nausea or vomiting. He is having bowel movements. His pain is controlled. He has been up and ambulating with assistance. Afebrile. WBC is normal at 10.1 Hgb 7.8 up to 9.2 plt 255 Patient seen and examined with Dr. rose PHYSICAL EXAM: VITAL SIGNS: Reviewed. GENERAL: Well-developed in no acute distress. HEENT: No sclera icterus. Extraocular movements grossly intact. Moist buccal mucosa. Head is atraumatic, normocephalic. ABDOMEN: Soft. Nondistended. Incision clean minimal serous drainage at the mid incision NEUROLOGIC: Alert and oriented. Cranial nerves II through XII grossly intact. ASSESSMENT: 1. Small bowel obstruction secondary to internal hernia and adhesions status post exploratory laparotomy, lysis of extensive adhesions, small bowel resection, repair of small bowel enterotomy and incidental appendectomy 2. Anemia likely secondary to blood thinners 3. A. fib 4. History of rheumatoid arthritis 5. Fluid overload improved 6. Hiatal hernia with partial intrathoracic stomach PLAN: -Recommend to keep patient one more day -Anticipate discharge tomorrow -Remove every other staple -Continue to Hold Eliquis -Continue regular diet -Continue supportive care -Encourage patient to use incentive spirometer -GI prophylaxis Protonix Physician [employer] note has been reviewed by physician. Signing provider agrees with the documented findings, assessment, and plan of care. Objective - Vital Signs Vital signs: Vital Signs Temp 98.0 F 04/20/22 05:00 Pulse 66 04/20/22 05:00 Resp 16 04/20/22 05:00 BP 108/72 04/20/22 09:20 Pulse Ox 93 L 04/20/22 05:00 FiO2 Intake & Output 04/19/22 04/20/22 04/20/22 18:59 06:59 18:59 Intake Total 240 590 Output Total 1600 500 600 Balance -1360 90 -600 Intake: Oral 240 590 Output: Urine 1600 500 600 Other: Voiding Method Urinal Urinal # Voids 1 # Bowel Movements 1 - Labs CBC & Chem 7: 04/20/22 09:46 04/19/22 07:08 Labs: Abnormal Lab Results - Last 24 Hours (Table) 04/19/22 04/20/22 Range/Units 07:08 09:46 RBC 2.91 L (4.30-5.90) m/uL Hgb 9.2 L (13.0-17.5) gm/dL Hct 28.4 L (39.0-53.0) % RDW 16.2 H (11.5-15.5) % Neutrophils # 8.2 H (1.3-7.7) k/uL Lymphocytes # 0.6 L (1.0-4.8) k/uL Carbon Dioxide 29.0 H (20.0-27.5) mmol/L Anion Gap 6.10 L (10.00-18.00) mmol/L Calcium 7.3 L (8.7-10.3) mg/dL
[2022-04-20] MEDS: TAMSULOSIN 0.4 MG CAP.ER.24H PO SCH (21:15)
[2022-04-21] MEDS: PIPERACILLIN-TAZOBACTAM 3.375 GM in SODIUM CHLORIDE 0.9% 100 ML IVPB SCH ×4 (00:56→23:35)
[2022-04-21] MEDS: HYDROmorphone 1 MG/ML 1 ML SYRINGE IVP PRN ×2 (02:28→23:34)
[2022-04-21] MEDS: LEVOTHYROXINE 25 MCG TAB PO SCH (06:40)
[2022-04-21] MEDS: PARoxetine 20 MG TAB PO SCH (09:09)
[2022-04-21] MEDS: METOPROLOL TARTRATE 25 MG TAB PO SCH ×2 (09:09→21:01)
[2022-04-21] MEDS: FUROSEMIDE 10 MG/ML 4 ML VIAL IV SCH (09:09)
[2022-04-21] MEDS: ATORVASTATIN 10 MG TAB PO SCH (09:09)
[2022-04-21] MEDS: AMIODARONE 200 MG TAB PO SCH ×2 (09:09→21:01)
[2022-04-21] MEDS: PANTOPRAZOLE 40 MG/10 ML VIAL IV SCH (09:10)
--- NOTE | 2022-04-21 09:40 | P.PN ---
Subjective Progress Note Date: 04/20/22 04/13/2022 Patient is admitted for partial small bowel resection patient underwent the laparotomy lysis of adhesions small bowel resection. Patient is on a full liquid diet at this time. Patient does have crackles on lung exam obtain a chest x-ray, which showed a bilateral pleural effusions, pulmonary edema and intrathoracic stomach patient will be given a dose of Lasix with close clinical monitoring. Patient is also in atrial fibrillation patient is presently rate controlled still in A. fib patient was on IV Cardizem which is being weaned off patient is also on clonidine which is also being weaned off and patient is being transitioned to oral amiodarone from IV amiodarone cardiology is following the patient. 04/14/2022 Patient was seen and evaluated in follow-up today. Hemoglobin was low and given a unit of PRBCs and will follow-up with repeat hemoglobin in the afternoon. Patient was CODE BLUE yesterday per nursing staff while getting up and attempting to get to the commode. Patient is continued on 4 L via nasal cannula and will also give a dose of Lasix after the unit of blood as patient chest x- ray shows possible congestive heart failure with basilar effusions and associated edema versus atelectasis. Patient will be also given a incentive spirometer encouraged to use at least 10 times every hour. Also medical consultations following including surgery and patient is on full liquid diet although not eating much and not tolerating much of a diet. Patient reports he is having multiple bowel movements that are loose with no blood noted. CT abdomen and pelvis is ordered by surgery and pending at this time. Recommend continue holding Eliquis due to the drop in hemoglobin with cardiology following closely. Patient is also maintained on IV antibiotics in the form of Zosyn and will continue. Constitutional: Denied any fatigue denied any fever. Pulmonary also placed on consulted and pending. Patient with extreme weakness does have PT/OT therapy on currently. 04/15/2022 Patient is seen in the ICU for close monitoring as patient had significant drop in hemoglobin from 9 down to the 6 range and 2 units ordered. Patient received one unit and hemoglobin went up to 8.2. Recommend to monitor closely with serial H&H. CT of the abdomen from yesterday showed moderate ascites that shows intermediate attenuation suggesting significant hemorrhagic ascites, correlate for bleeding from anastomotic site. Previous esophagectomy and gastric pull- through procedure. There is a concurrent hernia involving ascites fluid, mesentery and a segment of nonobstructed transverse colon along the left lateral margin of the pull-through. mainstreaming facilitator following ok with ICU transfer to closely monitor and transfuse for any further possible bleeding. Patient did have a fall while going to the bathroom one day prior with no injuries noted. Significantly weak and will need PT/OT. Afebrile and blood pressure is improved. Not requiring any pressor support at this time. Continued on IV abx with multiple medical consultations following. 04/16/2022 Patient is seen and evaluated in follow-up this morning currently in the ICU and hemodynamically stable. Hemoglobin is 8.1 and has only received 1 unit of PRBC. Patient continues with 3 L via nasal cannula denies any worsening shortness of breath. Patient reports some abdominal discomfort although improved from previous. Patients vitals are stable and not requiring pressor support. CAT scan yesterday evening was 2.9 and replacement this morning showing 3.6 potassium. Patient surgical site does have some minimal bleeding noted and surgery is aware. Dressings to be changed. Patient also continues on IV antibiotics in the form of Zosyn. Patient being closely monitored by surgery with no plans for further surgical intervention at this time. Patient with significant weakness recommend physical therapy daily. Patient was able to work with physical therapy today recommending home with home care. Patient reports he is exhausted and weak. Encouraged oral intake and currently eating lunch at the bedside. Crackles noted on exam we'll give a dose of Lasix and recommend follow-up chest x-ray and labs in the a.m. Recommend to replace electrolytes per protocol. 04/17/2022 Patient is seen in follow up today awaiting a med surg bed for transfer out of the icu. Currently on room air and chest xray is consistent with chf and overload. Patient is continued on IV zosyn per surgery and is currently post op day 9 for partial small bowel resection patient underwent the laparotomy lysis of adhesions small bowel resection. Hemoglobin is stable at 7.5. Transfuse if less than 7. Afebrile and denies chest pain or shortness of breath during exam. Patient has multiple complaints of generalized pain and weakness. recommend working with physical therapy daily. plan is for home with home care. Encouraged oral intake and increased activity as tolerated. 04/18/2022 Patient is monitored today in intensive care unit currently awaiting a med-surg bed out of the ICU. He Reports mild abdominal pain today, but overall feeling well. No acute events overnight. Had BM yesterday. He is postoperative day #9 for partial small bowel resection and also laparotomy with lysis of adhesions small bowel resection secondary to strangulated hernia. Currently hemoglobin today 8.0 with recommendations to transfuse for hemoglobin less than 7. Sodium remains stable today at 134, potassium 3.5. He is being followed by cardiology and remains in normal sinus rhythm on amiodarone and metoprolol. Surgery continuing to hold off on anticoagulation therapy at this point. He continues on IV zosyn. He received oral potassium today. Plan for home with home care when cleared by consultations. He is tolerating diet. Afebrile, heart rate 63, blood pressure 110/65, 97% room air. 04/19/2022 Patient has been downgraded out of the ICU and continues to be monitored closely on the medical floor. He is hoping for discharge home tomorrow. Reports minimal abdominal pain. He continues to be monitored off anticoagulation. White count to day 11.02, hgb 7.8. Sodium is improving to 135 with a dose of IV lasix, kidney function stable. Remains afebrile heart rate 83 normal sinus rhythm, blood pressure 102/67, 96% room air. He has had about 800 mls of urine output in the last 24 hours documented. 04/20/2022 Patient seen in follow-up this morning surgery following. Patient is questioning about eulogio at the surgical site and surgery currently working on removing every other staple. Recommend close observation over 24 hours with possible discharge tomorrow. Patient is continued on Lasix and labs currently within normal limits. Patient is 94% on room air. Patient is afebrile and tolerating diet continues with some weakness although will be going home with home care being arranged. Patient denies chest pain or shortness of breath. Guarded prognosis. Review of systems: Cardiovascular: denied any chest pain, palpitations Gastrointestinal denied any nausea vomiting, reports appetite is slowly improving Pulmonary:no reports of worsening shortness of breath and reports cough with some mild sputum that he also reports is chronic Neurologic denied any new focal deficits, reports weakness PHYSICAL EXAMINATION: GENERAL: The patient is alert and oriented x3, not in any acute distress. Well developed, well nourished. Ill-appearing. hard of hearing HEENT: Pupils are round and equally reacting to light. EOMI. No scleral icterus. No conjunctival pallor. Normocephalic, atraumatic. No pharyngeal erythema. No thyromegaly. CARDIOVASCULAR: S1 and S2 present. No murmurs, rubs, or gallops. PULMONARY: Diminished breath sounds bilaterally with some scattered rhonchi and crackles noted ABDOMEN: Soft, tender, nondistended, normoactive bowel sounds. No palpable organomegaly. MUSCULOSKELETAL: No joint swelling or deformity. EXTREMITIES: No cyanosis, clubbing, or pedal edema. NEUROLOGICAL: Gross neurological examination did not reveal any focal deficits. Diffusely weak SKIN: No rashes. Assessment: acute Small bowel obstruction status post expiratory laparotomy lysis of adhesions and small bowel resection with repair of small bowel enterotomy and incidental appendectomy on 04/07/2022 New-onset A. fib and patient is on oral amiodarone, anticoagulant on hold for dropping hemoglobin and cardiology following Pulmonary edema secondary to congestive heart failure chronic diastolic dysfunction with acute exacerbation, has been receiving daily doses of IV lasix Right lower lobe atelectasis rather than pneumonia drop in hemoglobin with acute blood loss anemia, likely due to blood thinners, which are on hold, stable at 7.5. Hypertension with urgency, present on admission. Currently normotensive Hyperlipidemia Benign prostatic hypertrophy History of esophageal cancer status post esophagectomy bilateral renal calculi DVT prophylaxis GI Prophylaxis: Ppi Full code Plan: Recommend to continue with close monitoring. Hemoglobin is stable at 9.2. Continue to hold anticoagulant per surgery minimum of 2 weeks. Monitor surgical site of any additional bleeding. Every other staple being removed today Gen. surgery following and no plans for further surgical intervention at this time and diet is being slowly advanced as tolerated Patient is continued on IV antibiotics in the form of Zosyn and will continue for now per surgery, WBC improved at 10.1 and patient is afebrile. Will discuss with surgery if patient requires antibiotics in the outpatient setting Patient with extreme weakness and recommand PT/OT therapy daily, physical therapy recommending home with home care Patient continues with congestion and CHF noted and will give a dose of Lasix 40 mg today Prognosis is guarded Possible discharge in 24-48 hours The impression and plan of care has been dictated by Brandi Gomez, Nurse Practitioner as directed. Dr. Maritza MD I have performed a history and examination and MDM of this patient, discussed the same with the dictator, and agree with the dictator's assessment and plan as written ,documented as a scribe. Based on total visit time, I have performed more than 50% of the visit. Objective - Vital Signs Vital signs: Vital Signs Temp 98.0 F 04/20/22 05:00 Pulse 66 04/20/22 05:00 Resp 16 04/20/22 05:00 BP 108/72 04/20/22 09:20 Pulse Ox 93 L 04/20/22 05:00 FiO2 Intake & Output 04/19/22 04/20/22 04/20/22 18:59 06:59 18:59 Intake Total 240 590 Output Total 1600 500 300 Balance -1360 90 -300 Intake: Oral 240 590 Output: Urine 1600 500 300 Other: Voiding Method Urinal Urinal # Voids 1 # Bowel Movements 1 - Labs CBC & Chem 7: 04/20/22 09:46 04/19/22 07:08 Labs: Abnormal Lab Results - Last 24 Hours (Table) 04/19/22 04/19/22 Range/Units 07:08 07:08 WBC 11.02 H (4.50-10.00) X 10*3/uL RBC 2.64 L (4.40-5.60) X 10*6/uL Hgb 7.8 L (13.0-17.0) g/dL Hct 25.0 L (39.6-50.0) % MCHC 31.2 L (32.0-37.0) g/dL RDW 16.4 H (11.5-14.5) % Absolute Nucleated RBC 0.02 H (0.00-0.00) X 10*3/uL Immature Gran # 0.05 H (0.00-0.04) X 10*3/uL Neutrophils # 8.84 H (1.80-7.70) X 10*3/uL Lymphocytes # 0.65 L (0.90-5.00) X 10*3/uL Monocytes # 1.03 H (0.20-1.00) X 10*3/uL Eosinophils # 0.42 H (0.04-0.35) X 10*3/uL NRBC/100 WBC Diff 0.2 H (0.0-0.0) /100 WBCS Carbon Dioxide 29.0 H (20.0-27.5) mmol/L Anion Gap 6.10 L (10.00-18.00) mmol/L Calcium 7.3 L (8.7-10.3) mg/dL
--- NOTE | 2022-04-21 12:25 | P.PN ---
Subjective Progress Note Date: 04/21/22 CHIEF COMPLAINT: Small bowel obstruction HISTORY OF PRESENT ILLNESS: Patient is status post exploratory laparotomy, lysis of extensive adhesions, small bowel resection, repair of small bowel enterotomy and incidental appendectomy for a small bowel obstruction secondary to internal hernia and adhesions on 04/07/22. Patient sitting up at bedside chair. Apparently per daughter patient had some increase in abdominal pain yesterday and required a dose of IV pain medication. Patient had one dose of pain medication at 3 AM in the in the next dose was at 1600. Patient is likely going little too long without pain medication. He is complaining more of leg pain and abdominal pain. He is due for his rheumatoid arthritis medication as well. Today patient's pain appears controlled. He is having bowel movements. He did get up to ambulate. He is weak. The has been diagnosed with covert. He i s afebrile. WBC is 10.1 hemoglobin 9.2 platelets 255 Patient seen and examined with Dr. rose PHYSICAL EXAM: VITAL SIGNS: Reviewed. GENERAL: Well-developed in no acute distress. HEENT: No sclera icterus. Extraocular movements grossly intact. Moist buccal mucosa. Head is atraumatic, normocephalic. ABDOMEN: Soft. Nondistended. Incision site clean dry and intact NEUROLOGIC: Alert and oriented. Cranial nerves II through XII grossly intact. ASSESSMENT: 1. Small bowel obstruction secondary to internal hernia and adhesions status post exploratory laparotomy, lysis of extensive adhesions, small bowel resection, repair of small bowel enterotomy and incidental appendectomy 2. Anemia likely secondary to blood thinners 3. A. fib 4. History of rheumatoid arthritis 5. Fluid overload improved 6. Hiatal hernia with partial intrathoracic stomach PLAN: -Continue to work with physical therapy -Consult social work for possible ECF placement -Possible discharge tomorrow -Continue to Hold Eliquis for at least 2 more weeks -Discussed with nursing staff to give pain medication more frequently -Continue regular diet -Continue supportive care -Encourage patient to use incentive spirometer -GI prophylaxis Protonix Physician Isotope Hydrologist note has been reviewed by physician. Signing provider agrees with the documented findings, assessment, and plan of care. Objective - Vital Signs Vital signs: Vital Signs Temp 98.5 F 04/21/22 05:04 Pulse 70 04/21/22 09:08 Resp 16 04/21/22 05:04 BP 116/69 04/21/22 09:08 Pulse Ox 94 L 04/21/22 09:08 FiO2 Intake & Output 04/20/22 04/21/22 04/21/22 18:59 06:59 18:59 Output Total 1603 201 441 Balance -1603 -201 -441 Output: Urine 1600 200 440 Stool 3 1 1 Other: Voiding Method Urinal Urinal # Voids 1 # Bowel Movements 1 0 - Labs CBC & Chem 7: 04/20/22 09:46 04/19/22 07:08
[2022-04-21] MEDS: HYDROcodone/APAP 5-325MG 1 EACH TAB PO PRN (12:59)
[2022-04-21] MEDS ORDERED: [UNRECOGNIZED DRUG - OTHER] SQ SCH (13:00)
[2022-04-21] MEDS ORDERED: ETANERCEPT SQ SCH (13:00)
[2022-04-21] MEDS: TAMSULOSIN 0.4 MG CAP.ER.24H PO SCH (21:01)
--- NOTE | 2022-04-22 05:58 | P.PN ---
Subjective Progress Note Date: 04/21/22 04/13/2022 Patient is admitted for partial small bowel resection patient underwent the laparotomy lysis of adhesions small bowel resection. Patient is on a full liquid diet at this time. Patient does have crackles on lung exam obtain a chest x-ray, which showed a bilateral pleural effusions, pulmonary edema and intrathoracic stomach patient will be given a dose of Lasix with close clinical monitoring. Patient is also in atrial fibrillation patient is presently rate controlled still in A. fib patient was on IV Cardizem which is being weaned off patient is also on clonidine which is also being weaned off and patient is being transitioned to oral amiodarone from IV amiodarone cardiology is following the patient. 04/14/2022 Patient was seen and evaluated in follow-up today. Hemoglobin was low and given a unit of PRBCs and will follow-up with repeat hemoglobin in the afternoon. Patient was CODE BLUE yesterday per nursing staff while getting up and attempting to get to the commode. Patient is continued on 4 L via nasal cannula and will also give a dose of Lasix after the unit of blood as patient chest x- ray shows possible congestive heart failure with basilar effusions and associated edema versus atelectasis. Patient will be also given a incentive spirometer encouraged to use at least 10 times every hour. Also medical consultations following including surgery and patient is on full liquid diet although not eating much and not tolerating much of a diet. Patient reports he is having multiple bowel movements that are loose with no blood noted. CT abdomen and pelvis is ordered by surgery and pending at this time. Recommend continue holding Eliquis due to the drop in hemoglobin with cardiology following closely. Patient is also maintained on IV antibiotics in the form of Zosyn and will continue. Constitutional: Denied any fatigue denied any fever. Pulmonary also placed on consulted and pending. Patient with extreme weakness does have PT/OT therapy on currently. 04/15/2022 Patient is seen in the ICU for close monitoring as patient had significant drop in hemoglobin from 9 down to the 6 range and 2 units ordered. Patient received one unit and hemoglobin went up to 8.2. Recommend to monitor closely with serial H&H. CT of the abdomen from yesterday showed moderate ascites that shows intermediate attenuation suggesting significant hemorrhagic ascites, correlate for bleeding from anastomotic site. Previous esophagectomy and gastric pull- through procedure. There is a concurrent hernia involving ascites fluid, mesentery and a segment of nonobstructed transverse colon along the left lateral margin of the pull-through. [employer] or [employer] following ok with ICU transfer to closely monitor and transfuse for any further possible bleeding. Patient did have a fall while going to the bathroom one day prior with no injuries noted. Significantly weak and will need PT/OT. Afebrile and blood pressure is improved. Not requiring any pressor support at this time. Continued on IV abx with multiple medical consultations following. 04/16/2022 Patient is seen and evaluated in follow-up this morning currently in the ICU and hemodynamically stable. Hemoglobin is 8.1 and has only received 1 unit of PRBC. Patient continues with 3 L via nasal cannula denies any worsening shortness of breath. Patient reports some abdominal discomfort although improved from previous. Patients vitals are stable and not requiring pressor support. CAT scan yesterday evening was 2.9 and replacement this morning showing 3.6 potassium. Patient surgical site does have some minimal bleeding noted and surgery is aware. Dressings to be changed. Patient also continues on IV antibiotics in the form of Zosyn. Patient being closely monitored by surgery with no plans for further surgical intervention at this time. Patient with significant weakness recommend physical therapy daily. Patient was able to work with physical therapy today recommending home with home care. Patient reports he is exhausted and weak. Encouraged oral intake and currently eating lunch at the bedside. Crackles noted on exam we'll give a dose of Lasix and recommend follow-up chest x-ray and labs in the a.m. Recommend to replace electrolytes per protocol. 04/17/2022 Patient is seen in follow up today awaiting a med surg bed for transfer out of the icu. Currently on room air and chest xray is consistent with chf and overload. Patient is continued on IV zosyn per surgery and is currently post op day 9 for partial small bowel resection patient underwent the laparotomy lysis of adhesions small bowel resection. Hemoglobin is stable at 7.5. Transfuse if less than 7. Afebrile and denies chest pain or shortness of breath during exam. Patient has multiple complaints of generalized pain and weakness. recommend working with physical therapy daily. plan is for home with home care. Encouraged oral intake and increased activity as tolerated. 04/18/2022 Patient is monitored today in intensive care unit currently awaiting a med-surg bed out of the ICU. He Reports mild abdominal pain today, but overall feeling well. No acute events overnight. Had BM yesterday. He is postoperative day #9 for partial small bowel resection and also laparotomy with lysis of adhesions small bowel resection secondary to strangulated hernia. Currently hemoglobin today 8.0 with recommendations to transfuse for hemoglobin less than 7. Sodium remains stable today at 134, potassium 3.5. He is being followed by cardiology and remains in normal sinus rhythm on amiodarone and metoprolol. Surgery continuing to hold off on anticoagulation therapy at this point. He continues on IV zosyn. He received oral potassium today. Plan for home with home care when cleared by consultations. He is tolerating diet. Afebrile, heart rate 63, blood pressure 110/65, 97% room air. 04/19/2022 Patient has been downgraded out of the ICU and continues to be monitored closely on the medical floor. He is hoping for discharge home tomorrow. Reports minimal abdominal pain. He continues to be monitored off anticoagulation. White count to day 11.02, hgb 7.8. Sodium is improving to 135 with a dose of IV lasix, kidney function stable. Remains afebrile heart rate 83 normal sinus rhythm, blood pressure 102/67, 96% room air. He has had about 800 mls of urine output in the last 24 hours documented. 04/20/2022 Patient seen in follow-up this morning surgery following. Patient is questioning about eluogio at the surgical site and surgery currently working on removing every other staple. Recommend close observation over 24 hours with possible discharge tomorrow. Patient is continued on Lasix and labs currently within normal limits. Patient is 94% on room air. Patient is afebrile and tolerating diet continues with some weakness although will be going home with home care being arranged. Patient denies chest pain or shortness of breath. Guarded prognosis. 04/21/2022 Patient is seen today and is awake and alert reporting his pain is controlled and tolerating diet. Surgery following and recommends ECF as patient continues t o be weak. Patient was hesitant but after discussion with family, patient is now agreeable and social work consulted and following and discussing with patient about preference with referrals being placed. Insurance authorization required. Encouraged oral intake and increased activity as tolerated. Afebrile and denies chest pain or shortness of breath. Review of systems: Cardiovascular: denied any chest pain, palpitations Gastrointestinal denied any nausea vomiting, reports appetite is slowly improving Pulmonary:no reports of worsening shortness of breath and reports occasional cough Neurologic denied any new focal deficits, reports weakness PHYSICAL EXAMINATION: GENERAL: The patient is alert and oriented x3, not in any acute distress. Well developed, well nourished. Ill-appearing. hard of hearing HEENT: Pupils are round and equally reacting to light. EOMI. No scleral icterus. No conjunctival pallor. Normocephalic, atraumatic. No pharyngeal erythema. No thyromegaly. CARDIOVASCULAR: S1 and S2 present. No murmurs, rubs, or gallops. PULMONARY: Diminished breath sounds bilaterally with some scattered rhonchi noted ABDOMEN: Soft, less tender, nondistended, normoactive bowel sounds. No palpable organomegaly. MUSCULOSKELETAL: No joint swelling or deformity. EXTREMITIES: No cyanosis, clubbing, or pedal edema. NEUROLOGICAL: Gross neurological examination did not reveal any focal deficits. Diffusely weak SKIN: No rashes. Assessment: acute Small bowel obstruction status post expiratory laparotomy lysis of adhesions and small bowel resection with repair of small bowel enterotomy and incidental appendectomy on 04/07/2022 New-onset A. fib and patient is on oral amiodarone, anticoagulant on hold for dropping hemoglobin and cardiology following Pulmonary edema secondary to congestive heart failure chronic diastolic dysfunction with acute exacerbation, has been receiving daily doses of IV lasix, will transition to oral Right lower lobe atelectasis rather than pneumonia drop in hemoglobin with acute blood loss anemia, likely due to blood thinners, which are on hold, stable Hypertension with urgency, present on admission. Currently normotensive Hyperlipidemia Benign prostatic hypertrophy History of esophageal cancer status post esophagectomy bilateral renal calculi DVT prophylaxis GI Prophylaxis: Ppi Full code Plan: Recommend to continue with close monitoring. Hemoglobin is stable with no active bleeding noted. Continue to hold anticoagulant per surgery minimum of 2 weeks. Monitor surgical site of any additional bleeding. Every other staple removed Gen. surgery following and no plans for further surgical intervention at this time and diet is being tolerated Patient is continued on IV antibiotics in the form of Zosyn and will continue for now per surgery, WBC improved at 10.1 and patient is afebrile. Surgery recommends to continue with antibiotics in the outpatient setting Patient with extreme weakness and recommand PT/OT therapy daily, physical therapy recommending ecf and patient was resistant at first, but now agreeable Prognosis is guarded Possible discharge in 24-48 hours The impression and plan of care has been dictated by Brandi Gomez, Nurse Practitioner as directed. Dr. Maritza MD I have performed a history and examination and MDM of this patient, discussed the same with the dictator, and agree with the dictator's assessment and plan as written ,documented as a scribe. Based on total visit time, I have performed more than 50% of the visit. Objective - Vital Signs Vital signs: Vital Signs Temp 98.5 F 04/21/22 05:04 Pulse 70 04/21/22 09:08 Resp 16 04/21/22 05:04 BP 116/69 04/21/22 09:08 Pulse Ox 94 L 04/21/22 09:08 FiO2 Intake & Output 04/20/22 04/21/22 04/21/22 18:59 06:59 18:59 Output Total 1603 201 Balance -1603 -201 Output: Urine 1600 200 Stool 3 1 Other: Voiding Method Urinal # Voids 1 # Bowel Movements 1 0 - Labs CBC & Chem 7: 04/20/22 09:46 04/19/22 07:08 Labs: Abnormal Lab Results - Last 24 Hours (Table) 04/20/22 Range/Units 09:46 RBC 2.91 L (4.30-5.90) m/uL Hgb 9.2 L (13.0-17.5) gm/dL Hct 28.4 L (39.0-53.0) % RDW 16.2 H (11.5-15.5) % Neutrophils # 8.2 H (1.3-7.7) k/uL Lymphocytes # 0.6 L (1.0-4.8) k/uL
[2022-04-22] MEDS: LEVOTHYROXINE 25 MCG TAB PO SCH (06:12)
[2022-04-22] MEDS: ATORVASTATIN 10 MG TAB PO SCH (09:13)
[2022-04-22] MEDS: AMIODARONE 200 MG TAB PO SCH ×2 (09:13→21:30)
[2022-04-22] MEDS: PANTOPRAZOLE 40 MG/10 ML VIAL IV SCH (09:13)
[2022-04-22] MEDS: PARoxetine 20 MG TAB PO SCH (09:13)
[2022-04-22] MEDS: FUROSEMIDE 10 MG TAB PO SCH (09:13)
[2022-04-22] MEDS: PIPERACILLIN-TAZOBACTAM 3.375 GM in SODIUM CHLORIDE 0.9% 100 ML IVPB SCH (09:13)
[2022-04-22] MEDS: METOPROLOL TARTRATE 25 MG TAB PO SCH ×2 (09:13→21:30)
--- NOTE | 2022-04-22 09:41 | XR ---
EXAMINATION TYPE: XR chest 1V portable DATE OF EXAM: 04/22/2022 COMPARISON: 04/17/2022 HISTORY: Shortness of breath TECHNIQUE: Single frontal view of the chest is obtained. FINDINGS: Bilateral consolidation and small effusion. Diffuse interstitial pattern. Underlying COPD is osteopenia. Arthropathy of the shoulders. No pneumothorax. IMPRESSION: Bilateral pleural parenchymal changes stable correlate for CHF otherwise consider pneumo thomas.
[2022-04-22] MEDS: HYDROcodone/APAP 5-325MG 1 EACH TAB PO PRN (09:53)
[2022-04-22 11:45] LABS: Anisocytosis Slight; Basophils % (A) 0 %; Eosinophils # (A) 0.3 k/uL (0-0.7); Eosinophils % (A) 4 %; HCT 31.8 % (39.0-53.0); Hypochromasia Marked; Lymphocytes # (A) 0.7 k/uL (1.0-4.8); Lymphocytes % (A) 8 %; MCH 30.9 pg (25.0-35.0); MCHC 31.4 g/dL (31.0-37.0); MCV 98.4 fL (80.0-100.0); Macrocytosis Slight; Mean Platelet Volume 9.1; Monocytes # (A) 0.7 k/uL (0-1.0); Monocytes % (A) 8 %; Neutrophils # (A) 7.1 k/uL (1.3-7.7); Neutrophils % (A) 79 %; Platelet Count 281 k/uL (150-450); Poikilocytosis Slight; RBC 3.23 m/uL (4.30-5.90); RDW 16.1 % (11.5-15.5); WBC 9.1 k/uL (3.8-10.6)
[2022-04-22 11:52] LABS: African American GFR (CKD) >90 (>60 ml/min/1.73 sqM); Anion Gap 9 mmol/L; Blood Urea Nitrogen 16 mg/dL (9-20); Calcium 7.3 mg/dL (8.4-10.2); Carbon Dioxide 28 mmol/L (22-30); Chloride 97 mmol/L (98-107); Glucose 121 mg/dL (74-99); Non-African American GFR(CKD) 88 (>60 ml/min/1.73 sqM); Potassium 3.1 mmol/L (3.5-5.1); Sodium 134 mmol/L (137-145)
--- NOTE | 2022-04-22 14:23 | P.PN ---
Subjective Progress Note Date: 04/22/22 04/13/2022 Patient is admitted for partial small bowel resection patient underwent the laparotomy lysis of adhesions small bowel resection. Patient is on a full liquid diet at this time. Patient does have crackles on lung exam obtain a chest x-ray, which showed a bilateral pleural effusions, pulmonary edema and intrathoracic stomach patient will be given a dose of Lasix with close clinical monitoring. Patient is also in atrial fibrillation patient is presently rate controlled still in A. fib patient was on IV Cardizem which is being weaned off patient is also on clonidine which is also being weaned off and patient is being transitioned to oral amiodarone from IV amiodarone cardiology is following the patient. 04/14/2022 Patient was seen and evaluated in follow-up today. Hemoglobin was low and given a unit of PRBCs and will follow-up with repeat hemoglobin in the afternoon. Patient was CODE BLUE yesterday per nursing staff while getting up and attempting to get to the commode. Patient is continued on 4 L via nasal cannula and will also give a dose of Lasix after the unit of blood as patient chest x- ray shows possible congestive heart failure with basilar effusions and associated edema versus atelectasis. Patient will be also given a incentive spirometer encouraged to use at least 10 times every hour. Also medical consultations following including surgery and patient is on full liquid diet although not eating much and not tolerating much of a diet. Patient reports he is having multiple bowel movements that are loose with no blood noted. CT abdomen and pelvis is ordered by surgery and pending at this time. Recommend continue holding Eliquis due to the drop in hemoglobin with cardiology following closely. Patient is also maintained on IV antibiotics in the form of Zosyn and will continue. Constitutional: Denied any fatigue denied any fever. Pulmonary also placed on consulted and pending. Patient with extreme weakness does have PT/OT therapy on currently. 04/15/2022 Patient is seen in the ICU for close monitoring as patient had significant drop in hemoglobin from 9 down to the 6 range and 2 units ordered. Patient received one unit and hemoglobin went up to 8.2. Recommend to monitor closely with serial H&H. CT of the abdomen from yesterday showed moderate ascites that shows intermediate attenuation suggesting significant hemorrhagic ascites, correlate for bleeding from anastomotic site. Previous esophagectomy and gastric pull- through procedure. There is a concurrent hernia involving ascites fluid, mesentery and a segment of nonobstructed transverse colon along the left lateral margin of the pull-through. ruling machine operator following ok with ICU transfer to closely monitor and transfuse for any further possible bleeding. Patient did have a fall while going to the bathroom one day prior with no injuries noted. Significantly weak and will need PT/OT. Afebrile and blood pressure is improved. Not requiring any pressor support at this time. Continued on IV abx with multiple medical consultations following. 04/16/2022 Patient is seen and evaluated in follow-up this morning currently in the ICU and hemodynamically stable. Hemoglobin is 8.1 and has only received 1 unit of PRBC. Patient continues with 3 L via nasal cannula denies any worsening shortness of breath. Patient reports some abdominal discomfort although improved from previous. Patients vitals are stable and not requiring pressor support. CAT scan yesterday evening was 2.9 and replacement this morning showing 3.6 potassium. Patient surgical site does have some minimal bleeding noted and surgery is aware. Dressings to be changed. Patient also continues on IV antibiotics in the form of Zosyn. Patient being closely monitored by surgery with no plans for further surgical intervention at this time. Patient with significant weakness recommend physical therapy daily. Patient was able to work with physical therapy today recommending home with home care. Patient reports he is exhausted and weak. Encouraged oral intake and currently eating lunch at the bedside. Crackles noted on exam we'll give a dose of Lasix and recommend follow-up chest x-ray and labs in the a.m. Recommend to replace electrolytes per protocol. 04/17/2022 Patient is seen in follow up today awaiting a med surg bed for transfer out of the icu. Currently on room air and chest xray is consistent with chf and overload. Patient is continued on IV zosyn per surgery and is currently post op day 9 for partial small bowel resection patient underwent the laparotomy lysis of adhesions small bowel resection. Hemoglobin is stable at 7.5. Transfuse if less than 7. Afebrile and denies chest pain or shortness of breath during exam. Patient has multiple complaints of generalized pain and weakness. recommend working with physical therapy daily. plan is for home with home care. Encouraged oral intake and increased activity as tolerated. 04/18/2022 Patient is monitored today in intensive care unit currently awaiting a med-surg bed out of the ICU. He Reports mild abdominal pain today, but overall feeling well. No acute events overnight. Had BM yesterday. He is postoperative day #9 for partial small bowel resection and also laparotomy with lysis of adhesions small bowel resection secondary to strangulated hernia. Currently hemoglobin today 8.0 with recommendations to transfuse for hemoglobin less than 7. Sodium remains stable today at 134, potassium 3.5. He is being followed by cardiology and remains in normal sinus rhythm on amiodarone and metoprolol. Surgery continuing to hold off on anticoagulation therapy at this point. He continues on IV zosyn. He received oral potassium today. Plan for home with home care when cleared by consultations. He is tolerating diet. Afebrile, heart rate 63, blood pressure 110/65, 97% room air. 04/19/2022 Patient has been downgraded out of the ICU and continues to be monitored closely on the medical floor. He is hoping for discharge home tomorrow. Reports minimal abdominal pain. He continues to be monitored off anticoagulation. White count to day 11.02, hgb 7.8. Sodium is improving to 135 with a dose of IV lasix, kidney function stable. Remains afebrile heart rate 83 normal sinus rhythm, blood pressure 102/67, 96% room air. He has had about 800 mls of urine output in the last 24 hours documented. 04/20/2022 Patient seen in follow-up this morning surgery following. Patient is questioning about eulogio at the surgical site and surgery currently working on removing every other staple. Recommend close observation over 24 hours with possible discharge tomorrow. Patient is continued on Lasix and labs currently within normal limits. Patient is 94% on room air. Patient is afebrile and tolerating diet continues with some weakness although will be going home with home care being arranged. Patient denies chest pain or shortness of breath. Guarded prognosis. 04/21/2022 Patient is seen today and is awake and alert reporting his pain is controlled and tolerating diet. Surgery following and recommends ECF as patient continues t o be weak. Patient was hesitant but after discussion with family, patient is now agreeable and social work consulted and following and discussing with patient about preference with referrals being placed. Insurance authorization required. Encouraged oral intake and increased activity as tolerated. Afebrile and denies chest pain or shortness of breath. 04/22/2022 Patient is seen and evaluated in follow-up this morning currently sitting up in the chair. Patient continues with significant weakness reports not much of an appetite and not really tasting or smelling and continues to report this cough. Will obtain chest x-ray along with Covid testing as patient has been hospitalized for over 2 weeks now. currently at home with Covid although is recovering with no respiratory symptoms. Patient is currently denying shortness of breath and 98% on room air. Patient was transitioned oral Lasix and will await chest x-ray. Patient is afebrile and denies chest pain or palpitations. Patient is tolerating oral intake although continues to be fair and not really eating much and patient reports he does not have much of an appetite. Patient to be working with physical therapy daily. A.m. labs are currently pending. Patient is not currently on any anticoagulation due to recent bleeding noted in the abdomen and will start subcutaneous heparin. Will also obtain BNP. Review of systems: Cardiovascular: denied any chest pain, palpitations Gastrointestinal denied any nausea vomiting, reports not much of an appetite, unable to smell food and taste Pulmonary:no reports of shortness of breath and reports occasional cough with some phlegm Neurologic denied any new focal deficits, reports weakness PHYSICAL EXAMINATION: GENERAL: The patient is alert and oriented x3, not in any acute distress. Well developed, well nourished. Ill-appearing. hard of hearing HEENT: Pupils are round and equally reacting to light. EOMI. No scleral icterus. No conjunctival pallor. Normocephalic, atraumatic. No pharyngeal erythema. No thyromegaly. CARDIOVASCULAR: S1 and S2 present. No murmurs, rubs, or gallops. PULMONARY: Diminished breath sounds bilaterally with some scattered rhonchi n oted ABDOMEN: Soft, less tender, nondistended, normoactive bowel sounds. No palpable organomegaly. MUSCULOSKELETAL: No joint swelling or deformity. EXTREMITIES: No cyanosis, clubbing, or pedal edema. NEUROLOGICAL: Gross neurological examination did not reveal any focal deficits. Diffusely weak SKIN: No rashes. Assessment: acute Small bowel obstruction status post expiratory laparotomy lysis of adhesions and small bowel resection with repair of small bowel enterotomy and incidental appendectomy on 04/07/2022 New-onset A. fib and patient is on oral amiodarone, anticoagulant on hold for dropping hemoglobin and cardiology following Pulmonary edema secondary to congestive heart failure chronic diastolic dysfunction with acute exacerbation, has been receiving daily doses of IV lasix, have transitioned to oral Lasix Positive COVID-19 today on 04/22/2022 with reported family positive for Covid at home as well, not in respiratory distress Right lower lobe atelectasis rather than pneumonia drop in hemoglobin with acute blood loss anemia, likely due to blood thinners, which are on hold, stable Hypertension with urgency, present on admission. Currently normotensive Hyperlipidemia Benign prostatic hypertrophy History of esophageal cancer status post esophagectomy bilateral renal calculi DVT prophylaxis GI Prophylaxis: Ppi Full code Plan: Recommend to continue with close monitoring. Hemoglobin is stable with no active bleeding noted. Hemoglobin is 10.0 today. Continue to hold anticoagulant per surgery minimum of 2 weeks. Monitor surgical site of any additional bleeding. Every other staple removed Patient with decreased appetite and unable to taste or smell with at home positive for Covid and was tested given his cough and weakness and is positive for Covid with no respiratory compromise. Will start subcutaneous heparin twice a day and also vitamin and zinc supplements patient is 98% oxygen saturation on room air Gen. surgery following and no plans for further surgical intervention at this time and diet is being tolerated Patient is continued on IV antibiotics in the form of Zosyn and will continue for now per surgery Patient with extreme weakness and recommand PT/OT therapy daily, physical therapy recommending ecf and patient and family have decided they do not want to go to ECF and would like to go home with a home care nurse and case management was notified. Arranging for home care in the outpatient setting Prognosis is guarded Possible discharge in 24-48 hours The impression and plan of care has been dictated by Brandi Gomez, Nurse Practitioner as directed. Dr. Maritza MD I have performed a history and examination and MDM of this patient, discussed the same with the dictator, and agree with the dictator's assessment and plan as written ,documented as a scribe. Based on total visit time, I have performed more than 50% of the visit. Objective - Vital Signs Vital signs: Vital Signs Temp 98 F 04/22/22 12:24 Pulse 60 04/22/22 12:24 Resp 16 04/22/22 12:24 BP 98/58 11/02/22 12:24 Pulse Ox 98 04/22/22 12:24 FiO2 Intake & Output 04/21/22 04/22/22 04/22/22 18:59 06:59 18:59 Intake Total 100 Output Total 541 1 Balance -541 99 Intake: Intake, IV Titration 100 Amount Piperacillin-Tazobactam 3 100 .375 gm In Sodium Chloride 0.9% 100 ml @ 25 mls/hr IVPB Q8HR [facility] Rx# :[id number] Output: Urine 540 Stool 1 1 Other: Voiding Method Urinal Urinal Urinal # Voids 0 - Labs CBC & Chem 7: 04/22/22 11:21 04/22/22 11:21 Labs: Abnormal Lab Results - Last 24 Hours (Table) 04/22/22 04/22/22 04/22/22 Range/Units 10:00 11:21 11:21 RBC 3.23 L (4.30-5.90) m/uL Hgb 10.0 L (13.0-17.5) gm/dL Hct 31.8 L (39.0-53.0) % RDW 16.1 H (11.5-15.5) % Lymphocytes # 0.7 L (1.0-4.8) k/uL Sodium 134 L (137-145) mmol/L Potassium 3.1 L (3.5-5.1) mmol/L Chloride 97 L (98-107) mmol/L Glucose 121 H (74-99) mg/dL Calcium 7.3 L (8.4-10.2) mg/dL Coronavirus (PCR) Detected A (Not Detectd)
[2022-04-22] MEDS ORDERED: POTASSIUM CHLORIDE ER 20 MEQ TAB.ER PO STA (14:24)
[2022-04-22] MEDS: ZINC SULFATE 220 MG CAP PO SCH (15:22)
[2022-04-22] MEDS: ASCORBIC ACID 500 MG TAB PO SCH (15:22)
[2022-04-22] MEDS: CHOLECALCIFEROL 25 MCG (1000 IU) TABLET PO SCH (15:22)
--- NOTE | 2022-04-22 15:37 | P.PN ---
Subjective Progress Note Date: 04/22/22 CHIEF COMPLAINT: Small bowel obstruction HISTORY OF PRESENT ILLNESS: Patient is status post exploratory laparotomy, lysis of extensive adhesions, small bowel resection, repair of small bowel enterotomy and incidental appendectomy for a small bowel obstruction secondary to internal hernia and adhesions on 04/07/22. Patient overall is feeling more weak. He has worked with physical therapy. He is having bowel movements. He does have a productive cough. Abdominal pain controlled. Denies any nausea or vomiting. Reports decreased appetite. Reports that he cannot taste anything. Afebrile. WBC is 9.1H to be 10 fluids to 81 sodium is 134 potassium 3.1 creatinine 0.76 Patient seen and examined with Dr. rose PHYSICAL EXAM: VITAL SIGNS: Reviewed. GENERAL: Well-developed in no acute distress. HEENT: No sclera icterus. Extraocular movements grossly intact. Moist buccal mucosa. Head is atraumatic, normocephalic. ABDOMEN: Soft. Nondistended. Incision site clean dry and intact NEUROLOGIC: Alert and oriented. Cranial nerves II through XII grossly intact. ASSESSMENT: 1. Small bowel obstruction secondary to internal hernia and adhesions status post exploratory laparotomy, lysis of extensive adhesions, small bowel resection, repair of small bowel enterotomy and incidental appendectomy 2. Anemia likely secondary to blood thinners 3. A. fib 4. History of rheumatoid arthritis 5. Fluid overload 6. Hiatal hernia with partial intrathoracic stomach PLAN: -Patient is not ready for discharge -Continue to work with PT OT -Check chest x-ray, BNP level and Covid screening -Continue to Hold Eliquis for at least 2 more weeks -Increase activity level. Have patient sit up at bedside chair for all meals -Continue pain medication as needed -Continue regular diet -Continue supportive care -Encourage patient to use incentive spirometer -GI prophylaxis Protonix Physician Ceramist note has been reviewed by physician. Signing provider agrees with the documented findings, assessment, and plan of care. Objective - Vital Signs Vital signs: Vital Signs Temp 98 F 04/22/22 12:24 Pulse 60 04/22/22 12:24 Resp 16 04/22/22 12:24 BP 98/58 04/22/22 12:24 Pulse Ox 98 04/22/22 12:24 FiO2 Intake & Output 04/21/22 04/22/22 04/22/22 18:59 06:59 18:59 Intake Total 100 Output Total 541 1 Balance -541 99 Intake: Intake, IV Titration 100 Amount Piperacillin-Tazobactam 3 100 .375 gm In Sodium Chloride 0.9% 100 ml @ 25 mls/hr IVPB Q8HR [facility] Rx# :[id number] Output: Urine 540 Stool 1 1 Other: Voiding Method Urinal Urinal Urinal # Voids 0 - Labs CBC & Chem 7: 04/22/22 11:21 11 11:21 Labs: Abnormal Lab Results - Last 24 Hours (Table) 04/22/22 04/22/22 04/22/22 Range/Units 10:00 11:21 11:21 RBC 3.23 L (4.30-5.90) m/uL Hgb 10.0 L (13.0-17.5) gm/dL Hct 31.8 L (39.0-53.0) % RDW 16.1 H (11.5-15.5) % Lymphocytes # 0.7 L (1.0-4.8) k/uL Sodium 134 L (137-145) mmol/L Potassium 3.1 L (3.5-5.1) mmol/L Chloride 97 L (98-107) mmol/L Glucose 121 H (74-99) mg/dL Calcium 7.3 L (8.4-10.2) mg/dL Coronavirus (PCR) Detected A (Not Detectd)
[2022-04-22 16:09] VITALS: BMI 27.9
[2022-04-22] MEDS: HEPARIN SODIUM,PORCINE/PF 5,000 UNIT/0.5 ML SYRINGE SQ SCH (21:30)
[2022-04-22] MEDS: TAMSULOSIN 0.4 MG CAP.ER.24H PO SCH (21:30)
[2022-04-23] MEDS: LEVOTHYROXINE 25 MCG TAB PO SCH (05:23)
[2022-04-23 08:10] VITALS: RESP 16
[2022-04-23] MEDS: CHOLECALCIFEROL 25 MCG (1000 IU) TABLET PO SCH (09:09)
[2022-04-23] MEDS: PARoxetine 20 MG TAB PO SCH (09:09)
[2022-04-23] MEDS: HEPARIN SODIUM,PORCINE/PF 5,000 UNIT/0.5 ML SYRINGE SQ SCH (09:09)
[2022-04-23] MEDS: FUROSEMIDE 10 MG TAB PO SCH (09:09)
[2022-04-23] MEDS: ASCORBIC ACID 500 MG TAB PO SCH (09:09)
[2022-04-23] MEDS: METOPROLOL TARTRATE 25 MG TAB PO SCH (09:09)
[2022-04-23] MEDS: PANTOPRAZOLE 40 MG/10 ML VIAL IV SCH (09:10)
[2022-04-23] MEDS: ZINC SULFATE 220 MG CAP PO SCH (09:10)
[2022-04-23] MEDS: ATORVASTATIN 10 MG TAB PO SCH (09:10)
[2022-04-23] MEDS: AMIODARONE 200 MG TAB PO SCH (09:22)
[2022-04-23 10:01] LABS: African American GFR (CKD) >90 (>60 ml/min/1.73 sqM); Anion Gap 5 mmol/L; Blood Urea Nitrogen 14 mg/dL (9-20); Calcium 7.2 mg/dL (8.4-10.2); Carbon Dioxide 30 mmol/L (22-30); Chloride 99 mmol/L (98-107); Glucose 103 mg/dL (74-99); Non-African American GFR(CKD) >90 (>60 ml/min/1.73 sqM); Potassium 3.1 mmol/L (3.5-5.1); Sodium 134 mmol/L (137-145)
[2022-04-23] MEDS ORDERED: Potassium Replacement Protocol 1 EACH MISC MISCELLANE PRN (10:40)
[2022-04-23] MEDS: POTASSIUM CHLORIDE ER 20 MEQ TAB.ER PO SCH ×4 (11:00→15:32)
--- NOTE | 2022-04-23 12:35 | P.PN ---
Subjective Progress Note Date: 04/23/22 CHIEF COMPLAINT: Small bowel obstruction HISTORY OF PRESENT ILLNESS: Patient is status post exploratory laparotomy, lysis of extensive adhesions, small bowel resection, repair of small bowel enterotomy and incidental appendectomy for a small bowel obstruction secondary to internal hernia and adhesions on 04/07/22. Patient was found to be Covid positive. He is having bowel movements. His abdominal pain is controlled. He is tolerating diet. He has been up and ambulating to the chair and bathroom on his own. Afebrile. Sodium is 134 potassium is 3.1 creatinine 0.64 BNP was 1020 chest x- ray bilateral pleural parenchyma changes stable correlate for CHF otherwise consider pneumonia. Patient seen and examined with Dr. rose PHYSICAL EXAM: VITAL SIGNS: Reviewed. GENERAL: Well-developed in no acute distress. HEENT: No sclera icterus. Extraocular movements grossly intact. Moist buccal mucosa. Head is atraumatic, normocephalic. ABDOMEN: Soft. Nondistended. Incision site clean dry and intact NEUROLOGIC: Alert and oriented. Cranial nerves II through XII grossly intact. ASSESSMENT: 1. Small bowel obstruction secondary to internal hernia and adhesions status post exploratory laparotomy, lysis of extensive adhesions, small bowel resection, repair of small bowel enterotomy and incidental appendectomy 2. Anemia likely secondary to blood thinners 3. A. fib 4. History of rheumatoid arthritis 5. Fluid overload improved 6. Hiatal hernia with partial intrathoracic stomach PLAN: -Patient can be discharged from surgical standpoint -Patient is to have the rest of the eulogio removed today by nursing staff. Apply Steri-Strips to incision site -Continue to Hold Eliquis for at least 2 more weeks -Continue regular diet Physician Fire Tender note has been reviewed by physician. Signing provider agrees with the documented findings, assessment, and plan of care. Objective - Vital Signs Vital signs: Vital Signs Temp 98.7 F 04/23/22 08:09 Pulse 70 04/23/22 08:09 Resp 16 04/23/22 08:09 BP 135/73 04/23/22 08:09 Pulse Ox 92 L 04/23/22 08:09 FiO2 21 04/22/22 20:22 Intake & Output 04/22/22 04/23/22 04/23/22 18:59 06:59 18:59 Output Total 300 351 Balance -300 -351 Weight 96.2 kg Output: Urine 300 350 Stool 1 Other: Voiding Method Urinal Urinal # Voids 2 - Labs CBC & Chem 7: 04/22/22 11:21 04/23/22 09:08 Labs: Abnormal Lab Results - Last 24 Hours (Table) 04/23/22 Range/Units 09:08 Sodium 134 L (137-145) mmol/L Potassium 3.1 L (3.5-5.1) mmol/L Creatinine 0.64 L (0.66-1.25) mg/dL Glucose 103 H (74-99) mg/dL Calcium 7.2 L (8.4-10.2) mg/dL
[2022-04-23 13:24] VITALS: BP 155/75; PULSE 67; TEMP 98.1
[2022-04-23] MEDS ORDERED: POTASSIUM CHLORIDE ER 20 MEQ TAB.ER PO SCH (21:00)
--- NOTE | 2022-04-27 15:40 | P.DS ---
Providers Date of admission: 04/06/22 09:29 Expected date of discharge: 04/23/22 Attending physician: Rosana Saha Consults: 04/06/22 09:27 Consult Physician Routine Consulting Provider: Zhao Ferreira Consult Reason/Comments: sbo Do you want consulting provider notified?: Yes 04/06/22 16:05 Consult Physician Urgent Consulting Provider: Fei Short Consult Reason/Comments: preop evaluation Do you want consulting provider notified?: Yes 04/10/22 11:35 Consult Physician Urgent Consulting Provider: Fei Short Consult Reason/Comments: A-Fib w/ RVR Do you want consulting provider notified?: Already Contacted 04/13/22 16:47 Consult Physician Routine Consulting Provider: El Francis Consult Reason/Comments: aspiration pneumonia Do you want consulting provider notified?: Yes Primary care physician: Kuldip Bowman [facility] Course: Final diagnosis acute Small bowel obstruction status post expiratory laparotomy lysis of adhesions and small bowel resection with repair of small bowel enterotomy and incidental appendectomy on 04/07/2022 New-onset A. fib Pulmonary edema secondary to congestive heart failure chronic diastolic dysfunction with acute exacerbation Positive COVID-19 today on 04/22/2022 with reported family positive for Covid at home as well, not in respiratory distress Right lower lobe atelectasis rather than pneumonia drop in hemoglobin with acute blood loss anemia, likely due to blood thinners Hypertension with urgency, present on admission. Hyperlipidemia Benign prostatic hypertrophy History of esophageal cancer status post esophagectomy bilateral renal calculi DVT prophylaxis GI Prophylaxis: Ppi Full code Discharge disposition Patient is being discharged in a stable condition with guarded prognosis to home with home care. Patient will follow-up with Dr. Russell Shepherd in the outpatient setting upon discharge. Patient is to also follow-up with cardiology and Gen. surgery as scheduled. Total time taken is greater than 35 minutes. Hospital course This is a 77-year-old male who was recently admitted with partial small bowel resection underwent laparotomy with lysis of adhesions and small bowel resection and was being closely monitored. Patient with multiple medical issues including possible bleeding internally his hemoglobin dropped and there was an abnormal finding on CT. Anticoagulant on hold in surgery recommends to continue holding for at least 2 weeks until follow-up. Patient's hemoglobin is stable with no active bleeding noted and will be following up with cardiology along with general surgery in the next 1-2 weeks. Patient with prolonged hospitalization and continued to be weak recommending ECF for rehab and initially patient refused done after discussing with family agreed although started having symptoms of no taste with a cough and family was found to be COVID-19 as well as patient was positive for COVID-19. No respiratory compromise. Patient will be continued on vitamin and zinc supplements and recommend isolation in the outpatient setting. Patient and family persisted on patient going home with home care and patient will be discharged today. Currently no reports of chest pain, shortness of breath, or palpitations. Patient is afebrile. No reports of nausea or vomiting and patient is tolerating diet. Patient will be discharged home today. Extremely guarded prognosis. Physical exam: Gen: This is a 77-year-old male awake, alert and oriented 3, extremely hard of hearing, thin built, elderly male HEENT: Head is atraumatic, normocephalic. Pupils equal, round. Sclerae is anicteric. NECK: Supple. No JVD. No lymphadenopathy. No thyromegaly. LUNGS: Diminished breath sounds bilaterally with some scattered rhonchi. No intercostal retractions. HEART: Regular rate and rhythm. No murmur. ABDOMEN: Soft. Mildly tender on palpation. Surgical site is dry and intact with no oozing or bleeding noted. Bowel sounds are present. No masses. No tenderness. EXTREMITIES: No pedal edema. No calf tenderness. NEUROLOGICAL: Patient is awake, alert and oriented x3. Cranial nerves 2 through 12 are grossly intact. Few slightly weak Please refer to medication reconciliation sheet for a list of medications. The impression and plan of care has been dictated by Brandi Gomez, Nurse Practitioner as directed. Dr. Maritza MD I have performed a history and examination and MDM of this patient, discussed the same with the dictator, and agree with the dictator's assessment and plan as written ,documented as a scribe. Based on total visit time, I have performed more than 50% of the visit. Patient Condition at Discharge: Fair Plan - Discharge Summary Discharge Rx Participant: No New Discharge Prescriptions: New Amiodarone [Cordarone] 200 mg PO BID 30 Days #60 tab Metoprolol Tartrate [Lopressor] 25 mg PO BID 30 Days #60 tab Zinc Sulfate [Orazinc] 220 mg PO DAILY 14 Days #14 cap Ascorbic Acid [Vitamin C] 1,000 mg PO DAILY #60 tab Cholecalciferol [Vitamin D3 (25 Mcg = 1000 Iu)] 50 mcg PO DAILY #60 tab HYDROcodone/APAP 5-325MG [[place] 5-325] 1 each PO Q4HR PRN #9 tab PRN Reason: Pain Acetaminophen Tab [Tylenol] 650 mg PO Q6HR PRN tab PRN Reason: Fever And/ Or Pain Potassium Bicarbonate/Cit AC [K-Lyte] 20 meq PO DAILY 30 Days #60 tab Furosemide [Lasix] 40 mg PO DAILY #30 tablet Continue Atorvastatin [Lipitor] 10 mg PO QAM PARoxetine HCL [Paroxetine HCl] 20 mg PO QAM Levothyroxine Sodium [Synthroid] 25 mcg PO DAILY Etanercept [Enbrel Sureclick] 50 mg SQ Q7D Tamsulosin HCl [Flomax] 0.8 mg PO HS Discharge Medication List Atorvastatin [Lipitor] 10 mg PO QAM 11/30/13 [History] PARoxetine HCL [Paroxetine HCl] 20 mg PO QAM 11/30/13 [History] Levothyroxine Sodium [Synthroid] 25 mcg PO DAILY 10/05/16 [History] Etanercept [Enbrel Sureclick] 50 mg SQ Q7D 04/06/22 [History] Tamsulosin HCl [Flomax] 0.8 mg PO HS 04/06/22 [History] Acetaminophen Tab [Tylenol] 650 mg PO Q6HR PRN tab 04/23/22 [Rx] Amiodarone [Cordarone] 200 mg PO BID 30 Days #60 tab 04/23/22 [Rx] Ascorbic Acid [Vitamin C] 1,000 mg PO DAILY #60 tab 04/23/22 [Rx] Cholecalciferol [Vitamin D3 (25 Mcg = 1000 Iu)] 50 mcg PO DAILY #60 tab 04/23/22 [Rx] Furosemide [Lasix] 40 mg PO DAILY #30 tablet 04/23/22 [Rx] HYDROcodone/APAP 5-325MG [[place] 5-325] 1 each PO Q4HR PRN #9 tab 04/23/22 [Rx] Metoprolol Tartrate [Lopressor] 25 mg PO BID 30 Days #60 tab 04/23/22 [Rx] Potassium Bicarbonate/Cit AC [K-Lyte] 20 meq PO DAILY 30 Days #60 tab 04/23/22 [Rx] Zinc Sulfate [Orazinc] 220 mg PO DAILY 14 Days #14 cap 04/23/22 [Rx] Follow up Appointment(s)/Referral(s): Tiburcio Schilling DO [STAFF PHYSICIAN] - 04/28/22 3:15 pm Kuldip Bowman MD [Primary Care Provider] - 1-2 days (CALL FOR APPOINTMENT. ) [facility] Visiting Nurse, [NON-STAFF] - 1 Week (AGENCY WILL CONTACT YOU.) Zhao Ferreira MD [STAFF PHYSICIAN] - 04/30/22 3:45 pm Ambulatory/Diagnostic Orders: Complete Blood Count w/diff [LAB.AMB] Time Frame: 3 Days, Location: None [facility] Patient Instructions/Handouts: Metoprolol (By mouth), Furosemide (By mouth), Hydrocodone/Acetaminophen (By mouth), Zinc Sulfate (By mouth), Amiodarone (By mouth), Ascorbic Acid (By mouth), Potassium Bicarbonate/Citric Acid (By mouth), Cholecalciferol (By mouth), How to Use an Incentive Spirometer (DC), Bowel Obstruction (DC), Open Appendectomy (DC), Exploratory Laparotomy (DC), Lysis of Abdominal Adhesions (DC) Activity/Diet/Wound Care/Special Instructions: Activity Limited until follow-up Patient is returning home with home care Follow-up with surgery outpatient in one week Follow-up with primary care provider on discharge Follow-up with cardiology in one week Continue taking medications as prescribed Continue holding eliquis For 2 weeks per surgery recommendations Eliquis copay $25.30 Discharge Disposition: HOME WITH HOME HEALTH SERVICES
== END 2022-04-23 14:39 | disposition home health service (06) | DRG 329 ==
LOC: EC 06:32 → 4SSUR 09:29 → 2SICU 04-10 11:13 → 3SCARD 04-10 18:18 → 2SICU 04-14 17:44 → 5NMEDONC 04-18 14:30 → 6NMEDSUR 04-22 15:58
PROVIDERS: ADMIT Internal Medicine; ATTEND Internal Medicine
PROC: 0DN80ZZ Release Small Intestine, Open Approach (ICD-10-PCS; 2022-04-07)
PROC: 0DT80ZZ Resection of Small Intestine, Open Approach (ICD-10-PCS; principal; 2022-04-07 07:30)
PROC: 30233N1 Transfusion of Nonautologous Red Blood Cells into Peripheral Vein, Percutaneous Approach (ICD-10-PCS; 2022-04-14)
DX: K43.1 Incisional hernia with gangrene (principal); I50.33 Acute on chronic diastolic (congestive) heart failure; K55.019 Acute (reversible) ischemia of small intestine, extent unspecified; U07.1 COVID-19; K56.50 Intestinal adhesions [bands], unspecified as to partial versus complete obstruction; R18.8 Other ascites; I47.1 Supraventricular tachycardia; D62 Acute posthemorrhagic anemia; I45.2 Bifascicular block; J98.11 Atelectasis; I11.0 Hypertensive heart disease with heart failure; M06.9 Rheumatoid arthritis, unspecified; J43.9 Emphysema, unspecified; I08.3 Combined rheumatic disorders of mitral, aortic and tricuspid valves; E03.9 Hypothyroidism, unspecified; I95.9 Hypotension, unspecified; H91.90 Unspecified hearing loss, unspecified ear; I48.0 Paroxysmal atrial fibrillation; W19.XXXA Unspecified fall, initial encounter; E87.6 Hypokalemia; I16.0 Hypertensive urgency; K57.30 Diverticulosis of large intestine without perforation or abscess without bleeding; T45.515A Adverse effect of anticoagulants, initial encounter; I25.10 Atherosclerotic heart disease of native coronary artery without angina pectoris; N40.0 Benign prostatic hyperplasia without lower urinary tract symptoms; R05.3 Chronic cough; K59.00 Constipation, unspecified; E78.5 Hyperlipidemia, unspecified; N20.0 Calculus of kidney; R74.8 Abnormal levels of other serum enzymes; Y92.231 Patient bathroom in hospital as the place of occurrence of the external cause; M79.606 Pain in leg, unspecified; R00.1 Bradycardia, unspecified; R53.1 Weakness; R55 Syncope and collapse; Z96.21 Cochlear implant status; Z79.899 Other long term (current) drug therapy; Z79.890 Hormone replacement therapy; Z86.79 Personal history of other diseases of the circulatory system; Z90.79 Acquired absence of other genital organ(s); Z85.01 Personal history of malignant neoplasm of esophagus; Z87.891 Personal history of nicotine dependence; Z92.21 Personal history of antineoplastic chemotherapy; Z92.3 Personal history of irradiation; Z79.01 Long term (current) use of anticoagulants; Z90.49 Acquired absence of other specified parts of digestive tract
CPT/HCPCS: 36415; 36600; 71045; 71046; 74019; 74177; 80048; 80053; 81001; 82150; 82272; 82805; 83605; 83690; 83735; 83880; 84132; 84145; 84484; 85025; 85027; 85610; 85730; 86850; 86900; 86901; 86920; 87040; 87635; 88307; 93005; 93306; 94760; 96374; 96375; 96376; 99285

== ENCOUNTER → 2023-04-28 | Outpatient (CLI) | payer MEDICARE ==
--- NOTE | 2023-04-28 12:02 | CA ---
Stress Echo Report Martin Clark Age: 78 Gender: M : 1945 Exam Date: 04/28/2023 10:04 Exam Location: [facility] Ht (in): 73 Wt (lb): 175 Ordering Physician: Tiburcio Davila DO ([email or web address]) Referring Physician: TIBURCIO DAVILA,, Telecommunications Technician: [facility] Technologist Procedure CPT: Indication: Z01.818 ENCOUNTER FOR PREPROCEDURAL CARDIOVASCULAR EXAMINATI ICD-9 Codes: Rhythm: Patient History: DIFFICULTY IN BREATHING, HTN, ELEVATED CHOLESTEROL LEVELS, PRIOR SMOKER Cardiac Medications: Medications in past 24 hours: Contrast: Stress Results Protocol: Celso Total dose(mL): Exercise Duration (min:sec): 2:[address] Depression (mm): Angina Score: Hunt Score: METS: 3.6 Resting HR: 62 Resting BP: 145 / 86 Peak HR: 93 Peak BP: 145 / 86 Max Predicted HR: 141 66 % Max Predicted HR Target HR: 120 Double Product: [id number] Stress Summary: BP Response: Reason for Termination: SEVERE SHORTNESS OF BREATH/MAX EXERTION Cardiac Symptoms: ECG Analysis Resting ECG: Normal sinus rhythm, Right bundle branch block Stress ECG: No abnormal ST/T wave changes with exercise Arrhythmia: None Echo Analysis Resting Echo: Normal resting echocardiogram. Peak Echo Analysis: Normal wall thickening and motion MEASUREMENTS (Male/Female) Normal Values CONCLUSIONS 1. Poor exercise tolerance 2. Nondiagnostic stress echocardiogram secondary to the inability to achieve 85% maximal predicted heart rate. The patient only achieved 66%. At the rate achieved there is no evidence of stress induced ischemia Dr. Buck Valdes MD (Electronically Signed) Final Date: 28 April 2023 12:01
== END | disposition home or self-care (01) ==
LOC: RADNMMAIN 09:14
PROVIDERS: ATTEND Internal Medicine
DX: Z01.810 Encounter for preprocedural cardiovascular examination (principal); I10 Essential (primary) hypertension; E78.00 Pure hypercholesterolemia, unspecified; R06.02 Shortness of breath; Z87.891 Personal history of nicotine dependence
CPT/HCPCS: 93351

== ENCOUNTER 2023-07-23 09:24 | Day surgery (SDC) | payer MEDICARE ==
[2023-07-19 13:23] VITALS: BMI 22.3
[~2023-07-23 09:24] MED LIST changes: -LACTATED RINGERS 1,000 ML IV SCH; +LIDOCAINE 1% (10MG/ML) FOR IV START INTRADERMA PRN
[2023-07-23 10:12] VITALS: TEMP 97
[2023-07-23] MEDS: LACTATED RINGERS 1,000 ML IV SCH ×2 (10:12→10:48)
[2023-07-23] MEDS ORDERED: LIDOCAINE 2% (PF) 20 MG/ML 5 ML VIAL ONE (10:49)
[2023-07-23] MEDS ORDERED: PROPOFOL 10 MG/ML 20 ML VIAL IV ONE (10:49)
--- NOTE | 2023-07-23 11:11 | P.PCN ---
Date of Procedure: 07/23/23 Procedure(s) Performed: BRIEF HISTORY: Patient is a 78-year-old, pleasant, white male scheduled for an upper endoscopy as a part of evaluation of intermittent dysphagia to solids.. History of esophageal cancer diagnosed in 2019 status post distal esophagectomy with gastric pull-through. PROCEDURE PERFORMED: Esophagogastroduodenoscopy with balloon dilation.. PREOPERATIVE DIAGNOSIS: Dysphagia to solids of 6 months duration. IV sedation per anesthesia. PROCEDURE: After informed consent was obtained, the patient was brought into the endoscopy unit. IV sedation was administered by Anesthesia under continuous monitoring. Initially the Olympus GIF-140 video endoscope was inserted into the mouth. Esophagus intubated without any difficulty. It was gradually advanced into the stomach and duodenum and carefully examined. The bulb and the second part of the duodenum appeared normal. The scope at this time was withdrawn to the stomach, adequately insufflated with air, and upon careful examination, mucosa of the antrum, body, appeared normal. There was evidence of distal esophagectomy with gastric pull-through noted. The scope was withdrawn to the esophagus. The anastomotic site was located at 35 cm from the incisors which appeared narrowed. In May dilation was performed using 12-15 mm TTS balloon for 30 seconds. The rest of the esophagus appeared normal. There were no erosions or ulcerations seen and the patient tolerated the procedure well. IMPRESSION: 1. Proximal esophageal anastomotic stricture status post balloon dilation using 12-15 mm TTS balloon as described above. 2. Distal reflux esophagectomy with gastric pull-through. RECOMMENDATIONS: The findings of this examination were discussed with the patient as well as his family. He was advised to be on a clear liquid diet for lunch today. Advised on soft diet. Follow up in office if he has worsening dysphagia..
[2023-07-23 11:43] VITALS: BP 138/84; PULSE 48; RESP 20
== END 2023-07-23 12:10 | disposition home or self-care (01) ==
LOC: ORWHC2ENDO 09:24
PROVIDERS: ATTEND Internal Medicine Gastroenterology
DX: K22.2 Esophageal obstruction (principal); K21.9 Gastro-esophageal reflux disease without esophagitis; I48.91 Unspecified atrial fibrillation; I10 Essential (primary) hypertension; E78.5 Hyperlipidemia, unspecified; E03.9 Hypothyroidism, unspecified; F41.9 Anxiety disorder, unspecified; N40.0 Benign prostatic hyperplasia without lower urinary tract symptoms; Z87.891 Personal history of nicotine dependence; Z79.01 Long term (current) use of anticoagulants; Z85.01 Personal history of malignant neoplasm of esophagus; Z79.899 Other long term (current) drug therapy; Z79.890 Hormone replacement therapy
CPT/HCPCS: 43249; J2704; J2001; C1726

== ENCOUNTER 2024-09-28 09:20 | Inpatient (IN) | payer MEDICARE ==
--- NOTE | 2024-09-28 09:57 | ED ---
General Adult HPI - General Chief complaint: Fall Stated complaint: fall Time Seen by Provider: 09/28/24 09:36 Source: patient, family, RN notes reviewed Mode of arrival: ambulatory Limitations: no limitations - History of Present Illness Initial comments: This is an 79-year-old male with multiple comorbid conditions including A-fib on Eliquis, CAD, hypertension, BPH presenting to emergency department with daughter and with referral from primary care provider (Dr. Kuldip Bowman) with multiple complaints. Patient states over the past few days he has been having diarrhea, urinary retention, nausea and vomiting addition to abdominal pain. He also states he has been having upper respiratory infection symptoms such as productive cough, chills, rhinorrhea and congestion over the past few days. Patient denies hematemesis, hematochezia, melena, dysuria, hematuria. he also denies chest pain, difficulty breathing, or palpitations, dizziness lig htheadedness. Family bedside that the patient has had multiple falls recently and has been increasingly weak. - Related Data Home Medications Medication Instructions Recorded Confirmed Atorvastatin [Lipitor] 10 mg PO QAM 11/30/13 07/23/23 PARoxetine HCL [Paroxetine HCl] 20 mg PO QAM 11/30/13 07/23/23 Levothyroxine Sodium [Synthroid] 25 mcg PO DAILY 10/05/16 07/23/23 Etanercept [Enbrel Sureclick] 50 mg SQ Q7D 04/06/22 07/23/23 Tamsulosin HCl [Flomax] 0.8 mg PO HS 04/06/22 07/23/23 Apixaban [Eliquis] 5 mg PO DAILY 07/19/23 07/23/23 Finasteride [Proscar] 5 mg PO DAILY 07/19/23 07/23/23 Metoprolol Tartrate [Lopressor] 50 mg PO BID 07/19/23 07/23/23 Pantoprazole [Protonix] 40 mg PO DAILY 07/19/23 07/23/23 Previous Rx's Medication Instructions Recorded Acetaminophen Tab [Tylenol] 650 mg PO Q6HR PRN tab 04/23/22 Zinc Sulfate [Orazinc] 220 mg PO DAILY 14 Days #14 cap 04/23/22 Allergies Allergy/AdvReac Type Severity Reaction Status Date / Time No Known Allergies Allergy Verified 09/28/24 09:32 Review of Systems ROS Statement: Those systems with pertinent positive or pertinent negative responses have been documented in the HPI. ROS Other: All systems not noted in ROS Statement are negative. Past Medical History Past Medical History: Atrial Fibrillation, Coronary Artery Disease (CAD), Cancer, GERD/Reflux, Hearing Disorder / Deafness, Hyperlipidemia, Hypertension, Pneumonia, Prostate Disorder, Skin Disorder, Thyroid Disorder Additional Past Medical History / Comment(s): Esophageal Cancer 2012; cochlear implants for loss of hearing, enlarged prostate, hx of atrial fibrillation, rash to feet sometimes, hx of sob with walking History of Any Multi-Drug Resistant Organisms: None Reported Past Surgical History: Appendectomy, Bowel Resection, Cholecystectomy, Ear Surgery Additional Past Surgical History / Comment(s): esophagectemy in May 2013, Abdominal Aortic Aneurysm repair on December 06, 2013; cochlear implant in 2009, cholecystectomy in 2007, bowel resection 2022 Past Anesthesia/Blood Transfusion Reactions: No Reported Reaction Additional Past Anesthesia/Blood Transfusion Reaction / Comment(s): no blood transfusion reaction Past Psychological History: Anxiety Smoking Status: Former smoker - Past Family History Brother(s) Family Medical History: Unable to Obtain Additional Family Medical History / Comment(s): patient states that he was adop raymond when he was 3 from a [employer] along with his little sister, later found that he had 2 half brothers and 2 half sisters, no medical problems as far as he knows. does not know whether his biological mother and father had any medical issues General Exam Limitations: no limitations General appearance: alert, in no apparent distress ENT exam: Present: normal exam, mucous membranes moist Respiratory exam: Present: normal lung sounds bilaterally, wheezes (lower left lung field). Absent: respiratory distress, rales, rhonchi, stridor Cardiovascular Exam: Present: regular rate, normal rhythm, normal heart sounds. Absent: systolic murmur, diastolic murmur, rubs, gallop, clicks GI/Abdominal exam: Present: soft, tenderness (diffuse), normal bowel sounds. Absent: distended, guarding, rebound, rigid Extremities exam: Present: normal inspection, full ROM, normal capillary refill. Absent: tenderness, pedal edema, joint swelling, calf tenderness Back exam: Present: normal inspection Neurological exam: Present: alert, oriented X3, CN II-XII intact Course Vital Signs 04/10/25 04/10/25 09:26 14:21 Temperature 98.7 F 100.1 F H Pulse Rate 90 Respiratory 22 18 Rate Blood Pressure 137/97 Blood Pressure 162/77 [Left Arm Supine] O2 Sat by Pulse 98 99 Oximetry Fraction of 99 Inspired Oxygen (FIO2) Medical Decision Making - Medical Decision Making Was pt. sent in by a medical professional or institution (, PA, CREW BOAT OPERATOR, urgent care, hospital, or senior living...) When possible be specific @ -Patient advised by primary care provider, Dr. Bowman, reports Emergency Department for further evaluation. Did you speak to anyone other than the patient for history (EMS, parent, family, police, friend...)? What history was obtained from this source @ -No Did you review nursing and triage notes (agree or disagree)? Why? @ -I reviewed and agree with nursing and triage notes Were old charts reviewed (outside hosp., previous admission, EMS record, old EKG, old radiological studies, urgent care reports/EKG's, senior living records)? Report findings @ -No old charts were reviewed Differential Diagnosis (chest pain, altered mental status, abdominal pain women, abdominal pain men, vaginal bleeding, weakness, fever, dyspnea, syncope, headache, dizziness, GI bleed, back pain, seizure, CVA, palpatations, mental health, musculoskeletal)? @ -Differential Weakness: Hypoglycemia, shock, sepsis, hyponatremia, anemia, infection, SD, ETOH, adverse medicine reaction, overdose, stroke, this is not meant to be an all-inclusive list. EKG interpreted by me (3pts min.). @ -Completed at 1016 reveals atrial fibrillation rhythm with a ventricular rate of 78, QRS 60, QTc 445. There is noted right bundle branch block. X-rays interpreted by me (1pt min.). @ -Chest x-ray concerning for bibasilar infiltrates, correlate for atelectasis and pneumonia CT interpreted by me (1pt min.). @ -CT of the abdomen pelvis with IV contrast no bowel obstruction or acute changes of the abdomen pelvis, small right pleural effusion right lower lobe infiltrate with a 5.1 cm pleural mass in the left lower lobe U/S interpreted by me (1pt. min.). @ -None done What testing was considered but not performed or refused? (CT, X-rays, U/S, labs)? Why? @ -None What meds were considered but not given or refused? Why? @ -None Did you discuss the management of the patient with other professionals (professionals i.e. Dr., PA, CREW BOAT OPERATOR, lab, RT, psych nurse, social insurance adviser, clinical supervisor, teacher, animal services officer, briefcase sewer)? Give summary @ -Spoke with patient's primary care provider, Dr. Kuldip Bowman, who has recommended to admit the patient to [facility]. I spoke with Dr. Rojas, who was agreeable to admit the patient. Was smoking cessation discussed for >3mins.? @ -No Was critical care preformed (if so, how long)? @ -No Were there social determinants of health that impacted care today? How? (Homelessness, low income, unemployed, alcoholism, drug addiction, transportation, low edu. Level, literacy, decrease access to med. care, residential, rehab)? @ -No Was there de-escalation of care discussed even if they declined (Discuss DNR or withdrawal of care, Hospice)? DNR status @ -No What co-morbidities impacted this encounter? (DM, HTN, Smoking, COPD, CAD, Cancer, CVA, ARF, Chemo, Hep., AIDS, mental health diagnosis, sleep apnea, morbid obesity)? @ -None Was patient admitted / discharged? Hospital course, mention meds given and route, prescriptions, significant lab abnormalities, going to OR and other pertinent info. @ -Admitted. 79-year-old male presenting with multiple complaints. Patient's EKG is in sinus rhythm. Abdominal exam remarkable for diffuse tenderness with no signs of rebound tenderness or rigidity. Initial vitals are stable. Laboratory testing remarkable for leukocytosis 13.74 with left shift neutrophils of 11.97, coagulation CMP within normal. Troponin mildly elevated at 0.086. Viral testing is unremarkable. Chest x-ray is concerning for bilateral pneumonia. Additionally, CT of the abdomen pelvis no sign of bowel obstruction showing small right pleural effusion of the right lower lobe infiltrate. With concern for NSTEMI and pneumonia patient will be admitted to internal medicine with cardiology on consult. Patient is started on Rocephin and azithromycin after blood cultures were obtained. Patient will be admitted to Dr. Rojas. case discussed with my ED attending, Dr. Shah Undiagnosed new problem with uncertain prognosis? @ -No Drug Therapy requiring intensive monitoring for toxicity (Heparin, Nitro, Insuli n, Cardizem)? @ -No Were any procedures done? @ -No Diagnosis/symptom? @ -NSTEMI, pneumonia Acute, or Chronic, or Acute on Chronic? @ -acute Uncomplicated (without systemic symptoms) or Complicated (systemic symptoms)? @ -uncomplicated Side effects of treatment? @ -No Exacerbation, Progression, or Severe Exacerbation? @ -No Poses a threat to life or bodily function? How? (Chest pain, USA, SD, pneumonia, PE, COPD, DKA, ARF, appy, cholecystitis, CVA, Diverticulitis, Homicidal, Suicidal, threat to staff... and all critical care pts) @ -No - Lab Data Result diagrams: 09/28/24 11:20 09/28/24 11:20 Lab Results 09/28/24 09/28/24 09/28/24 Range/Units 10:32 11:20 11:20 WBC 13.74 H (4.50-10.00) 10*3/uL RBC 3.89 L (4.40-5.60) 10*6/uL Hgb 12.0 L (13.0-17.0) g/dL Hct 35.2 L (39.6-50.0) % MCV 90.5 (80.0-97.0) fL MCH 30.8 (27.0-32.0) pg MCHC 34.1 (32.0-37.0) g/dL Plt Count 138 L (140-440) 10*3/uL MPV 10.2 (9.5-12.2) fL Immature Gran % (Auto) 0.8 % Neutrophils % (Manual) 82 % Band Neuts % (Manual) 5 % Lymphocytes % (Manual) 3 % Monocytes % (Manual) 10 % Immature Gran # 0.11 H (0.00-0.04) 10*3/uL Neutrophils # (Manual) 11.95 H (1.3-7.7) k/uL Lymphocytes # (Manual) 0.41 L (1.0-4.8) k/uL Monocytes # (Manual) 1.37 H (0-1.0) k/uL Nucleated RBCs 0 (0-0) /100 WBC Manual Slide Review Performed Large Platelets Present Poikilocytosis (manual Present Anisocytosis (manual) Present PT (10.0-12.5) sec INR (<1.2) APTT (22.0-30.0) sec Sodium (137-145) mmol/L Potassium (3.5-5.1) mmol/L Chloride (98-107) mmol/L Carbon Dioxide (22-30) mmol/L Anion Gap mmol/L BUN (9-20) mg/dL Creatinine (0.66-1.25) mg/dL Est GFR (CKD-EPI)AfAm (>60 ml/min/1.73 sqM) Est GFR (CKD-EPI)NonAf (>60 ml/min/1.73 sqM) Glucose (74-99) mg/dL Plasma Lactic Acid Walt 1.4 (0.7-2.0) mmol/L Calcium (8.4-10.2) mg/dL Phosphorus (2.5-4.5) mg/dL Magnesium (1.6-2.3) mg/dL Total Bilirubin (0.2-1.3) mg/dL AST (17-59) U/L ALT (4-49) U/L Alkaline Phosphatase (38-126) U/L Troponin I (0.000-0.034) ng/mL Total Protein (6.3-8.2) g/dL Albumin (3.5-5.0) g/dL TSH (0.465-4.680) mIU/L Influenza Type A (PCR) Not Detected (Not Detectd) Influenza Type B (PCR) Not Detected (Not Detectd) RSV (PCR) Not Detected (Not Detectd) SARS-CoV-2 (PCR) Not Detected (Not Detectd) 09/28/24 09/28/24 09/28/24 Range/Units 11:20 11:20 11:20 WBC (4.50-10.00) 10*3/uL RBC (4.40-5.60) 10*6/uL Hgb (13.0-17.0) g/dL Hct (39.6-50.0) % MCV (80.0-97.0) fL MCH (27.0-32.0) pg MCHC (32.0-37.0) g/dL Plt Count (140-440) 10*3/uL MPV (9.5-12.2) fL Immature Gran % (Auto) % Neutrophils % (Manual) % Band Neuts % (Manual) % Lymphocytes % (Manual) % Monocytes % (Manual) % Immature Gran # (0.00-0.04) 10*3/uL Neutrophils # (Manual) (1.3-7.7) k/uL Lymphocytes # (Manual) (1.0-4.8) k/uL Monocytes # (Manual) (0-1.0) k/uL Nucleated RBCs (0-0) /100 WBC Manual Slide Review Large Platelets Poikilocytosis (manual Anisocytosis (manual) PT 13.4 H (10.0-12.5) sec INR 1.3 H (<1.2) APTT 27.3 (22.0-30.0) sec Sodium 132 L (137-145) mmol/L Potassium 3.5 (3.5-5.1) mmol/L Chloride 99 (98-107) mmol/L Carbon Dioxide 28 (22-30) mmol/L Anion Gap 5 mmol/L BUN 12 (9-20) mg/dL Creatinine 0.72 (0.66-1.25) mg/dL Est GFR (CKD-EPI)AfAm >90 (>60 ml/min/1.73 sqM) Est GFR (CKD-EPI)NonAf 88 (>60 ml/min/1.73 sqM) Glucose 105 H (74-99) mg/dL Plasma Lactic Acid Walt (0.7-2.0) mmol/L Calcium 7.5 L (8.4-10.2) mg/dL Phosphorus 2.7 (2.5-4.5) mg/dL Magnesium 1.5 L (1.6-2.3) mg/dL Total Bilirubin 1.2 (0.2-1.3) mg/dL AST 51 (17-59) U/L ALT 21 (4-49) U/L Alkaline Phosphatase 119 (38-126) U/L Troponin I 0.086 H* (0.000-0.034) ng/mL Total Protein 6.8 (6.3-8.2) g/dL Albumin 2.5 L (3.5-5.0) g/dL TSH 0.959 (0.465-4.680) mIU/L Influenza Type A (PCR) (Not Detectd) Influenza Type B (PCR) (Not Detectd) RSV (PCR) (Not Detectd) SARS-CoV-2 (PCR) (Not Detectd) Disposition Clinical Impression: NSTEMI (non-ST elevated myocardial infarction), Pneumonia Disposition: ADMITTED IP TO THIS [facility] Condition: Serious Referrals: Addison Bowman MD [STAFF PHYSICIAN] - 1-2 days Decision to Admit Reason: Admit from EC Decision Date: 09/28/24 Decision Time: 14:20
[2024-09-28] MEDS: SODIUM CHLORIDE 0.9% 500 ML IV ONE (10:47)
--- NOTE | 2024-09-28 11:21 | XR ---
EXAMINATION TYPE: XR chest 2V DATE OF EXAM: 09/28/2024 10:59 AM COMPARISON: 04/22/2022 CLINICAL INDICATION: Male, 79 years old with history of Weakness, TECHNIQUE: XR chest 2V view(s) obtained. FINDINGS: The heart size is normal. The pulmonary vasculature is normal. Mild bibasilar infiltrates are present. This may be slightly improved on the left. This is better vis ualized on the lateral projection. IMPRESSION: 1. Bibasilar infiltrates correlate for atelectasis and pneumonia. Continued follow-up is recommended [facility], , 09/28/2024 11:18 AM
[2024-09-28 11:23] LABS: Influenza A Not Detected (Not Detectd); Influenza B Not Detected (Not Detectd); RSV Not Detected (Not Detectd)
[2024-09-28 11:48] LABS: HCT 35.2 % (39.6-50.0); MCH 30.8 pg (27.0-32.0); MCHC 34.1 g/dL (32.0-37.0); MCV 90.5 fL (80.0-97.0); Mean Platelet Volume 10.2 fL (9.5-12.2); Platelet Count 138 10*3/uL (140-440); RBC 3.89 10*6/uL (4.40-5.60); RDW 15.9 % (11.5-14.5); WBC 13.74 10*3/uL (4.50-10.00)
[2024-09-28 12:04] LABS: ALT 21 U/L (4-49); AST 51 U/L (17-59); African American GFR (CKD) >90 (>60 ml/min/1.73 sqM); Albumin 2.5 g/dL (3.5-5.0); Alkaline Phosphatase 119 U/L (38-126); Anion Gap 5 mmol/L; Blood Urea Nitrogen 12 mg/dL (9-20); Calcium 7.5 mg/dL (8.4-10.2); Carbon Dioxide 28 mmol/L (22-30); Chloride 99 mmol/L (98-107); Glucose 105 mg/dL (74-99); Magnesium 1.5 mg/dL (1.6-2.3); Non-African American GFR(CKD) 88 (>60 ml/min/1.73 sqM); Phosphorus 2.7 mg/dL (2.5-4.5); Potassium 3.5 mmol/L (3.5-5.1); Sodium 132 mmol/L (137-145); Total Bilirubin 1.2 mg/dL (0.2-1.3); Total Protein 6.8 g/dL (6.3-8.2)
[2024-09-28 12:36] LABS: INR 1.3 (<1.2); Partial Thromboplastin Time 27.3 sec (22.0-30.0); Prothrombin Time 13.4 sec (10.0-12.5)
[2024-09-28 12:45] LABS: Band Neutrophils % 5 %; Lymphocytes # (M) 0.41 k/uL (1.0-4.8); Monocytes # (M) 1.37 k/uL (0-1.0); Neutrophils # (M) 11.95 k/uL (1.3-7.7); Neutrophils % (M) 82 %; Nucleated Red Blood Cells 0 /100 WBC (0-0); Total Cells Counted 100
[2024-09-28 12:50] LABS: Large Platelets Present
[2024-09-28 12:51] LABS: Anisocytosis (M) Present; Poikilocytosis (M) Present
[2024-09-28] MEDS: MAGNESIUM OXIDE 400 MG TAB PO STA (13:32)
--- NOTE | 2024-09-28 13:38 | CT ---
EXAMINATION TYPE: CT abdomen pelvis w con DATE OF EXAM: 09/28/2024 COMPARISON: 04/14/2022 CLINICAL INDICATION: Male, 79 years old with history of ab pain, diarrhea, chills, hx bowel resection ; PHH, Abdiominal pain, diarrhea, chills, hx bowwl resection TECHNIQUE: Performed without Oral Contrast and with IV Contrast, patient injected with 100 ml mL of Isovue 300. CT DLP: 720.[address] CTDI: mGy Automated exposure control for dose reduction was used. FINDINGS: Esophagectomy and gastric pull-through procedure. Adjacent to the gastric pull-through there is herni ation of nonobstructed nonstrangulated transverse colon, unchanged compared to previous. Small right pleural effusion and right lower lobe infiltrate. 5.1 x 2.3 cm pleural-based mass in the left lower lobe laterally. The gallbladder is surgically absent. There is no biliary ductal dilatation. There is no focal mass or organomegaly involving the liver, pancreas, spleen or adrenal glands. Pancr eas is markedly atrophic. There is no solid renal mass or hydronephrosis and there is homogeneous contrast enhancement of the r enal parenchyma. There are multiple stable simple cortical cysts in the kidneys. There is an aortobiiliac stent graft unchanged in appearance. There is no retroperitoneal adenopathy or hemorrhage. The bowel loops are normal in caliber and there is no evidence of dilatation or obstruction. There ar e anastomotic sutures in a segment of small bowel in the upper left aspect of the pelvis. No inflamma tory changes are identified in the bowel wall or mesentery. There is moderate diverticulosis of the d escending and sigmoid colon without evidence of acute diverticulitis. There is no free intraperitoneal air or fluid. No pelvic mass, free fluid, abscess or adenopathy. The osseous structures and soft tissues are intact. IMPRESSION: 1. Small right effusion and right lower lobe infiltrate possibly pneumonic. 2. 5.1 cm pleural-based mass in the left lower lobe. CT chest is recommended for further evaluation . 3. Postsurgical changes of facet projecting with pull-through procedure and herniated transverse colo n as described above 4. No bowel obstruction. 5. No acute changes within the abdomen or pelvis. [facility], , 09/28/2024 1:35 PM
[2024-09-28] MEDS ORDERED: NALOXONE 0.4 MG/ML 1 ML VIAL IV PRN (14:36)
[2024-09-28] MEDS ORDERED: MORPHINE SULFATE 4 MG/ML SYRINGE IV PRN (14:36)
[2024-09-28] MEDS: AZITHROMYCIN 500 MG in SODIUM CHLORIDE 0.9% 250 ML IVPB SCH (15:34)
[2024-09-28] MEDS: ACETAMINOPHEN TAB 325 MG TAB PO PRN (15:35)
[2024-09-28] MEDS: cefTRIAXone IN SWFI 1,000 MG/10 ML SYRINGE IVP ONE (15:35)
[2024-09-28] MEDS: ACETAMINOPHEN TAB 500 MG TAB PO STA (15:37)
[2024-09-28 15:57] LABS: Appearance,Urine Cloudy (Clear); Bilirubin,Urine Negative (Negative); Blood,Urine Large (Negative); Color,Urine Yellow; Glucose,Urine (UA) Negative (Negative); Ketones,Urine Negative (Negative); Leukocyte Esterase,Urine Small (Negative); Mucus,Urine Rare /hpf; Nitrite,Urine Negative (Negative); Protein,Urine 1+ (Negative); RBC,Urine >182 /hpf (0-5); Specific Gravity,Urine 1.044 (1.001-1.035); WBC,Urine 51 /hpf (0-5)
[2024-09-29 07:10] LABS: Basophils # (A) 0.03 10*3/uL (0.00-0.10); Basophils % (A) 0.2 %; Eosinophils # (A) 0.01 10*3/uL (0.04-0.35); Eosinophils % (A) 0.1 %; HCT 36.3 % (39.6-50.0); HGB 12.4 g/dL (13.0-17.0); Lymphocytes # (A) 0.66 10*3/uL (0.90-5.00); Lymphocytes % (A) 4.9 %; MCH 31.1 pg (27.0-32.0); MCHC 34.2 g/dL (32.0-37.0); Mean Platelet Volume 10.6 fL (9.5-12.2); Monocytes % (A) 11.1 %; Neutrophils # (A) 11.25 10*3/uL (1.80-7.70); Neutrophils % (A) 83.2 %; RBC 3.99 10*6/uL (4.40-5.60); RDW 15.9 % (11.5-14.5); WBC 13.52 10*3/uL (4.50-10.00)
[2024-09-29 07:35] LABS: Platelet Count 128 10*3/uL (140-440)
[2024-09-29 07:51] LABS: ALT 26 U/L (4-49); AST 68 U/L (17-59); African American GFR (CKD) >90 (>60 ml/min/1.73 sqM); Albumin 2.4 g/dL (3.5-5.0); Alkaline Phosphatase 122 U/L (38-126); Anion Gap 2 mmol/L; Blood Urea Nitrogen 15 mg/dL (9-20); Calcium 7.8 mg/dL (8.4-10.2); Carbon Dioxide 30 mmol/L (22-30); Chloride 100 mmol/L (98-107); Glucose 98 mg/dL (74-99); Non-African American GFR(CKD) >90 (>60 ml/min/1.73 sqM); Potassium 3.7 mmol/L (3.5-5.1); Sodium 132 mmol/L (137-145); Total Bilirubin 1.1 mg/dL (0.2-1.3); Total Protein 6.4 g/dL (6.3-8.2)
--- NOTE | 2024-09-29 11:17 | P.CRDCN ---
History of Present Illness Consult date: 09/29/24 Reason for Consult (text): NSTEMI History of present illness: This is an 79-year-old male patient of Dr. Schilling with past medical history of mild CAD on prior cardiac catheterization in 2009, F esophageal cancer status post esophagectomy with chemo and radiation 10 years ago, hypothyroidism, dyslipidemia, rheumatoid arthritis, aortic aneurysm repair, paroxysmal atrial fibrillation postoperatively maintained in a sinus rhythm, former tobacco use and dependence. We have been asked to evaluate the patient for NSTEMI. Patient's nurse states that he came into the hospital due to nausea vomiting and urinary retention. Patient states that he has also had a fall and could not get up. He denies any loss of consciousness. He states he crawled and then he was finally able to get up in 1 to go to the bathroom and fell again. He states he had a total of 4 falls at home. He states he has had some palpitations which is new for him. He complains of significant weakness. He has shortness of breath, wheezing and cough. He also continues to have nausea and vomiting. He states he has had a little bit of blood in his urine but no blood in his stools. Patient states that he has had weight loss of 80 pounds over the past 1-1/2 years. He denies lower extremity edema. No fevers. No chest pain. Blood pressure 169/75, heart rate in the 70s and 80s, pulse ox 95% on room air. -EKG: Atrial fibrillation with ventricular rate of 78, right bundle branch block, left anterior fascicular block. Repeat EKG sinus rhythm -Chest x-ray: Bibasilar infiltrates correlate for atelectasis and pneumonia. -CT abdomen and pelvis with contrast revealed small right effusion and right lower lobe infiltrate possibly pneumonic. 5.1 cm pleural-based mass in the left lower lobe with recommendations for CT chest. Postsurgical changes of facet pro jecting with pull-through procedure, herniated transverse colon. No bowel obstruction. No acute changes in the abdomen or pelvis. -Laboratory studies: WBC 13.5, hemoglobin 12.4. Sodium 132, potassium 3.7, BUN 15 creatinine 0.63. Troponin 0.086, 0.07, 0.078. TSH 0.959. Urinalysis positive for blood and WBCs, leukoesterase. -Home cardiac medications: Eliquis 5 mg twice daily, atorvastatin 10 mg daily, metoprolol tartrate 25 mg twice daily. -Echocardiogram performed 04/07/2022 reveals moderate increased left ventricular wall thickness. EF 55 to 60%, mild mitral regurgitation, mild aortic r egurgitation, mild tricuspid regurgitation. No pericardial effusion. -Stress echocardiogram performed 04/28/2023 revealed poor exercise tolerance. Nondiagnostic stress echocardiogram secondary to inability to achieve 85% of maximum predicted heart rate. Patient only achieved 66%. At the rate achieved, no evidence of stress-induced ischemia. Review Of Systems: At the time of my exam: CONSTITUTIONAL: Denies fever or chills. HEENT: Denies blurred vision, vision changes, or eye pain. Denies hemoptysis CARDIOVASCULAR: Denies chest pain. Denies orthopnea. Denies PND. Denies palpitations RESPIRATORY: Denies shortness of breath. GASTROINTESTINAL: Denies abdominal pain. Denies nausea or vomiting. HEMATOLOGIC: Denies bleeding disorders. GENITOURINARY: Denies any blood in urine. SKIN: Denies puritis. Denies rash. Physical examination: Gen: This is a frail-appearing 87-year-old male patient in no acute respiratory distress VS: reviewed HEENT: Head is atraumatic, normocephalic. Pupils equal, round. Sclerae is anicteric. NECK: Supple. No JVD. LUNGS: Decreased breath sounds at the bases. No intercostal retractions. HEART: Regular rate and rhythm. Holosystolic murmur. ABDOMEN: Soft No tenderness. EXTREMITIES: No pedal edema. No calf tenderness. NEUROLOGICAL: Patient is awake, alert and oriented x3. Assessment: Multiple falls at home Elevated troponins with flat pattern, NSTEMI type II Mild CAD on previous cardiac catheterization Paroxysmal atrial fibrillation, converted to sinus rhythm 5.1 cm pleural-based mass on abdominal CT scan along with weight loss of 80 pounds over the past year and a half, generalized weakness, suspicious for malignancy History of esophageal cancer status post surgery, chemotherapy and radiation therapy 10 years ago Hypothyroidism Dyslipidemia Rheumatoid arthritis Aortic aneurysm repair Remote history of tobacco use and dependence Plan: Resume patient's home cardiac medications Obtain 2-D echocardiogram and Doppler study to assess cardiac structure and function Obtain dedicated CT chest with and without contrast Consult pulmonary medicine Further recommendations to follow based upon clinical course Thank you kindly for this consultation. Nurse practitioner note has been reviewed, I agree with documented findings and plan of care. Patient was seen and examined. Past Medical History Past Medical History: Atrial Fibrillation, Coronary Artery Disease (CAD), Cancer, GERD/Reflux, Hearing Disorder / Deafness, Hyperlipidemia, Hypertension, Pneumonia, Prostate Disorder, Skin Disorder, Thyroid Disorder Additional Past Medical History / Comment(s): Esophageal Cancer 2012; cochlear implants for loss of hearing, enlarged prostate, hx of atrial fibrillation, rash to feet sometimes, hx of sob with walking History of Any Multi-Drug Resistant Organisms: None Reported Past Surgical History: Appendectomy, Bowel Resection, Cholecystectomy, Ear Surgery Additional Past Surgical History / Comment(s): esophagectemy in May 2013, Abdominal Aortic Aneurysm repair on December 06, 2013; cochlear implant in 2009, cholecystectomy in 2007, bowel resection 2022 Past Anesthesia/Blood Transfusion Reactions: No Reported Reaction Additional Past Anesthesia/Blood Transfusion Reaction / Comment(s): no blood transfusion reaction Smoking Status: Former smoker - Past Family History Brother(s) Family Medical History: Unable to Obtain Additional Family Medical History / Comment(s): patient states that he was adopted when he was 3 from a [place] [facility] along with his little sister, later found that he had 2 half brothers and 2 half sisters, no medical problems as far as he knows. does not know whether his biological mother and father had any medical issues Medications and Allergies Home Medications Medication Instructions Recorded Confirmed Type Atorvastatin [Lipitor] 10 mg PO DAILY 11/30/13 09/28/24 History PARoxetine HCL [Paroxetine HCl] 20 mg PO DAILY 11/30/13 09/28/24 History Levothyroxine Sodium [Synthroid] 25 mcg PO DAILY 10/05/16 09/28/24 History Etanercept [Enbrel Sureclick] 50 mg SQ WEEKLY 04/06/22 09/28/24 History Tamsulosin HCl [Flomax] 0.8 mg PO HS 04/06/22 09/28/24 History Apixaban [Eliquis] 5 mg PO BID 07/19/23 09/28/24 History Finasteride [Proscar] 5 mg PO DAILY 07/19/23 09/28/24 History Metoprolol Tartrate [Lopressor] 25 mg PO BID 07/19/23 09/28/24 History Allergies Allergy/AdvReac Type Severity Reaction Status Date / Time No Known Allergies Allergy Verified 09/28/24 16:03 Physical Exam Vitals: Vital Signs Temp Pulse Pulse Resp BP BP Pulse Ox 09/29/24 07:41 98.3 F 72 16 169/75 95 09/29/24 03:58 98.2 F 18 172/89 97 09/29/24 02:48 98.3 F 87 20 139/58 96 09/29/24 02:26 83 154/69 09/29/24 00:04 73 20 167/67 99 09/28/24 20:46 61 20 120/59 09/28/24 18:55 98.6 F 62 18 125/66 09/28/24 14:21 100.1 F H 18 162/77 99 09/28/24 09:26 98.7 F 90 22 137/97 98 FiO2 09/29/24 07:41 09/29/24 03:58 09/29/24 02:48 09/29/24 02:26 09/29/24 00:04 09/28/24 20:46 09/28/24 18:55 09/28/24 14:21 99 09/28/24 09:26 Intake and Output 09/28/24 09/29/24 09/29/24 22:59 06:59 14:59 Intake Total 240 Output Total 4 Balance 236 Intake: Oral 240 Output: Post Void Residual 4 Other: # Bowel Movements 1 Weight 76.204 kg Results 09/29/24 06:28 09/29/24 06:28 Cardiac Enzymes 09/28/24 09/28/24 09/28/24 Range/Units 11:20 11:20 15:25 AST 51 (17-59) U/L Troponin I 0.086 H* 0.070 H* (0.000-0.034) ng/mL 09/28/24 09/29/24 Range/Units 19:52 06:28 AST 68 H (17-59) U/L Troponin I 0.078 H* (0.000-0.034) ng/mL Coagulation 09/28/24 Range/Units 11:20 PT 13.4 H (10.0-12.5) sec APTT 27.3 (22.0-30.0) sec CBC 09/28/24 09/29/24 Range/Units 11:20 06:28 WBC 13.74 H 13.52 H (4.50-10.00) 10*3/uL RBC 3.89 L 3.99 L (4.40-5.60) 10*6/uL Hgb 12.0 L 12.4 L (13.0-17.0) g/dL Hct 35.2 L 36.3 L (39.6-50.0) % Plt Count 138 L 128 L (140-440) 10*3/uL Comprehensive Metabolic Panel 09/28/24 09/29/24 Range/Units 11:20 06:28 Sodium 132 L 132 L (137-145) mmol/L Potassium 3.5 3.7 (3.5-5.1) mmol/L Chloride 99 100 (98-107) mmol/L Carbon Dioxide 28 30 (22-30) mmol/L BUN 12 15 (9-20) mg/dL Creatinine 0.72 0.63 L (0.66-1.25) mg/dL Glucose 105 H 98 (74-99) mg/dL Calcium 7.5 L 7.8 L (8.4-10.2) mg/dL AST 51 68 H (17-59) U/L ALT 21 26 (4-49) U/L Alkaline Phosphatase 119 122 (38-126) U/L Total Protein 6.8 6.4 (6.3-8.2) g/dL Albumin 2.5 L 2.4 L (3.5-5.0) g/dL Current Medications Generic Name Dose Route Start Last Admin Trade Name Freq PRN Reason Stop Dose Admin Acetaminophen 650 mg 09/28/24 14:36 09/28/24 15:37 Acetaminophen Tab 325 Mg Tab PO 650 mg Q6HR PRN Administration Mild Pain or Fever > 100.5 Azithromycin 500 mg/ Sodium 250 mls @ 250 mls/hr 09/28/24 14:00 09/28/24 15:34 Chloride IVPB 10/01/24 13:59 250 mls/hr DAILY ALEYDA Administration Protocol Ceftriaxone Sodium 1 gm/ 50 mls @ 100 mls/hr 09/29/24 09:00 Sodium Chloride IVPB DAILY ALEYDA Morphine Sulfate 4 mg 09/28/24 14:36 Morphine Sulfate 4 Mg/Ml Syringe IV Q4HR PRN Severe Pain (Scale 7 to 10) Naloxone HCl 0.2 mg 09/28/24 14:36 Naloxone 0.4 Mg/Ml 1 Ml Vial IV Q2M PRN Opioid Reversal Intake and Output 09/28/24 09/29/24 09/29/24 22:59 06:59 14:59 Intake Total 240 Output Total 4 Balance 236 Intake: Oral 240 Output: Post Void Residual 4 Other: # Bowel Movements 1 Weight 76.204 kg 09/29/24 06:28 09/29/24 06:28
[2024-09-29] MEDS: APIXABAN 5 MG TAB PO SCH (12:06)
[2024-09-29] MEDS: METOPROLOL TARTRATE 25 MG TAB PO SCH (12:06)
--- NOTE | 2024-09-29 14:56 | CT ---
EXAMINATION TYPE: CT chest wo/w con CT DLP: 277.6 mGycm, Automated exposure control for dose reduction was used. DATE OF EXAM: 09/29/2024 2:42 PM COMPARISON: CT scan of pelvis 09/28/2024, chest radiograph 09/28/2024, multiple CT chest with most rece nt 06/07/2019 CLINICAL INDICATION:Male, 79 years old with history of Pulm mass; [facility], TECHNIQUE: Multiple axial images were obtained through the chest before and after the uneventful admi nistration of 100 mL of Isovue-370 intravenously . Coronal and sagittal reformats reviewed. FINDINGS: LUNGS/ PLEURA: Mild centrilobular emphysematous changes. Redemonstration of right lower lobe focal b ronchiectasis. Small bilateral pleural effusions right greater than the left. Hernia at the GE juncti on containing nonobstructive splenic flexure colon. Patchy opacities within the posterior right upper lobe. Bilateral lower lobe patchy airspace opacities. Punctate left lower lobe calcified granuloma. Lingular subpleural 5.2 x 1.7 cm masslike consolidation (series 201, image 40). AIRWAY: Patent and unremarkable.. HEART: Cardiomegaly is demonstrated. . No pericardial effusion. No significant coronary artery calcif ications. MEDIASTINUM: No gross evidence of adenopathy. VASCULATURE: Ascending thoracic aortic aneurysm measuring up to 4.0 cm. The descending thoracic aort a measures up to 3.6 cm. No evidence for intramural hematoma or dissection. Mild atherosclerotic calc ification of the aorta and its branches. No pulmonary embolism identified. MUSCULOSKELETAL: No acute osseous abnormalities. No aggressive osseous lesion. Partial fusion of the T11 and T12 vertebral bodies. Multilevel degenerative changes of the lower thoracolumbar spine. SOFT TISSUES/LYMPH NODES: Unremarkable. LOWER NECK: No significant findings. UPPER ABDOMEN: Postsurgical changes from esophagectomy with gastric pull-through. Gallbladder surgica lly absent. IMPRESSION: 1. Lingular subpleural 5.2 cm masslike consolidation redemonstrated. This is nonspecific and could re present chronic consolidation with underlying benign/malignant process is not excluded. Recommend fur ther evaluation with PET/CT. 2. Small bilateral pleural effusions with right greater than left with bilateral lower lobe patchy ai rspace opacities. These are favored to represent atelectasis. Infectious process is not excluded. 3. Mild centrilobular emphysematous changes with redemonstration of right lower lobe focal bronchiect asis. 4. Postsurgical changes from esophagectomy with gastric pull-through. 5. Ascending thoracic aortic aneurysm measuring up to 4.0 cm. [facility], , 09/29/2024 2:53 PM
--- NOTE | 2024-09-29 15:04 | P.CNPUL ---
History of Present Illness Consult date: 09/29/24 Requesting physician: Hilda Sim Reason for consult: lung mass, abnormal CXR/CT Chief complaint: Nausea, vomiting, diarrhea History of present illness: This is an 79-year-old male patient with a known history of atrial fibrillation anticoagulated with Eliquis, hypertension, BPH, hypothyroidism, hearing disorder with cochlear implant, abdominal aortic aneurysm repair, esophageal cancer sta tus post esophagectomy, anxiety, former smoker who presented to the emergency room yesterday from his primary care provider's office with multiple complaints including nausea, vomiting, diarrhea, urinary retention and abdominal pain. White count 13.5. Hemoglobin 12.4. Platelets 128. Sodium 132. Potassium 3.7. Bicarb 30. BUN 15. Creatinine 0.63. Troponin 0.086, 0.070, 0.078. Urinalysis with hide WBCs and large blood. Chest x-ray revealed bibasilar infiltrates possible atelectasis versus pneumonia. CT scan of the abdomen and pelvis reveals a small right pleural effusion and right lower lobe infiltrate. There is a 5.1 cm pleural-based mass in the left lower lobe. Postsurgical junior ges of facet projecting with pull-through procedure and herniated transverse colon. No bowel obstruction. No acute changes within the abdomen and pelvis. We were consulted regarding the pleural-based mass. Dedicated CT scan of the chest is pending. He is seen today in consultation on the selective care unit. He is currently resting flat in bed. Awake and alert in no acute distress. Maintaining good O2 saturations in the mid to upper 90s on room air. He is afebrile. Hemodynamically stable. No pulmonary complaints. No hemoptysis. Review of Systems REVIEW OF SYSTEMS: CONSTITUTIONAL: Denies any recent significant weight loss or weight gain. EYES: Denies change in vision. EARS, NOSE, MOUTH, THROAT: Denies headaches, denies sore throat. CARDIOVASCULAR: Denies chest pain, palpitations or syncopal episodes. RESPIRATORY: Denies shortness of breath, cough, congestion or hemoptysis. GASTROINTESTINAL: Positive for nausea, vomiting, diarrhea. GENITOURINARY: Positive for urinary retention. MUSKULOSKELETAL: Denies pain, denies swelling. INTEGUMENTARY: Denies rash, denies eczema. NEUROLOGICAL: Denies recent memory loss, no recent seizure activity. PSYCHIATRIC: Denies anxiety, denies depression. HEMATOLOGIC/LYMPHATIC: Denies anemia, denies enlarged lymph nodes. Past Medical History Past Medical History: Atrial Fibrillation, Coronary Artery Disease (CAD), Cancer, GERD/Reflux, Hearing Disorder / Deafness, Hyperlipidemia, Hypertension, Pneumonia, Prostate Disorder, Skin Disorder, Thyroid Disorder Additional Past Medical History / Comment(s): Esophageal Cancer 2012; cochlear implants for loss of hearing, enlarged prostate, hx of atrial fibrillation, rash to feet sometimes, hx of sob with walking History of Any Multi-Drug Resistant Organisms: None Reported Past Surgical History: Appendectomy, Bowel Resection, Cholecystectomy, Ear [place] Additional Past Surgical History / Comment(s): esophagectemy in May 2013, Abdominal Aortic Aneurysm repair on December 06, 2013; cochlear implant in 2009, cholecystectomy in 2007, bowel resection 2022 Past Anesthesia/Blood Transfusion Reactions: No Reported Reaction Additional Past Anesthesia/Blood Transfusion Reaction / Comment(s): no blood transfusion reaction Smoking Status: Former smoker - Past Family History Brother(s) Family Medical History: Unable to Obtain Additional Family Medical History / Comment(s): patient states that he was adopted when he was 3 from a [place] orphanage along with his little sister, later found that he had 2 half brothers and 2 half sisters, no medical problems as far as he knows. does not know whether his biological mother and father had any medical issues Medications and Allergies Home Medications Medication Instructions Recorded Confirmed Type Atorvastatin [Lipitor] 10 mg PO DAILY 11/30/13 09/28/24 History PARoxetine HCL [Paroxetine HCl] 20 mg PO DAILY 11/30/13 09/28/24 History Levothyroxine Sodium [Synthroid] 25 mcg PO DAILY 10/05/16 09/28/24 History Etanercept [Enbrel Sureclick] 50 mg SQ WEEKLY 04/06/22 09/28/24 History Tamsulosin HCl [Flomax] 0.8 mg PO HS 04/06/22 09/28/24 History Apixaban [Eliquis] 5 mg PO BID 07/19/23 09/28/24 History Finasteride [Proscar] 5 mg PO DAILY 07/19/23 09/28/24 History Metoprolol Tartrate [Lopressor] 25 mg PO BID 07/19/23 09/28/24 History Allergies Allergy/AdvReac Type Severity Reaction Status Date / Time No Known Allergies Allergy Verified 09/28/24 16:03 Physical Exam Vitals: Vital Signs Temp Pulse Pulse Pulse Resp BP BP 09/29/24 11:21 98.7 F 68 17 134/72 09/29/24 10:32 74 09/29/24 07:41 98.3 F 72 16 169/75 09/29/24 03:58 98.2 F 18 172/89 09/29/24 02:48 98.3 F 87 20 139/58 09/29/24 02:26 83 154/69 09/29/24 00:04 73 20 167/67 09/28/24 20:46 61 20 120/59 09/28/24 18:55 98.6 F 62 18 125/66 Pulse Ox 09/29/24 11:21 98 09/29/24 10:32 09/29/24 07:41 95 09/29/24 03:58 97 09/29/24 02:48 96 09/29/24 02:26 09/29/24 00:04 99 09/28/24 20:46 09/28/24 18:55 Intake and Output 09/28/24 09/29/24 09/29/24 22:59 06:59 14:59 Intake Total 240 260 Output Total 4 200 Balance 236 60 Intake: IV 20 Invasive Line 1 10 Invasive Line 2 10 Oral 240 240 Output: Urine 200 Post Void Residual 4 Other: Voiding Method Toilet Urinal Diaper # Bowel Movements 1 Weight 76.204 kg GENERAL EXAM: Alert, pleasant 79-year-old male patient, on room air, fairly comfortable in no apparent distress. HEAD: Normocephalic. EYES: Normal reaction of pupils, equal size. NOSE: Clear with pink turbinates. THROAT: No erythema or exudates. NECK: No masses, no JVD. CHEST: No chest wall deformity. LUNGS: Equal air entry with no crackles, wheeze, rhonchi or dullness. CVS: S1 and S2 normal with no audible murmur, regular rhythm. ABDOMEN: No hepatosplenomegaly, normal bowel sounds, no guarding or rigidity. SPINE: No scoliosis or deformity SKIN: No rashes CENTRAL NERVOUS SYSTEM: No focal deficits, tone is normal in all 4 extremities. EXTREMITIES: There is no peripheral edema. No clubbing, no cyanosis. Peripheral pulses are intact. Results - Laboratory Findings CBC and BMP: 04/11/25 06:28 09/29/24 06:28 PT/INR, D-dimer PT 13.4 sec (10.0-12.5) H 09/28/24 11:20 INR 1.3 (<1.2) H 09/28/24 11:20 Abnormal lab findings: Abnormal Labs 09/28/24 09/28/24 09/28/24 11:20 11:20 11:20 WBC 13.74 H RBC 3.89 L Hgb 12.0 L Hct 35.2 L Plt Count 138 L Immature Gran # 0.11 H Neutrophils # Neutrophils # (Manual) 11.95 H Lymphocytes # Lymphocytes # (Manual) 0.41 L Monocytes # Monocytes # (Manual) 1.37 H Eosinophils # PT INR Sodium 132 L Creatinine Glucose 105 H Calcium 7.5 L Magnesium 1.5 L AST Troponin I 0.086 H* Albumin 2.5 L Ur Specific [place] Urine Protein Urine Blood Ur Leukocyte Esterase Urine RBC Urine WBC Urine Mucus 09/28/24 09/28/24 09/28/24 11:20 15:02 15:25 WBC RBC Hgb Hct Plt Count Immature Gran # Neutrophils # Neutrophils # (Manual) Lymphocytes # Lymphocytes # (Manual) Monocytes # Monocytes # (Manual) Eosinophils # PT 13.4 H INR 1.3 H Sodium Creatinine Glucose Calcium Magnesium AST Troponin I 0.070 H* Albumin Ur Specific [place] 1.044 H Urine Protein 1+ H Urine Blood Large H Ur Leukocyte Esterase Small H Urine RBC >182 H Urine WBC 51 H Urine Mucus Rare H 09/28/24 09/29/24 09/29/24 19:52 06:28 06:28 WBC 13.52 H RBC 3.99 L Hgb 12.4 L Hct 36.3 L Plt Count 128 L Immature Gran # 0.07 H Neutrophils # 11.25 H Neutrophils # (Manual) Lymphocytes # 0.66 L Lymphocytes # (Manual) Monocytes # 1.50 H Monocytes # (Manual) Eosinophils # 0.01 L PT INR Sodium 132 L Creatinine 0.63 L Glucose Calcium 7.8 L Magnesium AST 68 H Troponin I 0.078 H* Albumin 2.4 L Ur Specific [place] Urine Protein Urine Blood Ur Leukocyte Esterase Urine RBC Urine WBC Urine Mucus - Diagnostic Findings Chest x-ray: image reviewed Assessment and Plan Assessment: Abdominal pain with generalized weakness secondary to nausea, vomiting, diarrhea, urinary retention CT scan of the abdomen pelvis revealed no acute abnormalities Left lower lobe pleural-based mass measuring 5.1 x 2.[address] scan of the chest pending Small right pleural effusion with possible infiltrate History of esophagectomy with gastric pull-through procedure in 2012 with herniation of nonobstructive nonstrangulated transverse colon Atrial fibrillation, anticoagulated with Eliquis History of hypertension History of BPH Hyperlipidemia Hypothyroidism Hearing disorder, status post cochlear implant in 2009 History of abdominal aortic aneurysm repair in 2013 History of anxiety Former smoker Plan: The patient was seen and evaluated Imaging, labs and medications reviewed Continue ceftriaxone and azithromycin for now Check a procalcitonin Anticoagulated with Eliquis Obtain a dedicated CT scan of the chest If significant lung mass would plan for outpatient workup Currently stable and on room air without pulmonary complaints Plan of care discussed with the patient who verbalizes1 understanding and is agreeable We will continue to follow and make further recommendations based on his clinical status I have personally seen and examined the patient, performed the documentation and the assessment and plan as written. Number of minutes spent on the visit: 20 Dictation was produced using [email or web address] dictation software. Please excuse any grammatical, word or spelling errors. Time with Patient: Greater than 30
--- NOTE | 2024-09-29 19:12 | CA ---
Transthoracic Echo Report Name: Martin Clark Age: 79 Gender: M : 1945 Exam Date: 09/29/2024 10:33 Exam Location: [facility] Ht (in): 74 Wt (lb): 168 Ordering Physician: Hilda Sim Attending/Referring Phys: [id number], Roney Manager Study Arlyn Jones, ANJANA Procedure CPT: Indications: LVF Cardiac Hx: Technical Quality: Good Contrast 1: Total Dose (mL): Contrast 2: Total Dose (mL): MEASUREMENTS (Male / Female) Normal Values 2D ECHO LV Diastolic Diameter PLAX 4.9 cm 4.2 - 5.9 / 3.9 - 5.3 cm LV Systolic Diameter PLAX 2.9 cm IVS Diastolic Thickness 1.1 cm 0.6 - 1.0 / 0.6 - 0.9 cm LVPW Diastolic Thickness 0.9 cm 0.6 - 1.0 / 0.6 - 0.9 cm LV Relative Wall Thickness 0.4 LVOT Diameter 2.3 cm Aortic Root Diameter 3.7 cm LV Diastolic Volume MOD BP 104.8 cm??? 67 - 155 / 56 - 104 cm??? LV Systolic Volume MOD BP 44.6 cm??? 22 - 58 / 19 - 49 cm??? LV Ejection Fraction MOD BP 57.4 % >= 55 % LV Cardiac Index MOD BP 2724.3 cm???/min???m??? LV Diastolic Volume MOD 4C 124.5 cm??? LV Systolic Volume MOD 4C 48.0 cm??? LV Ejection Fraction MOD 4C 61.5 % LV Cardiac Index MOD 4C 3464.0 cm???/min???m??? LV Diastolic Length 4C 7.4 cm LV Systolic Length 4C 5.2 cm LV Diastolic Volume MOD 2C 86.0 cm??? LV Systolic Volume MOD 2C 40.9 cm??? LV Ejection Fraction MOD 2C 52.5 % LV Cardiac Index MOD 2C 2043.6 cm???/min???m??? LV Diastolic Length 2C 7.1 cm LV Systolic Length 2C 5.4 cm LA Volume 50.9 cm??? 18 - 58 / 22 - 52 cm??? LA Volume Index 25.6 cm???/m??? 16 - 28 cm???/m??? Ascending Aorta Diameter 3.8 cm M-MODE Aortic Root Diameter MM 2.9 cm LA Systolic Diameter MM 3.2 cm LA Ao Ratio MM 1.1 AV Cusp Separation MM 1.9 cm DOPPLER AV Peak Velocity 153.6 cm/s AV Peak Gradient 9.4 mmHg AI Peak Velocity 377.1 cm/s AI Peak Gradient 56.9 mmHg AI Pressure Half Time 414.4 ms MV Area PHT 4.1 cm??? Mitral E Point Velocity 74.5 cm/s Mitral A Point Velocity 62.7 cm/s Mitral E to A Ratio 1.2 MV Deceleration Time 184.2 ms TR Peak Velocity 232.6 cm/s TR Peak Gradient 21.6 mmHg PV Peak Velocity 75.8 cm/s PV Peak Gradient 2.3 mmHg FINDINGS Left Ventricle Left ventricular ejection fraction is estimated at 50 %. Mildly increased septal wall thickness. Normal left ventricular systolic function with no obvious regional wall motion abnormalities. Left ventricular cavity size normal. Right Ventricle Normal right ventricular size and function. Right Atrium Moderate right atrial dilatation. Left Atrium Mild left atrial dilatation. Mitral Valve Structurally normal mitral valve. Mild mitral regurgitation. No mitral stenosis. Aortic Valve Trileaflet aortic valve. Diffuse thickening (sclerosis) of the aortic valve cusps without reduced excursion. [id number] aortic regurgitation. Eccentric aortic regurgitation jet directed at the mitral valve. Tricuspid Valve Structurally normal tricuspid valve. Trace tricuspid regurgitation. No tricuspid stenosis. Pulmonic Valve Structurally normal pulmonic valve. Mild pulmonic regurgitation. No pulmonic stenosis. Pericardium No pericardial or pleural effusion. Aorta Mildly dilated proximal ascending aorta (tube), 3.8cm. CONCLUSIONS Low normal LV systolic function with EF at 50% Moderate mitral regurgitation Aortic sclerosis with moderate to severe aortic regurgitation Previewed by: Dr. Rudolph Ashraf MD (Electronically Signed) Final Date: 29 September 2024 19:11
[2024-09-29] MEDS: TAMSULOSIN 0.4 MG CAP.ER.24H PO SCH (20:43)
[2024-09-29] MEDS ORDERED: APIXABAN 5 MG TAB PO SCH (21:00)
[2024-09-30] MEDS: LEVOTHYROXINE 25 MCG TAB PO SCH (06:14)
[2024-09-30] MEDS: PARoxetine 20 MG TAB PO SCH (09:56)
[2024-09-30] MEDS: FINASTERIDE 5 MG TAB PO SCH (09:57)
[2024-09-30] MEDS: ATORVASTATIN 10 MG TAB PO SCH (09:57)
[2024-09-30 10:35] VITALS: BMI 21.0
--- NOTE | 2024-09-30 13:21 | P.PN ---
Subjective Progress Note Date: 09/30/24 This is an 79-year-old male patient with a known history of atrial fibrillation anticoagulated with Eliquis, hypertension, BPH, hypothyroidism, hearing disorder with cochlear implant, abdominal aortic aneurysm repair, esophageal cancer status post esophagectomy, anxiety, former smoker who presented to the emergency room yesterday from his primary care provider's office with multiple complaints including nausea, vomiting, diarrhea, urinary retention and abdominal pain. White count 13.5. Hemoglobin 12.4. Platelets 128. Sodium 132. Potassium 3.7. Bicarb 30. BUN 15. Creatinine 0.63. Troponin 0.086, 0.070, 0.078. Urinalysis with hide WBCs and large blood. Chest x-ray revealed bibasilar infil trates possible atelectasis versus pneumonia. CT scan of the abdomen and pelvis reveals a small right pleural effusion and right lower lobe infiltrate. There is a 5.1 cm pleural-based mass in the left lower lobe. Postsurgical changes of facet projecting with pull-through procedure and herniated transverse colon. No bowel obstruction. No acute changes within the abdomen and pelvis. We were co nsulted regarding the pleural-based mass. Dedicated CT scan of the chest is pending. He is seen today in consultation on the selective care unit. He is currently resting flat in bed. Awake and alert in no acute distress. Maintaining good O2 saturations in the mid to upper 90s on room air. He is afebrile. Hemodynamically stable. No pulmonary complaints. No hemoptysis. The patient is seen today September 30, 2024 in follow-up on the selective care unit. He is awake and alert in no acute distress. Maintaining O2 saturations in the 90s on room air oxygen. He has been up ambulating to the bathroom with assistance. CT scan of the chest reveals a lingular subpleural 5.2 cm masslike consolidation. This is nonspecific and could represent chronic consolidation with underlying benign/malignant process. Small bilateral pleural effusions right greater than left. Atelectatic changes of the bases. Mild and for somatic changes. Postsurgical changes from esophagectomy with gastric pull-t hrough. Ascending thoracic aortic aneurysm measuring 4.0 cm. No new labs today. He remains on ceftriaxone and azithromycin. Anticoagulated with Eliquis. Objective - Vital Signs Vital signs: Vital Signs Temp 97.9 F 09/30/24 08:50 Pulse 54 L 09/30/24 08:50 Resp 16 09/30/24 08:50 BP 120/70 09/30/24 08:50 Pulse Ox 99 09/30/24 08:50 FiO2 99 09/28/24 14:21 Intake & Output 09/29/24 09/30/24 09/30/24 18:59 06:59 18:59 Intake Total 500 480 Output Total 400 Balance 100 480 Weight 74.5 kg 74.5 kg Intake: IV 20 Invasive Line 1 10 Invasive Line 2 10 Oral 480 480 Output: Urine 400 Other: Voiding Method Toilet Toilet Urinal Urinal Diaper Diaper # Voids 3 2 # Bowel Movements 1 - Exam GENERAL EXAM: Alert, 79-year-old male patient, up in the room with assistance, on room air, comfortable in no apparent distress. HEAD: Normocephalic. EYES: Normal reaction of pupils, equal size. NOSE: Clear with pink turbinates. THROAT: No erythema or exudates. NECK: No masses, no JVD. CHEST: No chest wall deformity. LUNGS: Equal air entry with no crackles, wheeze, rhonchi or dullness. CVS: S1 and S2 normal with no audible murmur, regular rhythm. ABDOMEN: No hepatosplenomegaly, normal bowel sounds, no guarding or rigidity. SPINE: No scoliosis or deformity SKIN: No rashes CENTRAL NERVOUS SYSTEM: No focal deficits, tone is normal in all 4 extremities. EXTREMITIES: There is no peripheral edema. No clubbing, no cyanosis. Peripheral pulses are intact. - Labs CBC & Chem 7: 09/29/24 06:28 09/29/24 06:28 Labs: Microbiology - Last 24 Hours (Table) 09/28/24 15:02 Urine Culture - Preliminary Urine,Voided Gram Neg Bacilli 09/28/24 15:16 Blood Culture - Preliminary Blood Assessment and Plan Assessment: Abdominal pain with generalized weakness secondary to nausea, vomiting, diarrhea, urinary retention CT scan of the abdomen pelvis revealed no acute abnormalities Left lower lobe pleural-based mass measuring 5.[address] scan of the chest reveals a lingular subpleural 5.2 cm masslike consolidation. This is nonspecific and could represent chronic consolidation with underlying benign/malignant process. Small bilateral pleural effusions right greater than left. Atelectatic changes of the bases. Mild and for somatic changes. Postsurgical changes from esophagectomy with gastric pull-through. Ascending thoracic aortic aneurysm measuring 4.0 cm. Small right pleural effusion with possible infiltrate/atelectasis Gram-negative bacilli urinary tract infection, remains on ceftriaxone History of esophagectomy with gastric pull-through procedure in 2012 with herniation of nonobstructive nonstrangulated transverse colon Atrial fibrillation, anticoagulated with Eliquis History of hypertension History of BPH Hyperlipidemia Hypothyroidism Hearing disorder, status post cochlear implant in 2009 History of abdominal aortic aneurysm repair in 2013 History of anxiety Former smoker Plan: The patient was seen and evaluated Stable and on room air oxygen Echocardiogram reviewed CT scan of the chest and medications reviewed Recommend outpatient PET scan Remains on ceftriaxone and azithromycin Anticoagulated with Eliquis We will continue to follow I have personally seen and examined the patient, performed the documentation and the assessment and plan as written. Number of minutes spent on the visit: 10 Dictation was produced using [email or web address] dictation software. Please excuse any grammatical, word or spelling errors.
--- NOTE | 2024-09-30 14:21 | P.PN ---
Subjective HISTORY OF PRESENT ILLNESS: This is an 79-year-old male patient of Dr. Schilling with past medical history of mild CAD on prior cardiac catheterization in 2009, F esophageal cancer status post esophagectomy with chemo and radiation 10 years ago, hypothyroidism, dyslipidemia, rheumatoid arthritis, aortic aneurysm repair, paroxysmal atrial fibrillation postoperatively maintained in a sinus rhythm, former tobacco use and dependence. We have been asked to evaluate the patient for NSTEMI. Patient's nurse states that he came into the hospital due to nausea vomiting and urinary retention. Patient states that he has also had a fall and could not get up. He denies any loss of consciousness. He states he crawled and then he was finally able to get up in 1 to go to the bathroom and fell again. He states he had a total of 4 falls at home. He states he has had some palpitations which is new for him. He complains of significant weakness. He has shortness of breath, wheezing and cough. He also continues to have nausea and vomiting. He states he has had a little bit of blood in his urine but no blood in his stools. Patient states that he has had weight loss of 80 pounds over the past 1-1/2 years. He denies lower extremity edema. No fevers. No chest pain. Blood pressure 169/75, heart rate in the 70s and 80s, pulse ox 95% on room air. -EKG: Atrial fibrillation with ventricular rate of 78, right bundle branch block, left anterior fascicular block. Repeat EKG sinus rhythm -Chest x-ray: Bibasilar infiltrates correlate for atelectasis and pneumonia. -CT abdomen and pelvis with contrast revealed small right effusion and right lower lobe infiltrate possibly pneumonic. 5.1 cm pleural-based mass in the left lower lobe with recommendations for CT chest. Postsurgical changes of facet projecting with pull-through procedure, herniated transverse colon. No bowel obstruction. No acute changes in the abdomen or pelvis. -Laboratory studies: WBC 13.5, hemoglobin 12.4. Sodium 132, potassium 3.7, BUN 15 creatinine 0.63. Troponin 0.086, 0.07, 0.078. TSH 0.959. Urinalysis positive for blood and WBCs, leukoesterase. -Home cardiac medications: Eliquis 5 mg twice daily, atorvastatin 10 mg daily, metoprolol tartrate 25 mg twice daily. -Echocardiogram performed 04/07/2022 reveals moderate increased left ventricular wall thickness. EF 55 to 60%, mild mitral regurgitation, mild aortic regurgitation, mild tricuspid regurgitation. No pericardial effusion. -Stress echocardiogram performed 04/28/2023 revealed poor exercise tolerance. Nondiagnostic stress echocardiogram secondary to inability to achieve 85% of maximum predicted heart rate. Patient only achieved 66%. At the rate achieved, no evidence of stress-induced ischemia. 09/30/2024 Patient examined this morning at bedside. Patient currently denies chest pain o r pressure. Denies shortness of breath. Vital signs are stable. Telemetry reveals sinus mechanism with a heart rate in the 50s. Patient did have episodes of nonsustained VT overnight. Echocardiogram completed revealing ejection fraction 50%, mild MR, moderate to severe aortic regurgitation, eccentric aortic regurgitation jet directed at the mitral valve, trace tricuspid regurgitation PHYSICAL EXAM: VITAL SIGNS: Reviewed. GENERAL: Well-developed in no acute distress. NECK: Supple. No JVD or thyromegaly LUNGS: Respirations even and unlabored. Lungs essentially clear to auscultation bilaterally. HEART: Irregular rate and rhythm. S1 and S2 heard. Systolic murmur noted. EXTREMITIES: Normal range of motion. No clubbing or cyanosis. Peripheral pulses intact. No lower extremity edema ASSESSMENT: Multiple falls at home Elevated troponins with flat pattern, NSTEMI type II Mild CAD on previous cardiac catheterization Paroxysmal atrial fibrillation, converted to sinus rhythm 5.1 cm pleural-based mass on abdominal CT scan along with weight loss of 80 pounds over the past year and a half, generalized weakness, suspicious for malignancy History of esophageal cancer status post surgery, chemotherapy and radiation therapy 10 years ago Hypothyroidism Dyslipidemia Rheumatoid arthritis Aortic aneurysm repair Remote history of tobacco use and dependence Moderate to severe aortic regurgitation PLAN: Continue current cardiac medications including Eliquis, atorvastatin, metoprolol tartrate Continue telemetry monitoring Pulmonary following for abnormal CT of the chest. Recommending outpatient PET scan. Further recommendations pending patient course Nurse practitioner note has been reviewed by physician. Signing provider agrees with the documented findings, assessment, and plan of care documented by OUTSIDE [employer] SAL[employer] REPRESENTATIVE as a scribe. Objective - Vital Signs Vital signs: Vital Signs Temp 97.9 F 09/30/24 08:50 Pulse 54 L 09/30/24 08:50 Resp 16 09/30/24 08:50 BP 120/70 09/30/24 08:50 Pulse Ox 99 09/30/24 08:50 FiO2 99 09/28/24 14:21 Intake & Output 09/29/24 09/30/24 09/30/24 18:59 06:59 18:59 Intake Total 500 480 Output Total 400 Balance 100 480 Weight 74.5 kg 74.5 kg Intake: IV 20 Invasive Line 1 10 Invasive Line 2 10 Oral 480 480 Output: Urine 400 Other: Voiding Method Toilet Toilet Urinal Urinal Diaper Diaper # Voids 3 2 # Bowel Movements 1 - Labs CBC & Chem 7: 09/29/24 06:28 09/29/24 06:28 Labs: Microbiology - Last 24 Hours (Table) 09/28/24 15:02 Urine Culture - Preliminary Urine,Voided Gram Neg Bacilli 09/28/24 15:16 Blood Culture - Preliminary Blood
--- NOTE | 2024-09-30 18:55 | P.HPIM ---
History of Present Illness H&P Date: 09/29/24 Chief Complaint: Fall 79-year-old male with multiple comorbid conditions including A-fib on Eliquis, CAD, hypertension, BPH presenting to emergency department with daughter and with referral from primary care provider (Dr. Kuldip Bowman) with multiple complaints. Patient states over the past few days he has been having diarrhea, urinary retention, nausea and vomiting addition to abdominal pain. He also states he has been having upper respiratory infection symptoms such as productive cough, chills, rhinorrhea and congestion over the past few days. Patient denies hematemesis, hematochezia, melena, dysuria, hematuria. he also denies chest pain, difficulty breathing, or palpitations, dizziness lightheadedness. Family bedside that the patient has had multiple falls recently and has been increasingly weak. -EKG: Atrial fibrillation with ventricular rate of 78, right bundle branch block, left anterior fascicular block. Repeat EKG sinus rhythm -Chest x-ray: Bibasilar infiltrates correlate for atelectasis and pneumonia. -CT abdomen and pelvis with contrast revealed small right effusion and right lower lobe infiltrate possibly pneumonic. 5.1 cm pleural-based mass in the left lower lobe with recommendations for CT chest. Postsurgical changes of facet projecting with pull-through procedure, herniated transverse colon. No bowel obstruction. No acute changes in the abdomen or pelvis. -Laboratory studies: WBC 13.5, hemoglobin 12.4. Sodium 132, potassium 3.7, BUN 15 creatinine 0.63. Troponin 0.086, 0.07, 0.078. TSH 0.959. Urinalysis positive for blood and WBCs, leukoesterase. Review of Systems REVIEW OF SYSTEMS: CONSTITUTIONAL: No fever, no malaise, no fatigue. HEENT: No recent visual problems or hearing problems. Denied any sore throat. CARDIOVASCULAR: No chest pain, orthopnea, PND, no palpitations, no syncope. PULMONARY: No shortness of breath, no cough, no hemoptysis. GASTROINTESTINAL: No diarrhea, no nausea, no vomiting, no abdominal pain. NEUROLOGICAL: No headaches, no weakness, no numbness. HEMATOLOGICAL: Denies any bleeding or petechiae. GENITOURINARY: Denies any burning micturition, frequency, or urgency. MUSCULOSKELETAL/RHEUMATOLOGICAL: Denies any joint pain, swelling, or any muscle pain. ENDOCRINE: Denies any polyuria or polydipsia. The rest of the 14-point review of systems is negative. Past Medical History Past Medical History: Atrial Fibrillation, Coronary Artery Disease (CAD), Cancer, GERD/Reflux, Hearing Disorder / Deafness, Hyperlipidemia, Hypertension, Pneumonia, Prostate Disorder, Skin Disorder, Thyroid Disorder Additional Past Medical History / Comment(s): Esophageal Cancer 2012; cochlear implants for loss of hearing, enlarged prostate, hx of atrial fibrillation, rash to feet sometimes, hx of sob with walking History of Any Multi-Drug Resistant Organisms: None Reported Past Surgical History: Appendectomy, Bowel Resection, Cholecystectomy, Ear Surgery Additional Past Surgical History / Comment(s): esophagectemy in May 2013, Abdominal Aortic Aneurysm repair on December 06, 2013; cochlear implant in 2009, cholecystectomy in 2007, bowel resection 2022 Past Anesthesia/Blood Transfusion Reactions: No Reported Reaction Additional Past Anesthesia/Blood Transfusion Reaction / Comment(s): no blood transfusion reaction Smoking Status: Former smoker - Past Family History Brother(s) Family Medical History: Unable to Obtain Additional Family Medical History / Comment(s): patient states that he was adopted when he was 3 from a [facility] along with his little sister, later found that he had 2 half brothers and 2 half sisters, no medical problems as far as he knows. does not know whether his biological mother and father had any medical issues Medications and Allergies Home Medications Medication Instructions Recorded Confirmed Type Atorvastatin [Lipitor] 10 mg PO DAILY 11/30/13 09/28/24 History PARoxetine HCL [Paroxetine HCl] 20 mg PO DAILY 11/30/13 09/28/24 History Levothyroxine Sodium [Synthroid] 25 mcg PO DAILY 10/05/16 09/28/24 History Etanercept [Enbrel Sureclick] 50 mg SQ WEEKLY 04/06/22 09/28/24 History Tamsulosin HCl [Flomax] 0.8 mg PO HS 04/06/22 09/28/24 History Apixaban [Eliquis] 5 mg PO BID 07/19/23 09/28/24 History Finasteride [Proscar] 5 mg PO DAILY 07/19/23 09/28/24 History Metoprolol Tartrate [Lopressor] 25 mg PO BID 07/19/23 09/28/24 History Allergies Allergy/AdvReac Type Severity Reaction Status Date / Time No Known Allergies Allergy Verified 09/28/24 16:03 Physical Exam Vitals: Vital Signs Temp Pulse Pulse Pulse Resp BP BP 09/29/24 11:21 98.7 F 68 17 134/72 09/29/24 10:32 74 09/29/24 07:41 98.3 F 72 16 169/75 09/29/24 03:58 98.2 F 18 172/89 09/29/24 02:48 98.3 F 87 20 139/58 09/29/24 02:26 83 154/69 09/29/24 00:04 73 20 167/67 09/28/24 20:46 61 20 120/59 09/28/24 18:55 98.6 F 62 18 125/66 09/28/24 14:21 100.1 F H 18 162/77 Pulse Ox FiO2 09/29/24 11:21 98 09/29/24 10:32 09/29/24 07:41 95 09/29/24 03:58 97 09/29/24 02:48 96 09/29/24 02:26 09/29/24 00:04 99 09/28/24 20:46 09/28/24 18:55 09/28/24 14:21 99 99 Intake and Output 09/28/24 09/29/24 09/29/24 22:59 06:59 14:59 Intake Total 240 20 Output Total 4 Balance 236 20 Intake: IV 20 Invasive Line 1 10 Invasive Line 2 10 Oral 240 Output: Post Void Residual 4 Other: Voiding Method Toilet Urinal Diaper # Bowel Movements 1 Weight 76.204 kg General appearance: alert, in no apparent distress ENT exam: Present: normal exam, mucous membranes moist Respiratory exam: Present: normal lung sounds bilaterally, wheezes (lower left lung field). Absent: respiratory distress, rales, rhonchi, stridor Cardiovascular Exam: Present: regular rate, normal rhythm, normal heart sounds. Absent: systolic murmur, diastolic murmur, rubs, gallop, clicks GI/Abdominal exam: Present: soft, tenderness (diffuse), normal bowel sounds. Absent: distended, guarding, rebound, rigid Extremities exam: Present: normal inspection, full ROM, normal capillary refill. Absent: tenderness, pedal edema, joint swelling, calf tenderness Back exam: Present: normal inspection Neurological exam: Present: alert, oriented X3, CN II-XII intact Results CBC & Chem 7: 09/29/24 06:28 09/29/24 06:28 Labs: Abnormal Lab Results - Last 24 Hours (Table) 09/28/24 09/28/24 09/28/24 Range/Units 15:02 15:25 19:52 WBC (4.50-10.00) 10*3/uL RBC (4.40-5.60) 10*6/uL Hgb (13.0-17.0) g/dL Hct (39.6-50.0) % Plt Count (140-440) 10*3/uL Immature Gran # (0.00-0.04) 10*3/uL Neutrophils # (1.80-7.70) 10*3/uL Lymphocytes # (0.90-5.00) 10*3/uL Monocytes # (0.20-1.00) 10*3/uL Eosinophils # (0.04-0.35) 10*3/uL Sodium (137-145) mmol/L Creatinine (0.66-1.25) mg/dL Calcium (8.4-10.2) mg/dL AST (17-59) U/L Troponin I 0.070 H* 0.078 H* (0.000-0.034) ng/mL Albumin (3.5-5.0) g/dL Ur Specific [place] 1.044 H (1.001-1.035) Urine Protein 1+ H (Negative) Urine Blood Large H (Negative) Ur Leukocyte Esterase Small H (Negative) Urine RBC >182 H (0-5) /hpf Urine WBC 51 H (0-5) /hpf Urine Mucus Rare H (None) /hpf 09/29/24 09/29/24 Range/Units 06:28 06:28 WBC 13.52 H (4.50-10.00) 10*3/uL RBC 3.99 L (4.40-5.60) 10*6/uL Hgb 12.4 L (13.0-17.0) g/dL Hct 36.3 L (39.6-50.0) % Plt Count 128 L (140-440) 10*3/uL Immature Gran # 0.07 H (0.00-0.04) 10*3/uL Neutrophils # 11.25 H (1.80-7.70) 10*3/uL Lymphocytes # 0.66 L (0.90-5.00) 10*3/uL Monocytes # 1.50 H (0.20-1.00) 10*3/uL Eosinophils # 0.01 L (0.04-0.35) 10*3/uL Sodium 132 L (137-145) mmol/L Creatinine 0.63 L (0.66-1.25) mg/dL Calcium 7.8 L (8.4-10.2) mg/dL AST 68 H (17-59) U/L Troponin I (0.000-0.034) ng/mL Albumin 2.4 L (3.5-5.0) g/dL Ur Specific [place] [employer] (1.001-1.035) Urine Protein (Negative) Urine Blood (Negative) Ur Leukocyte Esterase (Negative) Urine RBC (0-5) /hpf Urine WBC (0-5) /hpf Urine Mucus (None) /hpf Thrombosis Risk Factor Assmnt - Choose All That Apply Each Risk Factor Represents 3 Points: Age 75 years or older Thrombosis Risk Factor Assessment Total Risk Factor Score: 3 Thrombosis Risk Factor Assessment Level: Moderate Risk Assessment and Plan Assessment: 1. Abdominal pain with generalized weakness; likely secondary to nausea, vomiting, diarrhea, urinary retention CT scan of the abdomen pelvis revealed no acute abnormalities - PT/OT have been consulted 2. Left lower lobe pleural-based mass; - CT scan of the chest reveals a lingular subpleural 5.2 cm masslike consolidation. This is nonspecific and could represent chronic consolidation with underlying benign/malignant process. Small bilateral pleural effusions right greater than left. Atelectatic changes of the bases. Mild and for somatic changes. Postsurgical changes from esophagectomy with gastric pull- through. Ascending thoracic aortic aneurysm measuring 4.0 cm. - Pulmonary service on board; recommending PET scan completed as outpatient 3. Small right pleural effusion with possible infiltrate/atelectasis; patient is currently on IV antibiotics and pulmonary is on board - Patient remains on IV antibiotics in the form of ceftriaxone and azithromycin - Bronchodilator nebulizer treatments 4 times daily and as needed 4. Gram-negative bacilli urinary tract infection; patient remains on ceftriaxone - Blood cultures and urine cultures obtained; will monitor CBC, CRP and procal citonin 5. Atrial fibrillation; patient remains anticoagulated with Eliquis; we will continue with the current dose; rate controlled on metoprolol 25 mg twice daily 6. History of hypertension; metoprolol 25 mg twice daily 7. Hyperlipidemia; Lipitor 10 mg daily 8. Hypothyroidism; levothyroxine 25 mcg daily 9. History of BPH; Flomax 0.8 mg p.o. nightly; Proscar 5 mg daily 10. History of anxiety/depression; Paxil 20 mg daily DVT prophylaxis; SCD/Eliquis CODE STATUS; full code
--- NOTE | 2024-09-30 19:04 | P.PN ---
Subjective Progress Note Date: 09/30/24 79-year-old male with multiple comorbid conditions including A-fib on Eliquis, CAD, hypertension, BPH presenting to emergency department with daughter and with referral from primary care provider (Dr. Kuldip Bomwan) with multiple complaints. Patient states over the past few days he has been having diarrhea, urinary retention, nausea and vomiting addition to abdominal pain. He also states he has been having upper respiratory infection symptoms such as productive cough, chills, rhinorrhea and congestion over the past few days. Patient denies hematemesis, hematochezia, melena, dysuria, hematuria. he also denies chest pain, difficulty breathing, or palpitations, dizziness lightheadedness. Family bedside that the patient has had multiple falls recently and has been increasingly weak. -EKG: Atrial fibrillation with ventricular rate of 78, right bundle branch block, left anterior fascicular block. Repeat EKG sinus rhythm -Chest x-ray: Bibasilar infiltrates correlate for atelectasis and pneumonia. -CT abdomen and pelvis with contrast revealed small right effusion and right lower lobe infiltrate possibly pneumonic. 5.1 cm pleural-based mass in the left lower lobe with recommendations for CT chest. Postsurgical changes of facet projecting with pull-through procedure, herniated transverse colon. No bowel obstruction. No acute changes in the abdomen or pelvis. -Laboratory studies: WBC 13.5, hemoglobin 12.4. Sodium 132, potassium 3.7, BUN 15 creatinine 0.63. Troponin 0.086, 0.07, 0.078. TSH 0.959. Urinalysis positive for blood and WBCs, leukoesterase. Objective - Vital Signs Vital signs: Vital Signs Temp 97.9 F 09/30/24 08:50 Pulse 54 L 09/30/24 08:50 Resp 16 09/30/24 08:50 BP 120/70 09/30/24 08:50 Pulse Ox 99 09/30/24 08:50 FiO2 99 09/28/24 14:21 Intake & Output 09/29/24 09/30/24 09/30/24 18:59 06:59 18:59 Intake Total 500 480 Output Total 400 Balance 100 480 Weight 74.5 kg 74.5 kg Intake: IV 20 Invasive Line 1 10 Invasive Line 2 10 Oral 480 480 Output: Urine 400 Other: Voiding Method Toilet Toilet Urinal Urinal Diaper Diaper # Voids 3 2 # Bowel Movements 1 - Exam General appearance: alert, in no apparent distress ENT exam: Present: normal exam, mucous membranes moist Respiratory exam: Present: normal lung sounds bilaterally, wheezes (lower left lung field). Absent: respiratory distress, rales, rhonchi, stridor Cardiovascular Exam: Present: regular rate, normal rhythm, normal heart sounds. Absent: systolic murmur, diastolic murmur, rubs, gallop, clicks GI/Abdominal exam: Present: soft, tenderness (diffuse), normal bowel sounds. Absent: distended, guarding, rebound, rigid Extremities exam: Present: normal inspection, full ROM, normal capillary refill. Absent: tenderness, pedal edema, joint swelling, calf tenderness Back exam: Present: normal inspection Neurological exam: Present: alert, oriented X3, CN II-XII intact - Labs CBC & Chem 7: 09/29/24 06:28 09/29/24 06:28 Labs: Microbiology - Last 24 Hours (Table) 09/28/24 15:02 Urine Culture - Preliminary Urine,Voided Gram Neg Bacilli 09/28/24 15:16 Blood Culture - Preliminary Blood Assessment and Plan Assessment: 1. Abdominal pain with generalized weakness; likely secondary to nausea, vomiting, diarrhea, urinary retention CT scan of the abdomen pelvis revealed no acute abnormalities - PT/OT have been consulted 2. Left lower lobe pleural-based mass; - CT scan of the chest reveals a lingular subpleural 5.2 cm masslike consolidation. This is nonspecific and could represent chronic consolidation with underlying benign/malignant process. Small bilateral pleural effusions right greater than left. Atelectatic changes of the bases. Mild and for somatic changes. Postsurgical changes from esophagectomy with gastric pull- through. Ascending thoracic aortic aneurysm measuring 4.0 cm. - Pulmonary service on board; recommending PET scan completed as outpatient 3. Small right pleural effusion with possible infiltrate/atelectasis; patient is currently on IV antibiotics and pulmonary is on board - Patient remains on IV antibiotics in the form of ceftriaxone and azithromycin - Bronchodilator nebulizer treatments 4 times daily and as needed 4. Gram-negative bacilli urinary tract infection; patient remains on ceftriaxone - Blood cultures and urine cultures obtained; will monitor CBC, CRP and procalcitonin 5. Atrial fibrillation; patient remains anticoagulated with Eliquis; we will continue with the current dose; rate controlled on metoprolol 25 mg twice daily 6. History of hypertension; metoprolol 25 mg twice daily 7. Hyperlipidemia; Lipitor 10 mg daily 8. Hypothyroidism; levothyroxine 25 mcg daily 9. History of BPH; Flomax 0.8 mg p.o. nightly; Proscar 5 mg daily 10. History of anxiety/depression; Paxil 20 mg daily DVT prophylaxis; SCD/Eliquis CODE STATUS; full code
[2024-10-01 07:23] LABS: Basophils # (A) 0.03 10*3/uL (0.00-0.10); Basophils % (A) 0.5 %; Eosinophils # (A) 0.43 10*3/uL (0.04-0.35); HCT 33.1 % (39.6-50.0); Lymphocytes % (A) 11.4 %; MCH 30.8 pg (27.0-32.0); MCHC 33.2 g/dL (32.0-37.0); MCV 92.7 fL (80.0-97.0); Mean Platelet Volume 10.3 fL (9.5-12.2); Monocytes # (A) 0.64 10*3/uL (0.20-1.00); Monocytes % (A) 10.4 %; Neutrophils # (A) 4.33 10*3/uL (1.80-7.70); Neutrophils % (A) 70.2 %; Platelet Count 135 10*3/uL (140-440); RBC 3.57 10*6/uL (4.40-5.60); RDW 16.2 % (11.5-14.5); WBC 6.16 10*3/uL (4.50-10.00)
[2024-10-01 07:44] LABS: African American GFR (CKD) >90 (>60 ml/min/1.73 sqM); Anion Gap 0 mmol/L; Blood Urea Nitrogen 16 mg/dL (9-20); Calcium 7.7 mg/dL (8.4-10.2); Carbon Dioxide 34 mmol/L (22-30); Chloride 101 mmol/L (98-107); Glucose 96 mg/dL (74-99); Non-African American GFR(CKD) 89 (>60 ml/min/1.73 sqM); Potassium 3.3 mmol/L (3.5-5.1); Sodium 135 mmol/L (137-145)
--- NOTE | 2024-10-01 12:07 | P.PN ---
Subjective Progress Note Date: 10/01/24 This is an 79-year-old male patient with a known history of atrial fibrillation anticoagulated with Eliquis, hypertension, BPH, hypothyroidism, hearing disorder with cochlear implant, abdominal aortic aneurysm repair, esophageal cancer status post esophagectomy, anxiety, former smoker who presented to the emergency room yesterday from his primary care provider's office with multiple complaints including nausea, vomiting, diarrhea, urinary retention and abdominal pain. White count 13.5. Hemoglobin 12.4. Platelets 128. Sodium 132. Potassium 3.7. Bicarb 30. BUN 15. Creatinine 0.63. Troponin 0.086, 0.070, 0.078. Urinalysis with hide WBCs and large blood. Chest x-ray revealed bibasilar infil trates possible atelectasis versus pneumonia. CT scan of the abdomen and pelvis reveals a small right pleural effusion and right lower lobe infiltrate. There is a 5.1 cm pleural-based mass in the left lower lobe. Postsurgical changes of facet projecting with pull-through procedure and herniated transverse colon. No bowel obstruction. No acute changes within the abdomen and pelvis. We were co nsulted regarding the pleural-based mass. Dedicated CT scan of the chest is pending. He is seen today in consultation on the selective care unit. He is currently resting flat in bed. Awake and alert in no acute distress. Maintaining good O2 saturations in the mid to upper 90s on room air. He is afebrile. Hemodynamically stable. No pulmonary complaints. No hemoptysis. The patient is seen today September 30, 2024 in follow-up on the selective care unit. He is awake and alert in no acute distress. Maintaining O2 saturations in the 90s on room air oxygen. He has been up ambulating to the bathroom with assistance. CT scan of the chest reveals a lingular subpleural 5.2 cm masslike consolidation. This is nonspecific and could represent chronic consolidation with underlying benign/malignant process. Small bilateral pleural effusions right greater than left. Atelectatic changes of the bases. Mild and for somatic changes. Postsurgical changes from esophagectomy with gastric pull-t hrough. Ascending thoracic aortic aneurysm measuring 4.0 cm. No new labs today. He remains on ceftriaxone and azithromycin. Anticoagulated with Eliquis. The patient is seen today October 01, 2024 in follow-up on the selective care unit. He is sitting up in bed. Awake and alert in no acute distress. Maintaining good O2 saturations in the 90s on room air oxygen. He is continued on ceftriaxone and azithromycin. Anticoagulated with Eliquis. Continued on Proscar and Flomax. Urine culture is positive for Pseudomonas aeruginosa. White count 6.1. Hemoglobin 11.0. Platelets 135. Sodium 135. Potassium 3.3. Bicarb 34. BUN 16. Creatinine 0.71. Glucose 96. Objective - Vital Signs Vital signs: Vital Signs Temp 97.4 F L 10/01/24 08:30 Pulse 70 10/01/24 08:30 Resp 18 10/01/24 08:30 BP 111/63 10/01/24 08:30 Pulse Ox 98 10/01/24 08:30 FiO2 99 09/28/24 14:21 Intake & Output 09/30/24 10/01/24 10/01/24 18:59 06:59 18:59 Intake Total 1020 490 Balance 1020 490 Weight 74.5 kg 75.5 kg Intake: Intake, IV Titration 300 250 Amount Azithromycin 500 mg In 250 250 Sodium Chloride 0.9% 250 ml @ 250 mls/hr IVPB DAILY ALEYDA Rx#:[id number] cefTRIAXone 1 gm In 50 Sodium Chloride 0.9% 50 ml @ 100 mls/hr IVPB DAILY ALEYDA Rx#:[id number] Oral 720 240 Other: Voiding Method Toilet Urinal Diaper # Voids 2 1 1 - Exam GENERAL EXAM: Alert, 79-year-old male, sitting up in bed, on room air, comfortable in no apparent distress. HEAD: Normocephalic. EYES: Normal reaction of pupils, equal size. NOSE: Clear with pink turbinates. THROAT: No erythema or exudates. NECK: No masses, no JVD. CHEST: No chest wall deformity. LUNGS: Equal air entry with no crackles, wheeze, rhonchi or dullness. CVS: S1 and S2 normal with no audible murmur, regular rhythm. ABDOMEN: No hepatosplenomegaly, normal bowel sounds, no guarding or rigidity. SPINE: No scoliosis or deformity SKIN: No rashes CENTRAL NERVOUS SYSTEM: No focal deficits, tone is normal in all 4 extremities. EXTREMITIES: There is no peripheral edema. No clubbing, no cyanosis. Peripheral pulses are intact. - Labs CBC & Chem 7: 04/13/25 06:59 10/01/24 06:59 Labs: Abnormal Lab Results - Last 24 Hours (Table) 10/01/24 10/01/24 Range/Units 06:59 06:59 RBC 3.57 L (4.40-5.60) 10*6/uL Hgb 11.0 L (13.0-17.0) g/dL Hct 33.1 L (39.6-50.0) % Plt Count 135 L (140-440) 10*3/uL Lymphocytes # 0.70 L (0.90-5.00) 10*3/uL Eosinophils # 0.43 H (0.04-0.35) 10*3/uL Sodium 135 L (137-145) mmol/L Potassium 3.3 L (3.5-5.1) mmol/L Carbon Dioxide 34 H (22-30) mmol/L Calcium 7.7 L (8.4-10.2) mg/dL Microbiology - Last 24 Hours (Table) 09/28/24 15:02 Urine Culture - Final Urine,Voided Pseudomonas aeruginosa 09/28/24 15:16 Blood Culture - Preliminary Blood Assessment and Plan Assessment: Abdominal pain with generalized weakness secondary to nausea, vomiting, diarrhea, urinary retention CT scan of the abdomen pelvis revealed no acute abnormalities Left lower lobe pleural-based mass measuring 5.[address] scan of the chest reveals a lingular subpleural 5.2 cm masslike consolidation. This is nonspecific and could represent chronic consolidation with underlying benign/malignant process. Small bilateral pleural effusions right greater than left. Atelectatic changes of the bases. Mild and for somatic changes. Postsurgical changes from esophagectomy with gastric pull-through. Ascending thoracic aortic aneurysm measuring 4.0 cm. Small right pleural effusion with possible infiltrate/atelectasis Pseudomonas aeruginosa urinary tract infection, remains on ceftriaxone History of esophagectomy with gastric pull-through procedure in 2012 with herniation of nonobstructive nonstrangulated transverse colon Atrial fibrillation, anticoagulated with Eliquis History of hypertension History of BPH Hyperlipidemia Hypothyroidism Hearing disorder, status post cochlear implant in 2009 History of abdominal aortic aneurysm repair in 2013 History of anxiety Former smoker Plan: The patient was seen and evaluated Labs and medications reviewed Continue antibiotics Continue Eliquis Tolerating a heart healthy diet Stable and on room air oxygen Recommend outpatient PET scan Spoke with the patient and his who is present regarding plan of care We will continue to follow I have personally seen and examined the patient, performed the documentation and the assessment and plan as written. Number of minutes spent on the visit: 10 Dictation was produced using [employer] dictation software. Please excuse any grammatical, word or spelling errors.
--- NOTE | 2024-10-01 12:46 | P.PN ---
Subjective HISTORY OF PRESENT ILLNESS: This is an 79-year-old male patient of Dr. Schilling with past medical history of mild CAD on prior cardiac catheterization in 2009, F esophageal cancer status post esophagectomy with chemo and radiation 10 years ago, hypothyroidism, dyslipidemia, rheumatoid arthritis, aortic aneurysm repair, paroxysmal atrial fibrillation postoperatively maintained in a sinus rhythm, former tobacco use and dependence. We have been asked to evaluate the patient for NSTEMI. Patient's nurse states that he came into the hospital due to nausea vomiting and urinary retention. Patient states that he has also had a fall and could not get up. He denies any loss of consciousness. He states he crawled and then he was finally able to get up in 1 to go to the bathroom and fell again. He states he had a total of 4 falls at home. He states he has had some palpitations which is new for him. He complains of significant weakness. He has shortness of breath, wheezing and cough. He also continues to have nausea and vomiting. He states he has had a little bit of blood in his urine but no blood in his stools. Patient states that he has had weight loss of 80 pounds over the past 1-1/2 years. He denies lower extremity edema. No fevers. No chest pain. Blood pressure 169/75, heart rate in the 70s and 80s, pulse ox 95% on room air. -EKG: Atrial fibrillation with ventricular rate of 78, right bundle branch block, left anterior fascicular block. Repeat EKG sinus rhythm -Chest x-ray: Bibasilar infiltrates correlate for atelectasis and pneumonia. -CT abdomen and pelvis with contrast revealed small right effusion and right lower lobe infiltrate possibly pneumonic. 5.1 cm pleural-based mass in the left lower lobe with recommendations for CT chest. Postsurgical changes of facet projecting with pull-through procedure, herniated transverse colon. No bowel obstruction. No acute changes in the abdomen or pelvis. -Laboratory studies: WBC 13.5, hemoglobin 12.4. Sodium 132, potassium 3.7, BUN 15 creatinine 0.63. Troponin 0.086, 0.07, 0.078. TSH 0.959. Urinalysis positive for blood and WBCs, leukoesterase. -Home cardiac medications: Eliquis 5 mg twice daily, atorvastatin 10 mg daily, metoprolol tartrate 25 mg twice daily. -Echocardiogram performed 04/07/2022 reveals moderate increased left ventricular wall thickness. EF 55 to 60%, mild mitral regurgitation, mild aortic regurgitation, mild tricuspid regurgitation. No pericardial effusion. -Stress echocardiogram performed 04/28/2023 revealed poor exercise tolerance. Nondiagnostic stress echocardiogram secondary to inability to achieve 85% of maximum predicted heart rate. Patient only achieved 66%. At the rate achieved, no evidence of stress-induced ischemia. 09/30/2024 Patient examined this morning at bedside. Patient currently denies chest pain o r pressure. Denies shortness of breath. Vital signs are stable. Telemetry reveals sinus mechanism with a heart rate in the 50s. Patient did have episodes of nonsustained VT overnight. Echocardiogram completed revealing ejection fraction 50%, mild MR, moderate to severe aortic regurgitation, eccentric aortic regurgitation jet directed at the mitral valve, trace tricuspid regurgitation 10/01/2024 Patient examined this morning at bedside. Patient currently denies chest pain or pressure. He denies shortness of breath. Vital signs are stable. Telemetry reveals sinus mechanism with a heart rate between 5565. No further episodes of VT. PHYSICAL EXAM: VITAL SIGNS: Reviewed. GENERAL: Well-developed in no acute distress. NECK: Supple. No JVD or thyromegaly LUNGS: Respirations even and unlabored. Lungs essentially clear to auscultation bilaterally. HEART: Irregular rate and rhythm. S1 and S2 heard. Systolic murmur noted. EXTREMITIES: Normal range of motion. No clubbing or cyanosis. Peripheral pulses intact. No lower extremity edema ASSESSMENT: Multiple falls at home Elevated troponins with flat pattern, NSTEMI type II Mild CAD on previous cardiac catheterization Paroxysmal atrial fibrillation, converted to sinus rhythm 5.1 cm pleural-based mass on abdominal CT scan along with weight loss of 80 pounds over the past year and a half, generalized weakness, suspicious for malignancy History of esophageal cancer status post surgery, chemotherapy and radiation therapy 10 years ago Hypothyroidism Dyslipidemia Rheumatoid arthritis Aortic aneurysm repair Remote history of tobacco use and dependence Moderate to severe aortic regurgitation Nonsustained ventricular tachycardia PLAN: Continue current cardiac medications including Eliquis, atorvastatin, metoprolol tartrate Continue telemetry monitoring Pulmonary following for abnormal CT of the chest. Recommending outpatient PET scan. Further recommendations pending patient course Nurse practitioner note has been reviewed by physician. Signing provider agrees with the documented findings, assessment, and plan of care documented by [employer] as a scribe. Objective - Vital Signs Vital signs: Vital Signs Temp 97.4 F L 10/01/24 08:30 Pulse 70 10/01/24 08:30 Resp 18 10/01/24 08:30 BP 111/63 10/01/24 08:30 Pulse Ox 98 10/01/24 08:30 FiO2 99 09/28/24 14:21 Intake & Output 09/30/24 10/01/24 10/01/24 18:59 06:59 18:59 Intake Total 1020 490 Balance 1020 490 Weight 74.5 kg 75.5 kg Intake: Intake, IV Titration 300 250 Amount Azithromycin 500 mg In 250 250 Sodium Chloride 0.9% 250 ml @ 250 mls/hr IVPB DAILY ALEYDA Rx#:[id number] cefTRIAXone 1 gm In 50 Sodium Chloride 0.9% 50 ml @ 100 mls/hr IVPB DAILY ALEYDA Rx#:[id number] Oral 720 240 Other: Voiding Method Toilet Urinal Diaper # Voids 2 1 1 - Labs CBC & Chem 7: 10/01/24 06:59 10/01/24 06:59 Labs: Abnormal Lab Results - Last 24 Hours (Table) 10/01/24 10/01/24 Range/Units 06:59 06:59 RBC 3.57 L (4.40-5.60) 10*6/uL Hgb 11.0 L (13.0-17.0) g/dL Hct 33.1 L (39.6-50.0) % Plt Count 135 L (140-440) 10*3/uL Lymphocytes # 0.70 L (0.90-5.00) 10*3/uL Eosinophils # 0.43 H (0.04-0.35) 10*3/uL Sodium 135 L (137-145) mmol/L Potassium 3.3 L (3.5-5.1) mmol/L Carbon Dioxide 34 H (22-30) mmol/L Calcium 7.7 L (8.4-10.2) mg/dL Microbiology - Last 24 Hours (Table) 09/28/24 15:02 Urine Culture - Final Urine,Voided Pseudomonas aeruginosa 09/28/24 15:16 Blood Culture - Preliminary Blood
--- NOTE | 2024-10-01 15:16 | P.PN ---
Subjective Progress Note Date: 10/01/24 79-year-old male with multiple comorbid conditions including A-fib on Eliquis, CAD, hypertension, BPH presenting to emergency department with daughter and with referral from primary care provider (Dr. Kuldip Bowman) with multiple complaints. Patient states over the past few days he has been having diarrhea, urinary retention, nausea and vomiting addition to abdominal pain. He also states he has been having upper respiratory infection symptoms such as productive cough, chills, rhinorrhea and congestion over the past few days. Patient denies hematemesis, hematochezia, melena, dysuria, hematuria. he also denies chest pain, difficulty breathing, or palpitations, dizziness lightheadedness. Family bedside that the patient has had multiple falls recently and has been increasingly weak. -EKG: Atrial fibrillation with ventricular rate of 78, right bundle branch block, left anterior fascicular block. Repeat EKG sinus rhythm -Chest x-ray: Bibasilar infiltrates correlate for atelectasis and pneumonia. -CT abdomen and pelvis with contrast revealed small right effusion and right lower lobe infiltrate possibly pneumonic. 5.1 cm pleural-based mass in the left lower lobe with recommendations for CT chest. Postsurgical changes of facet projecting with pull-through procedure, herniated transverse colon. No bowel obstruction. No acute changes in the abdomen or pelvis. -Laboratory studies: WBC 13.5, hemoglobin 12.4. Sodium 132, potassium 3.7, BUN 15 creatinine 0.63. Troponin 0.086, 0.07, 0.078. TSH 0.959. Urinalysis positive for blood and WBCs, leukoesterase. 10/01/2024 Patient is seen and evaluated in room in follow-up on the selective care unit. He is sitting up in bed. Awake and alert in no acute distress. Maintaining good O2 saturations in the 90s on room air oxygen. Patient's family is not present in the room this -- he is continued on ceftriaxone and azithromycin. Anticoagulated with Eliquis. Continued on Proscar and Flomax. - Urine culture is positive for Pseudomonas aeruginosa. - White count 6.1. Hemoglobin 11.0. Platelets 135. Sodium 135. Potassium 3.3. Bicarb 34. BUN 16. Creatinine 0.71. Glucose 96. Continue antibiotics Continue Eliquis Recommend outpatient PET scan Objective - Vital Signs Vital signs: Vital Signs Temp 97.7 F 10/01/24 12:47 Pulse 60 10/01/24 12:47 Resp 17 10/01/24 12:47 BP 133/75 10/01/24 12:47 Pulse Ox 100 10/01/24 12:47 FiO2 99 09/28/24 14:21 Intake & Output 09/30/24 10/01/24 10/01/24 18:59 06:59 18:59 Intake Total 1020 730 Balance 1020 730 Weight 74.5 kg 75.5 kg Intake: Intake, IV Titration 300 250 Amount Azithromycin 500 mg In 250 250 Sodium Chloride 0.9% 250 ml @ 250 mls/hr IVPB DAILY ALEYDA Rx#:[id number] cefTRIAXone 1 gm In 50 Sodium Chloride 0.9% 50 ml @ 100 mls/hr IVPB DAILY ALEYDA Rx#:[id number] Oral 720 480 Other: Voiding Method Toilet Urinal Diaper # Voids 2 1 1 - Exam General appearance: alert, in no apparent distress ENT exam: Present: normal exam, mucous membranes moist Respiratory exam: Present: normal lung sounds bilaterally, wheezes (lower left lung field). Absent: respiratory distress, rales, rhonchi, stridor Cardiovascular Exam: Present: regular rate, normal rhythm, normal heart sounds. Absent: systolic murmur, diastolic murmur, rubs, gallop, clicks GI/Abdominal exam: Present: soft, tenderness (diffuse), normal bowel sounds. Absent: distended, guarding, rebound, rigid Extremities exam: Present: normal inspection, full ROM, normal capillary refill. Absent: tenderness, pedal edema, joint swelling, calf tenderness Back exam: Present: normal inspection Neurological exam: Present: alert, oriented X3, CN II-XII intact - Labs CBC & Chem 7: 10/01/24 06:59 10/01/24 06:59 Labs: Abnormal Lab Results - Last 24 Hours (Table) 10/01/24 10/01/24 Range/Units 06:59 06:59 RBC 3.57 L (4.40-5.60) 10*6/uL Hgb 11.0 L (13.0-17.0) g/dL Hct 33.1 L (39.6-50.0) % Plt Count 135 L (140-440) 10*3/uL Lymphocytes # 0.70 L (0.90-5.00) 10*3/uL Eosinophils # 0.43 H (0.04-0.35) 10*3/uL Sodium 135 L (137-145) mmol/L Potassium 3.3 L (3.5-5.1) mmol/L Carbon Dioxide 34 H (22-30) mmol/L Calcium 7.7 L (8.4-10.2) mg/dL Microbiology - Last 24 Hours (Table) 09/28/24 15:02 Urine Culture - Final Urine,Voided Pseudomonas aeruginosa 09/28/24 15:16 Blood Culture - Preliminary Blood Assessment and Plan Assessment: 1. Abdominal pain with generalized weakness; likely secondary to nausea, vomiting, diarrhea, urinary retention CT scan of the abdomen pelvis revealed no acute abnormalities - PT/OT have been consulted 2. Left lower lobe pleural-based mass; - CT scan of the chest reveals a lingular subpleural 5.2 cm masslike consolidation. This is nonspecific and could represent chronic consolidation with underlying benign/malignant process. Small bilateral pleural effusions right greater than left. Atelectatic changes of the bases. Mild and for somatic changes. Postsurgical changes from esophagectomy with gastric pull- through. Ascending thoracic aortic aneurysm measuring 4.0 cm. - Pulmonary service on board; recommending PET scan completed as outpatient 3. Small right pleural effusion with possible infiltrate/atelectasis; patient is currently on IV antibiotics and pulmonary is on board - Patient remains on IV antibiotics in the form of ceftriaxone and azithromycin - Bronchodilator nebulizer treatments 4 times daily and as needed 4. Gram-negative bacilli urinary tract infection; patient remains on ceftriaxone - Blood cultures and urine cultures obtained; will monitor CBC, CRP and procalcitonin 5. Atrial fibrillation; patient remains anticoagulated with Eliquis; we will continue with the current dose; rate controlled on metoprolol 25 mg twice daily 6. History of hypertension; metoprolol 25 mg twice daily 7. Hyperlipidemia; Lipitor 10 mg daily 8. Hypothyroidism; levothyroxine 25 mcg daily 9. History of BPH; Flomax 0.8 mg p.o. nightly; Proscar 5 mg daily 10. History of anxiety/depression; Paxil 20 mg daily DVT prophylaxis; SCD/Eliquis CODE STATUS; full code
[2024-10-02 06:37] LABS: Basophils # (A) 0.07 10*3/uL (0.00-0.10); Basophils % (A) 1.3 %; Eosinophils # (A) 0.45 10*3/uL (0.04-0.35); Eosinophils % (A) 8.3 %; HCT 34.6 % (39.6-50.0); HGB 11.8 g/dL (13.0-17.0); Lymphocytes # (A) 0.73 10*3/uL (0.90-5.00); Lymphocytes % (A) 13.4 %; MCH 31.4 pg (27.0-32.0); MCHC 34.1 g/dL (32.0-37.0); Mean Platelet Volume 10.4 fL (9.5-12.2); Monocytes # (A) 0.73 10*3/uL (0.20-1.00); Monocytes % (A) 13.4 %; Neutrophils # (A) 3.44 10*3/uL (1.80-7.70); Neutrophils % (A) 63.2 %; Platelet Count 146 10*3/uL (140-440); RBC 3.76 10*6/uL (4.40-5.60); RDW 16.2 % (11.5-14.5); WBC 5.44 10*3/uL (4.50-10.00)
[2024-10-02 07:15] LABS: African American GFR (CKD) >90 (>60 ml/min/1.73 sqM); Anion Gap 2 mmol/L; Blood Urea Nitrogen 12 mg/dL (9-20); Calcium 7.7 mg/dL (8.4-10.2); Carbon Dioxide 32 mmol/L (22-30); Chloride 102 mmol/L (98-107); Glucose 82 mg/dL (74-99); Non-African American GFR(CKD) 86 (>60 ml/min/1.73 sqM); Potassium 3.8 mmol/L (3.5-5.1); Sodium 136 mmol/L (137-145)
[2024-10-02 11:31] VITALS: BP 117/75; PULSE 54; RESP 20; TEMP 98.2
--- NOTE | 2024-10-02 13:33 | P.PN ---
Subjective HISTORY OF PRESENT ILLNESS: This is an 79-year-old male patient of Dr. Schilling with past medical history of mild CAD on prior cardiac catheterization in 2009, F esophageal cancer status post esophagectomy with chemo and radiation 10 years ago, hypothyroidism, dyslipidemia, rheumatoid arthritis, aortic aneurysm repair, paroxysmal atrial fibrillation postoperatively maintained in a sinus rhythm, former tobacco use and dependence. We have been asked to evaluate the patient for NSTEMI. Patient's nurse states that he came into the hospital due to nausea vomiting and urinary retention. Patient states that he has also had a fall and could not get up. He denies any loss of consciousness. He states he crawled and then he was finally able to get up in 1 to go to the bathroom and fell again. He states he had a total of 4 falls at home. He states he has had some palpitations which is new for him. He complains of significant weakness. He has shortness of breath, wheezing and cough. He also continues to have nausea and vomiting. He states he has had a little bit of blood in his urine but no blood in his stools. Patient states that he has had weight loss of 80 pounds over the past 1-1/2 years. He denies lower extremity edema. No fevers. No chest pain. Blood pressure 169/75, heart rate in the 70s and 80s, pulse ox 95% on room air. -EKG: Atrial fibrillation with ventricular rate of 78, right bundle branch block, left anterior fascicular block. Repeat EKG sinus rhythm -Chest x-ray: Bibasilar infiltrates correlate for atelectasis and pneumonia. -CT abdomen and pelvis with contrast revealed small right effusion and right lower lobe infiltrate possibly pneumonic. 5.1 cm pleural-based mass in the left lower lobe with recommendations for CT chest. Postsurgical changes of facet projecting with pull-through procedure, herniated transverse colon. No bowel obstruction. No acute changes in the abdomen or pelvis. -Laboratory studies: WBC 13.5, hemoglobin 12.4. Sodium 132, potassium 3.7, BUN 15 creatinine 0.63. Troponin 0.086, 0.07, 0.078. TSH 0.959. Urinalysis positive for blood and WBCs, leukoesterase. -Home cardiac medications: Eliquis 5 mg twice daily, atorvastatin 10 mg daily, metoprolol tartrate 25 mg twice daily. -Echocardiogram performed 04/07/2022 reveals moderate increased left ventricular wall thickness. EF 55 to 60%, mild mitral regurgitation, mild aortic regurgitation, mild tricuspid regurgitation. No pericardial effusion. -Stress echocardiogram performed 04/28/2023 revealed poor exercise tolerance. Nondiagnostic stress echocardiogram secondary to inability to achieve 85% of maximum predicted heart rate. Patient only achieved 66%. At the rate achieved, no evidence of stress-induced ischemia. 09/30/2024 Patient examined this morning at bedside. Patient currently denies chest pain o r pressure. Denies shortness of breath. Vital signs are stable. Telemetry reveals sinus mechanism with a heart rate in the 50s. Patient did have episodes of nonsustained VT overnight. Echocardiogram completed revealing ejection fraction 50%, mild MR, moderate to severe aortic regurgitation, eccentric aortic regurgitation jet directed at the mitral valve, trace tricuspid regurgitation 10/01/2024 Patient examined this morning at bedside. Patient currently denies chest pain or pressure. He denies shortness of breath. Vital signs are stable. Telemetry reveals sinus mechanism with a heart rate between 5565. No further episodes of VT. 10/02/2024 Patient examined this morning at bedside. Patient currently denies chest pain or pressure. He denies shortness of breath. Vital signs are stable. Telemetry reveals sinus bradycardia. PHYSICAL EXAM: VITAL SIGNS: Reviewed. GENERAL: Well-developed in no acute distress. NECK: Supple. No JVD or thyromegaly LUNGS: Respirations even and unlabored. Lungs essentially clear to auscultation bilaterally. HEART: Irregular rate and rhythm. S1 and S2 heard. Systolic murmur noted. EXTREMITIES: Normal range of motion. No clubbing or cyanosis. Peripheral pulses intact. No lower extremity edema ASSESSMENT: Multiple falls at home Elevated troponins with flat pattern, NSTEMI type II Mild CAD on previous cardiac catheterization Paroxysmal atrial fibrillation, converted to sinus rhythm 5.1 cm pleural-based mass on abdominal CT scan along with weight loss of 80 pounds over the past year and a half, generalized weakness, suspicious for ma lignancy History of esophageal cancer status post surgery, chemotherapy and radiation therapy 10 years ago Hypothyroidism Dyslipidemia Rheumatoid arthritis Aortic aneurysm repair Remote history of tobacco use and dependence Moderate to severe aortic regurgitation Nonsustained ventricular tachycardia PLAN: Continue current cardiac medications including Eliquis, atorvastatin, metoprolol tartrate Continue telemetry monitoring Pulmonary following for abnormal CT of the chest. Recommending outpatient PET scan. Patient is stable for discharge home today from a cardiac standpoint Further recommendations pending patient course Nurse practitioner note has been reviewed by physician. Signing provider agrees with the documented findings, assessment, and plan of care documented by [employer] as a scribe. Objective - Vital Signs Vital signs: Vital Signs Temp 98.0 F 10/02/24 04:00 Pulse 58 L 10/02/24 08:00 Resp 18 10/02/24 08:00 BP 116/55 10/02/24 08:00 Pulse Ox 96 10/02/24 08:00 FiO2 99 09/28/24 14:21 Intake & Output 10/01/24 10/02/24 10/02/24 18:59 06:59 18:59 Intake Total 780 240 Balance 780 240 Weight 73.7 kg Intake: Intake, IV Titration 300 Amount Azithromycin 500 mg In 250 Sodium Chloride 0.9% 250 ml @ 250 mls/hr IVPB DAILY A[facility] Rx#:[id number] cefTRIAXone 1 gm In 50 Sodium Chloride 0.9% 50 ml @ 100 mls/hr IVPB DAILY ALEYDA Rx#:[id number] Oral 480 240 Other: Voiding Method Toilet Urinal Diaper # Voids 1 0 1 - Labs CBC & Chem 7: 10/02/24 05:24 10/02/24 05:24 Labs: Abnormal Lab Results - Last 24 Hours (Table) 10/02/24 10/02/24 Range/Units 05:24 05:24 RBC 3.76 L (4.40-5.60) 10*6/uL Hgb 11.8 L (13.0-17.0) g/dL Hct 34.6 L (39.6-50.0) % Lymphocytes # 0.73 L (0.90-5.00) 10*3/uL Eosinophils # 0.45 H (0.04-0.35) 10*3/uL Sodium 136 L (137-145) mmol/L Carbon Dioxide 32 H (22-30) mmol/L Calcium 7.7 L (8.4-10.2) mg/dL Microbiology - Last 24 Hours (Table) 09/28/24 15:16 Blood Culture - Preliminary Blood
--- NOTE | 2024-10-02 14:12 | P.PN ---
Subjective Progress Note Date: 10/02/24 This is an 79-year-old male patient with a known history of atrial fibrillation anticoagulated with Eliquis, hypertension, BPH, hypothyroidism, hearing disorder with cochlear implant, abdominal aortic aneurysm repair, esophageal cancer status post esophagectomy, anxiety, former smoker who presented to the emergency room yesterday from his primary care provider's office with multiple complaints including nausea, vomiting, diarrhea, urinary retention and abdominal pain. White count 13.5. Hemoglobin 12.4. Platelets 128. Sodium 132. Potassium 3.7. Bicarb 30. BUN 15. Creatinine 0.63. Troponin 0.086, 0.070, 0.078. Urinalysis with hide WBCs and large blood. Chest x-ray revealed bibasilar infil trates possible atelectasis versus pneumonia. CT scan of the abdomen and pelvis reveals a small right pleural effusion and right lower lobe infiltrate. There is a 5.1 cm pleural-based mass in the left lower lobe. Postsurgical changes of facet projecting with pull-through procedure and herniated transverse colon. No bowel obstruction. No acute changes within the abdomen and pelvis. We were co nsulted regarding the pleural-based mass. Dedicated CT scan of the chest is pending. He is seen today in consultation on the selective care unit. He is currently resting flat in bed. Awake and alert in no acute distress. Maintaining good O2 saturations in the mid to upper 90s on room air. He is afebrile. Hemodynamically stable. No pulmonary complaints. No hemoptysis. The patient is seen today September 30, 2024 in follow-up on the selective care unit. He is awake and alert in no acute distress. Maintaining O2 saturations in the 90s on room air oxygen. He has been up ambulating to the bathroom with assistance. CT scan of the chest reveals a lingular subpleural 5.2 cm masslike consolidation. This is nonspecific and could represent chronic consolidation with underlying benign/malignant process. Small bilateral pleural effusions right greater than left. Atelectatic changes of the bases. Mild and for somatic changes. Postsurgical changes from esophagectomy with gastric pull-t hrough. Ascending thoracic aortic aneurysm measuring 4.0 cm. No new labs today. He remains on ceftriaxone and azithromycin. Anticoagulated with Eliquis. The patient is seen today October 01, 2024 in follow-up on the selective care unit. He is sitting up in bed. Awake and alert in no acute distress. Maintaining good O2 saturations in the 90s on room air oxygen. He is continued on ceftriaxone and azithromycin. Anticoagulated with Eliquis. Continued on Proscar and Flomax. Urine culture is positive for Pseudomonas aeruginosa. White count 6.1. Hemoglobin 11.0. Platelets 135. Sodium 135. Potassium 3.3. Bicarb 34. BUN 16. Creatinine 0.71. Glucose 96. The patient is seen today October 02, 2024 in follow-up on the selective care unit. He is currently resting comfortably in bed. Awake and alert in no acute distress. Maintaining O2 saturations in the 90s on room air. No IV fluids. Anticoagulated with Eliquis. Remains on ceftriaxone. Urine culture was positive for Pseudomonas aeruginosa. Blood culture revealed no growth. White count 5.4. Hemoglobin 11.8. Platelets 146. Sodium 136. Potassium 3.8. Bicarb 32. BUN 12. Creatinine 0.76. Glucose 82. Objective - Vital Signs Vital signs: Vital Signs Temp 98.2 F 10/02/24 11:30 Pulse 54 L 10/02/24 11:30 Resp 20 10/02/24 11:30 BP 117/75 10/02/24 11:30 Pulse Ox 95 10/02/24 11:30 FiO2 99 09/28/24 14:21 Intake & Output 10/01/24 10/02/24 10/02/24 18:59 06:59 18:59 Intake Total 780 240 Balance 780 240 Weight 73.7 kg Intake: Intake, IV Titration 300 Amount Azithromycin 500 mg In 250 Sodium Chloride 0.9% 250 ml @ 250 mls/hr IVPB DAILY ALEYDA Rx#:[id number] cefTRIAXone 1 gm In 50 Sodium Chloride 0.9% 50 ml @ 100 mls/hr IVPB DAILY ALEYDA Rx#:[id number] Oral 480 240 Other: Voiding Method Toilet Urinal Diaper # Voids 1 0 1 - Exam GENERAL EXAM: Alert, very hard of hearing 79-year-old male, resting in bed, on room air, comfortable in no apparent distress. HEAD: Normocephalic. EYES: Normal reaction of pupils, equal size. NOSE: Clear with pink turbinates. THROAT: No erythema or exudates. NECK: No masses, no JVD. CHEST: No chest wall deformity. LUNGS: Equal air entry with no crackles, wheeze, rhonchi or dullness. CVS: S1 and S2 normal with no audible murmur, regular rhythm. ABDOMEN: No hepatosplenomegaly, normal bowel sounds, no guarding or rigidity. SPINE: No scoliosis or deformity SKIN: No rashes CENTRAL NERVOUS SYSTEM: No focal deficits, tone is normal in all 4 extremities. EXTREMITIES: There is no peripheral edema. No clubbing, no cyanosis. Peripheral pulses are intact. - Labs CBC & Chem 7: 10/02/24 05:24 10/02/24 05:24 Labs: Abnormal Lab Results - Last 24 Hours (Table) 10/02/24 10/02/24 Range/Units 05:24 05:24 RBC 3.76 L (4.40-5.60) 10*6/uL Hgb 11.8 L (13.0-17.0) g/dL Hct 34.6 L (39.6-50.0) % Lymphocytes # 0.73 L (0.90-5.00) 10*3/uL Eosinophils # 0.45 H (0.04-0.35) 10*3/uL Sodium 136 L (137-145) mmol/L Carbon Dioxide 32 H (22-30) mmol/L Calcium 7.7 L (8.4-10.2) mg/dL Microbiology - Last 24 Hours (Table) 09/28/24 15:16 Blood Culture - Preliminary Blood Assessment and Plan Assessment: Abdominal pain with generalized weakness secondary to nausea, vomiting, diarrhea, urinary retention CT scan of the abdomen pelvis revealed no acute abnormalities Left lower lobe pleural-based mass measuring 5.[address] scan of the chest reveals a lingular subpleural 5.2 cm masslike consolidation. This is nonspecific and could represent chronic consolidation with underlying benign/malignant process. Small bilateral pleural effusions right greater than left. Atelectatic changes of the bases. Mild and for somatic changes. Postsurgical changes from esophagectomy with gastric pull-through. Ascending thoracic aortic aneurysm measuring 4.0 cm. Small right pleural effusion with possible infiltrate/atelectasis Pseudomonas aeruginosa urinary tract infection, remains on ceftriaxone History of esophagectomy with gastric pull-through procedure in 2012 with herniation of nonobstructive nonstrangulated transverse colon Atrial fibrillation, anticoagulated with Eliquis History of hypertension History of BPH Hyperlipidemia Hypothyroidism Hearing disorder, status post cochlear implant in 2009 History of abdominal aortic aneurysm repair in 2014 History of anxiety Former smoker Plan: The patient was seen and evaluated Labs and medications reviewed Remained stable and on room air oxygen Continue antibiotics Continue Eliquis Tolerating a heart healthy diet Recommend outpatient PET scan Plan is for home with his at discharge I have personally seen and examined the patient, performed the documentation and the assessment and plan as written. Number of minutes spent on the visit: 10 Dictation was produced using [facility] dictation software. Please excuse any grammatical, word or spelling errors.
== END 2024-10-02 15:54 | disposition home or self-care (01) | DRG 193 ==
LOC: EC 09:20 → 3SCARD 16:01
PROVIDERS: ADMIT Internal Medicine; ATTEND Internal Medicine
DX: J18.9 Pneumonia, unspecified organism (principal); I21.A1 Myocardial infarction type 2; I47.20 Ventricular tachycardia, unspecified; J90 Pleural effusion, not elsewhere classified; B96.5 Pseudomonas (aeruginosa) (mallei) (pseudomallei) as the cause of diseases classified elsewhere; J43.9 Emphysema, unspecified; M06.9 Rheumatoid arthritis, unspecified; E03.9 Hypothyroidism, unspecified; I10 Essential (primary) hypertension; I71.21 Aneurysm of the ascending aorta, without rupture; F32.A Depression, unspecified; I08.3 Combined rheumatic disorders of mitral, aortic and tricuspid valves; R63.4 Abnormal weight loss; N39.0 Urinary tract infection, site not specified; I45.2 Bifascicular block; I48.0 Paroxysmal atrial fibrillation; E78.5 Hyperlipidemia, unspecified; H91.90 Unspecified hearing loss, unspecified ear; I25.10 Atherosclerotic heart disease of native coronary artery without angina pectoris; K21.9 Gastro-esophageal reflux disease without esophagitis; R31.9 Hematuria, unspecified; R33.8 Other retention of urine; F41.9 Anxiety disorder, unspecified; R11.2 Nausea with vomiting, unspecified; N40.1 Benign prostatic hyperplasia with lower urinary tract symptoms; R29.6 Repeated falls; Z91.81 History of falling; Z68.20 Body mass index [BMI] 20.0-20.9, adult; Z79.01 Long term (current) use of anticoagulants; Z79.890 Hormone replacement therapy; Z79.899 Other long term (current) drug therapy; Z85.01 Personal history of malignant neoplasm of esophagus; Z86.79 Personal history of other diseases of the circulatory system; Z87.891 Personal history of nicotine dependence; Z90.49 Acquired absence of other specified parts of digestive tract; Z92.21 Personal history of antineoplastic chemotherapy; Z92.3 Personal history of irradiation; Z96.21 Cochlear implant status; Z20.822 Contact with and (suspected) exposure to COVID-19
CPT/HCPCS: 36415; 71046; 71270; 74177; 80048; 80053; 81001; 83605; 83735; 84100; 84443; 84484; 85025; 85610; 85730; 87040; 87077; 87086; 87186; 87636; 93005; 93306; 96365; 96366; 96375; 99285

== ENCOUNTER → 2024-11-10 | Outpatient (CLI) | payer MEDICARE ==
--- NOTE | 2024-11-10 14:12 | PE ---
EXAMINATION TYPE: PET CT fusion skull to thigh DATE OF EXAM: 11/10/2024 COMPARISON: Most recent chest CT September 29, 2024. Most recent CT abdomen and pelvis September 28, 2024 HISTORY: Solitary pulmonary nodule TECHNIQUE: Following the intravenous administration of 10.8 mCi of F-18 FDG, whole body images are p erformed from the skull base to the midthigh. Images are reviewed on the computer in the coronal, ax ial, and sagittal planes. Reconstructed rotating images are created on independent workstation and r eviewed on the computer. A localization and attenuation correction CT is performed in conjunction w ith the PET scan. Blood glucose level equals 98. SCAN: Initial Scan FINDINGS: SKULL BASE AND NECK: No areas of abnormal hypermetabolic uptake. CHEST, MEDIASTINUM, AND HILAR REGION: Slightly more prominent small to moderate size right-sided pleu ral effusion. Mild to moderate underlying emphysematous change redemonstrated. Slightly more prominent cavitary les ion in the peripheral right mid lung measuring 2.1 cm axial image 119 with abnormal hypermetabolic up take, max SUV is 7.92. There are prominent slightly hypermetabolic lymph nodes within the mediastinum. For reference is 2.1 x 1.1 cm AP window lymph node image 113, max SUV is 4.68. Max SUV is 5.78 near prominent lymph nodes near the aortic arch. ABDOMEN AND PELVIS: No areas of abnormal hypermetabolic uptake. OSSEOUS STRUCTURES: No abnormal hypermetabolic uptake. OTHER CT: Stable tiny left pleural effusion. Surgical changes from esophagectomy and gastric pull up procedure are redemonstrated. Mild/moderate coronary artery calcification redemonstrated. Cholecystectomy clips are again seen. An aortobiiliac graft is redemonstrated. Left-sided nonobstruct ing renal calculi and small simple cysts are noted. Surgical changes to bowel loops in the pelvis are again seen. Distal colonic diverticula are redemonstrated. Slightly enlarged prostate consistent wit h BPH is again seen. There is moderate to severe right-sided hydronephrosis with obstructing 8 mm calculus in the proximal right ureter noted. IMPRESSION: 1. Cavitary lesion with abnormal thoracic adenopathy could reflect malignancy such as squamous cell c arcinoma versus infection. 2. Note is made of 8mm calculus at right UVJ causing moderate to severe right-sided hydronephrosis. [facility], , 11/10/2024 2:10 PM
== END | disposition home or self-care (01) ==
LOC: RADPETMAIN 09:11
PROVIDERS: ATTEND Internal Medicine
DX: R91.8 Other nonspecific abnormal finding of lung field (principal); N13.2 Hydronephrosis with renal and ureteral calculous obstruction
CPT/HCPCS: 78815; A9552

== ENCOUNTER 2024-11-21 11:15 | Inpatient (IN) | payer MEDICARE ==
--- NOTE | 2024-11-21 12:42 | ED ---
General Adult HPI - General Chief complaint: Urogenital Stated complaint: Abn Labs Time Seen by Provider: 11/21/24 11:42 Source: patient, RN notes reviewed Mode of arrival: wheelchair Limitations: no limitations - History of Present Illness Initial comments: 79-year-old male presents to the emergency department sent in by Dr. Lo's office. He states that he was told he had a kidney stone and that he should present to the emergency department he has followed with Dr. Rand in the past. He denies any pain at this time. He does report that he has been feeling increased weakness. This caused him to fall yesterday around 8 PM. He does note that he fell onto his right arm and has pain in his right forearm. Also reports hitting his head. He did not lose consciousness. He has been off of his Eliquis for around 36 hours as he has a procedure scheduled for and he was told to stop his blood thinners for this. He denies any recent fever, chills. Denies any urinary symptoms. - Related Data Home Medications Medication Instructions Recorded Confirmed Atorvastatin [Lipitor] 10 mg PO DAILY 11/30/13 11/21/24 PARoxetine HCL [Paroxetine HCl] 20 mg PO DAILY 11/30/13 11/21/24 Levothyroxine Sodium [Synthroid] 25 mcg PO DAILY 10/05/16 11/21/24 Etanercept [Enbrel Sureclick] 50 mg SQ MO 04/06/22 11/21/24 Tamsulosin HCl [Flomax] 0.8 mg PO HS 04/06/22 11/21/24 Apixaban [Eliquis] 5 mg PO DIRECTED 07/19/23 11/21/24 Finasteride [Proscar] 5 mg PO DAILY 07/19/23 11/21/24 Metoprolol Tartrate [Lopressor] 25 mg PO DAILY 07/19/23 11/21/24 Pantoprazole Sodium [Protonix] 40 mg PO DAILY 11/21/24 11/21/24 Previous Rx's Medication Instructions Recorded Acetaminophen Tab [Tylenol] 650 mg PO Q6HR PRN tab 11/24/24 Ciprofloxacin HCl [Cipro] 500 mg PO BID 10 Days #20 tab 11/24/24 Allergies Allergy/AdvReac Type Severity Reaction Status Date / Time No Known Allergies Allergy Verified 11/21/24 15:28 Review of Systems ROS Statement: Those systems with pertinent positive or pertinent negative responses have been documented in the HPI. ROS Other: All systems not noted in ROS Statement are negative. Past Medical History Past Medical History: Atrial Fibrillation, Coronary Artery Disease (CAD), Cancer, GERD/Reflux, Hearing Disorder / Deafness, Hyperlipidemia, Hypertension, Pneumonia, Prostate Disorder, Skin Disorder, Thyroid Disorder Additional Past Medical History / Comment(s): Esophageal Cancer 2012; cochlear implants for loss of hearing, enlarged prostate, hx of atrial fibrillation, rash to feet sometimes, hx of sob with walking History of Any Multi-Drug Resistant Organisms: None Reported Past Surgical History: Appendectomy, Bowel Resection, Cholecystectomy, Ear Surgery Additional Past Surgical History / Comment(s): esophagectemy in May 2013, Abdominal Aortic Aneurysm repair on December 06, 2013; cochlear implant in 2009, cholecystectomy in 2007, bowel resection 2022 Past Anesthesia/Blood Transfusion Reactions: No Reported Reaction Additional Past Anesthesia/Blood Transfusion Reaction / Comment(s): no blood transfusion reaction Past Psychological History: Anxiety Smoking Status: Former smoker Past Alcohol Use History: None Reported Past Drug Use History: None Reported - Past Family History Brother(s) Family Medical History: Unable to Obtain Additional Family Medical History / Comment(s): patient states that he was adopted when he was 3 from a [place] [facility] along with his little sister, later found that he had 2 half brothers and 2 half sisters, no medical problems as far as he knows. does not know whether his biological mother and father had any medical issues General Exam Limitations: no limitations General appearance: alert, in no apparent distress Head exam: Present: atraumatic, normocephalic, normal inspection Eye exam: Present: normal appearance, PERRL, EOMI. Absent: scleral icterus, conjunctival injection, periorbital swelling Respiratory exam: Present: normal lung sounds bilaterally. Absent: respiratory distress, wheezes, rales, rhonchi, stridor Cardiovascular Exam: Present: regular rate, normal rhythm, normal heart sounds. Absent: systolic murmur, diastolic murmur, rubs, gallop, clicks GI/Abdominal exam: Present: soft, normal bowel sounds. Absent: distended, tenderness, guarding, rebound, rigid Extremities exam: Present: full ROM, tenderness (Right lateral forearm), normal capillary refill. Absent: pedal edema, joint swelling, calf tenderness Back exam: Present: normal inspection Neurological exam: Present: alert, oriented X3 Psychiatric exam: Present: normal affect, normal mood Skin exam: Present: warm, dry, normal color, other (Ecchymosis to the right cheek). Absent: intact, rash Course Vital Signs 11/21/24 11/21/24 11/21/24 11:18 11:21 18:53 Temperature 98.0 F 98.2 F Pulse Rate 73 62 58 L Respiratory 18 16 15 Rate Blood Pressure 102/67 120/70 120/70 O2 Sat by Pulse 96 100 97 Oximetry 11/21/24 11/21/24 19:15 21:59 Temperature 98.1 F 98 F Pulse Rate 62 62 Respiratory 16 16 Rate Blood Pressure 126/78 124/78 O2 Sat by Pulse 95 98 Oximetry Medical Decision Making - Medical Decision Making Was pt. sent in by a medical professional or institution (, PA, CONSUMER AFFAIRS MANAGER, urgent care, hospital, or prison...) When possible be specific @ -No Did you speak to anyone other than the patient for history (EMS, parent, family, police, friend...)? What history was obtained from this source @ -No Did you review nursing and triage notes (agree or disagree)? Why? @ -I reviewed and agree with nursing and triage notes Were old charts reviewed (outside hosp., previous admission, EMS record, old EKG, old radiological studies, urgent care reports/EKG's, prison records)? Report findings @ -No old charts were reviewed Differential Diagnosis (chest pain, altered mental status, abdominal pain women, abdominal pain men, vaginal bleeding, weakness, fever, dyspnea, syncope, headache, dizziness, GI bleed, back pain, seizure, CVA, palpatations, mental health, musculoskeletal)? @ -Differential Abdominal Pain Men: Appendicitis, cholecystitis, diverticulosis, ischemic bowel, pancreatitis, hepatitis, UTI, gastroenteritis, AAA, incarcerated hernia, bowel obstruction, constipation, inflammatory bowel, hepatitis, peptic ulcer disease, splenic infarction, perforated viscus, testicular torsion, this is not meant to be an all-inclusive list EKG interpreted by me (3pts min.). @ -None X-rays interpreted by me (1pt min.). @ -None done CT interpreted by me (1pt min.). @ -CT abdomen pelvis reveals 8 to 9 mm obstructing right UPJ calculus, right lower lobe pneumonic infiltrate with small right-sided pleural effusion, stable small left pleural effusion U/S interpreted by me (1pt. min.). @ -None done What testing was considered but not performed or refused? (CT, X-rays, U/S, labs)? Why? @ -None What meds were considered but not given or refused? Why? @ -None Did you discuss the management of the patient with other professionals (pr ofessionals i.e. , PA, CONSUMER AFFAIRS MANAGER, lab, RT, psych nurse, social services manager, picc nurse, teacher, safety patrol officer, supportive employment case manager)? Give summary @ -Management discussed with Dr. Bowman who is accepting of the admission Was smoking cessation discussed for >3mins.? @ -No Was critical care preformed (if so, how long)? @ -No Were there social determinants of health that impacted care today? How? (Homelessness, low income, unemployed, alcoholism, drug addiction, transportation, low edu. Level, literacy, decrease access to med. care, prison, rehab)? @ -No Was there de-escalation of care discussed even if they declined (Discuss DNR or withdrawal of care, Hospice)? DNR status @ -No What co-morbidities impacted this encounter? (DM, HTN, Smoking, COPD, CAD, Cancer, CVA, ARF, Chemo, Hep., AIDS, mental health diagnosis, sleep apnea, morbid obesity)? @ -None Was patient admitted / discharged? Hospital course, mention meds given and route, prescriptions, significant lab abnormalities, going to OR and other per tinent info. @ -Admitted.Patient presented the emergency department for evaluation of kidney stone. Patient had outpatient scan and was told that he had a kidney stone. Laboratory studies obtained revealing no significant leukocytosis, hemoglobin 11.7; CMP reveals a creatinine of 0.8, GFR 83. UA shows moderate blood, positive nitrates, large leukocyte esterase patient will be started on antibi otics. Patient will be admitted with urology consultation. Case discussed with Dr. Bowman who is Accepting of the admission. Case discussed with Dr. Perez. Undiagnosed new problem with uncertain prognosis? @ -No Drug Therapy requiring intensive monitoring for toxicity (Heparin, Nitro, Insuli n, Cardizem)? @ -No Were any procedures done? @ -No Diagnosis/symptom? @ -Kidney stone, UTI Acute, or Chronic, or Acute on Chronic? @ -Acute Uncomplicated (without systemic symptoms) or Complicated (systemic symptoms)? @ -Uncomplicated Side effects of treatment? @ -No Exacerbation, Progression, or Severe Exacerbation? @ -No Poses a threat to life or bodily function? How? (Chest pain, [place], VA, pneumonia, PE, COPD, DKA, ARF, appy, cholecystitis, CVA, Diverticulitis, Homicidal, Suicidal, threat to staff... and all critical care pts) @ -No - Lab Data Result diagrams: 11/23/24 04:09 11/23/24 04:09 Lab Results 11/21/24 11/21/24 11/21/24 Range/Units 12:55 12:55 12:55 WBC 4.75 (4.50-10.00) 10*3/uL RBC 3.83 L (4.40-5.60) 10*6/uL Hgb 11.7 L (13.0-17.0) g/dL Hct 34.8 L (39.6-50.0) % MCV 90.9 (80.0-97.0) fL MCH 30.5 (27.0-32.0) pg MCHC 33.6 (32.0-37.0) g/dL Plt Count 123 L (140-440) 10*3/uL MPV 10.2 (9.5-12.2) fL Immature Gran % (Auto) 0.2 % Neutrophils % 53.9 % Lymphocytes % 20.2 % Monocytes % 21.1 % Eosinophils % 3.8 % Basophils % 0.8 % Immature Gran # 0.01 (0.00-0.04) 10*3/uL Neutrophils # 2.56 (1.80-7.70) 10*3/uL Lymphocytes # 0.96 (0.90-5.00) 10*3/uL Monocytes # 1.00 (0.20-1.00) 10*3/uL Eosinophils # 0.18 (0.04-0.35) 10*3/uL Basophils # 0.04 (0.00-0.10) 10*3/uL Sodium 136 L (137-145) mmol/L Potassium 3.9 (3.5-5.1) mmol/L Chloride 103 (98-107) mmol/L Carbon Dioxide 28 (22-30) mmol/L Anion Gap 5 mmol/L BUN 16 (9-20) mg/dL Creatinine 0.84 (0.66-1.25) mg/dL Est GFR (CKD-EPI)AfAm >90 (>60 ml/min/1.73 sqM) Est GFR (CKD-EPI)NonAf 83 (>60 ml/min/1.73 sqM) Glucose 105 H (74-99) mg/dL Calcium 8.3 L (8.4-10.2) mg/dL Magnesium 1.8 (1.6-2.3) mg/dL Total Bilirubin 0.6 (0.2-1.3) mg/dL AST 34 (17-59) U/L ALT 15 (4-49) U/L Alkaline Phosphatase 114 (38-126) U/L Total Protein 6.8 (6.3-8.2) g/dL Albumin 2.6 L (3.5-5.0) g/dL Urine Color Yellow Urine Appearance Cloudy (Clear) Urine pH 5.5 (5.0-8.0) Ur Specific [place] 1.016 (1.001-1.035) Urine Protein Trace H (Negative) Urine Glucose (UA) Negative (Negative) Urine Ketones Negative (Negative) Urine Blood Moderate H (Negative) Urine Nitrite Positive (Negative) Urine Bilirubin Negative (Negative) Urine Urobilinogen <2.0 (<2.0) mg/dL Ur Leukocyte Esterase Large H (Negative) Urine RBC 43 H (0-5) /hpf Urine WBC 119 H (0-5) /hpf Urine WBC Clumps Few H (None) /hpf Ur Squamous Epith Cells <1 (0-4) /hpf Calcium Oxalate Crystal Rare H (None) /hpf Urine Bacteria Rare H (None) /hpf Urine Mucus Few H (None) /hpf Disposition Clinical Impression: UTI (urinary tract infection), Urolithiasis Disposition: ADMITTED IP TO THIS [facility] Condition: Stable Is patient prescribed a controlled substance at d/c from ED?: No
[2024-11-21 13:00] LABS: Basophils # (A) 0.04 10*3/uL (0.00-0.10); Basophils % (A) 0.8 %; Eosinophils # (A) 0.18 10*3/uL (0.04-0.35); Eosinophils % (A) 3.8 %; HCT 34.8 % (39.6-50.0); HGB 11.7 g/dL (13.0-17.0); Lymphocytes # (A) 0.96 10*3/uL (0.90-5.00); Lymphocytes % (A) 20.2 %; MCH 30.5 pg (27.0-32.0); MCHC 33.6 g/dL (32.0-37.0); MCV 90.9 fL (80.0-97.0); Mean Platelet Volume 10.2 fL (9.5-12.2); Monocytes % (A) 21.1 %; Neutrophils # (A) 2.56 10*3/uL (1.80-7.70); Neutrophils % (A) 53.9 %; Platelet Count 123 10*3/uL (140-440); RBC 3.83 10*6/uL (4.40-5.60); RDW 14.7 % (11.5-14.5); WBC 4.75 10*3/uL (4.50-10.00)
[2024-11-21 13:09] LABS: Appearance,Urine Cloudy (Clear); Bacteria,Urine Rare /hpf; Bilirubin,Urine Negative (Negative); Blood,Urine Moderate (Negative); Calcium Oxalate Crystals,Urine Rare /hpf; Color,Urine Yellow; Glucose,Urine (UA) Negative (Negative); Ketones,Urine Negative (Negative); Leukocyte Esterase,Urine Large (Negative); Mucus,Urine Few /hpf; Nitrite,Urine Positive (Negative); PH, Urine 5.5 (5.0-8.0); Protein,Urine Trace (Negative); RBC,Urine 43 /hpf (0-5); Specific Gravity,Urine 1.016 (1.001-1.035); Squamous Epithelial Cell,Urine <1 /hpf (0-4); Urobilinogen,Urine <2.0 mg/dL (<2.0); WBC,Urine 119 /hpf (0-5)
[2024-11-21 13:16] LABS: ALT 15 U/L (4-49); AST 34 U/L (17-59); African American GFR (CKD) >90 (>60 ml/min/1.73 sqM); Albumin 2.6 g/dL (3.5-5.0); Alkaline Phosphatase 114 U/L (38-126); Anion Gap 5 mmol/L; Blood Urea Nitrogen 16 mg/dL (9-20); Calcium 8.3 mg/dL (8.4-10.2); Carbon Dioxide 28 mmol/L (22-30); Chloride 103 mmol/L (98-107); Glucose 105 mg/dL (74-99); Magnesium 1.8 mg/dL (1.6-2.3); Non-African American GFR(CKD) 83 (>60 ml/min/1.73 sqM); Potassium 3.9 mmol/L (3.5-5.1); Sodium 136 mmol/L (137-145); Total Bilirubin 0.6 mg/dL (0.2-1.3); Total Protein 6.8 g/dL (6.3-8.2)
[2024-11-21] MEDS: SODIUM CHLORIDE 0.9% 1,000 ML IV ONE (13:48)
--- NOTE | 2024-11-21 14:46 | XR ---
EXAMINATION TYPE: XR forearm RT DATE OF EXAM: 11/21/2024 CLINICAL INDICATION: Male, 79 years old with history of fall, pain TECHNIQUE: Two views of the right forearm are obtained. COMPARISON: None. FINDINGS: There is no acute fracture or dislocation seen in the right radius or ulna. The right el bow and wrist joints appear within normal limits. Peripheral IV overlies the proximal forearm. IMPRESSION: There is no acute fracture or dislocation seen in the right radius or ulna. [facility], , 11/21/2024 2:43 PM
--- NOTE | 2024-11-21 15:21 | CT ---
EXAMINATION TYPE: CT brain tu hernández con DATE OF EXAM: 11/21/2024 COMPARISON: None CLINICAL INDICATION: Male, 79 years old with history of fall; PHH, PAIN AFTER FALL TECHNIQUE: CT scan of the head and cervical spine are performed without contrast. CT DLP: 1356.[address] CTDI: mGy Automated exposure control for dose reduction was used. Findings: Head CT: Ventricles, basal cisterns and sulci over convexities are moderately enlarged consistent with moderat e generalized atrophy. There is no mass effect or shift of midline structures. There is no acute intra or extra-axial hemorrhage.. Posterior fossa including the brainstem, fourth ventricle and cerebellar pontine angles are grossly n ormal. The intraorbital contents appear normal and symmetric. Visualized paranasal sinuses are well aerated. CT cervical spine: Craniovertebral junction relationships and prevertebral soft tissues are normal. The cervical vertebral segments are normal in height and alignment and there is no fracture subluxati on. There is mild to moderate disc space narrowing and spondylosis at the C3-4, C5-6 and C6-7 levels joel cating mild to moderate degenerative disc disease. The facet joints are intact. There is mild degeneration of the uncovertebral joints at the C3-4, C4-5, C5-6 and C6-7 levels. The bony spinal canal is widely patent. There is mild to moderate narrowing of the neural foramina at the C3-4 level bilaterally. There are bilateral cochlear implants.. IMPRESSION: 1. Head CT: No acute bleed or mass effect. Moderate generalized atrophy. 2. CT cervical spine: No acute trauma. Degenerative changes as described above. [facility], Workstation: [id number] 11/21/2024 3:18 PM
--- NOTE | 2024-11-21 15:40 | CT ---
EXAMINATION TYPE: CT abdomen pelvis wo con DATE OF EXAM: 11/21/2024 COMPARISON: 09/28/2024 CLINICAL INDICATION: Male, 79 years old with history of rt kidney stone; PHH, LEFT SIDE ABDOMINAL AND FLANK PAIN TECHNIQUE: CT scan of the abdomen and pelvis is performed without oral or IV contrast. CT DLP: 556.[address] CTDI: mGy Automated exposure control for dose reduction was used. FINDINGS: Within the limitations of a non-contrast study, the following observations are made. There is no change in the right lower lobe infiltrate with bronchiectasis. There is no change in the small right pleural effusion and small left pleural effusion portion of which is loculated along the left lateral lung base. There is esophagectomy with gastric pull-through procedure. There is surgical absence of the gallbladder.There is no biliary ductal dilatation. There is no organomegaly of the liver, pancreas, spleen or adrenal glands. There is mild to moderate right hydronephrosis secondary to a nonobstructing 8 to 9 mm UPJ calculus. There is a 9 mm hyperdense cyst of the right kidney. There are 3 nonobstructing left renal calcificat ions, to which are punctate. The largest is approximately 5 to 6 mm. There is an inverted Y aortic bypass graft. The bowel loops are normal in caliber is no evidence of obstruction. No inflammatory changes are iden tified in the mesentery and there is no free intraperitoneal air or fluid. There are anastomotic smal l bowel sutures in the upper pelvic midline. There is no pelvic mass, free fluid, abscess or adenopathy. There is mild diverticulosis of the colon without CT evidence of diverticulitis. The osseous structures and soft tissues are unremarkable. IMPRESSION: 1. Stable right lower lobe pneumonic infiltrate and small right pleural effusion. 2. Stable small left pleural effusion portion of which is loculated. 3. 8-9 mm obstructing right UPJ calculus, 4. Nonobstructing left renal calcifications. 5. Esophagectomy with gastric pull through procedure. 6. Cholecystectomy, small bowel anastomotic sutures and inverted Y aortic bypass graft [facility], , 11/21/2024 3:37 PM
[2024-11-21] MEDS ORDERED: NALOXONE 0.4 MG/ML 1 ML VIAL IV PRN (16:45)
[2024-11-21] MEDS ORDERED: KETOROLAC 15 MG/ML 1 ML VIAL IVP PRN (16:45)
[2024-11-21] MEDS ORDERED: ACETAMINOPHEN TAB 325 MG TAB PO PRN (16:45)
[2024-11-21] MEDS: SODIUM CHLORIDE 0.9% 1,000 ML IV SCH (17:44)
[2024-11-21] MEDS: AZITHROMYCIN 500 MG in SODIUM CHLORIDE 0.9% 250 ML IVPB SCH (20:31)
[2024-11-21] MEDS: TAMSULOSIN 0.4 MG CAP.ER.24H PO SCH (20:32)
--- NOTE | 2024-11-22 01:29 | HP ---
HISTORY AND PHYSICAL HISTORY OF PRESENT ILLNESS: An 79-year-old white male, seen in the hospital. Dr. Maddox' office due to kidney stone and hydronephrosis, seen in the past, he has had falls with increasing problems with right arm, pain in his right forearm. No loss of consciousness. He has been off Eliquis due to some procedure. MEDICATIONS: 1. Lipitor 10 daily. 2. Paxil 20 mg daily. 3. Synthroid 25 mcg daily. 4. subcu weekly. 5. Flomax 0.8 mg daily. 6. Lopressor 25 daily. 7. Proscar 5 mg daily. ALLERGIES: Negative. REVIEW OF SYSTEMS: A 14-point review of systems negative except for mentioned in the HPI. PAST MEDICAL HISTORY: Atrial fibrillation, coronary artery disease, GERD, cancer, hearing disorder, deafness, hypertension, pneumonia, BPH, hypothyroidism, COPD, esophageal cancer in 2018, enlarged prostate, atrial fibrillation. PAST SURGICAL HISTORY: Appendectomy, bowel resection, cholecystectomy, ear surgery, history of aortic aneurysm, esophagoscopy. PHYSICAL EXAMINATION: VITAL SIGNS: Temperature 98, pulse 70s to 60s, respiratory rate 16 to 18, blood pressure 102 to 120 over 60 to 70, O2 96 to 100. CARDIOVASCULAR: S1, S2. LUNGS: Decreased breath sounds x4, scattered wheeze x4. HEMATOLOGY: Negative Homans. PSYCH: Fair mood and affect. GI: Soft. NEUROLOGIC: Alert and oriented x3. LABORATORY DATA: Hemoglobin is 11.7, white count 4.75. Sodium 136, potassium 3.9. Urinary tract infection, hydronephrosis, urolithiasis, chronic obstructive pulmonary disease. Prognosis guarded. IV antibiotics. Treat urinary tract infection, rule out sepsis. Consult Urology. Prognosis guarded. MMODL / IJN: [id number] /
[2024-11-22] MEDS: LEVOTHYROXINE 25 MCG TAB PO SCH (04:33)
[2024-11-22] MEDS: IPRATROPIUM-ALBUTEROL 3 ML NEB INHALATION SCH (08:03)
[2024-11-22] MEDS: METOPROLOL TARTRATE 25 MG TAB PO SCH (08:43)
[2024-11-22] MEDS: FINASTERIDE 5 MG TAB PO SCH (08:43)
[2024-11-22] MEDS: PANTOPRAZOLE 40 MG TABLET PO SCH (08:43)
[2024-11-22] MEDS: PARoxetine 20 MG TAB PO SCH (08:43)
[2024-11-22] MEDS: ATORVASTATIN 10 MG TAB PO SCH (08:44)
[2024-11-22] MEDS: CEFEPIME 2 GM in SODIUM CHLORIDE 0.9% 100 ML IVPB SCH (18:12)
--- NOTE | 2024-11-22 20:16 | P.GSCN ---
History of Present Illness Consult date: 11/22/24 Reason for Consult: right ureteral stone History of present illness: This is a a 79 yo male admitted to the hospital with right ureteral stone and UTI. He underwent a CT abdomen and pelvis that showed evidence of 9mm right sided proximal stone with hydronephrosis, there is also evidence of non- obstructing left renal stone. He is been having intermittent right flank pain and upper quadrant abdominal pain for the past two months. He indicates pain is mild and intermittent Denies any dysuria or gross hematuria. No previous history of kidney stones. UA is concerning for UTI, urine culture is pending. His creat 0.84 which is at his baseline. Review of Systems - Constitutional Denies fever, Denies weight loss - EENT Ears, nose, mouth and throat: Denies dysphagia - Cardiovascular Denies chest pain, Denies shortness of breath - Respiratory Denies cough, Denies 7 - Genitourinary Reports flank pain, Reports kidney stones, Denies hematuria - Integumentary Denies rash, Denies unusual bruising - Neurological Denies headaches, Denies syncope Past Medical History Past Medical History: Atrial Fibrillation, Coronary Artery Disease (CAD), Cancer, GERD/Reflux, Hearing Disorder / Deafness, Hyperlipidemia, Hypertension, Pneumonia, Prostate Disorder, Skin Disorder, Thyroid Disorder Additional Past Medical History / Comment(s): Esophageal Cancer 2012; cochlear implants for loss of hearing, enlarged prostate, hx of atrial fibrillation, rash to feet sometimes, hx of sob with walking History of Any Multi-Drug Resistant Organisms: None Reported Past Surgical History: Appendectomy, Bowel Resection, Cholecystectomy, Ear Surgery Additional Past Surgical History / Comment(s): esophagectemy in May 2013, Abdominal Aortic Aneurysm repair on December 06, 2013; cochlear implant in 2009, cholecystectomy in 2007, bowel resection 2022 Past Anesthesia/Blood Transfusion Reactions: No Reported Reaction Additional Past Anesthesia/Blood Transfusion Reaction / Comm: no blood transfusion reaction Past Psychological History: Anxiety Additional Psychological History / Comment(s): takes paxil Smoking Status: Former smoker Past Alcohol Use History: None Reported Additional Past Alcohol Use History / Comment(s): quit smoking 2014,2 packs a day for 55 years Past Drug Use History: None Reported Additional Drug Use History / Comment(s): no current drug abuse, 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 does not know whether his biological mother and father had any medical issues Medications and Allergies Home Medications Medication Instructions Recorded Confirmed Type Atorvastatin [Lipitor] 10 mg PO DAILY 11/30/13 11/21/24 History PARoxetine HCL [Paroxetine HCl] 20 mg PO DAILY 11/30/13 11/21/24 History Levothyroxine Sodium [Synthroid] 25 mcg PO DAILY 10/05/16 11/21/24 History Etanercept [Enbrel Sureclick] 50 mg SQ MO 04/06/22 11/21/24 History Tamsulosin HCl [Flomax] 0.8 mg PO HS 04/06/22 11/21/24 History Apixaban [Eliquis] 5 mg PO DIRECTED 07/19/23 11/21/24 History Finasteride [Proscar] 5 mg PO DAILY 07/19/23 11/21/24 History Metoprolol Tartrate [Lopressor] 25 mg PO DAILY 07/19/23 11/21/24 History Pantoprazole Sodium [Protonix] 40 mg PO DAILY 11/21/24 11/21/24 History Allergies Allergy/AdvReac Type Severity Reaction Status Date / Time No Known Allergies Allergy Verified 11/21/24 15:28 Surgical - Exam Vital Signs Temp Pulse Resp BP Pulse Ox 98.0 F 73 18 102/67 96 11/21/24 11:18 11/21/24 11:18 11/21/24 11:18 11/21/24 11:18 11/21/24 11:18 - General no distress, moderate pain - Eyes normal ocular movement, no pale - ENT normal nares, normal mucosa, decreased hearing - Respiratory normal expansion, normal respiratory effort - Abdomen Abdomen: soft, non tender - Psychiatric oriented to time, oriented to person, oriented to place Results - Labs 11/21/24 12:55 11/21/24 12:55 Assessment and Plan Assessment: 79 yo male with hx of 9mm right sided proximal stone and hydronephrosis. UA is concerning for UTI. Discussed given obstructing stone and UTI, I do recommend proceeding with stent insertion. risk, benefit and rationale was discussed. D iscussed also he will eventuall need right sided ureteroscopy with holmium laser and stent removal as an outpatient once UTI resolves. -NPO past MN -OR for cysto right stent insertion tomorrow
[2024-11-22] MEDS ORDERED: ALBUTEROL NEBULIZED 2.5 MG/3 ML INHALATION PRN (20:42)
--- NOTE | 2024-11-23 02:18 | PN ---
PROGRESS NOTE SUBJECTIVE: An 79-year-old white male, who was admitted to the hospital, on cefepime and azithromycin for urinary tract infection and pneumonia. He also has ureteral stone, needs a stent placed tomorrow by Urology, which I guess is scheduled. He has gram- negative bacilli in his urine culture. OBJECTIVE: VITAL SIGNS: Temperature 98.4, pulse 65, respiratory rate 18, blood pressure 150- 168/80, O2 97%. CARDIOVASCULAR: S1, S2. LUNGS: Transmitted upper sounds. GI: Soft. HEMATOLOGY: Negative Homans. PSYCH: Fair mood and affect. ASSESSMENT: UTI gram-negative infection as well as pneumonia, ureteral stone with hypertension acceleration. Prognosis guarded. Multiple x-rays were done for falls, which were negative stenting. Continue with IV antibiotics until cultures are back, gram- negative bacilli has grown so far. Clinically, he has improved. He feels better. Prognosis guarded. MMODL / IJN: [id number] /
[2024-11-23 08:55] LABS: HCT 35.1 % (39.6-50.0); HGB 11.2 g/dL (13.0-17.0); MCH 29.9 pg (27.0-32.0); MCHC 31.9 g/dL (32.0-37.0); MCV 93.6 FL (80.0-97.0); Mean Platelet Volume 10.4 FL (9.5-12.2); NRBC Per 100 WBC 0 X 10*3/uL (0.00-0.01); Platelet Count 110 X 10*3/uL (140-440); RBC 3.75 X 10*6/uL (4.40-5.60); RDW 14.6 % (11.5-14.5); WBC 4.29 X 10*3/uL (4.50-10.00)
[2024-11-23 08:56] LABS: Basophils # (A) 0.04 X 10*3/uL (0.00-0.10); Basophils % (A) 0.9 %; Eosinophils # (A) 0.38 X 10*3/uL (0.04-0.35); Eosinophils % (A) 8.9 %; Lymphocytes # (A) 1.03 X 10*3/uL (0.90-5.00); Monocytes # (A) 0.82 X 10*3/uL (0.20-1.00); Monocytes % (A) 19.1 %; Neutrophils # (A) 2.01 X 10*3/uL (1.80-7.70); Neutrophils % (A) 46.9 %
[2024-11-23 09:01] LABS: ALT 14 U/L (10-49); AST 32 U/L (14-35); Albumin 2.4 g/dL (3.8-4.9); Albumin/Globulin Ratio 0.62 Ratio (1.60-3.17); Alkaline Phosphatase 101 U/L (41-126); BUN/Creat Ratio 11.38 Ratio (12.00-20.00); Blood Urea Nitrogen 9.1 mg/dL (9.0-27.0); Calcium 7.5 mg/dL (8.7-10.3); Chloride 111 mmol/L (96-109); Globulin 3.9 g/dL (1.6-3.3); Glucose 103 mg/dL (70-110); Potassium 3.7 mmol/L (3.5-5.5); Sodium 141 mmol/L (135-145); Total Bilirubin 0.3 mg/dL (0.3-1.2); Total Protein 6.3 g/dL (6.2-8.2)
--- NOTE | 2024-11-23 10:09 | P.CONS ---
History of Present Illness - Reason for Consult Consult date: 11/22/24 Urosepsis Requesting physician: Addison Bowman - Chief Complaint Weakness and fall x 1 day - History of Present Illness Patient is a 79-year-old male with a past medical history significant forAtrial Fibrillation, Coronary Artery Disease (CAD), Cancer, GERD/Reflux, Hearing Disorder / Deafness, Hyperlipidemia, Hypertension, Pneumonia, Prostate Disorder, Skin Disorder, Thyroid Disorder, patient was brought into the hospital from urology office as apparently the patient was having problem with increased weakness and he did have a fall the day before presentation to the hospital patient did fell on his right arm and is being seen in the right shoulder area patient did hit his head but denies loss of consciousness there was concern for UTI as the patient did have some urinary frequency and burning and some lower abdominal discomfort however patient denies high-grade fever or presentation to hospital the patient was afebrile no fever family car subsequently patient was not tachycardic hypotensive or hypoxic patient did have white count of 4.75 creatinine 0.84 electrolytes are normal liver enzymes normal urine has been positive with large leukocyte esterase with 19 WBC with a cultures currently pending review of his microdata did shows he did have Pseudomonas aeruginosa in the urine on 09/28/2024/very clear what antibiotic the patient has received so far for that infection patient also have a abdominal pelvis CT which shows right lower lobe pneumonic infiltrate small effusion 8.9 mm obstructing right UPJ calculus patient has been started on Rocephin and Zithromax admit to the hospital infectious disease was consulted for urosepsis Review of Systems Positive point and negatives has been mentioned in the HPI, complete review of systems was performed and all other systems are negative Past Medical History Past Medical History: Atrial Fibrillation, Coronary Artery Disease (CAD), Cancer, GERD/Reflux, Hearing Disorder / Deafness, Hyperlipidemia, Hypertension, Pneumonia, Prostate Disorder, Skin Disorder, Thyroid Disorder Additional Past Medical History / Comment(s): Esophageal Cancer 2012; cochlear implants for loss of hearing, enlarged prostate, hx of atrial fibrillation, rash to feet sometimes, hx of sob with walking History of Any Multi-Drug Resistant Organisms: None Reported Past Surgical History: Appendectomy, Bowel Resection, Cholecystectomy, Ear Surgery Additional Past Surgical History / Comment(s): esophagectemy in May 2013, Abdominal Aortic Aneurysm repair on December 06, 2013; cochlear implant in 2009, cholecystectomy in 2007, bowel resection 2022 Past Anesthesia/Blood Transfusion Reactions: No Reported Reaction Additional Past Anesthesia/Blood Transfusion Reaction / Comm: no blood transfusion reaction Past Psychological History: Anxiety Additional Psychological History / Comment(s): takes paxil Smoking Status: Former smoker Past Alcohol Use History: None Reported Additional Past Alcohol Use History / Comment(s): quit smoking 2014,2 packs a day for 55 years Past Drug Use History: None Reported Additional Drug Use History / Comment(s): no current drug abuse, 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 does not know whether his biological mother and father had any medical issues Medications and Allergies Home Medications Medication Instructions Recorded Confirmed Type Atorvastatin [Lipitor] 10 mg PO DAILY 11/30/13 11/21/24 History PARoxetine HCL [Paroxetine HCl] 20 mg PO DAILY 11/30/13 11/21/24 History Levothyroxine Sodium [Synthroid] 25 mcg PO DAILY 10/05/16 11/21/24 History Etanercept [Enbrel Sureclick] 50 mg SQ MO 04/06/22 11/21/24 History Tamsulosin HCl [Flomax] 0.8 mg PO HS 04/06/22 11/21/24 History Apixaban [Eliquis] 5 mg PO DIRECTED 07/19/23 11/21/24 History Finasteride [Proscar] 5 mg PO DAILY 07/19/23 11/21/24 History Metoprolol Tartrate [Lopressor] 25 mg PO DAILY 07/19/23 11/21/24 History Pantoprazole Sodium [Protonix] 40 mg PO DAILY 11/21/24 11/21/24 History Allergies Allergy/AdvReac Type Severity Reaction Status Date / Time No Known Allergies Allergy Verified 11/21/24 15:28 Physical Exam Vitals: Vital Signs Temp Pulse Pulse Resp BP BP Pulse Ox 11/22/24 08:15 60 11/22/24 08:03 58 L 11/22/24 07:00 98.0 F 56 L 16 144/80 97 11/22/24 04:31 98.1 F 56 L 16 129/75 95 11/21/24 21:59 98 F 62 16 124/78 98 11/21/24 19:15 98.1 F 62 16 126/78 95 11/21/24 18:53 58 L 15 120/70 97 Intake and Output 11/21/24 11/22/24 11/22/24 22:59 06:59 14:59 Other: # Voids 2 Weight 74.843 kg GENERAL DESCRIPTION: Elderly male lying in bed, no distress. No tachypnea or acc essory muscle of respiration use. HEENT: Shows Pallor , no scleral icterus. Oral mucous membrane is dry. NECK: Trachea central, no thyromegaly. LUNGS: Unlabored breathing. Clear to auscultation anteriorly. No wheeze or crackle. HEART: S1, S2, regular rate and rhythm. No loud murmur ABDOMEN: Soft, no tenderness , guarding or rigidity, no organomegaly EXTREMITIES: No edema of feet. SKIN: Some bruising to the knee area NEUROLOGICAL: The patient is awake, alert, oriented x3, mood and affect normal. Results CBC & Chem 7: 11/23/24 04:09 11/23/24 04:09 Labs: Abnormal Lab Results - Last 24 Hours (Table) 11/21/24 11/21/24 11/21/24 Range/Units 12:55 12:55 12:55 RBC 3.83 L (4.40-5.60) 10*6/uL Hgb 11.7 L (13.0-17.0) g/dL Hct 34.8 L (39.6-50.0) % Plt Count 123 L (140-440) 10*3/uL Sodium 136 L (137-145) mmol/L Glucose 105 H (74-99) mg/dL Calcium 8.3 L (8.4-10.2) mg/dL Albumin 2.6 L (3.5-5.0) g/dL Urine Protein Trace H (Negative) Urine Blood Moderate H (Negative) Ur Leukocyte Esterase Large H (Negative) Urine RBC 43 H (0-5) /hpf Urine WBC 119 H (0-5) /hpf Urine WBC Clumps Few H (None) /hpf Calcium Oxalate Crystal Rare H (None) /hpf Urine Bacteria Rare H (None) /hpf Urine Mucus Few H (None) /hpf Assessment and Plan (1) UTI (urinary tract infection) Current Visit: Yes Status: Acute Code(s): N39.0 - URINARY TRACT INFECTION, SITE NOT SPECIFIED SNOMED Code(s): 85312807 (2) Urolithiasis Current Visit: Yes Status: Acute Code(s): N20.9 - URINARY CALCULUS, UNSPEC IFIED SNOMED Code(s): 92873762 Plan: 1patient presenting to the hospital with weakness did have a fall this patient has been diagnosed with a complicated UTI has the patient have evidence of 9 mm obstructing right UPJ calculus in this patient who did have recent urine culture done in September 2024 that grew Pseudomonas aeruginosa and would likely cover for that pathogen while waiting for the culture to finalize 2-patient also have some abnormality of right lower lobe infiltrate and effusion does not have significant respiratory symptoms underlying pneumonia not entirely excluded 3-discontinue Rocephin 4-start the patient cefepime while waiting for the culture to finalize Question concern answered We will follow on clinical condition and cultures to further adjust medication if needed Thank you for this consultation we will follow the patient along with you Dictation was produced using [employer] dictation software. please excuse any g rammatical, word or spelling errors. Time with Patient: Greater than 30
--- NOTE | 2024-11-23 14:17 | P.PN ---
Subjective Progress Note Date: 11/23/24 Principal diagnosis: Reason for follow-up is complicated UTI/pneumonia Patient is a 79-year-old male with a past medical history significant forAtrial Fibrillation, Coronary Artery Disease (CAD), Cancer, GERD/Reflux, Hearing Disorder / Deafness, Hyperlipidemia, Hypertension, Pneumonia, Prostate Disorder, Skin Disorder, Thyroid Disorder, patient was brought into the hospital from urology office as apparently the patient was having problem with increased weakness and he did have a fall, did have a positive UA CT with the right lower lobe pneumonic infiltrate and 8 mm right UPJ calculus. On today's evaluation that is 11/23/2024,the patient remains to be afebrile, patient is on room air not requiring supplemental oxygen and denies any shortness of breath no chest pain did have mild productive cough.Patient denies having any nausea or vomiting, no abdominal pain and no diarrhea has been reported. Patient white count is 4.29, creatinine 0.8 cultures currently growing gram- negative Objective - Vital Signs Vital signs: Vital Signs Temp 97.6 F 11/23/24 07:45 Pulse 60 11/23/24 09:40 Resp 18 11/23/24 09:40 BP 173/90 11/23/24 07:45 Pulse Ox 97 11/23/24 07:45 FiO2 Intake & Output 11/22/24 11/23/24 11/23/24 18:59 06:59 18:59 Intake Total 480 Balance 480 Intake: Oral 480 Other: # Voids 3 2 - Exam GENERAL DESCRIPTION: An elderly male lying in bed in no distress RESPIRATORY SYSTEM: Unlabored breathing , decreased breath sounds at bases HEART: S1 S2 regular rate and rhythm , ABDOMEN: Soft , no tenderness EXTREMITIES: No edema feet - Labs CBC & Chem 7: 11/23/24 04:09 11/23/24 04:09 Labs: Abnormal Lab Results - Last 24 Hours (Table) 11/23/24 11/23/24 Range/Units 04:09 04:09 WBC 4.29 L (4.50-10.00) X 10*3/uL RBC 3.75 L (4.40-5.60) X 10*6/uL Hgb 11.2 L (13.0-17.0) g/dL Hct 35.1 L (39.6-50.0) % MCHC 31.9 L (32.0-37.0) g/dL RDW 14.6 H (11.5-14.5) % Plt Count 110 L (140-440) X 10*3/uL Eosinophils # 0.38 H (0.04-0.35) X 10*3/uL Chloride 111 H (96-109) mmol/L BUN/Creatinine Ratio 11.38 L (12.00-20.00) Ratio Calcium 7.5 L (8.7-10.3) mg/dL Albumin 2.4 L (3.8-4.9) g/dL Globulin 3.9 H (1.6-3.3) g/dL Albumin/Globulin Ratio 0.62 L (1.60-3.17) Ratio Microbiology - Last 24 Hours (Table) 11/21/24 23:43 Blood Culture - Preliminary Blood 11/21/24 12:55 Urine Culture - Preliminary Urine,Voided Gram Neg Bacilli Assessment and Plan (1) UTI (urinary tract infection) Current Visit: Yes Status: Acute Code(s): N39.0 - URINARY TRACT INFECTION, SITE NOT SPECIFIED SNOMED Code(s): 20497853 (2) Urolithiasis Current Visit: Yes Status: Acute Code(s): N20.9 - URINARY CALCULUS, UNSPECIFIED SNOMED Code(s): 45693622 (3) Pneumonia Current Visit: No Status: Acute Code(s): J18.9 - PNEUMONIA, UNSPECIFIED ORGANISM SNOMED Code(s): 350978104 Plan: 1patient presenting to the hospital with weakness did have a fall this patient has been diagnosed with a complicated UTI has the patient have evidence of 9 mm obstructing right UPJ calculus in this patient who did have recent urine culture done in September 2024 that grew Pseudomonas aeruginosa and would likely cover for that pathogen while waiting for the culture to finalize 2-patient also have some abnormality of right lower lobe infiltrate and effusion, also symptoms of cough and sputum production pneumonia excluded sputum has been requested check a procalcitonin 3. Continue with cefepime while waiting for the culture to finalize Question concern answered Dictation was produced using [employer] dictation software. please excuse any grammatical, word or spelling errors. Time with Patient: Less than 30
[2024-11-23] MEDS: IV FLUID CONTINUATION 700 ML IV ONE (15:56)
[2024-11-23] MEDS ORDERED: MIDAZOLAM 2 MG/2 ML VIAL ONE (17:30)
[2024-11-23] MEDS ORDERED: KETAMINE HCL IN 0.9 % NACL 50 MG/5 ML SYRINGE ONE (17:30)
[2024-11-23] MEDS ORDERED: PROPOFOL 10 MG/ML 20 ML VIAL IV ONE (17:30)
[2024-11-23] MEDS ORDERED: LIDOCAINE 1% INJ 10MG/ML (20 ML MDV) ONE (17:30)
[2024-11-23] MEDS ORDERED: fentaNYL (PF) 50 MCG/ML 2 ML AMP ONE (17:30)
--- NOTE | 2024-11-23 18:28 | P.PN ---
Subjective No acute overnight event, urine culture growing gram-negative bacilli Objective - Vital Signs Vital signs: Vital Signs Temp 97 F L 11/23/24 18:17 Pulse 51 L 11/23/24 18:17 Resp 16 11/23/24 18:17 BP 155/76 11/23/24 18:17 Pulse Ox 100 11/23/24 18:17 FiO2 Intake & Output 11/22/24 11/23/24 11/23/24 18:59 06:59 18:59 Intake Total 480 400 Output Total 1 Balance 480 399 Intake: IV 400 Oral 480 Output: Estimated Blood Loss 1 Other: # Voids 3 2 1 - Constitutional General appearance: Present: no acute distress - Gastrointestinal General gastrointestinal: Present: soft. Absent: distended, tenderness - Psychiatric Psychiatric: Present: A&O x's 3 - Labs CBC & Chem 7: 11/23/24 04:09 11/23/24 04:09 Labs: Abnormal Lab Results - Last 24 Hours (Table) 11/23/24 11/23/24 Range/Units 04:09 04:09 WBC 4.29 L (4.50-10.00) X 10*3/uL RBC 3.75 L (4.40-5.60) X 10*6/uL Hgb 11.2 L (13.0-17.0) g/dL Hct 35.1 L (39.6-50.0) % MCHC 31.9 L (32.0-37.0) g/dL RDW 14.6 H (11.5-14.5) % Plt Count 110 L (140-440) X 10*3/uL Eosinophils # 0.38 H (0.04-0.35) X 10*3/uL Chloride 111 H (96-109) mmol/L BUN/Creatinine Ratio 11.38 L (12.00-20.00) Ratio Calcium 7.5 L (8.7-10.3) mg/dL Albumin 2.4 L (3.8-4.9) g/dL Globulin 3.9 H (1.6-3.3) g/dL Albumin/Globulin Ratio 0.62 L (1.60-3.17) Ratio Microbiology - Last 24 Hours (Table) 11/21/24 23:43 Blood Culture - Preliminary Blood 11/21/24 12:55 Urine Culture - Preliminary Urine,Voided Gram Neg Bacilli Assessment and Plan Assessment: 79 yo male with hx of 9mm right sided proximal stone and hydronephrosis. UA is concerning for UTI. Urine culture growing gram-negative bacilli. Discussed given obstructing stone and UTI, I do recommend proceeding with stent insertion. risk, benefit and rationale was discussed. Discussed also he will eventuall need right sided ureteroscopy with holmium laser and stent removal as an outpatient once UTI resolves. -NPO -OR for cysto right stent insertion tomorrow
--- NOTE | 2024-11-23 18:30 | P.OP ---
Date of Procedure: 11/23/24 Preoperative Diagnosis: Right ureteral stone Postoperative Diagnosis: Same Procedure(s) Performed: Cystoscopy right stent insertion Implants: 6Fr X 26 cm stent Anesthesia: MAC Surgeon: Wally Cotto Estimated Blood Loss (ml): 1 Pathology: none sent Condition: stable Disposition: PACU Indications for Procedure: 79 yo male with hx of 9mm right sided proximal stone and hydronephrosis. UA is concerning for UTI. Urine culture growing gram-negative bacilli. Discussed given obstructing stone and UTI, I do recommend proceeding with stent insertion. risk, benefit and rationale was discussed. Discussed also he will eventuall need right sided ureteroscopy with holmium laser and stent removal as an outpatient once UTI resolves. Description of Procedure: Patient brought the operating room, general anesthesia was induced. He was prepped and draped in sterile fashion placed in dorsolithotomy position. Cystoscopy through the 21 Polish sheath was inserted per urethra, cystoscopy was performed showed no abnormality within the bladder. Attention was then carried to the right ureteral orifice, sensor was advanced through the cystoscope and up the right ureteral orifice and into the kidney. Of note the stone was radiopaq ue, I was able to advance the wire past the stone. Next a ureteral stent was passed over the wire, the proximal curl was visualized on fluoroscopy and the distal curl was realized using cystoscope. The bladder was emptied at the end of the case. Patient tolerated procedure well secondary covering stable condition
--- NOTE | 2024-11-23 18:40 | FL ---
EXAMINATION TYPE: FL guidance operating room DATE OF EXAM: 11/23/2024 6:15 PM COMPARISON: Pre Operative Images if available both CT/MRI or plain film CLINICAL INDICATION: Male, 79 years old with history of CYSTOSCOPY INS URETERAL STENT; TECHNIQUE: FL guidance operating room, multiple fluoroscopic images provided for procedure. DAP: 1.3960 mGym2 Gycm2 uGym2 cGycm2 or equivalent. FINDINGS: Multiple intraoperative fluoroscopic images were taken resulting in ureteral stent placement with sup erior pigtail in appropriate position projecting over the renal pelvis. No immediate intraoperative c omplication. Multilevel degeneration changes throughout the spine. IMPRESSION: 1. No evidence for intraoperative complication. 2. Please see the operative/procedural note for further details. [facility], , 11/23/2024 6:38 PM
--- NOTE | 2024-11-24 12:56 | P.PN ---
Subjective This post right-sided stent insertion yesterday, he is doing well. Denies any flank pain. Urine cultures growing Pseudomonas Objective - Vital Signs Vital signs: Vital Signs Temp 98.1 F 11/24/24 07:20 Pulse 60 11/24/24 07:20 Resp 16 11/24/24 07:20 BP 169/79 11/24/24 07:20 Pulse Ox 95 11/24/24 07:20 FiO2 Intake & Output 11/23/24 11/24/24 11/24/24 18:59 06:59 18:59 Intake Total 400 Output Total 1 Balance 399 Intake: IV 400 Output: Estimated Blood Loss 1 Other: # Voids 1 2 - Constitutional General appearance: Present: no acute distress - Gastrointestinal General gastrointestinal: Present: soft. Absent: distended, tenderness - Labs CBC & Chem 7: 11/23/24 04:09 11/23/24 04:09 Labs: Microbiology - Last 24 Hours (Table) 11/21/24 23:43 Blood Culture - Preliminary Blood 11/21/24 12:55 Urine Culture - Preliminary Urine,Voided Gram Neg Bacilli Pseudomonas aeruginosa Assessment and Plan Assessment: 79-year-old male history of a 9 mm right UPJ stone, UTI urine cultures growing Pseudomonas. He is status post cystoscopy with stent insertion on November 23. From urology standpoint he is okay for discharge, we will arrange for outpatient follow-up for right-sided ureteroscopy with holmium laser and stent removal. Antibiotic management per infectious disease
[2024-11-24 14:45] VITALS: BP 164/82; PULSE 74; RESP 14; TEMP 97.9
--- NOTE | 2024-11-24 14:52 | P.PN ---
Subjective Progress Note Date: 11/24/24 Principal diagnosis: Reason for follow-up is complicated UTI/pneumonia Patient is a 79-year-old male with a past medical history significant forAtrial Fibrillation, Coronary Artery Disease (CAD), Cancer, GERD/Reflux, Hearing Disorder / Deafness, Hyperlipidemia, Hypertension, Pneumonia, Prostate Disorder, Skin Disorder, Thyroid Disorder, patient was brought into the hospital from urology office as apparently the patient was having problem with increased weakness and he did have a fall, did have a positive UA CT with the right lower lobe pneumonic infiltrate and 8 mm right UPJ calculus.Patient s/p cystoscopy and right ureteral stent placement on 11/23/2024 On today's evaluation that is 11/24/2024, the patient continues to be afebrile, the patient is on room air and breathing comfortably, the Pt denies having any chest pain or cough, the patient denies having any abdominal pain no vomiting or any diarrhea, patient mention improvement in urinary symptoms feeling better. No new lab has been obtained today urine culture with Pseudomonas aeruginosa that is sensitive to cefepime and Cipro Objective - Vital Signs Vital signs: Vital Signs Temp 98.1 F 11/24/24 07:20 Pulse 60 11/24/24 07:20 Resp 16 11/24/24 07:20 BP 169/79 11/24/24 07:20 Pulse Ox 95 11/24/24 07:20 FiO2 Intake & Output 11/23/24 11/24/24 11/24/24 18:59 06:59 18:59 Intake Total 400 Output Total 1 Balance 399 Intake: IV 400 Output: Estimated Blood Loss 1 Other: # Voids 1 2 - Exam GENERAL DESCRIPTION: An elderly male lying in bed in no distress RESPIRATORY SYSTEM: Unlabored breathing , decreased breath sounds at bases HEART: S1 S2 regular rate and rhythm , ABDOMEN: Soft , no tenderness EXTREMITIES: No edema feet - Labs CBC & Chem 7: 11/23/24 04:09 11/23/24 04:09 Labs: Microbiology - Last 24 Hours (Table) 11/21/24 23:43 Blood Culture - Preliminary Blood 11/21/24 12:55 Urine Culture - Preliminary Urine,Voided Gram Neg Bacilli Pseudomonas aeruginosa Assessment and Plan (1) UTI (urinary tract infection) Current Visit: Yes Status: Acute Code(s): N39.0 - URINARY TRACT INFECTION, SITE NOT SPECIFIED SNOMED Code(s): 47410266 (2) Urolithiasis Current Visit: Yes Status: Acute Code(s): N20.9 - URINARY CALCULUS, UNSPECIFIED SNOMED Code(s): 68070886 (3) Pneumonia Current Visit: No Status: Acute Code(s): J18.9 - PNEUMONIA, UNSPECIFIED ORGANISM SNOMED Code(s): 464563454 Plan: 1patient presenting to the hospital with weakness did have a fall this patient has been diagnosed with a complicated UTI has the patient have evidence of 9 mm obstructing right UPJ calculus in this patient who did have recent urine culture done in September 2024 that grew Pseudomonas aeruginosa and would likely cover for that pathogen 2patient urine has been finalized with Pseudomonas aeruginosa sensitive to cefepime and Cipro patient is status post cystoscopy right ureteral stent placement overall improvement on cefepime finishing therapy with oral Cipro prescription sent to the pharmacy discussed with PRODUCTION HARDENER for admitting team at the bedside question concern answered Dictation was produced using [employer] dictation software. please excuse any grammatical, word or spelling errors. Time with Patient: Less than 30
--- NOTE | 2024-11-26 23:40 | P.DS ---
Providers Date of admission: 11/21/24 16:46 Expected date of discharge: 11/24/24 Attending physician: Jessica Zavala Consults: 11/21/24 16:45 Consult Physician Routine Consulting Provider: Wally Cotto Consult Reason/Comments: kidney stone Do you want consulting provider notified?: Yes 11/21/24 23:37 Consult Physician Routine Consulting Provider: Dianna Malagon Consult Reason/Comments: urosepsis Do you want consulting provider notified?: Yes Primary care physician: Kuldip Bowman Hospital Course: Final diagnosis UTI, present on admission with Pseudomonas Status post right-sided stent insertion secondary to right UPJ joint Right lower lobe pneumonic infiltrate, present on admission History of atrial fibrillation Coronary artery disease GERD Hearing disorder with deafness Hyperlipidemia Hypertension Prostate disorder Esophageal cancer in 2013 Anxiety GI prophylaxis DVT prophylaxis Full code Discharge disposition Patient is being discharged in a stable condition with guarded prognosis to home. Patient will follow-up with Dr. Kuldip Bowman in the outpatient setting upon discharge. Patient is to continue with oral Cipro and close outpatient follow-up with infectious disease Dr. Malagon as well as urology as scheduled. Total time taken is greater than 35 minutes. Hospital course This is a 79-year-old male who was recently admitted with acute urinary tract infection also concerns of possible right lower lobe pneumonic infiltrate on admission. Patient was noted to have right UPJ joint on imaging and is status post right-sided stent placement with urology. Urine culture showing Pseudomonas and has been followed by infectious disease and will continue on oral Cipro on discharge with close outpatient follow-up. Patient would like to go home and reports to feeling improved. Patient has been cleared by. Please refer to consultation notes for further HPI. Currently no reports of chest pain, shortness of breath, or palpitations. Patient is afebrile. No reports of nausea or vomiting and patient is tolerating diet. Patient will be discharged home. Guarded prognosis. Physical exam: Gen: This is a 79-year-old male who is awake, alert and oriented x 2-3, baseline, well-developed, elderly appearing, thin built HEENT: Head is atraumatic, normocephalic. Pupils equal, round. Sclerae is anicteric. NECK: Supple. No JVD. No lymphadenopathy. No thyromegaly. LUNGS: Diminished breath sounds bilaterally otherwise clear to auscultation. No wheezes or rhonchi. No intercostal retractions. HEART: Regular rate and rhythm. No murmur. ABDOMEN: Soft. Thin. Bowel sounds are present. No masses. No tenderness. EXTREMITIES: No pedal edema. No calf tenderness. NEUROLOGICAL: Patient is awake, alert and oriented x3. Cranial nerves 2 through 12 are grossly intact. Diffusely weak Please refer to medication reconciliation sheet for a list of medications. The impression and plan of care has been dictated by Brandi Gomez, Nurse Practitioner as directed. Dr. Maria A MD I have performed a history and examination and MDM of this patient, discussed the same with the dictator, and agree with the dictator's assessment and plan as written ,documented as a scribe. Based on total visit time, I have performed more than 50% of the visit. Patient Condition at Discharge: Stable Plan - Discharge Summary New Discharge Prescriptions: New Ciprofloxacin HCl [Cipro] 500 mg PO BID 10 Days #20 tab Acetaminophen Tab [Tylenol] 650 mg PO Q6HR PRN tab PRN Reason: Mild Pain Or Fever > 100.5 Continue Atorvastatin [Lipitor] 10 mg PO DAILY PARoxetine HCL [Paroxetine HCl] 20 mg PO DAILY Levothyroxine Sodium [Synthroid] 25 mcg PO DAILY Etanercept [Enbrel Sureclick] 50 mg SQ MO Finasteride [Proscar] 5 mg PO DAILY Apixaban [Eliquis] 5 mg PO DIRECTED Pantoprazole Sodium [Protonix] 40 mg PO DAILY Tamsulosin HCl [Flomax] 0.8 mg PO HS Metoprolol Tartrate [Lopressor] 25 mg PO DAILY Discharge Medication List Atorvastatin [Lipitor] 10 mg PO DAILY 11/30/13 [History] PARoxetine HCL [Paroxetine HCl] 20 mg PO DAILY 11/30/13 [History] Levothyroxine Sodium [Synthroid] 25 mcg PO DAILY 10/05/16 [History] Etanercept [Enbrel Sureclick] 50 mg SQ MO 04/06/22 [History] Tamsulosin HCl [Flomax] 0.8 mg PO HS 04/06/22 [History] Apixaban [Eliquis] 5 mg PO DIRECTED 07/19/23 [History] Finasteride [Proscar] 5 mg PO DAILY 07/19/23 [History] Metoprolol Tartrate [Lopressor] 25 mg PO DAILY 07/19/23 [History] Pantoprazole Sodium [Protonix] 40 mg PO DAILY 11/21/24 [History] Acetaminophen Tab [Tylenol] 650 mg PO Q6HR PRN tab 11/24/24 [Rx] Ciprofloxacin HCl [Cipro] 500 mg PO BID 10 Days #20 tab 11/24/24 [Rx] Follow up Appointment(s)/Referral(s): Kuldip Bowman MD [Primary Care Provider] - 1 Week Wally Cotto MD [STAFF PHYSICIAN] - 1 Week Dianna Malagon MD [STAFF PHYSICIAN] - 1 Week Activity/Diet/Wound Care/Special Instructions: Activity limited until follow-up Follow-up with primary care provider on discharge Follow-up with urology outpatient as discussed and they may contact you to arrange for follow-up Follow-up with infectious disease outpatient Continue taking antibiotics until finished Discharge Disposition: HOME SELF-CARE
[2024-11-27] MEDS ORDERED: Etanercept [Enbrel Sureclick] 50 MG/ML Pen.Injctr SQ SCH (09:00)
== END 2024-11-24 16:23 | disposition home or self-care (01) | DRG 659 ==
LOC: EC 11:15 → 5NMEDONC 16:46 → OBSVTOIN 16:46 → INTOOBSV 16:46 → 6NMEDSUR 19:51
PROVIDERS: ADMIT Hospitalist; ATTEND Hospitalist
PROC: 0T768DZ Dilation of Right Ureter with Intraluminal Device, Via Natural or Artificial Opening Endoscopic (ICD-10-PCS; principal; 2024-11-23 09:15)
DX: N13.6 Pyonephrosis (principal); J15.69 Pneumonia due to other Gram-negative bacteria; J44.0 Chronic obstructive pulmonary disease with (acute) lower respiratory infection; I10 Essential (primary) hypertension; E03.9 Hypothyroidism, unspecified; I48.91 Unspecified atrial fibrillation; Z79.890 Hormone replacement therapy; W19.XXXA Unspecified fall, initial encounter; B96.5 Pseudomonas (aeruginosa) (mallei) (pseudomallei) as the cause of diseases classified elsewhere; H91.90 Unspecified hearing loss, unspecified ear; E78.5 Hyperlipidemia, unspecified; N40.0 Benign prostatic hyperplasia without lower urinary tract symptoms; K21.9 Gastro-esophageal reflux disease without esophagitis; I25.10 Atherosclerotic heart disease of native coronary artery without angina pectoris; F41.9 Anxiety disorder, unspecified; Z79.01 Long term (current) use of anticoagulants; Z79.899 Other long term (current) drug therapy; Z85.01 Personal history of malignant neoplasm of esophagus; Z86.79 Personal history of other diseases of the circulatory system; Z87.442 Personal history of urinary calculi; Z87.891 Personal history of nicotine dependence; Z90.49 Acquired absence of other specified parts of digestive tract; Z91.81 History of falling; Z87.19 Personal history of other diseases of the digestive system
CPT/HCPCS: 36415; 70450; 72125; 74176; 80053; 81001; 83735; 84145; 85025; 87040; 87077; 87086; 87186; 94640; 96361; 96365; 96367; 99285

== ENCOUNTER 2024-12-05 11:23 | Day surgery (SDC) | payer MEDICARE ==
[2024-11-30 16:13] VITALS: BMI 22.4
--- NOTE | 2024-12-05 08:59 | P.HPIHPCON ---
History of Present Illness H&P Date: 12/05/24 Chief Complaint: Right ureteral stone This is an 79-year-old male with history of a 9 mm right-sided proximal ureteral stone. He is status post stent insertion on November 21. Presents today for right- sided ureteroscopy with holmium laser, he is aware of the risk which include but not limited to bleeding, infection, injury to the ureter Consent for Procedure: I have explained the operation/procedure to the patient, including the risks, benefits, side effects, alternative therapies (including not receiving the proposed treatment or service), the likelihood of the patient achieving his/her goals, and potential recuperation problems for the procedure/sedation/analgesia, as well as any blood products, if indicated. I also explained to the patient the risks, benefits and side effects of the alternatives, as well as the risks related to not receiving the proposed procedure, care, treatment, or services. Past Medical History Past Medical History: Atrial Fibrillation, Coronary Artery Disease (CAD), Cancer, GERD/Reflux, Hearing Disorder / Deafness, Hyperlipidemia, Hypertension, Pneumonia, Prostate Disorder, Skin Disorder, Thyroid Disorder Additional Past Medical History / Comment(s): Esophageal Cancer 2012; cochlear implants for loss of hearing, enlarged prostate, rash to feet sometimes, hx of sob with walking, renal stones History of Any Multi-Drug Resistant Organisms: None Reported Past Surgical History: Appendectomy, Bowel Resection, Cholecystectomy, Ear Surgery Additional Past Surgical History / Comment(s): esophagectomy, Abdominal Aortic Aneurysm repair, cochlear implant on right, cholecystectomy Past Anesthesia/Blood Transfusion Reactions: No Reported Reaction Additional Past Anesthesia/Blood Transfusion Reaction / Comment(s): no blood transfusion reaction Past Psychological History: Anxiety Additional Psychological History / Comment(s): takes paxil Smoking Status: Former smoker Past Alcohol Use History: None Reported Additional Past Alcohol Use History / Comment(s): quit smoking 2014,2 packs a day for 55 years Past Drug Use History: None Reported Additional Drug Use History / Comment(s): . - Past Family History Brother(s) Family Medical History: Unable to Obtain Additional Family Medical History / Comment(s): patient states that he was adopted when he was 3 from a [place] orphanage along with his little sister, later found that he had 2 half brothers and 2 half sisters, no medical problems as far as he knows. does not know whether his biological mother and father had any medical issues Medications and Allergies Home Medications Medication Instructions Recorded Confirmed Type Atorvastatin [Lipitor] 10 mg PO HS 11/30/13 11/30/24 History PARoxetine HCL [Paroxetine HCl] 20 mg PO DAILY 11/30/13 11/30/24 History Levothyroxine Sodium [Synthroid] 25 mcg PO DAILY 10/05/16 11/30/24 History Etanercept [Enbrel Sureclick] 50 mg SQ MO 04/06/22 11/30/24 History Tamsulosin HCl [Flomax] 0.8 mg PO HS 04/06/22 11/30/24 History Apixaban [Eliquis] 5 mg PO BID 07/19/23 11/30/24 History Finasteride [Proscar] 5 mg PO HS 07/19/23 11/30/24 History Metoprolol Tartrate [Lopressor] 25 mg PO DAILY 07/19/23 11/30/24 History Pantoprazole Sodium [Protonix] 40 mg PO DAILY 11/21/24 11/30/24 History Ciprofloxacin HCl [Cipro] 500 mg PO BID 10 Days #20 tab 11/24/24 11/30/24 Rx Allergies Allergy/AdvReac Type Severity Reaction Status Date / Time No Known Allergies Allergy Verified 11/30/24 15:56 Surgical - Exam - General no distress, no pain - Eyes normal ocular movement, no pale - ENT normal nares, normal mucosa - Respiratory normal expansion, normal respiratory effort - Abdomen Abdomen: soft, non tender, no distended Assessment and Plan Assessment: OR for right-sided ureteroscopy, lithotripsy, stone basketing and stent removal
[~2024-12-05 11:23] MED LIST changes: +HYDROmorphone 0.5 MG/0.5 ML SYRINGE IVP PRN; +droPERidol 2.5 MG/ML VIAL IVP ONE
--- NOTE | 2024-12-05 12:27 | XR ---
EXAMINATION TYPE: XR KUB DATE OF EXAM: 12/05/2024 11:44 AM COMPARISON: None. CLINICAL INDICATION: Male, 79 years old with history of Ureteral Stone N20.1, TECHNIQUE: XR KUB view(s) obtained. FINDINGS: There is a normal bowel gas pattern. Psoas margins are normal. No organomegaly is present. r right ureteral stent is present. There is calcification proximal right ureter measuring approximate ly 0.9 cm. IMPRESSION: 1. Right proximal ureteral calcification and right ureteral stent [facility], , 12/05/2024 12:24 PM
[2024-12-05] MEDS: LACTATED RINGERS 1,000 ML IV SCH (12:45)
[2024-12-05] MEDS: LACTATED RINGERS 1,000 ML IV ONE ×2 (12:45→14:07)
[2024-12-05] MEDS: DEXAMETHASONE SOD PHOSPHATE 4 MG/ML 1 ML VIAL IV ONE (12:45)
[2024-12-05] MEDS: ONDANSETRON 4 MG/2 ML VIAL IVP ONE (12:45)
[2024-12-05] MEDS ORDERED: PROPOFOL 10 MG/ML 20 ML VIAL IV ONE (13:27)
[2024-12-05] MEDS ORDERED: ROCURONIUM 10 MG/ML (5 ML VIAL) IV ONE (13:27)
[2024-12-05] MEDS ORDERED: SUCCINYLCHOLINE CHLORIDE 200 MG/10 ML VIAL IV ONE (13:27)
[2024-12-05] MEDS ORDERED: hydrALAZINE HCL 20 MG/ML 1 ML VIAL ONE (13:27)
[2024-12-05] MEDS ORDERED: GLYCOPYRROLATE 0.2 MG/ML 2 ML VIAL ONE (13:27)
[2024-12-05] MEDS ORDERED: NEOSTIGMINE 1 MG/ML 10 ML VIAL ONE (13:27)
[2024-12-05] MEDS ORDERED: LIDOCAINE 1% INJ 10MG/ML (20 ML MDV) ONE (13:27)
[2024-12-05] MEDS ORDERED: fentaNYL (PF) 50 MCG/ML 2 ML AMP ONE (13:27)
[2024-12-05] MEDS: ceFAZolin 2 GM in DEXTROSE 5% IN WATER 50 ML IVPB PRN (13:27)
--- NOTE | 2024-12-05 14:18 | P.OP ---
Date of Procedure: 12/05/24 Preoperative Diagnosis: Right ureteral stone Postoperative Diagnosis: Same Procedure(s) Performed: Cystoscopy, right ureteroscopy, holmium laser lithotripsy, stone basketing and stent removal Implants: None Anesthesia: JOSH Surgeon: Wally Cotto Estimated Blood Loss (ml): 5 Pathology: other (Right ureteral stone) Condition: stable Disposition: PACU Indications for Procedure: This is an 79-year-old male with history of a 9 mm right-sided proximal ureteral stone. He is status post stent insertion on November 21. Presents today for right- sided ureteroscopy with holmium laser, he is aware of the risk which include but not limited to bleeding, infection, injury to the ureter Description of Procedure: Patient brought to the operating, general anesthesia was induced. He was prepped and draped in sterile fashion placed in dorsolithotomy position. Cystoscopy through the 21 [place]an sheath was inserted per urethra, cystoscopy was performed showed no abnormality within the bladder. Of note patient had a moderately trabeculated bladder, within an large occlusive prostate. The stent was seen protruding from the right ureteral orifice, at this point the stent was grasped and removed to the meatus. Next a sensor wire was advanced through the stent and the stent was removed with the wire in place. Under fluoroscopy an 1113 [place]an access sheath was passed over the wire and into the proximal ureter. Next a flexible ureteroscope was inserted through the access sheath, stone was seen at the proximal ureter. Using the holmium laser the stone was fragmented, stone fragments were removed using the stone basket. Repeat ureteroscopy and renoscopy showed no sizable fragments. On fluoroscopy there was no radiopaque density seen. Pullback ureteroscopy was performed showed no injury to the ureter or any ureteral stone. The bladder was emptied at the end of the case. Patient tolerated procedure was taken to recovery in stable condition
[2024-12-05 14:26] VITALS: TEMP 97.2
--- NOTE | 2024-12-05 14:31 | FL ---
Fluoroscopy INDICATION: Pain FINDINGS: Fluoroscopy time: 12.5 seconds. Total dose area product (DAP) in uGy*m?, mGy*cm? (or similar): 0.64174 Images obtained: 2. Images document the procedure. IMPRESSION: 1. Documentation of fluoroscopy. [facility], , 12/05/2024 2:29 PM
[2024-12-05 15:53] VITALS: RESP 16
[2024-12-05 16:08] VITALS: BP 120/69; PULSE 55
== END 2024-12-05 16:20 | disposition home or self-care (01) ==
LOC: OR 11:23
PROVIDERS: ATTEND Urology
DX: N20.1 Calculus of ureter (principal); I25.10 Atherosclerotic heart disease of native coronary artery without angina pectoris; I48.91 Unspecified atrial fibrillation; N40.0 Benign prostatic hyperplasia without lower urinary tract symptoms; E78.5 Hyperlipidemia, unspecified; I10 Essential (primary) hypertension; F41.9 Anxiety disorder, unspecified; Z87.891 Personal history of nicotine dependence; Z85.01 Personal history of malignant neoplasm of esophagus; Z87.442 Personal history of urinary calculi; Z90.49 Acquired absence of other specified parts of digestive tract; Z79.890 Hormone replacement therapy; Z79.01 Long term (current) use of anticoagulants; Z79.02 Long term (current) use of antithrombotics/antiplatelets; Z79.899 Other long term (current) drug therapy
CPT/HCPCS: 82365; 74018; 52353; C1769; J0330; J0360; J1100; J2710; J0690; J2405; J2003; J3010; J2704; J1596